=== PATIENT | male | born 1960 | race Caucasian/White ===

== ENCOUNTER 2017-02-17 22:30 | Inpatient (IN) | payer SELFPAY ==
[~2017-02-17 22:30] MED LIST: EPINEPHrine 1 MG/10 ML Abboject SYRINGE ONE; ISOVUE-370 76%-LOCM 1 ML ONE
[2017-02-17 22:56] LABS: PTT 27.1 SEC (22.9-36.1); Prothrombin Time 14.3 SEC (12.0-14.7)
--- NOTE | 2017-02-17 22:56 | CT ---
EXAM: NONCONTRAST HEAD CT 02/17/17 HISTORY: Left facial droop. Slurred speech. Unable to move the left side. COMPARISON: None. TECHNIQUE: Noncontrast head CT is performed from the skull base to skull vertex. FINDINGS: No parenchymal hemorrhage. No extra-axial hematoma. No midline shift. Basilar cisterns are patent. B rain volume, age appropriate. Cortical mares-white matter differentiation is preserved. Ventricles and sulci are patent and symmetric. The calvarium is intact. Adequate aeration of the sinuses and mastoid air cells. Atherosclerosis of the carotid arteries is noted. IMPRESSION: No acute intracranial process. Results of the study discussed with Dr. Porter, 02/17/17 at 10:38 p.m. Code CR POS: MICHELL
[2017-02-17 23:00] LABS: Hematocrit 43.9 % (42.0-52.0); Mean Platelet Volume 8.5 fL (7.4-10.4); Red Blood Cell (RBC) Count 4.52 mill/uL (4.70-6.10); White Blood Cell (WBC) Count 31.7 thou/uL (4.8-10.8)
[2017-02-17 23:03] LABS: ALT (SGPT) 22 U/L (8-55); AST (SGOT) 16 U/L (5-34); Alkaline Phosphatase 50 U/L (40-150); Anion Gap 21 mmol/L (10-20); BUN (Urea Nitrogen) 27 mg/dL (8.4-25.7); Bilirubin, Total 1.6 mg/dL (0.2-1.2); Calc. Creatinine Clearance 0 mL/min (70-130); Calcium 8.7 mg/dL (7.8-10.44); Carbon Dioxide 18 mmol/L (22-29); Chloride 98 mmol/L (98-107); Estimated GFR-MDRD 21; Globulin 5.7 g/dL (2.4-3.5); Protein, Total 9.1 g/dL (6.0-8.3)
[2017-02-17 23:07] LABS: Troponin I 0.021 ng/mL (< 0.028)
[2017-02-17 23:19] LABS: Band 16 % (5-11); Neutrophil 69 % (42-75)
--- NOTE | 2017-02-17 23:34 | CT ---
EXAM: CT ANGIOGRAM OF THE HEAD CT ANGIOGRAM OF THE NECK CT PERFUSION 02/17/17 HISTORY: Left sided weakness, inability to move. Slurred speech. Facial droop. COMPARISON: None. TECHNIQUE: CT angiogram of the head and neck were performed in the axial plane. Three dimensional reformatted i mages are submitted for interpretation. CT perfusion imaging is performed. FINDINGS: There is loss of mares-white matter differentiation of the right temporal lobe compatible with an MCA distribution infarction. Bilateral ocular lenses are appropriately located. Both globes are intact. The aerodigestive tract is patent. No mucosal abnormality. No obvious masses in the oral cavity. Sym metric attenuation of the parotid and submandibular glands. Symmetric attenuation of the sternocleid omastoid muscles. Thyroid gland is unremarkable. No evidence of lymphadenopathy by size criteria. Ce rvical spine vertebral body height is maintained. There is no fracture. No malalignment. There are v arying degrees of central canal stenosis and foraminal narrowing on the basis of degenerative change . Upper mediastinum is unremarkable. There is fluid in the upper thoracic esophagus. There is also opa cification of the right upper lobe which may be due to pneumonia or aspiration. CT ANGIOGRAM: Limited evaluation of the arterial structures due to suboptimal timing of contrast bolus. The visual ized aortic arch is unremarkable. RIGHT CAROTID: The right carotid artery origin appears to be unremarkable. The right common carotid artery, carotid bifurcation, and internal carotid artery do not demonstrate any significant narrowing by NASCET cri teria. There is mild short segment stenosis involving the mid right internal carotid artery. LEFT CAROTID: The origin of the left carotid artery has appropriate enhancement and luminal diameter. There is sloan cified plaque in the left carotid bifurcation and proximal internal carotid artery. There is short s egment moderate stenosis involving the proximal left internal carotid artery, based upon NASCET crit eria. Limited evaluation of the origin of both vertebral arteries. Limited evaluation of the cervical vert ebral arteries due to timing of contrast bolus. CT ANGIOGRAM OF THE HEAD: There is significantly decreased enhancement involving the right cavernous segment of the internal c arotid artery. There is atherosclerosis of both cavernous segments. ANTERIOR CIRCULATION: There is symmetric enhancement of the A1 segment. The left M1 segment has appropriate enhancement. T he right M1 segment has abrupt termination due to thrombus. The overall distribution of the right MC A is less than the contralateral side. Limited evaluation of both PICA artery origins. Basilar artery appears to be patent. The left and ri ght P1 segments are unremarkable. CT PERFUSION: Images could not be generalized due to patient motion. IMPRESSION: 1. Right MCA distribution infarct. There is abrupt termination of contrast opacifying the right M1 segment. 2. Moderate stenosis based upon NASCET criteria involving the proximal left internal carotid ar tisha. Evaluation limited by technique. 3. Short segment mild stenosis involving the mid right internal carotid artery, also limited by timing of bolus. 4. Opacification of right upper lobe, possibly due to aspiration. 5. Fluid attenuation of the thoracic esophagus. 6. Perfusion imaging was not able to be generated due to patient motion. Results of the study discussed with Dr. Porter, 02/17/17 at 1:42 p.m. Code CR POS: DONNIE
[2017-02-17] MEDS ORDERED: Lorazepam 2 MG/ML VIAL ONE (23:56)
[2017-02-18 00:25] LABS: Amphetamine Not Detected (NotDetected); Methadone Not Detected (NotDetected); Methamphetamine Not Detected (NotDetected)
[2017-02-18 01:05] LABS: Bilirubin Negative (Negative); Blood, Urine Small (Negative); Glucose, Urine (Dipstick) Negative (Negative); Ketone, Urine Negative (Negative); Nitrite Negative (Negative); Protein, Urine (Dipstick) 100 mg/dL (Neg-Trace); Urobilinogen 0.2 mg/dL (0.2-1.0)
[2017-02-18 01:08] LABS: Bacteria/HPF 1+ HPF (None Seen); RBC/HPF 0-3 HPF (0-3); Squamous Epithelial 0-3 HPF (0-3); WBC/HPF 21-50 HPF (0-3)
[2017-02-18 01:09] LABS: Oxyhemoglobin 92.5 % (94.0-97.0); Sodium 140 mmol/L (135-148)
[2017-02-18 01:15] LABS: Hyaline Casts/LPF NONE SEEN LPF (0-3 Hyaline)
[2017-02-18 01:22] LABS: Lactic Acid - Sepsis 6.4 mmol/L (0.5-2.2)
[2017-02-18] MEDS ORDERED: Ondansetron ODT 4 MG TAB PO PRN (01:34)
[2017-02-18] MEDS ORDERED: Ondansetron HCl/PF 4 MG/2 ML Vial IVP PRN (01:34)
[2017-02-18] MEDS ORDERED: CCU Electrolyte Replacement 1 EACH FS SCH (01:37)
[2017-02-18] MEDS ORDERED: Ventilator Sedation Protocol 1 EACH FS SCH (01:37)
[2017-02-18] MEDS ORDERED: DISCONTINUE PREVIOUS NARCOTIC PAIN MEDICATIONS AND BENZODIAZEPINES FS SCH (01:45)
[2017-02-18] MEDS ORDERED: Lorazepam 2 MG/ML VIAL SLOW IVP PRN (01:45)
[2017-02-18] MEDS ORDERED: Fentanyl 20 MCG/ML 250 ML IVPB SCH (01:45)
[2017-02-18] MEDS ORDERED: Propofol 1,000 MG/100 ML VIAL IV PRN (01:45)
[2017-02-18] MEDS ORDERED: Potassium Chloride 40 MEQ in Premix Bag 1 BAG IVPB PRN (01:56)
[2017-02-18] MEDS ORDERED: CCU ELECTROLYTE REPLACEMENT PROTOCOL FS PRN (01:56)
[2017-02-18] MEDS ORDERED: Magnesium Oxide 400 MG TAB PO PRN (01:56)
[2017-02-18] MEDS ORDERED: Potassium Phosphate 9 MMOL in Sodium Chloride 0.9% 100 ML IVPB PRN (01:56)
[2017-02-18] MEDS ORDERED: Potassium Phosphate 12 MMOL in Sodium Chloride 0.9% 250 ML 250 ML IV PRN (01:56)
[2017-02-18] MEDS ORDERED: Potassium Chloride 20 MEQ TAB PO PRN (01:56)
[2017-02-18] MEDS ORDERED: Potassium Phosphate 15 MMOL in Sodium Chloride 0.9% 250 ML 250 ML IV PRN (01:56)
[2017-02-18] MEDS ORDERED: ZOSYN IVPB PRN (02:08)
[2017-02-18] MEDS ORDERED: VANCOMYCIN IVPB PRN (02:08)
[2017-02-18] MEDS: Piperacillin/Tazobactam 4.5 GM in Sodium Chloride 0.9% 100 ML IVPB SCH ×2 (02:41→21:24)
[2017-02-18] MEDS: Sodium Chloride 0.9% 1,000 ML IV SCH ×3 (02:41→18:30)
[2017-02-18 02:43] LABS: Mechanical Tidal Volume 500 ml; Modified Allen's Test POSITIVE; Pressure Support 10 cmH2O; Vent YES
[2017-02-18 02:44] LABS: Mode SIMV
[2017-02-18 03:24] LABS: Lactic Acid - Sepsis 6.8 mmol/L (0.5-2.2)
[2017-02-18 03:25] LABS: Prothrombin Time 29.1 SEC (12.0-14.7)
[2017-02-18 03:26] LABS: PTT 52.4 SEC (22.9-36.1)
[2017-02-18] MEDS ORDERED: Vancomycin HCl 1 GM in Premix Bag 1 BAG IVPB SCH ×2 (03:30→04:00)
[2017-02-18 03:38] LABS: ALT (SGPT) 20 U/L (8-55); AST (SGOT) 21 U/L (5-34); Alkaline Phosphatase 51 U/L (40-150); Anion Gap 20 mmol/L (10-20); BUN (Urea Nitrogen) 29 mg/dL (8.4-25.7); Bilirubin, Total 0.9 mg/dL (0.2-1.2); Calc. Creatinine Clearance 46 mL/min (70-130); Calcium 7.3 mg/dL (7.8-10.44); Carbon Dioxide 13 mmol/L (22-29); Chloride 106 mmol/L (98-107); Estimated GFR-MDRD 29; Globulin 5.2 g/dL (2.4-3.5); Protein, Total 8.1 g/dL (6.0-8.3)
[2017-02-18 03:47] LABS: Troponin I 0.385 ng/mL (< 0.028)
[2017-02-18 04:09] LABS: Hematocrit 57.2 % (42.0-52.0); Mean Platelet Volume 8.4 fL (7.4-10.4); Red Blood Cell (RBC) Count 5.82 mill/uL (4.70-6.10)
[2017-02-18 04:19] LABS: Bilirubin Negative (Negative); Blood, Urine Moderate (Negative); Glucose, Urine (Dipstick) Negative (Negative); Ketone, Urine Negative (Negative); Nitrite Negative (Negative); Protein, Urine (Dipstick) 100 mg/dL (Neg-Trace)
[2017-02-18 04:23] LABS: Bacteria/HPF None Seen HPF (None Seen); Hyaline Casts/LPF 0-3 HYALINE CAST LPF (0-3 Hyaline); Squamous Epithelial 0-3 HPF (0-3)
[2017-02-18 04:31] LABS: Band 24 % (5-11); Neutrophil 66 % (42-75)
[2017-02-18] MEDS: Vancomycin HCl 1.25 GM in Sodium Chloride 0.9% 250 ML 250 ML IVPB SCH (04:40)
[2017-02-18] MEDS ORDERED: Norepinephrine 8 MG/250 ML BAG IVPB PRN (05:54)
--- NOTE | 2017-02-18 07:14 | CT ---
NONCONTRAST HEAD CT: COMPARISON: 02/17/17 at 10:35 p.m., 02/17/17 at 10:42 p.m. HISTORY: Stroke. Left-sided weakness. Right MCA distribution infarction. Status post agitation and altered mentation after giving TPA. TECHNIQUE: Noncontrast head CT is performed from the skull base to the skull vertex. FINDINGS: There is residual contrast noted in the intracranial arterial system. There is loss of mares-white m atter differentiation with minimal sulcal effacement involving the right temporal lobe, compatible w ith patient's known right MCA distribution infarction. When compared to the recent noncontrast imag es, there is some progression of loss of mares-white matter differentiation in the right subinsular c ortex. There is no significant midline shift. Basilar cisterns are patent. There is no evidence o f acute parenchymal hemorrhage. IMPRESSION: 1. Slight progression of ischemic change/infarction involving the right cerebrum. There is loss of cortical mares-white matter differentiation of the right subinsular cortex as well as the right temp oral lobe. 2. No acute hemorrhage. 3. Results of the study discussed with Dr. Porter 02/18/17 at 12:11 a.m. CODE CR POS: DONNIE
[2017-02-18] MEDS ORDERED: Sodium Chloride 0.9% 1,000 ML IV SCH (07:30)
--- NOTE | 2017-02-18 08:13 | CT ---
PRELIMINARY REPORT/[facility]/EMERGENCY AFTER HOURS PROCEDURE: EXAM: CT Abdomen and Pelvis Without Intravenous Contrast CLINICAL HISTORY: 56 years old, male; Signs and symptoms; Bloating; Patient HX: R/O internal bleeding TECHNIQUE: Axial computed tomography images of the abdomen and pelvis without intravenous contrast. Coronal reformatted images were created and reviewed. COMPARISON: No relevant prior studies available. FINDINGS: Artifacts: Evaluation of the abdomen is limited due to streak artifacts. Lower thorax: Mild atelectasis is seen in both lung bases. Coronary artery calcifications are noted. A small hiatal hernia is seen. ABDOMEN: Liver: Unremarkable. Gallbladder and bile ducts: Moderate wall thickening involving the fundus of the gallbladder likely represents adenomyomatosis. No calcified stones. No ductal dilation. Pancreas: Unremarkable. No ductal dilation. Spleen: Unremarkable. No splenomegaly. Adrenals: Unremarkable. No mass. Kidneys and ureters: Mild wedge-shaped hypodensities in both kidneys likely represent infection. No obstructing stones. No hydronephrosis. Stomach and bowel: Mild diverticulosis affects the sigmoid and descending colon. Mild wall thickenin g surrounding the junction of the sigmoid and descending colon, descending colon and cecum likely re presents mild colitis. No evidence of perforation or abscess. No obstruction. Appendix: No findings to suggest acute appendicitis. PELVIS: Bladder: Unremarkable. No stones. Reproductive: Unremarkable as visualized. ABDOMEN and PELVIS: Intraperitoneal space: No evidence of free air in the abdomen. No significant fluid collection. Bones/joints: Moderate degenerative changes affect the spine. Old left-sided rib fractures are seen. No dislocation. Soft tissues: Bilateral small fat containing inguinal hernias are seen. Vasculature: Mild atherosclerotic calcifications affect the aorta and its branches. Several phleboli ths are noted in the pelvis. No abdominal aortic aneurysm. Lymph nodes: Unremarkable. No enlarged lymph nodes. IMPRESSION: 1. Mild wedge-shaped hypodensities in both kidneys likely represent infection. Differential diagnosi s includes infarction, lymphoma. Urine analysis can be obtained for further evaluation. 2. Mild diverticulosis affects the sigmoid and descending colon. Mild wall thickening surrounding th e junction of the sigmoid and descending colon, descending colon and cecum likely represents mild co litis. No evidence of perforation or abscess. 2. Moderate wall thickening involving the fundus of the gallbladder likely represents adenomyomatosi s. An MRI can be obtained for confirmation. Thank you for allowing us to participate in the care of your patient. Dictated and Authenticated by: More, Katherine, MD 02/18/2017 12:57 AM Central Time ([place] \T\ [place]) FINAL REPORT ABDOMEN AND PELVIC CT SCAN WITH IV CONTRAST: EMERGENT AFTER HOURS EXAMINATION TIME: 12:11 a.m. DATE: 02/18/17. Severe motion artifact lowers the sensitivity of this study. Scattered hypodensities in both kidney s most likely representing pyelonephritis. Sigmoid colon diverticulosis without evidence for acute diverticulitis. Wall thickening of the fundus of the gallbladder most likely represents adenomyomat osis. Other findings as above. POS: DONNIE
[2017-02-18] MEDS ORDERED: Vancomycin HCl 1 GM in Sodium Chloride 0.9% 250 ML 250 ML IVPB SCH (09:00)
[2017-02-18] MEDS: Enoxaparin Sodium 30 MG/0.3 ML SYRINGE SC SCH (09:00)
[2017-02-18 09:17] LABS: Hemoglobin A1c 5.2 % (4.0-6.0)
--- NOTE | 2017-02-18 09:39 | RAD ---
SEMIUPRIGHT PORTABLE CHEST 1 VIEW: HISTORY: A 56-year-old male with right upper lobe pneumonia followup. COMPARISON: 02/18/17. FINDINGS: NG tube and endotracheal tubes in position. Monitor leads overlie the chest. Persistent overall st able abnormal alveolar opacity over the right mid lung zone. Blunting of the left costophrenic angl e. IMPRESSION: Stable right mid lung zone pneumonia. Left costophrenic angle blunting, probably small left pleural effusion. POS: [facility]
[2017-02-18 09:52] LABS: Troponin I 0.527 ng/mL (< 0.028)
[2017-02-18] MEDS ORDERED: Lorazepam 1 MG TAB PO SCH (10:00)
--- NOTE | 2017-02-18 10:22 | RAD ---
PORTABLE SUPINE CHEST 1 VIEW: HISTORY: A 56-year-old male with slurred speech. Patient on blood thinners. Cough for 1 week. FINDINGS: Endotracheal tube is in satisfactory location. There is alveolar opacity in the right mid lung zone , evidence for right mid lung zone pneumonia. The left lung is clear. Heart size is within normal limits. IMPRESSION: Abnormal dense opacity in the right mid lung zone. Evidence for pneumonia. Continue short-term fol lowup for complete clearing. If this does not clear after several weeks of medial management, a fol lowup CT scan at that point should be considered. Endotracheal tube in satisfactory location. POS: [facility]
--- NOTE | 2017-02-18 10:23 | RAD ---
CHEST 1 VIEW PORTABLE: HISTORY: A 56-year-old male with cough and symptoms of stroke. COMPARISON: 07/25/13. FINDINGS: An NG tube has been placed with the tip extending into the stomach. Stable right mid lung zone opac ity. IMPRESSION: Nasogastric tube placed with the tip extending into the stomach. POS: MICHELL
--- NOTE | 2017-02-18 10:39 | HP-2 ---
CODE STATUS: FULL. PRIMARY CARE PHYSICIAN: None. ATTENDING: Kip Landa M.D. RESIDENT: Vicki Scott M.D. HISTORIAN: Ex- and neighbor. CHIEF COMPLAINT: Left-sided weakness. HISTORY OF PRESENT ILLNESS: This is a 56-year-old male with past medical history of hypertension, diverticulitis and a past history of substance abuse who presented to the ED because around 8 p.m. his ex- started noticing changes in him. He was sweating a lot and then started getting to where he can move his left arm, left leg and had facial droop. He also started having slurred speech. The patient was able to move his left arm and leg more by the time we were evaluating him in the ED after receiving tPA. In the ER, he was given tPA 4 liters normal saline, rocuronium 100 mg, ketamine 100 mg, epinephrine 1 mg, and Ativan 1 mg. PAST MEDICAL HISTORY: Diverticulitis and hypertension. PAST SURGICAL HISTORY: Tonsillectomy. ALLERGIES: No known drug allergies. MEDICATIONS: 1. Lisinopril 20 mg. 2. Symbicort p.r.n. 3. Ibuprofen 800 mg t.i.d. 4. Cyclobenzaprine 10 mg at bedtime. FAMILY HISTORY: Unable to obtain due to the patient's altered mentation. SOCIAL HISTORY: Per the ER report, smokes 1 pack a day for 30 years and drinks alcohol socially and has a past history of cocaine abuse. REVIEW OF SYSTEMS: Unable to obtain due to the patient's altered mentation. PHYSICAL EXAMINATION: GENERAL: The patient was in acute distress. He was alert, but not appropriately interactive, not oriented. His eye has had pinpoint pupils. Extraocular muscles were non-intact with inability to move. His gaze to the left. Conjunctivae within normal limits. ENT: Nasal mucosa and oropharynx within normal limits. NECK: Supple, no lymphadenopathy. CARDIOVASCULAR: Tachycardic. No murmur, no gallops. Radial pulses 1+. No pedal pulses. RESPIRATORY: Normal effort, no retractions, clear to auscultation bilaterally. SKIN: Mottled skin, lipoma on the back. ABDOMEN: Distended. Positive for guarding and rebound. Tender to palpation. Normoactive bowel sounds. EXTREMITIES: Mottled skin, cyanosis in the feet. No edema. MUSCULOSKELETAL: Structure and tone within normal limits. A 4/5 muscle strength on the left, 5/5 on the right. NEUROLOGIC: Focal deficits with decreased motor strength. Sensation was within normal limits. Deep tendon reflexes 2/4. Cranial nerve and VII on the left were not intact. LABORATORY DATA: WBC 31.7, hemoglobin 14.9, hematocrit 43.9, platelets 259, and bands 16%. Sodium 134, potassium 3.3, chloride 98, CO2 18, BUN 27, creatinine 3.05, GFR 21, glucose 193, calcium 8.7, total bilirubin 1.6, AST 16, ALT 22, alkaline phosphatase 50. PT 14.3, INR 1.1, PTT 27.1. Ammonia 13. Lactate 6.4, troponin 0.021, CK-MB 1.4. UDS positive for opiates and tricyclics. IMAGING: Brain CT showed no acute intracranial process. CTA head and neck showed right MCA infarct. ASSESSMENT AND PLAN: This is a 56-year-old male who presents with: 1. Acute right middle cerebral artery cerebrovascular accident. The patient received tPA in the ED and then became hypotensive, requiring 4 liters normal saline. There was concern for bleeds. CT abdomen, pelvis and head were done which showed no acute bleed. We will consult neuro in the morning. Once patient is extubated, we will consult speech, PT, OT and Stroke Team. I will get an echo, fasting lipid panel, MRI. We will start on aspirin and statin prior to discharge. 2. Severe sepsis. The patient was hypotensive, requiring 4 liter boluses, was responsive to fluids. White count of 31.7 and lactate of 6.4. Chest x-ray showed right upper lobe infiltrate, suspected aspiration pneumonia. Patient was altered and unable to protect his airway, requiring intubation. We will admit to ICU. Blood cultures x2, urine culture NS at 200, vancomycin, Zosyn, repeat lactate. Consult Pulmonology. Keep patient on ventilator overnight. 3. Right upper lobe pneumonia, suspect aspiration, vancomycin, Zosyn, and blood cultures. 4. Hyponatremia. NS at 200 mL per hour. We will monitor. 5. Hypokalemia. Potassium is 3.3. We will replete with CCU or electrolyte replacement protocol. 6. Acute kidney injury likely secondary to severe sepsis status post 4 liter boluses and we will give NS at 200 mL per hour and we will monitor. 7. Elevated total bilirubin could be secondary to sepsis. We will check a direct bilirubin. 8. History of substance abuse. The patient is sedated on ventilator. We will monitor. 9. Hypertension, not currently requiring meds as patient has been hypotensive. We will resume home medications once patient is no longer hypotensive. 10. VTE prophylaxis status post tPA. DISPOSITION: Admit to ICU. Symptomatic medications will be provided. History and physical exam as well as management discussed with Dr. Landa. Patient was seen by me along with Dr. Scott. I agree with sidhu portions of note above. Patient was intubated and sedated at the time of the examination. A handwritten addendum is in his chart. INDU
--- NOTE | 2017-02-18 11:14 | CON ---
DATE OF SERVICE: 02/18/2017 SERVICE: Pulmonary Medicine. HISTORY OF PRESENT ILLNESS: The patient is a 56-year-old white male with past medical history significant for alcohol abuse. He presented to the hospital with what was suspected to be altered mentation secondary to a stroke. CT of the head was performed demonstrating no blood. He was subsequently given tPA. In the observation period, he became hypotensive. Sepsis workup was undertaken and right mid lung zone pneumonia was identified. He was subsequently intubated and sedated after 3 liters of fluid. Ultimately, he required 4 liters of fluid to maintain blood pressures. He was transiently started on Levophed peripherally, but after discontinuing the propofol the next morning, his blood pressures were quite nice. He had no overnight events. Otherwise, he cannot provide any additional elements of the history because he is currently sedated and intubated. PAST MEDICAL HISTORY: 1. Alcohol abuse. 2. Nicotine dependence. 3. Osteoarthritis. 4. Hypertension. 5. Abdominal hernia. PAST SURGICAL HISTORY: Tonsillectomy. ALLERGIES: No known drug allergies. MEDICATIONS: List of inpatient medications was reviewed. Multiple updates were made. FAMILY HISTORY: Noncontributory. SOCIAL HISTORY: He has a [id number] history of smoking and continues to smoke roughly 1 pack per day. He is an everyday drinker and uses about a fifth of alcohol on a daily basis based on what I was told. He has cocaine abuse, but quit 2 or 3 years ago. 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 He has a girlfriend with 6 children from a previous marriage. He denies any exposure to chemicals, dust asbestos or tuberculosis outside of his welding career. REVIEW OF SYSTEMS: General, head, ears, eyes, nose, throat, cardiovascular, respiratory, GI, , musculoskeletal, neurologic and skin is negative except as mentioned in the HPI. PHYSICAL EXAMINATION: VITAL SIGNS: Afebrile, pulse 93, blood pressure 92/45, respirations 25, saturation 99% on 21% FiO2 and PEEP of 5. GENERAL APPEARANCE: The patient is intubated and sedated. He does wake up and answer some simple questions. He drips back to sleep within 10 seconds without stimulation. HEENT: Normocephalic, atraumatic. Sclerae are white, conjunctivae pink. Oral and nasal mucosa is moist without lesions. Pupils are equal, round, and reactive to light. LUNGS: Excellent air entry. There is no prolonged expiratory phase, wheezing, rhonchi or crackles. HEART: Normal rate and regular. ABDOMEN: Soft, nontender, nondistended. Bowel sounds are positive. MUSCULOSKELETAL: No cyanosis or clubbing. No pitting in the bilateral lower extremities. NEUROLOGIC: Grossly nonfocal. Specifically, he moves all 4 extremities and demonstrates fairly symmetric strength throughout. LABORATORY DATA: WBC 44.0, hemoglobin 18.9, platelets 335,000. INR 2.6, pH 7.13 , pCO2 47, and pO2 95. Sodium 134. Creatinine 2.31, which is well above his baseline, but down trending. Liver function studies are unremarkable. Cardiac enzymes 0.385. This is trending upward. Lactate 5.4, but decreasing. Urine drug screen is positive for opiates and tricyclic antidepressants. IMAGIN. Chest x-ray demonstrates right mid lung zone infiltrate. Possible small left pleural effusion. 2. CT of the abdomen and pelvis demonstrates multiple wedge shaped lesions of the bilateral kidneys. 3. CT of the brain demonstrates ischemic change/infarction involving the right cerebrum. Loss of cortical mares and white matter differentiation in the right subinsular cortex as well as the right temporal lobe. No acute hemorrhage. 4. CTA of the [place] without contrast demonstrates MCA distribution infarction overlying the M1 segment. There is moderate stenosis based on criteria of the proximal left internal carotid artery. Short segment of mild stenosis involving the mid right internal carotid artery. Opacification of the right upper lobe due to aspiration. Fluid attenuation of the esophagus. Perfusion imaging was not generated. ASSESSMENT: 1. Acute hypoxic respiratory failure, improving. 2. Community-acquired pneumonia. 3. Septic shock, resolving. 4. Possible renal infarctions. 5. Cerebrovascular, multifocal. 6. Endocarditis, possible. 7. Acute kidney injury, resolving. 8. Non-ST elevation myocardial infarction. PLAN: We will proceed with transthoracic echocardiogram. If this is unremarkable, a transesophageal echo will be obtained once the patient is stable. Spontaneous breathing trial will be performed and if he meets criteria , extubation will be considered. Continue supportive care and empiric antibiotics. Repeat lactate in the morning. Critical Care will continue to follow while the patient remains inhouse. He will certainly need to remain here because he got tPA. Critical care time: 30 minutes. MTDD
[2017-02-18] MEDS ORDERED: Piperacillin/Tazobactam 4.5 GM in Sodium Chloride 0.9% 100 ML IVPB SCH (15:00)
[2017-02-18 15:29] LABS: Troponin I 0.458 ng/mL (< 0.028)
[2017-02-18] MEDS: Lorazepam 2 MG/ML VIAL SLOW IVP SCH ×2 (17:37→23:37)
[2017-02-18] MEDS: Piperacillin/Tazobactam 3.375 GM, Admixture Fee 1 EACH in Sodium Chloride 0.9% 100 ML IVPB SCH ×2 (17:40→23:37)
--- NOTE | 2017-02-18 18:48 | CON ---
DATE OF CONSULTATION: 02/18/2017 CONSULTING PHYSICIAN: Hospitalist Service. IMPRESSION: 1. Right middle cerebral artery thrombosis with improving left-sided weakness. There is prodromal infectious process, raising the concern for subacute bacterial endocarditis. Patient is status post tPA. 2. Tobacco use. 3. Alcohol use. PLAN: 1. Start antiplatelet therapy tomorrow. 2. Transesophageal echo. 3. Review blood cultures. Mr. Vences is a 56-year-old man who came in with acute onset of left-sided weakness. He had had a pro dromal fever and it is in a way thought to be a viral illness. He has a markedly elevated white cou nt on admission. He was given tPA after CTA revealed evidence of M1 segment occlusion. There is so me partial occlusion of the left ICA as well. His symptoms have improved. He was initially intubat ed, but now has been extubated. He has been started on Ativan for fear of withdrawal from alcohol. He admits to drinking around a fifth of liquor a day episodically. He denies any past history of D Ts. He had an echocardiogram done which was reviewed by Dr. Reardon, there are no evidence of vegetati ons on the valves reported. His creatinine was noted to be elevated at 2.5 suggesting evidence of a n acute renal injury as well. He is reporting some degree of headache, but no nausea or vomiting. He denies any past history of stroke like symptoms. PAST MEDICAL HISTORY: Otherwise as per chart. SOCIAL HISTORY: Positive for some history of cocaine use. FAMILY HISTORY: Noncontributory. MEDICATIONS: List was reviewed. REVIEW OF SYSTEMS: Otherwise, negative for any abdominal pain, shortness of breath and pain in the extremities. He did have some chest pain and some transient bump in his troponins. PHYSICAL EXAMINATION: VITAL SIGNS: Pulse 106, blood pressure 115/78, saturation 100%. Respiratory rate 25. HEENT: Pupils equal and reactive. Conjunctivae clear. Oropharynx clear. EXTREMITIES: No cyanosis or edema noted. NEUROLOGIC: He is alert and cooperative. His speech was moderately dysarthric. Cranial nerve exam shows flattening of the left nasal labial fold. Motor exam showed antigravity strength on the left side, though there is some mild weakness present, especially in the hand. Sensation was subjective ly equal. Gait was not testable. No abnormal movements were seen. LABORATORY STUDIES: EKG shows normal sinus rhythm. Echocardiogram shows an ejection fraction around 60%. White blood cell count was 44,000, hemoglobin 18.9, platelet count 339. INR 2.6, BUN 29, creatinine 2.3, glucose 192. Drug screen is positive for opiates and tricyclics. SUMMARY: Middle-aged man who presented with acute stroke symptoms in the face of an elevated white count and suggestive evidence of sepsis raising concern of subacute bacterial endocarditis. I can a gree with your plan of care. I will follow in his care.
--- NOTE | 2017-02-18 20:13 | CON ---
CARDIOLOGY CONSULTATION NOTE DATE OF CONSULTATION: 02/18/2017 The patient is being seen in the Intensive Care Unit. INDICATION FOR CONSULTATION: A 56-year-old patient who suffered a right middle cerebral artery and CVA was given TPA. He also was noted to have some possible right upper lobe pneumonia with acute re nal insufficiency. There was a question of whether or not the patient may also have sepsis and endo carditis. We were asked to see him regarding possible endocarditis. This time, the patient is at [place] awake at times. He seems to be somewhat sedated, but may be still somewhat confused, but will arouse and will answers some questions, but difficult to obtain all the H\T\P from the patient. At this time, he is comfortable and appears to be stable. Blood pressure is 147/74 and heart rate is 1 06 and shows a sinus tachycardia. PAST MEDICAL HISTORY: Significant for diverticulitis, hypertension and substance abuse. He has had history of cocaine abuse in the past. He has had tonsillectomy. SOCIAL HISTORY: He smoked in the past and continues to smoke a pack a day for 30 years. According to some history from the staff, he drinks up to a fifth of whiskey a day. FAMILY HISTORY: Noncontributory. MEDICATIONS: Included lisinopril, Symbicort, ibuprofen and cyclobenzaprine. ALLERGIES: None. REVIEW OF SYSTEMS: Please refer to the notes already dictated. PHYSICAL EXAMINATION: GENERAL: Reveals an elderly gentleman. VITAL SIGNS: Blood pressure 90/45, heart rate is 92 and regular, O2 saturation 99% and respiratory rate is 25. HEENT: Shows the head to be normocephalic and atraumatic. Carotid pulses are present. There are n o bruits. There is no JVD. Thyroid does not appear enlarged. His chest appears to be clear except for some scattered rales. No significant abnormalities, otherwise no wheezing is noted. The patie nt appears to be breathing comfortably. CARDIOVASCULAR: Reveals a regular rate and rhythm with normal S1, S2. There were no significant mu rmurs, heaves, thrills, bruits or rubs noted. ABDOMEN: Soft and nontender. Positive bowel sounds. EXTREMITIES: Showed no clubbing or cyanosis. He does have somewhat cool extremities. Pedal pulses are present, but somewhat decreased. NEUROLOGIC: The patient appears to be somewhat lethargic, but is arousable and then to returns to [facility]. LABORATORY DATA: Certainly has significant abnormalities. The WBC is 44,000, platelet count 335,00 0, hemoglobin was 18.9 and hematocrit was 57.2. His creatinine is 2.3 with a BUN of 29, blood sugar 192, potassium 4.6 and sodium is 134. Lactic acid level is 4.9. His troponin I was slightly eleva beverly and is still indeterminate. Actually, at first visit, it was 0.38 and then increased 0.52 and h as decreased down to 0.45. LDL was 73. He said he has had no previous cardiac history. IMAGING DATA: EKG shows a normal sinus rhythm with no acute changes. His chest x-ray shows a right middle lobe pneumonia with possibly a small left pleural effusion. He did have an echocardiogram p erformed, which shows a normal ejection fraction of 60% to 65% with mild tricuspid valve regurgitati on, trace mitral valve regurgitation, probable diastolic dysfunction. I did not visualize any evide nce of endocarditis or vegetations in the valvular structures. IMPRESSION AND PLAN: 1. A 56-year-old gentleman with a status post cerebrovascular accident due to a right middle cerebr al artery occlusion for which he underwent TPA and thrombolytic therapy. He is being monitored very closely by the staff. 2. Question of sepsis with elevated white blood cell count, but no indication of endocarditis that I can determine, if this is still in question, then he will need to undergo a transesophageal echoca rdiogram, also blood cultures, I believe had been obtained. 3. Hypertension. As in the history, but at this time, the blood pressure is stable. 4. Hyponatremia and hypokalemia. Needs to be addressed also by the primary care service. 5. Acute renal insufficiency, which may be due to possible underlying sepsis either from pneumonia or other etiologies, but I did not see endocarditis. At this time, we will be more than happy to co osmel to follow the patient with you, but at this time, the cardiac status appears to be stable. 6. Abnormal cardiac enzymes, most likely this is due to the elevated white blood cell count and pos sible sepsis that the patient is suffering at this time. 7. History of tobacco abuse. Patient should be advised to stop smoking altogether. 8. History of alcohol abuse. He will need also to curtail his alcohol intake.
[2017-02-18] MEDS: Atorvastatin Calcium 40 MG TAB PO SCH (20:31)
[2017-02-18] MEDS: Acetaminophen 650 MG Suppository PR PRN (23:36)
[2017-02-19] MEDS: Vancomycin HCl 1.25 GM in Sodium Chloride 0.9% 250 ML 250 ML IVPB SCH ×2 (03:10→16:11)
[2017-02-19] MEDS: Sodium Chloride 0.9% 1,000 ML IV SCH ×3 (03:11→18:26)
[2017-02-19] MEDS: Acetaminophen 650 MG Suppository PR PRN ×2 (03:57→08:31)
[2017-02-19] MEDS ORDERED: Fentanyl 100 MCG/2 ML VIAL SLOW IVP PRN ×2 (03:58→11:30)
[2017-02-19 04:45] LABS: #Lymphocytes 1.1 thou/uL (1.20-3.40); #Monocytes 0.6 thou/uL (0.11-0.59); #Neutrophils 10.9 thou/uL (1.40-6.50); %Basophils 0.1 % (0.0-1.0); %Eosinophils 0.2 % (0.0-10.0); %Lymphocytes 8.7 % (21.0-51.0); %Monocytes 4.9 % (0.0-10.0); Hematocrit 39.3 % (42.0-52.0); Mean Platelet Volume 8.9 fL (7.4-10.4); White Blood Cell (WBC) Count 12.7 thou/uL (4.8-10.8)
[2017-02-19 04:52] LABS: ALT (SGPT) 18 U/L (8-55); AST (SGOT) 23 U/L (5-34); Alkaline Phosphatase 31 U/L (40-150); Anion Gap 13 mmol/L (10-20); BUN (Urea Nitrogen) 31 mg/dL (8.4-25.7); Bilirubin, Total 0.7 mg/dL (0.2-1.2); Calc. Creatinine Clearance 85 mL/min (70-130); Calcium 7.5 mg/dL (7.8-10.44); Carbon Dioxide 22 mmol/L (22-29); Chloride 111 mmol/L (98-107); Estimated GFR-MDRD 59; Globulin 4.4 g/dL (2.4-3.5); Protein, Total 7.3 g/dL (6.0-8.3)
[2017-02-19] MEDS: Piperacillin/Tazobactam 3.375 GM, Admixture Fee 1 EACH in Sodium Chloride 0.9% 100 ML IVPB SCH ×4 (05:48→23:29)
[2017-02-19 07:29] LABS: Phosphorus 2.4 mg/dL (2.3-4.7)
--- NOTE | 2017-02-19 07:45 | PDOC.FM ---
- Subjective Subjective: No acute events overnight, VSS w/ mild tachycardia. Seen by Neuro and cards yesterday. Afebrile. Complaining of back pain this AM, improved w/ fentanyl received overnight. Seen by speech w/o passing bedside swallow for any consistency. - Objective MAR Reviewed: Yes Vital Signs & Weight: Vital Signs (12 hours) Temp Pulse Resp Pulse Ox 02/19/17 04:00 98.7 F 02/19/17 00:00 99.0 F 02/18/17 20:00 98.1 F 112 H 25 H 99 Weight Admit Weight 91.798 kg Weight 91.798 kg Most Recent Monitor Data Heart Rate from ECG 103 NIBP 139/87 NIBP BP-Mean 97 Respiration from ECG 21 SpO2 94 I&O: 02/18/17 02/19/17 02/20/17 06:59 06:59 06:59 Intake Total 1018 1555.9 Output Total 1113 2867 Balance -95 -1311.1 Result Diagrams: 02/19/17 03:55 02/19/17 03:55 <Edenilson Butler - Last Filed: 02/19/17 07:44> - Objective Vital Signs & Weight: Vital Signs (12 hours) Temp BP 02/19/17 08:00 98.1 F 149/77 H 02/19/17 04:00 98.7 F 02/19/17 00:00 99.0 F Weight Admit Weight 202 lb 6.08 oz Weight 202 lb 6.08 oz Most Recent Monitor Data Heart Rate from ECG 113 NIBP 149/77 NIBP BP-Mean 100 Respiration from ECG 21 SpO2 95 I&O: 02/18/17 02/19/17 02/20/17 06:59 06:59 06:59 Intake Total 1018 1555.9 Output Total 1113 2867 150 Balance -95 -1311.1 -150 Result Diagrams: 02/19/17 03:55 02/19/17 03:55 <Kip Landa - Last Filed: 02/19/17 10:37> Phys Exam - Physical Examination Constitutional: NAD dysarthria rhonci R-lobe Cardiovascular: RRR Gastrointestinal: soft, non-tender Musculoskeletal: no edema Neurological: moves all 4 limbs 4/5 left upper and lower ext. Skin: cap refill <2 seconds <Edenilson Butler - Last Filed: 02/19/17 07:44> Dx/Plan (1) Septic shock Code(s): A41.9 - SEPSIS, UNSPECIFIED ORGANISM; R65.21 - SEVERE SEPSIS WITH SEPTIC SHOCK Status: Acute Plan: Stable BP overnight off pressors since yesterday AM Good UOP 1.3 mL/Kg/Hr BCx pending UCx NGTD C. diff negative Likely 2/2 aspiration PNA however concern for possible endocarditis 2/2 hx of IVDU w/ significantly elevated white count at presentation Seen by cardiology who states pt stable from a cardiac standpoint Crit care on board as well Appreciate recs Cont. w/ IV abx covering for both aspiration PNA and endocarditis (2) Aspiration pneumonia Code(s): J69.0 - PNEUMONITIS DUE TO INHALATION OF FOOD AND VOMIT Status: Acute Plan: Right middle lobe consolidation in setting if heavy EtOH use concerning for likely aspiration PNA Cont. w/ IV Abx Cx pending, no preliminary results at this time Wean O2 as tolerated (3) Endocarditis Code(s): I38 - ENDOCARDITIS, VALVE UNSPECIFIED Status: Suspected Plan: Possible endocarditis, cont. w/ IV abx Will consider JOAN for further evaluation (4) OLGA (acute kidney injury) Code(s): N17.9 - ACUTE KIDNEY FAILURE, UNSPECIFIED Status: Acute Plan: Resolving Cont. w/ IVF (5) Elevated troponin Code(s): R74.8 - ABNORMAL LEVELS OF OTHER SERUM ENZYMES Status: Acute Plan: Downtrending No EKG changes Likely 2/2 demand, will continue to monitor (6) CVA (cerebral vascular accident) Code(s): I63.9 - CEREBRAL INFARCTION, UNSPECIFIED Status: Acute Plan: R-MCA stroke s/p tPA administration Eval by neuro w/ recs to restart antiplatelet today Pt started on [place] aspirin this AM 2/2 unable to take PO w/ failed swallow study MRI w/o contrast this AM for further evaluation VSS, will consider transfer to stroke pending crit care reccomendations Repeat eval w/ speech today for PO intake Pt will likely need placement in some sort of rehab facility (SNF vs inpatient rehab). Will consult CM. Cont. w/ PT/OT/Speech (7) Back pain Code(s): M54.9 - DORSALGIA, UNSPECIFIED Status: Chronic Plan: Pt mostly complaining of back pain from a fall he has last week Will plan to get out of bed today to aid w/ discomfort Will have PRN meds available <Edenilson Butler - Last Filed: 02/19/17 07:44> Attending Addendum - Attending Addendum I personally evaluated the patient and discussed the management with Dr. Butler I agree with the History, Examination, Assessment and Plan documented above with any addition or exceptions noted below. Patient is doing much better. He is awake and alert. He is moving his LUE and LLE with good strength. His pnuemococcal antigen is positive. We are treating him for pneumonia. His WBC has dropped from 31k to 12k. Overall he is doing better. We can probably move him to the floor today. Echo pending. <Kip Landa - Last Filed: 02/19/17 10:37>
[2017-02-19] MEDS: Enoxaparin Sodium 30 MG/0.3 ML SYRINGE SC SCH (08:29)
[2017-02-19] MEDS: Magnesium 2 GM/NS 0.9% 100 ML 2 GM in Premix Bag 1 BAG IVPB PRN (08:29)
[2017-02-19] MEDS: Lorazepam 2 MG/ML VIAL SLOW IVP SCH ×4 (08:30→23:48)
[2017-02-19] MEDS: Aspirin 300 MG Suppository PR SCH (08:30)
--- NOTE | 2017-02-19 09:27 | PDOC.CTH ---
<Amalia Purvis - Last Filed: 02/19/17 09:21> Cardiology Progress Note - Subjective The pt was seen and examined. No overnight events. No cardiac complaints. He complains of pain in his right back which is chronic and from s/p fall due to CVA. Alerted and able to show where he has pain; however, very drowsy. - Objective Vital Signs Temp BP 02/19/17 08:00 98.1 F 149/77 H 02/19/17 04:00 98.7 F 02/19/17 00:00 99.0 F Admit Weight 202 lb 6.08 oz Weight 202 lb 6.08 oz 02/18/17 02/19/17 02/20/17 06:59 06:59 06:59 Intake Total 1018 1555.9 Output Total 1113 2867 150 Balance -95 -1311.1 -150 - Physical Examination General/Neuro: other: Neck: no JVD present Lungs: CTA Heart: RRR Abdomen: soft Extremities: other: (generalized edema) - Telemetry Telemetry Rhythm: SR and ST 90-100s - Labs Result Diagrams: 02/19/17 03:55 02/19/17 03:55 Troponin/CKMB CK-MB (CK-2) 1.4 ng/mL (0-6.6) 02/17/17 22:38 Troponin I 0.458 ng/mL (< 0.028) H* 02/18/17 14:48 - Assessment/Plan 1. CVA in Rt middl cerebral artery w/ S/P TPA and thrombolytic therapy - very drowsy and NPO at this time 2. Elevated WBC - Improved today; If suspect possible endocarditis, will consider JOAN for further evaluation; cont IV antibiotics 3. HTN - stable; PRN Labetolol IV was ordered 4. Acute Renal failure - 1.26 today from 2.31 yesterday; cont. monitor 5. Elevated troponin - possible demand ischemia; cont. monitor on tele 6. Smoker and ETOH abuse 7. Back pain - hx of Chronic Back pain and s/p fall due to CVA yesterday; Review of Systems - Review of Systems Constitutional: reports: see HPI EENTM: reports: see HPI Respiratory: reports: see HPI Cardiac (ROS): reports: see HPI ABD/GI: reports: see HPI : reports: see HPI Musculoskeletal: reports: see HPI <Nguyễn Reardon Howie - Last Filed: 02/19/17 16:11> Cardiology Progress Note - Objective Vital Signs Temp Pulse Resp BP Pulse Ox 02/19/17 15:06 83 02/19/17 13:10 96 02/19/17 12:00 98.8 F 02/19/17 08:00 98.1 F 100 20 149/77 H 96 Admit Weight 202 lb 6.08 oz Weight 202 lb 6.08 oz 02/18/17 02/19/17 02/20/17 06:59 06:59 06:59 Intake Total 1018 1555.9 Output Total 1113 2867 995 Balance -95 -1311.1 -995 - Labs Result Diagrams: 02/19/17 03:55 02/19/17 03:55 Troponin/CKMB CK-MB (CK-2) 1.4 ng/mL (0-6.6) 02/17/17 22:38 Troponin I 0.458 ng/mL (< 0.028) H* 02/18/17 14:48 - Assessment/Plan Pt. was seen and evaluated by me. I agree with the A/P by the [employer]. Further cardiac workup when the neurologic status is back to some baseline.He is very agitated at times.
[2017-02-19 10:25] LABS: Strp pneuU Control Background? CLEAR/WHITE (CLR/WHITE); Strp pneumo Control Bar Appear YES (CONTROL BAR)
--- NOTE | 2017-02-19 10:29 | MRI ---
MRI OF THE BRAIN WITHOUT CONTRAST: COMPARISON: CT brain 02/18/17. HISTORY: Right-sided stroke status post TPA. TECHNIQUE: Multiplanar, multisequence MR images were obtained of the brain without contrast. FINDINGS: This exam is limited secondary to motion artifact. The patient was unable to complete the examinati on. There is a large area of restricted diffusion and high FLAIR signal in the right MCA distributi on. This involves the basal ganglia, temporal lobe, frontal lobe, and parietal lobe. No significan t midline shift or downward herniation is present. No obvious susceptibility artifact is seen to sánchez ggest intracranial hemorrhage. The expected flow voids are present. The corpus callosum, pituitary, and craniocervical junction ar e unremarkable. The calvarium and overlying soft tissues are unremarkable. The visualized paranasal sinuses and mas toid air cells are well aerated. IMPRESSION: Evolving right middle cerebral artery distribution infarction. POS: [facility]
[2017-02-19] MEDS ORDERED: Magnesium 2 GM/NS 0.9% 50 ML 2 GM in Premix Bag 1 BAG IVPB SCH (12:00)
--- NOTE | 2017-02-19 12:05 | PRG ---
DATE OF SERVICE: 02/19/2017 SERVICE: PULMONARY MEDICINE. INTERVAL HISTORY: The patient is doing fine from a cardiovascular and respiratory standpoint. He c urrently denies any fevers, chills, or difficulty breathing. That being said, he continues to have onset of back discomfort. He is somnolent at best. That being said, he does appear to protect his airway. There were no significant overnight events. PHYSICAL EXAMINATION: VITAL SIGNS: Afebrile, pulse 101, blood pressure 151/71, respirations 21, saturations 99% on 2 lite rs nasal cannula. GENERAL: The patient is somnolent, but he does wake up easily and answers questions appropriately. He is in mild respiratory distress and has some discomfort of the back. HEENT: Normocephalic, atraumatic. Sclerae are white, conjunctivae pink. Oral and nasal mucosa is moist without lesions. LUNGS: Decent air entry with no prolonged expiratory phase, wheezing, rhonchi, or crackles. HEART: Normal rate, regular. ABDOMEN: Soft, nontender, nondistended. Bowel sounds are positive. MUSCULOSKELETAL: No cyanosis or clubbing. No pitting in the bilateral lower extremities. There ar e good pulses at the radial bilaterally as well as the dorsalis. GENITOURINARY: Reid catheter in place. LABORATORY DATA: WBC 12.7, hemoglobin 13.0, platelets 158,000. INR 2.6. Basic metabolic profile i s essentially unremarkable. Creatinine continues to improve to 1.26. Liver function studies are un remarkable. Troponin 0.454 and gently down trending. Lactate has cleared to 2.0. Magnesium was 1. 0 with normal phosphorus today. Urine strep pneumonia is positive. C. difficile antigen and toxin was negative. Blood cultures x2 are unremarkable. Urine culture negative to date. IMAGING: MRI of the brain demonstrates evolving right MCA distribution infarction. ASSESSMENT: 1. Acute hypoxic respiratory failure, improving. 2. Community-acquired pneumonia. 3. Septic shock, resolved. 4. Possible renal infarctions. 5. Cerebrovascular accident of the right middle cerebral artery. 6. Endocarditis, possible. 7. Acute kidney injury, resolved. 8. Non-ST elevation myocardial infarction. PLAN: Thinking about the proximate cause of the stroke and the renal lesions, we would require some thing to break off from the heart. We are waiting on the results of the blood cultures, which are c urrently unremarkable. General supportive care and antibiotics will be continued. I would like for him to remain in the ICU 1 more day and we will work on mobilizing him. Physical therapy will get involved. We will provide him with fentanyl on an as needed basis for his back discomfort. He has absolutely no ability to swallow. If he fails a swallow evaluation again, Dobbhoff tube will be ini tiated and feeds will be started. If he needs it, we can consider Precedex, particularly if he star ts to have withdrawal features. If that is the case, we will discontinue the Ativan. Magnesium has been replaced, but we will provide additional dose. Repeat laboratories will be performed tomorrow morning. He is recovering nicely from his severe infection.
[2017-02-19] MEDS ORDERED: Magnesium 2 GM/NS 0.9% 100 ML 2 GM in Premix Bag 1 BAG IVPB SCH (12:15)
[2017-02-19] MEDS: Fentanyl 100 MCG/2 ML VIAL SLOW IVP PRN ×2 (12:15→23:28)
--- NOTE | 2017-02-19 13:24 | RAD ---
SINGLE VIEW OF THE ABDOMEN: COMPARISON: None. HISTORY: Dobbhoff placement. Right-sided cerebral infarction. FINDINGS: A single view of the upper abdomen shows a Dobbhoff tube with its tip near the pylorus. There is a nonobstructive bowel gas pattern. IMPRESSION: Dobbhoff tube located in the stomach. POS: [facility]
[2017-02-19] MEDS: Ziprasidone 20 MG VIAL IM PRN (13:51)
[2017-02-19] MEDS: Sterile Water 10 ML VIAL FS PRN (13:52)
[2017-02-19] MEDS ORDERED: Folic Acid 1 MG TAB PO SCH (16:15)
[2017-02-19] MEDS ORDERED: MULTIVITAMINS IV SCH ×3 (16:30)
[2017-02-19] MEDS ORDERED: NACL IV SCH ×3 (16:30)
[2017-02-19] MEDS ORDERED: THIAMINE HCL IV SCH ×3 (16:30)
[2017-02-19] MEDS ORDERED: DEXTROSE IV SCH ×3 (16:30)
[2017-02-19] MEDS: Atorvastatin Calcium 40 MG TAB PO SCH (20:01)
[2017-02-19] MEDS: clonazePAM 1 MG TAB PO SCH (20:03)
[2017-02-20] MEDS: Vancomycin HCl 1.25 GM in Sodium Chloride 0.9% 250 ML 250 ML IVPB SCH ×2 (03:26→16:01)
[2017-02-20] MEDS: Piperacillin/Tazobactam 3.375 GM, Admixture Fee 1 EACH in Sodium Chloride 0.9% 100 ML IVPB SCH ×3 (05:02→17:27)
[2017-02-20] MEDS: Lorazepam 2 MG/ML VIAL SLOW IVP SCH ×2 (05:02→12:35)
[2017-02-20 05:03] LABS: ALT (SGPT) 15 U/L (8-55); AST (SGOT) 23 U/L (5-34); Alkaline Phosphatase 57 U/L (40-150); Anion Gap 10 mmol/L (10-20); BUN (Urea Nitrogen) 19 mg/dL (8.4-25.7); Bilirubin, Total 0.6 mg/dL (0.2-1.2); Calc. Creatinine Clearance 114 mL/min (70-130); Calcium 8.2 mg/dL (7.8-10.44); Carbon Dioxide 24 mmol/L (22-29); Chloride 111 mmol/L (98-107); Estimated GFR-MDRD 83; Globulin 4.7 g/dL (2.4-3.5); Protein, Total 7.6 g/dL (6.0-8.3)
[2017-02-20 05:18] LABS: Band 7 % (5-11); Mean Platelet Volume 9.2 fL (7.4-10.4); Neutrophil 72 % (42-75); Red Blood Cell (RBC) Count 3.49 mill/uL (4.70-6.10); White Blood Cell (WBC) Count 11.2 thou/uL (4.8-10.8)
[2017-02-20] MEDS: Sterile Water 10 ML VIAL FS PRN (06:35)
[2017-02-20] MEDS: Ziprasidone 20 MG VIAL IM PRN (06:36)
[2017-02-20] MEDS: Aspirin 300 MG Suppository PR SCH (08:34)
[2017-02-20] MEDS: Folic Acid 1 MG TAB PO SCH (08:34)
[2017-02-20] MEDS: clonazePAM 1 MG TAB PO SCH ×2 (08:35→21:07)
[2017-02-20] MEDS: Enoxaparin Sodium 30 MG/0.3 ML SYRINGE SC SCH (08:35)
--- NOTE | 2017-02-20 09:39 | PDOC.CTH ---
Cardiology Progress Note - Subjective Pt. seen and evaluated. No cardiac events over night. Significant agitation last PM that required Geodon and sedation.He is still sedated but arousable. This was likely ETOH withdrawal. He was on a BiPAP mask during the night. This has been removed and he appears stable at this time. - ROS not able to obtain ROS - Objective Vital Signs Temp Pulse Resp BP Pulse Ox 02/20/17 08:00 97.6 F 84 25 H 100 02/20/17 06:57 84 02/20/17 05:15 22 H 02/20/17 04:00 98.2 F 02/20/17 02:48 75 02/20/17 02:00 28 H 02/20/17 00:00 98.6 F 02/19/17 23:38 153/76 H Admit Weight 202 lb 6.08 oz Weight 202 lb 9.677 oz 02/19/17 02/20/17 02/21/17 06:59 06:59 06:59 Intake Total 1555.9 3994.4 30 Output Total 2867 2220 120 Balance -1311.1 1774.4 -90 - Physical Examination General/Neuro: other: (somewhat sedated. Moves all extremities when stimulated) Lungs: other: (R upper chest wheezing) Heart: RRR Abdomen: NT/ND, soft - Labs Result Diagrams: 02/20/17 03:48 02/20/17 03:48 Troponin/CKMB CK-MB (CK-2) 1.4 ng/mL (0-6.6) 02/17/17 22:38 Troponin I 0.458 ng/mL (< 0.028) H* 02/18/17 14:48 - Assessment/Plan 1. CVA in Rt middl cerebral artery w/ S/P TPA and thrombolytic therapy - Pt. is still sedated somwhat this AM. He was very agitated yesterday PM. Consider ETOH withdrawal. 2. Elevated WBC - Improved today; If suspect possible endocarditis, will consider JOAN for further evaluation; cont IV antibiotics 3. HTN - stable; PRN Labetolol IV was ordered. May need po meds when more alert. 4. Acute Renal failure - resolved 5. Elevated troponin - possible demand ischemia; cont. monitor . Suggest outpt. stress test when neurologically stable. 6. Smoker and ETOH abuse 7. Back pain - hx of Chronic Back pain and s/p fall
[2017-02-20] MEDS: Sodium Chloride 0.9% 1,000 ML IV SCH ×2 (10:30→17:27)
[2017-02-20] MEDS ORDERED: Senokot 8.6 MG TAB PO PRN (11:54)
--- NOTE | 2017-02-20 11:58 | PDOC.FM ---
- Subjective Subjective: Pt w/ increased agitation overnight requiring sedation and intermittent usage of bipap to maintain sats. Otherwise VSS, afebrile. - Objective MAR Reviewed: Yes Vital Signs & Weight: Vital Signs (12 hours) Temp Pulse Resp Pulse Ox 02/20/17 11:04 92 31 H 98 02/20/17 08:00 97.6 F 84 25 H 100 02/20/17 06:57 84 02/20/17 05:15 22 H 02/20/17 04:00 98.2 F 02/20/17 02:48 75 02/20/17 02:00 28 H 02/20/17 00:00 98.6 F Weight Admit Weight 91.798 kg Weight 91.9 kg Most Recent Monitor Data Heart Rate from ECG 84 NIBP 170/86 NIBP BP-Mean 108 Respiration from ECG 26 SpO2 95 I&O: 02/19/17 02/20/17 02/21/17 06:59 06:59 06:59 Intake Total 1555.9 3994.4 180.3 Output Total 2867 2220 290 Balance -1311.1 1774.4 -109.7 Result Diagrams: 02/20/17 03:48 02/20/17 03:48 <Edenilson Butler - Last Filed: 02/20/17 11:55> - Objective Vital Signs & Weight: Vital Signs (12 hours) Temp Pulse Resp BP Pulse Ox 02/20/17 15:00 94 185/84 H 02/20/17 14:26 92 02/20/17 12:00 98.2 F 02/20/17 11:04 92 31 H 98 02/20/17 08:00 97.6 F 84 25 H 100 02/20/17 06:57 84 02/20/17 05:15 22 H Weight Admit Weight 91.798 kg Weight 91.9 kg Most Recent Monitor Data Heart Rate from ECG 96 NIBP 185/84 NIBP BP-Mean 105 Respiration from ECG 52 SpO2 98 I&O: 02/19/17 02/20/17 02/21/17 06:59 06:59 06:59 Intake Total 1555.9 3994.4 180.3 Output Total 2867 2220 460 Balance -1311.1 1774.4 -279.7 Result Diagrams: 02/20/17 03:48 02/20/17 03:48 <Sara Kim - Last Filed: 02/20/17 16:42> Phys Exam - Physical Examination sedated HEENT: PERRLA, moist MMs Faint wheezing on BiPap Gastrointestinal: soft, positive bowel sounds distended Musculoskeletal: no edema, pulses present Neurological: moves all 4 limbs Deviation from normal: sedated Skin: cap refill <2 seconds <Edenilson Butler - Last Filed: 02/20/17 11:55> Dx/Plan (1) Alcohol withdrawal Code(s): F10.239 - ALCOHOL DEPENDENCE WITH WITHDRAWAL, UNSPECIFIED Status: Acute Plan: Pt w/ hx of drinking 1/5th a day W/ increased agitation requiring sedation Will watch through the AM If agitation worsens and need for bipap persists will consider re-intubation 2/ 2 concerns for DT's Cont. w/ ASE protocol (2) Septic shock Code(s): A41.9 - SEPSIS, UNSPECIFIED ORGANISM; R65.21 - SEVERE SEPSIS WITH SEPTIC SHOCK Status: Acute Plan: Stable BP overnight off pressors since yesterday AM Good UOP 0.97 mL/Kg/Hr BCx NGTD UCx NGTD C. diff negative Likely 2/2 strep PNA, however still have endocarditis in ddx 2/2 hx of IVDU w/ significantly elevated white count at presentation Seen by cardiology who states pt stable from a cardiac standpoint Crit care on board as well Appreciate recs Cont. w/ IV abx covering for both aspiration PNA and endocarditis (3) Aspiration pneumonia Code(s): J69.0 - PNEUMONITIS DUE TO INHALATION OF FOOD AND VOMIT Status: Acute Plan: Right middle lobe consolidation in setting if heavy EtOH use concerning for likely aspiration PNA strep pneumonia ag positive Cont. w/ IV Abx Cx pending, no preliminary results at this time Wean O2 as tolerated (4) Endocarditis Code(s): I38 - ENDOCARDITIS, VALVE UNSPECIFIED Status: Suspected Plan: Possible endocarditis, cont. w/ IV abx Will consider JOAN for further evaluation (5) OLGA (acute kidney injury) Code(s): N17.9 - ACUTE KIDNEY FAILURE, UNSPECIFIED Status: Acute Plan: Resolving Cont. w/ IVF (6) Elevated troponin Code(s): R74.8 - ABNORMAL LEVELS OF OTHER SERUM ENZYMES Status: Acute Plan: Downtrending No EKG changes Likely 2/2 demand, will continue to monitor (7) CVA (cerebral vascular accident) Code(s): I63.9 - CEREBRAL INFARCTION, UNSPECIFIED Status: Acute Plan: R-MCA stroke s/p tPA administration Eval by neuro w/ recs to restart antiplatelet today Pt started on [place] aspirin this AM 2/2 unable to take PO w/ failed swallow study MRI showing R-MCA distribution evolving infarct VSS, however now w/ withdrawal sxs and increased agitation NG tube placed w/ dobhoff for enteral feeds Will hold for now 2/2 abdominal distention Pt will likely need placement in some sort of rehab facility (SNF vs inpatient rehab). CM consulted Cont. w/ PT/OT/Speech (8) Back pain Code(s): M54.9 - DORSALGIA, UNSPECIFIED Status: Chronic Plan: Pt mostly complaining of back pain from a fall he has last week Will plan to get out of bed today to aid w/ discomfort Will have PRN meds available <Edenilson Butler - Last Filed: 02/20/17 11:55> Attending Addendum - Attending Addendum I personally evaluated the patient and discussed the management with Dr. Butler I agree with the History, Examination, Assessment and Plan documented above with any addition or exceptions noted below. 56 yo male admitted for right sided MCA CVA. Concern for septic emboli due to Strep pneumo pneumonia and renal infarcts. Currently on emperic antibx. Tolerating CPAP/BiPAP this AM. Wean per pulm ECHO and bubble study negative Agitation/Alcohol use. Improved with antipsychotics medications. CVA. Stable no improvement. Will continue feeds through Doboff at this time. Start bowel regiment Continue ICU management. FadiayMD <Sara Kim - Last Filed: 02/20/17 16:42>
[2017-02-20] MEDS: Labetalol HCl 100 MG/20 ML VIAL SLOW IVP PRN (14:26)
[2017-02-20] MEDS ORDERED: Propofol 1,000 MG/100 ML VIAL IV ONE (14:48)
[2017-02-20] MEDS ORDERED: Midazolam HCl 2 mg/2 ml Vial ONE (14:53)
[2017-02-20] MEDS ORDERED: Ventilator Sedation Protocol 1 EACH FS SCH (15:15)
[2017-02-20] MEDS ORDERED: Lorazepam 2 MG/ML VIAL SLOW IVP PRN (15:25)
[2017-02-20] MEDS ORDERED: Fentanyl 20 MCG/ML 250 ML IVPB SCH (15:25)
[2017-02-20] MEDS ORDERED: DISCONTINUE PREVIOUS NARCOTIC PAIN MEDICATIONS AND BENZODIAZEPINES FS SCH (15:25)
[2017-02-20] MEDS ORDERED: Morphine 10 MG/ML VIAL SLOW IVP PRN (15:28)
[2017-02-20] MEDS: Metoclopramide HCl 10 MG/10 ML UDCUP PO SCH ×2 (16:11→21:07)
--- NOTE | 2017-02-20 16:17 | PRG ---
DATE OF SERVICE: 02/20/2017 SERVICE: Pulmonary Medicine. INTERVAL HISTORY: The patient is doing poorly from a respiratory standpoint. His mentation has not improved very much. He has required a couple of doses of Geodon. He also required Ativan to be used on an as needed basis. Otherwise, there have been no specific overnight events. His respiratory rate continues to increase. PHYSICAL EXAMINATION: VITAL SIGNS: Afebrile, pulse 94, blood pressure 185/84, respirations 30, saturation 99% on 24% FiO2. GENERAL: The patient is somnolent. That being said, he does wake up and answer some questions appropriately. He is in moderate respiratory distress. LUNGS: Good air entry. There are rhonchi present bilaterally without prolonged expiratory phase or wheezing. HEART: Normal rate and regular. ABDOMEN: Soft, nontender, nondistended. Bowel sounds positive. MUSCULOSKELETAL: No cyanosis or clubbing. There is no pitting in the bilateral lower extremities. NEUROLOGIC: Grossly nonfocal. LABORATORY DATA: WBC is down trending to 11.2, hemoglobin 11.5 and gently downtrending, platelets 156,000. INR 2.6. Basic metabolic profile and liver function studies are essentially unremarkable. Cardiac enzymes have been downtrending previously. Magnesium is 1.8 today. Phosphorus was previously 2.4 with normal lactate. Urine culture and blood culture x2 are unremarkable. Clostridium difficile antigen and toxin are unremarkable. ASSESSMENT: 1. Acute hypoxic respiratory failure, getting worse. 2. Community-acquired pneumonia. 3. Septic shock, resolved. 4. Renal infarction, possible. 5. Cerebrovascular accident of the right middle cerebral artery. 6. Acute kidney injury, resolved. 7. Non-ST elevation myocardial infarction. 8. Endocarditis, possible. 9. Alcohol abuse. PLAN: We will continue supportive care. My suspicion is the patient is going to be re-intubated. This is likely the effect of withdrawal from alcohol and/ or his recent stroke. We will add some GI motility agents. Geodon will be discontinued. If he can tolerate BiPAP breaks by the end of the day, intubation will need to be considered. Pulmonary or Critical Care will continue to follow while the patient remains inhouse. [facility]
[2017-02-20] MEDS: Acetaminophen 650 MG Suppository PR PRN (16:28)
[2017-02-20 16:29] LABS: Oxyhemoglobin 93.4 % (94.0-97.0); Sodium 145 mmol/L (135-148)
[2017-02-20 16:30] LABS: Mechanical Tidal Volume 450 ml; Mode PSIMV; Modified Allen's Test POSITIVE; Pressure Support 10 cmH2O; Vent YES
--- NOTE | 2017-02-20 18:29 | RAD ---
PORTABLE SEMI UPRIGHT FRONTAL CHEST RADIOGRAPH: 02/20/2017 COMPARISON: 02/18/2017 HISTORY: Ventilated patient. FINDINGS: Endotracheal tube present, distal tip overlying the region of the clavicular heads. Dobbhoff feedin g tube extends into the upper abdomen, stable. Dense area of lateral right upper lobe consolidation again seen. Left lung is clear as is right violet g base. IMPRESSION: Persistent dense consolidation of right upper lobe. Follow-up to resolution advised. POS: DONNIE
[2017-02-20] MEDS: Atorvastatin Calcium 40 MG TAB PO SCH (21:07)
[2017-02-20] MEDS: Senokot S 8.6-50 MG TAB PO SCH (21:07)
[2017-02-20] MEDS: Propofol 1,000 MG/100 ML VIAL IV PRN (21:12)
--- NOTE | 2017-02-20 21:49 | PRG ---
DATE OF SERVICE: 02/20/2017 SUBJECTIVE: The patient is extremely agitated. OBJECTIVE: VITAL SIGNS: Breathing 40 times a minute, pulse 130, sats 95%. GENERAL: He is not moving his left side. He has had a CVA. CHEST: Reveals rhonchi. CARDIAC: Sinus tachycardia. ABDOMEN: Soft. NEUROLOGIC: He was encephalopathic. He was seen earlier by Dr. Castro, tried noninvasive ventilation which has failed. White count 11, 000 with 70 segs, 7 bands. It was felt that he needed to be intubated because of progressive encephalopathy and respiratory dis tress. There are no family members present at the bedside. He was told he would be intubated. A bite block was placed and a 7.5 endotracheal tube was placed o patsy the bronchoscope. He was given 50 of propofol. Initially, there was a moderate amount of mucus in the back of his throat which was suctioned and cleaned. Thereafter, the endotracheal tube was p assed through the vocal cords and placed above the earl. The bronchoscope was removed. The patie nt was bagged. Additional sedation was given 2 of Versed. Thereafter, bronchoscope was repassed ag ain and both lungs were inspected and cleaned. There was a mild amount of mucopurulent secretions t hat were suctioned and lavaged. No further endobronchial disease was seen. Patient tolerated the p rocedure well and connected to warm cycle respirator. Additionally, continue broad-spectrum antibio tics. IMPRESSION: 1. Respiratory failure and encephalopathy. 2. Cerebrovascular accident. PLAN: Continue vent support. X-ray is being ordered. This is one-half hour critical care time exclusive of the intubation.
[2017-02-21] MEDS: Piperacillin/Tazobactam 3.375 GM, Admixture Fee 1 EACH in Sodium Chloride 0.9% 100 ML IVPB SCH ×4 (00:10→18:00)
[2017-02-21 04:49] LABS: ALT (SGPT) 16 U/L (8-55); AST (SGOT) 19 U/L (5-34); Alkaline Phosphatase 75 U/L (40-150); Anion Gap 12 mmol/L (10-20); BUN (Urea Nitrogen) 13 mg/dL (8.4-25.7); Bilirubin, Total 0.7 mg/dL (0.2-1.2); Calc. Creatinine Clearance 118 mL/min (70-130); Carbon Dioxide 24 mmol/L (22-29); Chloride 111 mmol/L (98-107); Estimated GFR-MDRD 86; Globulin 4.5 g/dL (2.4-3.5); Protein, Total 7.2 g/dL (6.0-8.3)
[2017-02-21] MEDS: Vancomycin HCl 1.25 GM in Sodium Chloride 0.9% 250 ML 250 ML IVPB SCH ×2 (04:56→16:33)
[2017-02-21] MEDS: Propofol 1,000 MG/100 ML VIAL IV PRN ×3 (04:57→21:46)
[2017-02-21 05:00] LABS: Band 8 % (5-11); Hematocrit 30.4 % (42.0-52.0); Mean Platelet Volume 8.8 fL (7.4-10.4); Neutrophil 66 % (42-75); Nucleated RBC 1 % (0); Red Blood Cell (RBC) Count 3.13 mill/uL (4.70-6.10); White Blood Cell (WBC) Count 8.1 thou/uL (4.8-10.8)
[2017-02-21] MEDS: Sodium Chloride 0.9% 1,000 ML IV SCH ×2 (07:42→16:35)
[2017-02-21] MEDS: Aspirin 300 MG Suppository PR SCH (09:15)
[2017-02-21] MEDS: clonazePAM 1 MG TAB PO SCH ×2 (09:15→21:14)
[2017-02-21] MEDS: Metoclopramide HCl 10 MG/10 ML UDCUP PO SCH ×4 (09:15→21:14)
[2017-02-21] MEDS: Enoxaparin Sodium 30 MG/0.3 ML SYRINGE SC SCH (09:16)
[2017-02-21] MEDS: Polyethylene Glycol 3350 17 GM Packet PO SCH (09:17)
[2017-02-21] MEDS: Senokot S 8.6-50 MG TAB PO SCH ×2 (09:17→21:14)
[2017-02-21] MEDS: Folic Acid 1 MG TAB PO SCH (09:17)
--- NOTE | 2017-02-21 09:17 | RAD ---
CHEST 1 VIEW: Date: 02/21/17 HISTORY: Ventilated patient. COMPARISON: Chest 1 view from prior day. FINDINGS: Endotracheal tube tip in good position. A weighted feeding tube tip below the diaphragm but out of f ield of view. Right upper lobe consolidation is similar. IMPRESSION: No significant change in radiographic appearance of the chest. POS: [facility]
--- NOTE | 2017-02-21 09:47 | PDOC.FM ---
- Subjective Subjective: Pt re-intubated yesterday 2/2 worsening agitation from EtoH withdrawal requiring ativan and inability to tolerate breaks from bipap. Othewise doing well. Complaining of back pain this AM which is chronic for him. Large BM's yesterday per nursing staff. Denies any abdominal pain. - Objective MAR Reviewed: Yes Vital Signs & Weight: Vital Signs (12 hours) Temp Pulse Resp BP 02/21/17 08:00 100.1 F H 18 163/79 H 02/21/17 06:40 88 144/68 H 02/21/17 04:04 79 02/21/17 04:00 99.2 F 02/21/17 00:00 99 F 22 H 139/65 02/20/17 22:54 73 149/71 H 02/20/17 22:00 22 H Weight Admit Weight 91.798 kg Weight 92.108 kg Most Recent Monitor Data Heart Rate from ECG 75 NIBP 163/79 NIBP BP-Mean 102 Respiration from ECG 18 SpO2 100 I&O: 02/20/17 02/21/17 02/22/17 06:59 06:59 06:59 Intake Total 3994.4 3748.2 Output Total 2220 1395 175 Balance 1774.4 2353.2 -175 Result Diagrams: 02/21/17 03:40 02/21/17 03:40 <Edenilson Butler K - Last Filed: 02/21/17 09:45> - Objective Vital Signs & Weight: Vital Signs (12 hours) Temp Pulse Pulse Resp BP BP Pulse Ox 02/21/17 18:00 8 L 02/21/17 16:00 99.6 F 11 L 174/77 H 02/21/17 14:59 84 170/79 H 02/21/17 14:00 7 L 02/21/17 12:00 99.1 F 7 L 148/67 H 02/21/17 10:25 85 157/72 H 02/21/17 10:00 8 L 02/21/17 08:56 115 H 167/74 H 99 Pulse Ox 02/21/17 18:00 02/21/17 16:00 02/21/17 14:59 02/21/17 14:00 02/21/17 12:00 02/21/17 10:25 02/21/17 10:00 02/21/17 08:56 97 Weight Admit Weight 91.798 kg Weight 92 kg Most Recent Monitor Data Heart Rate from ECG 86 NIBP 179/78 NIBP BP-Mean 133 Respiration from ECG 8 SpO2 94 I&O: 02/20/17 02/21/17 02/22/17 06:59 06:59 06:59 Intake Total 3994.4 3748.2 1723 Output Total 2220 1395 1140 Balance 1774.4 2353.2 583 Result Diagrams: 02/21/17 03:40 02/21/17 03:40 <Sara Kim - Last Filed: 02/21/17 21:07> Phys Exam - Physical Examination sedated/intubated HEENT: PERRLA, moist MMs Neck: no JVD Respiratory: clear to auscultation bilateral Cardiovascular: RRR, no significant murmur Gastrointestinal: positive bowel sounds distended, non-tender Musculoskeletal: pulses present Neurological: moves all 4 limbs follows commands. weakness on left upper/lower ext. Deviation from normal: sedated/intubated Skin: cap refill <2 seconds <Edenilson Butler - Last Filed: 02/21/17 09:45> Dx/Plan (1) Alcohol withdrawal Code(s): F10.239 - ALCOHOL DEPENDENCE WITH WITHDRAWAL, UNSPECIFIED Status: Acute Plan: Pt w/ hx of drinking 1/5th a day W/ increased agitation requiring sedation and inability to tolerate breaks from bipap requiring re-intubation yesterday Will continue w/ propofol for the next few days w/ sedation breaks to determine underlying mentation Will wean off the vent when able Cont. w/ clonazepam during this time Cont. w thiamine supplementation (2) Septic shock Code(s): A41.9 - SEPSIS, UNSPECIFIED ORGANISM; R65.21 - SEVERE SEPSIS WITH SEPTIC SHOCK Status: Resolved Plan: Stable BP overnight off pressors Good UOP 0.63 mL/Kg/Hr BCx NGTD UCx NGTD C. diff negative Likely 2/2 strep PNA, cultures NGTD Will continue w/ IV abx for now 2/2 still unclear source and pt w/ improvement once weaned off vent w/ transition to PO medication (3) Aspiration pneumonia Code(s): J69.0 - PNEUMONITIS DUE TO INHALATION OF FOOD AND VOMIT Status: Acute Plan: Right middle lobe consolidation in setting if heavy EtOH use concerning for likely aspiration PNA but with strep pneumo urinary ag positive Cont. w/ IV Vanc Zosyn for now Cx NGTD repeat cultures obtained yesterday NGTD as well (4) Endocarditis Code(s): I38 - ENDOCARDITIS, VALVE UNSPECIFIED Status: Suspected Plan: Possible endocarditis, cont. w/ IV abx Will consider JOAN for further evaluation However cultures NGTD, will continue to monitor (5) OLGA (acute kidney injury) Code(s): N17.9 - ACUTE KIDNEY FAILURE, UNSPECIFIED Status: Acute Plan: Resolving Cont. w/ IVF (6) Elevated troponin Code(s): R74.8 - ABNORMAL LEVELS OF OTHER SERUM ENZYMES Status: Acute Plan: Downtrending No EKG changes Likely 2/2 demand, will continue to monitor (7) CVA (cerebral vascular accident) Code(s): I63.9 - CEREBRAL INFARCTION, UNSPECIFIED Status: Acute Plan: R-MCA stroke s/p tPA administration Antiplatelet restarted, statin started MRI showing R-MCA distribution evolving infarct VSS, however now w/ withdrawal sxs and increased agitation NG tube placed w/ dobhoff for enteral feeds Will hold tube feeds for another 24-48 hours 2/2 abdominal distention Pt will likely need placement in some sort of rehab facility (SNF vs inpatient rehab). CM consulted Cont. w/ PT/OT/Speech Prognosis discussed w/ family and possibility of trach vs comfort care if pt requires intubation again during this hospitalization Poor prognosis, but unknown extent of future deficits w/ relatively large R-MCA distribution of CVA (8) Back pain Code(s): M54.9 - DORSALGIA, UNSPECIFIED Status: Chronic Plan: Pt mostly complaining of back pain from a fall he has last week Pain meds available PRN (9) Abdominal distention Code(s): R14.0 - ABDOMINAL DISTENSION (GASEOUS) Status: Acute Plan: Pt w/ positive bowel sounds and function, but worsening distention today Will hold tube feeds for 24-48 hours and cont. w/ bowel regimen monitoring for improvement If pt's begins to become acidotic will obtain Lactate to eval for possible GI eitiology OG will be placed to monitor residuals <Edenilson Butler - Last Filed: 02/21/17 09:45> Attending Addendum - Attending Addendum I personally evaluated the patient and discussed the management with Dr. Butler I agree with the History, Examination, Assessment and Plan documented above with any addition or exceptions noted below. 56 yo male admitted for right sided MCA CVA. HD #3 R MCA CVA s/p TPA: Left sided deficits stable. Stroke team following. Will need placement. Bubble study negative. On antiplatelet, statin. Respiratory distress: Unable to protect airway. Currently on vent for support. Critical care following. Sepsis with septic shock: s/p pressors. Continue empiric antibx. Repeat culture when febrile. Trend labs. Current cultures negative. R upper/middle lobe CAP/Aspiration pneumonia: Continue empiric antibx at this time. Strep pneumo isolated -- likely only etiology Renal infarct?: Renal function stable. CT reviewed. Concern for infectious source. Will need follow up imaging to monitor progression/resolution. Will need to determine if sono vs CT. NSTEMI: Cards following. Related to demand. ECHO WNL. Stress when able. Alcohol abuse/withdrawal: Continue ASE scale, benzo, antipsychotic. Banana bag/ MVI daily. Abdominal distension: XR. NG in place. Possible rectal tube to help with decompression if not improved. Continue ICU management. Delvin <Sara Kim - Last Filed: 02/21/17 21:07>
--- NOTE | 2017-02-21 10:14 | PDOC.CTH ---
<Amalia Purvis - Last Filed: 02/21/17 10:15> Cardiology Progress Note - Subjective The pt seen and examined. The pt was intubated yesterday due to severe agitation and could not tolerate Bipap 2ndary to ETOH abuse. Under Vent sedation. Responses to pain stimulation - Objective Vital Signs Temp Pulse Resp BP 02/21/17 08:00 100.1 F H 18 163/79 H 02/21/17 06:40 88 144/68 H 02/21/17 04:04 79 02/21/17 04:00 99.2 F 02/21/17 00:00 99 F 22 H 139/65 02/20/17 22:54 73 149/71 H Admit Weight 202 lb 6.08 oz Weight 203 lb 1 oz 02/20/17 02/21/17 02/22/17 06:59 06:59 06:59 Intake Total 3994.4 3748.2 Output Total 2220 1395 320 Balance 1774.4 2353.2 -320 - Physical Examination General/Neuro: other: (sedation) Neck: no JVD present Lungs: CTA Heart: RRR (1+ pitting edema BLE) - Telemetry Telemetry Rhythm: SR 80-90s - Labs Result Diagrams: 02/21/17 03:40 02/21/17 03:40 Troponin/CKMB CK-MB (CK-2) 1.4 ng/mL (0-6.6) 02/17/17 22:38 Troponin I 0.458 ng/mL (< 0.028) H* 02/18/17 14:48 - Assessment/Plan 1. CVA in Rt middle cerebral artery w/ S/P TPA and thrombolytic therapy - The pt was intubated due to ETOH withdrawal. 2. Elevated WBC - Improved today; If suspect possible endocarditis, will consider JOAN for further evaluation; cont IV antibiotics 3. HTN - Start Lisinopril 10mg daily via NG tube; may increase to 20mg daily as his home med dose or start BBlocker; 4. Acute Renal failure - resolved 5. Elevated troponin - possible demand ischemia; cont. monitor . Suggest outpt. stress test when neurologically stable. 6. Smoker - Smoking cessation education will given when he is neurologically stable 7. Back pain - hx of Chronic Back pain and s/p fall 8. ETOH withdrawal - Hx of 5 beers/day; Intubated on 02/20/17; possible extubated tomorrow. Cont. monitor MAR reviewed Review of Systems - Review of Systems Constitutional: reports: see HPI EENTM: reports: see HPI Respiratory: reports: see HPI Cardiac (ROS): reports: see HPI ABD/GI: reports: see HPI <Nguyễn Reardonan - Last Filed: 02/21/17 22:38> Cardiology Progress Note - Objective Vital Signs Temp Pulse Resp BP 02/21/17 22:00 10 L 02/21/17 21:12 89 191/90 H 02/21/17 20:00 100.2 F H 13 177/90 H 02/21/17 18:00 8 L 02/21/17 16:00 99.6 F 11 L 174/77 H 02/21/17 14:59 84 170/79 H 02/21/17 14:00 7 L 02/21/17 12:00 99.1 F 7 L 148/67 H Admit Weight 202 lb 6.08 oz Weight 202 lb 13.204 oz 02/20/17 02/21/17 02/22/17 06:59 06:59 06:59 Intake Total 3994.4 3748.2 1823 Output Total 2220 1395 1610 Balance 1774.4 2353.2 213 - Labs Result Diagrams: 02/21/17 03:40 02/21/17 03:40 Troponin/CKMB CK-MB (CK-2) 1.4 ng/mL (0-6.6) 02/17/17 22:38 Troponin I 0.458 ng/mL (< 0.028) H* 02/18/17 14:48 - Assessment/Plan Pt. seen and eval. by me. I agree with the A/P by the LAST CHALK[facility]. he remains intubated and sedated.
--- NOTE | 2017-02-21 13:15 | RAD ---
ABDOMEN ONE VIEW: History: 56-year-old male with abdominal distention. Comparison: 02-19-17 FINDINGS: Dobbhoff tube is in place with the tip probably within the region of the duodenum. An NG tube is sli ghtly coiled within the stomach. Minimal gas and fluid in the colon. IMPRESSION: Dobbhoff tube with the tip in the region of the duodenum. NG tube coiled in the upper mid stomach. POS: MICHELL
--- NOTE | 2017-02-21 15:28 | PRG ---
DATE OF SERVICE: 02/21/2017 SERVICE: Pulmonary Medicine. INTERVAL HISTORY: The patient is doing okay from a respiratory standpoint this morning. Yesterday afternoon, he had to get reintubated because of altered mentation. He was unable to tolerate noninv asive therapy any longer. Ultimately, he was reintubated. Since then, he has been on propofol and has not been in any significant distress. There were no overnight events. PHYSICAL EXAMINATION: VITAL SIGNS: Afebrile. Currently, with a T-max of 102 last night. Pulse 85, blood pressure 150/74 , respirations 7, saturation 91% on 21% FiO2 and PEEP of 5. HEENT: Normocephalic and atraumatic. Sclerae are white. Conjunctivae pink. Oral and nasal mucosa is moist without lesions. LUNGS: Decent air entry. There is no prolonged expiratory phase, wheezing, rhonchi or crackles. HEART: Normal rate and regular. ABDOMEN: Soft, nontender and nondistended. Bowel sounds positive. MUSCULOSKELETAL: No cyanosis or clubbing. No pitting in the bilateral lower extremities. NEUROLOGIC: Grossly nonfocal. LABORATORY DATA: WBC 8.1, hemoglobin 10.4 and platelets 162,000. INR 2.6. PH 7.41, pCO2 of 36 and pO2 of 70. Basic metabolic profile is essentially unremarkable as are liver function studies. Mag nesium is 1.8 and potassium is 3.5. Her urine culture, blood cultures x2, and C. diff are all unrem arkable. IMAGING DATA: Abdominal x-ray demonstrates Dobhoff tube with the tip in the region of the duodenum. NG tube is coiled in the upper mid stomach. Minimal gas and fluid in the colon. Chest x-ray from yesterday demonstrates placement of the endotracheal tube. Right upper lobe consol idation is similar. ASSESSMENT: 1. Acute hypoxic respiratory failure, improving. 2. Community-acquired pneumonia. 3. Septic shock, resolved. 4. Renal infarction, possible. 5. Cerebrovascular accident in the right middle cerebral artery distribution. 6. Acute kidney injury, resolved. 7. Non-ST elevation myocardial infarction. PLAN: I have made multiple adjustments to the ventilator to minimize patient dyssynchrony. Potassi um and magnesium will be replaced today. The patient will remain intubated for the next 48 hours to help him get through his withdrawal from alcohol. My suspicion is he is going through delirium hank mens. Pulmonary Critical Care will continue to follow. CRITICAL CARE TIME: 30 minutes.
[2017-02-21] MEDS: Potassium Chloride 40 MEQ in Sodium Chloride 0.9% 250 ML 250 ML IVPB PRN (18:45)
[2017-02-21] MEDS: Labetalol HCl 100 MG/20 ML VIAL SLOW IVP PRN (21:12)
[2017-02-21] MEDS: Acetaminophen 325 MG TAB PO PRN (21:14)
[2017-02-21] MEDS: Atorvastatin Calcium 40 MG TAB PO SCH (21:14)
[2017-02-22] MEDS: Piperacillin/Tazobactam 3.375 GM, Admixture Fee 1 EACH in Sodium Chloride 0.9% 100 ML IVPB SCH ×4 (00:01→18:00)
[2017-02-22] MEDS: Labetalol HCl 100 MG/20 ML VIAL SLOW IVP PRN ×2 (03:08→06:50)
[2017-02-22] MEDS: Vancomycin HCl 1.25 GM in Sodium Chloride 0.9% 250 ML 250 ML IVPB SCH ×2 (04:09→16:50)
[2017-02-22 04:37] LABS: Hematocrit 32.9 % (42.0-52.0)
[2017-02-22 04:58] LABS: Anion Gap 10 mmol/L (10-20); BUN (Urea Nitrogen) 10 mg/dL (8.4-25.7); Calc. Creatinine Clearance 133 mL/min (70-130); Calcium 8.3 mg/dL (7.8-10.44); Carbon Dioxide 26 mmol/L (22-29); Chloride 108 mmol/L (98-107); Estimated GFR-MDRD Greater than 90; Iron 17 ug/dL (65-175); Magnesium 1.3 mg/dL (1.6-2.6); Phosphorus 3.4 mg/dL (2.3-4.7)
[2017-02-22] MEDS: Potassium Chloride 40 MEQ in Sodium Chloride 0.9% 250 ML 250 ML IVPB PRN (05:33)
[2017-02-22] MEDS: Propofol 1,000 MG/100 ML VIAL IV PRN ×2 (05:33→21:08)
[2017-02-22] MEDS: Sodium Chloride 0.9% 1,000 ML IV SCH ×2 (05:48→13:37)
--- NOTE | 2017-02-22 07:41 | PDOC.FM ---
- Subjective Subjective: Pt w/ continued elevated BP's overnight. Sedated/intubated this AM. Able to shake head yes and no to questions and follow commands. Denies abdominal pain. Large BM overngiht. - Objective MAR Reviewed: Yes Vital Signs & Weight: Vital Signs (12 hours) Temp Pulse Resp BP Pulse Ox 02/22/17 07:21 82 191/79 H 02/22/17 07:00 100.6 F H 02/22/17 06:50 84 187/79 H 02/22/17 06:00 11 L 02/22/17 04:00 100.0 F H 9 L 189/76 H 02/22/17 03:08 79 194/85 H 02/22/17 02:00 8 L 02/22/17 00:00 99.8 F H 10 L 168/74 H 02/21/17 22:00 10 L 02/21/17 21:12 89 191/90 H 02/21/17 20:00 100.2 F H 83 13 177/90 H 95 Weight Admit Weight 91.798 kg Weight 92 kg Most Recent Monitor Data Heart Rate from ECG 79 NIBP 156/77 NIBP BP-Mean 89 Respiration from ECG 10 SpO2 97 I&O: 02/21/17 02/22/17 02/23/17 06:59 06:59 06:59 Intake Total 3748.2 3403 Output Total 1395 3110 225 Balance 2353.2 293 -225 Result Diagrams: 02/22/17 03:35 02/22/17 03:35 <Edenilson Butler - Last Filed: 02/22/17 07:39> - Objective Vital Signs & Weight: Vital Signs (12 hours) Temp Pulse Resp BP 02/22/17 20:00 10 L 175/68 H 02/22/17 18:00 11 L 02/22/17 16:50 167/63 H 02/22/17 16:00 100.8 F H 12 167/63 H 02/22/17 14:24 77 148/60 H 02/22/17 14:00 10 L 02/22/17 12:00 101.3 F H 10 L Weight Admit Weight 91.798 kg Weight 92 kg Most Recent Monitor Data Heart Rate from ECG 75 NIBP 168/56 NIBP BP-Mean 127 Respiration from ECG 10 SpO2 98 I&O: 02/21/17 02/22/17 02/23/17 06:59 06:59 06:59 Intake Total 3748.2 3403 1914.1 Output Total 1395 3110 4639 Balance 2353.2 293 -2755.9 Result Diagrams: 02/22/17 03:35 02/22/17 03:35 <JulioSara - Last Filed: 02/22/17 23:03> Phys Exam - Physical Examination Constitutional: NAD intubated/sedated HEENT: PERRLA Respiratory: clear to auscultation bilateral Cardiovascular: RRR Gastrointestinal: positive bowel sounds slightly improved distention this AM follows commands on right Upper and lower extremity Deviation from normal: sedated <Edenilson Butler - Last Filed: 02/22/17 07:39> Dx/Plan (1) Alcohol withdrawal Code(s): F10.239 - ALCOHOL DEPENDENCE WITH WITHDRAWAL, UNSPECIFIED Status: Acute Plan: Pt w/ hx of drinking 1/5th a day Cont. w/ intubated and propofol for another 24-48 hours to aid w/ likely DT's Will re-assess agitation w/ sedation holiday per crit care Cont. w/ clonazepam during this time Cont. w thiamine supplementation (2) Septic shock Code(s): A41.9 - SEPSIS, UNSPECIFIED ORGANISM; R65.21 - SEVERE SEPSIS WITH SEPTIC SHOCK Status: Resolved Plan: Stable BP overnight off pressors Good UOP 0.63 mL/Kg/Hr BCx NGTD UCx NGTD C. diff negative Likely 2/2 CAP w/ strep PNA, cultures NGTD Will continue w/ IV abx for now 2/2 still unclear source and pt w/ improvement once weaned off vent w/ transition to PO medication (3) Aspiration pneumonia Code(s): J69.0 - PNEUMONITIS DUE TO INHALATION OF FOOD AND VOMIT Status: Acute Plan: Right middle lobe consolidation in setting if heavy EtOH use concerning for likely aspiration PNA but with strep pneumo urinary ag positive Cont. w/ IV Vanc Zosyn for now Cx NGTD repeat cultures obtained yesterday NGTD as well (4) Endocarditis Code(s): I38 - ENDOCARDITIS, VALVE UNSPECIFIED Status: Suspected Plan: Possible endocarditis, cont. w/ IV abx 2/2 continued spiking temps Will consider JOAN for further evaluation However cultures NGTD, will continue to monitor (5) OLGA (acute kidney injury) Code(s): N17.9 - ACUTE KIDNEY FAILURE, UNSPECIFIED Status: Acute Plan: Resolving Cont. w/ IVF (6) CVA (cerebral vascular accident) Code(s): I63.9 - CEREBRAL INFARCTION, UNSPECIFIED Status: Acute Plan: R-MCA stroke s/p tPA administration Antiplatelet restarted, statin started MRI showing R-MCA distribution evolving infarct VSS, however now w/ withdrawal sxs and increased agitation NG tube placed w/ dobhoff for enteral feeds Will hold tube feeds for another 24-48 hours 2/2 abdominal distention Pt will likely need placement in some sort of rehab facility (SNF vs inpatient rehab). CM consulted Cont. w/ PT/OT/Speech Prognosis discussed w/ family and possibility of trach vs comfort care if pt requires intubation again during this hospitalization Poor prognosis, but unknown extent of future deficits w/ relatively large R-MCA distribution of CVA (7) Back pain Code(s): M54.9 - DORSALGIA, UNSPECIFIED Status: Chronic Plan: Pt mostly complaining of back pain from a fall he has last week Pain meds available PRN (8) Abdominal distention Code(s): R14.0 - ABDOMINAL DISTENSION (GASEOUS) Status: Acute Plan: Pt w/ positive bowel sounds and function, Mildly improved distention today w/ BM Will add fleets enema to bowel reigmen Cont. to hold tube feeds today If pt's begins to become acidotic will obtain Lactate to eval for possible GI eitiology OG will be placed to monitor residuals (9) Renal infarct Code(s): N28.0 - ISCHEMIA AND INFARCTION OF KIDNEY Status: Acute Plan: unsure eitiology of renal infarct Endorcarditis is a possibility Pt will likely need outpatient follow-up for this As there is no specific therapy for renal atheroembolic disease we will aggressively treat for secondary prevention of cardiovascular disease w/ ASA, statin, and ARMIN-I. <Edenilson Butler - Last Filed: 02/22/17 07:39> Attending Addendum - Attending Addendum I personally evaluated the patient and discussed the management with Dr. Butler I agree with the History, Examination, Assessment and Plan documented above with any addition or exceptions noted below. 56 yo male admitted for right sided MCA CVA. HD #4 R MCA CVA s/p TPA: Left sided deficits stable. Stroke team following. Will need placement. Bubble study negative. On antiplatelet, statin. Respiratory distress: Unable to protect airway. On vent for support. Critical care following. Sepsis with septic shock: s/p pressors. Continue empiric antibx. Repeat culture when febrile. Trend labs. Current cultures negative. R upper/middle lobe CAP/Aspiration pneumonia: Continue empiric antibx at this time. Strep pneumo isolated -- likely only etiology Still having fever. Unsure if medication related, withdrawal related, or medication related. Mild grade. Monitor closely. Renal infarct?: Renal function stable. CT reviewed. Concern for infectious source. Renal function stable. NSTEMI: Cards following. Related to demand. ECHO WNL. Stress when able. Alcohol abuse/withdrawal: Continue ASE scale, benzo, antipsychotic. Banana bag/ MVI daily. Following commands today. Awaiting stability inorder to extubate. Abdominal distension: XR grossly normal. NG in place. BM but still distension this AM. Continue regiment. Continue ICU management. Delvin <Sara Kim - Last Filed: 02/22/17 23:03>
[2017-02-22] MEDS: Metoclopramide HCl 10 MG/10 ML UDCUP PO SCH ×4 (08:18→20:47)
[2017-02-22] MEDS: Aspirin 300 MG Suppository PR SCH (08:18)
[2017-02-22] MEDS: Enoxaparin Sodium 40 MG/0.4 ML SYRINGE SC SCH (08:18)
[2017-02-22] MEDS: Folic Acid 1 MG TAB PO SCH (08:18)
[2017-02-22] MEDS: clonazePAM 1 MG TAB PO SCH ×2 (08:18→20:46)
[2017-02-22] MEDS: Senokot S 8.6-50 MG TAB PO SCH ×2 (08:19→20:48)
[2017-02-22] MEDS: Pantoprazole 40 MG VIAL IVP SCH (08:19)
[2017-02-22] MEDS: Polyethylene Glycol 3350 17 GM Packet PO SCH (08:19)
[2017-02-22] MEDS ORDERED: Lisinopril 10 MG TAB PO SCH (09:00)
[2017-02-22] MEDS ORDERED: Furosemide 40 MG/4 ML VIAL ONE (10:20)
[2017-02-22] MEDS ORDERED: Furosemide 40 MG/4 ML VIAL SLOW IVP SCH (12:30)
[2017-02-22 15:39] LABS: Vancomycin, Trough 17.9 ug/mL
[2017-02-22] MEDS: Carvedilol 6.25 MG TAB PO SCH (16:50)
[2017-02-22] MEDS: Acetaminophen 325 MG TAB PO PRN (20:46)
[2017-02-22] MEDS: Atorvastatin Calcium 40 MG TAB PO SCH (20:46)
[2017-02-22] MEDS ORDERED: Carvedilol 6.25 MG TAB PO SCH (21:00)
[2017-02-23] MEDS: Piperacillin/Tazobactam 3.375 GM, Admixture Fee 1 EACH in Sodium Chloride 0.9% 100 ML IVPB SCH ×4 (00:50→18:00)
[2017-02-23] MEDS: Labetalol HCl 100 MG/20 ML VIAL SLOW IVP PRN (03:25)
[2017-02-23] MEDS: Vancomycin HCl 1.25 GM in Sodium Chloride 0.9% 250 ML 250 ML IVPB SCH ×2 (04:08→09:50)
[2017-02-23 04:53] LABS: Anion Gap 8 mmol/L (10-20); BUN (Urea Nitrogen) 12 mg/dL (8.4-25.7); Calc. Creatinine Clearance 143 mL/min (70-130); Calcium 7.4 mg/dL (7.8-10.44); Carbon Dioxide 28 mmol/L (22-29); Chloride 107 mmol/L (98-107); Estimated GFR-MDRD Greater than 90; Phosphorus 2.8 mg/dL (2.3-4.7)
[2017-02-23] MEDS: Potassium Chloride 40 MEQ in Sodium Chloride 0.9% 250 ML 250 ML IVPB PRN (05:30)
[2017-02-23] MEDS: Magnesium 2 GM/NS 0.9% 100 ML 2 GM in Premix Bag 1 BAG IVPB PRN (06:48)
--- NOTE | 2017-02-23 08:10 | PDOC.FM ---
- Subjective Subjective: Pt febrile overnight and 100.8 this AM. Minimal to no agitation on sedation breaks per nursing except for elevated Bp's. Pt shaking head yes and no to questions this AM. Endorses back pain which is chronic for him. Sitting up in neuro chair this AM. - Objective MAR Reviewed: Yes Vital Signs & Weight: Vital Signs (12 hours) Temp Pulse Resp BP 02/23/17 07:00 100.8 F H 02/23/17 06:00 16 02/23/17 04:00 100.6 F H 13 02/23/17 03:25 75 197/70 H 02/23/17 02:00 11 L 02/23/17 00:00 100.1 F H 12 02/22/17 22:00 100.5 F H 10 L Weight Admit Weight 91.798 kg Weight 87.9 kg Most Recent Monitor Data Heart Rate from ECG 82 NIBP 194/68 NIBP BP-Mean 139 Respiration from ECG 19 SpO2 97 I&O: 02/22/17 02/23/17 02/24/17 06:59 06:59 06:59 Intake Total 3403 3196.6 Output Total 3110 5950 60 Balance 293 -2753.4 -60 Result Diagrams: 02/22/17 03:35 02/23/17 04:20 Phys Exam - Physical Examination intubated/sedated HEENT: PERRLA Neck: no nodes scattered rhonci Cardiovascular: RRR Gastrointestinal: soft, positive bowel sounds Neurological: moves all 4 limbs 4/5 Left upper and lower extremity compared to right Deviation from normal: sedated Skin: cap refill <2 seconds Dx/Plan (1) Alcohol withdrawal Code(s): F10.239 - ALCOHOL DEPENDENCE WITH WITHDRAWAL, UNSPECIFIED Status: Acute Plan: Pt w/ hx of drinking 1/5th a day Cont. w/ intubated and propofol this AM with possible extubation today or tomorrow per pulm Cont. w/ clonazepam during this time Cont. w thiamine supplementation (2) Septic shock Code(s): A41.9 - SEPSIS, UNSPECIFIED ORGANISM; R65.21 - SEVERE SEPSIS WITH SEPTIC SHOCK Status: Resolved Plan: Elevated BP's overnight Good UOP 1.3 mL/Kg/Hr BCx NGTD UCx NGTD C. diff negative Continued fevers, repeat CX this AM blood and urine Likely 2/2 CAP w/ strep PNA, cultures NGTD Will continue w/ IV abx for now 2/2 still unclear source and pt w/ improvement once weaned off vent w/ transition to PO medication Will speak with crit care for possible JOAN 2/2 continued fevers (3) Aspiration pneumonia Code(s): J69.0 - PNEUMONITIS DUE TO INHALATION OF FOOD AND VOMIT Status: Acute Plan: Right middle lobe consolidation in setting if heavy EtOH use concerning for likely aspiration PNA however, strep pneumo urinary ag positive Cont. w/ IV Vanc Zosyn for now Cx NGTD repeat cultures obtained today 2/2 continued fevers (4) Endocarditis Code(s): I38 - ENDOCARDITIS, VALVE UNSPECIFIED Status: Suspected Plan: Possible endocarditis, cont. w/ IV abx 2/2 continued spiking temps Will consider JOAN for further evaluation However cultures NGTD, will continue to monitor (5) OLGA (acute kidney injury) Code(s): N17.9 - ACUTE KIDNEY FAILURE, UNSPECIFIED Status: Resolved Plan: Resolved Cont. w/ IVF (6) CVA (cerebral vascular accident) Code(s): I63.9 - CEREBRAL INFARCTION, UNSPECIFIED Status: Acute Plan: R-MCA stroke s/p tPA administration Antiplatelet restarted, statin started, armin-i started MRI showing R-MCA distribution evolving infarct VSS, however now w/ withdrawal sxs and increased agitation NG tube placed w/ dobhoff for enteral feeds 2/2 failed bedside swallow Pt will likely need placement in some sort of rehab facility (SNF vs inpatient rehab). CM consulted Cont. w/ PT/OT/Speech Prognosis discussed w/ family and possibility of trach vs comfort care if pt requires intubation again during this hospitalization Poor prognosis, but unknown extent of future deficits w/ relatively large R-MCA distribution of CVA (7) Back pain Code(s): M54.9 - DORSALGIA, UNSPECIFIED Status: Chronic Plan: Pt w/ chronic back pain Pain meds available PRN Encourage up to chair (8) Abdominal distention Code(s): R14.0 - ABDOMINAL DISTENSION (GASEOUS) Status: Acute Plan: Pt w/ positive bowel sounds and function, Continued improved distention w/ positive bowel function Cont. w/ bowel regimen and tube feeds If pt's begins to become acidotic will obtain Lactate to eval for possible GI eitiology OG will be placed to monitor residuals (9) Renal infarct Code(s): N28.0 - ISCHEMIA AND INFARCTION OF KIDNEY Status: Acute Plan: unsure eitiology of renal infarct Endorcarditis is a possibility Pt will likely need outpatient follow-up for this As there is no specific therapy for renal atheroembolic disease we will aggressively treat for secondary prevention of cardiovascular disease w/ ASA, statin, and ARMIN-I.
[2017-02-23] MEDS: Metoclopramide HCl 10 MG/10 ML UDCUP PO SCH ×3 (08:47→09:51)
[2017-02-23] MEDS: Carvedilol 6.25 MG TAB PO SCH ×2 (08:47→17:15)
[2017-02-23] MEDS: Folic Acid 1 MG TAB PO SCH (08:48)
[2017-02-23] MEDS: Aspirin 300 MG Suppository PR SCH (08:48)
[2017-02-23] MEDS: Enoxaparin Sodium 40 MG/0.4 ML SYRINGE SC SCH (08:48)
[2017-02-23] MEDS: Pantoprazole 40 MG VIAL IVP SCH (08:49)
[2017-02-23] MEDS: Polyethylene Glycol 3350 17 GM Packet PO SCH (08:49)
[2017-02-23] MEDS: Senokot S 8.6-50 MG TAB PO SCH ×2 (08:53→20:36)
[2017-02-23] MEDS: clonazePAM 1 MG TAB PO SCH ×2 (08:53→21:45)
--- NOTE | 2017-02-23 08:54 | RAD ---
FRONTAL VIEW CHEST: Date: 02/23/17 COMPARISON: 02/21/17. INDICATION: Intubated patient, follow-up. FINDINGS: Feeding tube is again seen traversing below the field of view to the left aspect of the abdomen. Ther e is an endotracheal tube with tip below the thoracic inlet. Focal consolidation of the right mid violet g zone is again seen. There is patchy right basilar opacity, new from prior exam. IMPRESSION: Multifocal opacities in the right lung which may be on the basis of atypical pneumonia versus asymmet gary edema. Recommend continued imaging follow-up. POS: DONNIE
[2017-02-23] MEDS ORDERED: Hydrochlorothiazide 25 MG TAB PO SCH (09:00)
[2017-02-23] MEDS ORDERED: Lisinopril 10 MG TAB PO SCH (09:00)
[2017-02-23] MEDS ORDERED: Lisinopril 20 MG TAB PO SCH (09:07)
[2017-02-23] MEDS ORDERED: Magnesium Sulfate 2 GM in Sodium Chloride 0.9% 100 ML IVPB SCH (09:45)
--- NOTE | 2017-02-23 10:23 | PRG ---
DATE OF SERVICE: 02/22/2017 SERVICE: Pulmonary Medicine. INTERVAL HISTORY: The patient is doing fine from a respiratory standpoint. He is much more comforta ble today. He had a bowel movement yesterday, and he seems to be tolerating tube feeds just fine. H is abdominal distention is slightly improved. He currently cannot provide any additional elements of the history. Otherwise, there have been no overnight events. PHYSICAL EXAMINATION: VITAL SIGNS: T-max 100.6, pulse 84, blood pressure 191/79, respiratory rate 10, saturation 94% on 23 % FiO2, and a PEEP of 5. HEENT: Normocephalic, atraumatic. Sclerae are white, conjunctivae pink. Oral and nasal mucosa is m oist without lesions. LUNGS: Decent air entry. There is rhonchi present, but no prolonged expiratory phase, wheezing, or crackles. HEART: Normal rate, regular. ABDOMEN: Soft. Distended. Nontender, without rebound or guarding. Bowel sounds are active. MUSCULOSKELETAL: No cyanosis or clubbing. There is 1+ pitting throughout. GENITOURINARY: Reid catheter in place. NEUROLOGIC: Left upper extremity weakness is still present. He has altered sensorium in mentation, but otherwise is nonfocal. LABORATORY DATA: Hemoglobin 11.5 and stable. Potassium 3.3. Basic metabolic profile is otherwise u nremarkable. Magnesium 1.3. Iron and TIBC are low. The ferritin is within the normal limits. ASSESSMENT: 1. Acute hypoxic respiratory failure, resolving. 2. Community-acquired pneumonia. 3. Secondary to Streptococcus. 4. Septic shock, resolved. 5. Cerebrovascular accident of the right middle cerebral artery distribution. 6. Acute kidney injury, resolved. 7. Non-ST elevation myocardial infarction. 8. Renal infarction, possible. PLAN: The patient is doing fine from a respiratory standpoint. We will continue supportive care, mo ving forward with the ventilator support. My suspicion is the patient is in delirium tremens. This may prove problematic, particularly because his gut was previously not working well. We will leave h im on mechanical ventilation until he more clearly clears his encephalopathy. Pulmonary Critical Car e will continue to follow. Critical care time: 30 minutes.
[2017-02-23] MEDS ORDERED: Magnesium 2 GM/NS 0.9% 100 ML 2 GM in Premix Bag 1 BAG IVPB SCH (10:30)
--- NOTE | 2017-02-23 10:30 | PRG ---
DATE OF SERVICE: 02/23/2017 SERVICE: Pulmonary Medicine. INTERVAL HISTORY: The patient is doing okay from a respiratory standpoint. He had fever overnight. Otherwise, there are no significant events. On a good sedation holiday today, he is moving all 4 ex tremities, but has increased weakness in the left upper extremity. Otherwise, there has been no inte rval changes in his condition. He did have 3 large bowel movements yesterday. His abdomen is much l ess distended. PHYSICAL EXAMINATION: VITAL SIGNS: T-max 100.8, pulse 81, blood pressure 148/65, respirations 19, saturation 97% on 21% Fi O2 and a PEEP of 5. HEENT: Normocephalic, atraumatic. Sclerae are white, conjunctivae pink. Oral and nasal mucosa mois t without lesions. LUNGS: Decent air entry. No crackles are present today. No prolonged expiratory phase or wheezing. HEART: Normal rate, regular. ABDOMEN: Soft. It is much less distended today. Bowel sounds are active. There is no rebound or g uarding. MUSCULOSKELETAL: No cyanosis or clubbing. There is only pitting edema limited to the left upper ext remity. GENITOURINARY: Reid catheter in place. NEUROLOGIC: He is following commands and moving all 4 extremities, spontaneously. His left upper ex tremity has increased weakness. LABORATORY DATA: Potassium 2.6. Basic metabolic profile is otherwise unremarkable. Magnesium is 1. 0 and down trending. Phosphorus falls within normal limits. Urine strep antigen is positive. C. di ff antigen and toxins unremarkable. Blood cultures x2 and urine culture are negative. ASSESSMENT: 1. Acute hypoxic respiratory failure, resolved. 2. Community-acquired pneumonia, secondary to Streptococcus. 3. Septic shock, resolved. 4. Cerebrovascular accident of the right middle cerebral artery distribution. 5. Non-ST elevation myocardial infarction. 6. Renal infarction, possible. 7. Delirium tremens. PLAN: The patient will remain in the ICU on mechanical ventilation for the time being. We only have 1 more opportunity to extubate him. If he feels at this time around, my suspicion is that will [facility] need to transition over to comfort care only, or reintubate him with PEG and tracheostomy in his f uture. Pulmonary Critical Care will continue to follow for the time being. We will continue some of his low dose of sedation and medication minimize as tolerated. We will have him working with physic al therapy, so that he does not get weaker during this period of time. CRITICAL CARE TIME: 30 minutes.
[2017-02-23] MEDS: Acetaminophen 325 MG TAB PO PRN (12:00)
[2017-02-23 13:16] LABS: Folate,Hemolysate 182.3 ng/mL (Not Estab.); Hematocrit 28.5 % (37.5-51.0); RBC Folate Test Component 640 ng/mL (>498)
[2017-02-23] MEDS: Propofol 1,000 MG/100 ML VIAL IV PRN (13:41)
--- NOTE | 2017-02-23 16:29 | PRG ---
DATE OF SERVICE: 02/23/2017 Mr. Vences is sedated on the ventilator. We are following him for acute hypoxic respiratory failure, c ommunity-acquired pneumonia, and CVA of his right middle cerebral artery. He is also having some epi sodes of delirium tremens. He is also being followed by Pulmonary Medicine from their standpoint. H e is stable from a respiratory standpoint. Pulmonary will attempt re-extubation within the next zina ral days.
[2017-02-23] MEDS: Lisinopril 20 MG TAB PO SCH (21:44)
[2017-02-23] MEDS: Atorvastatin Calcium 40 MG TAB PO SCH (21:44)
[2017-02-24] MEDS: Piperacillin/Tazobactam 3.375 GM, Admixture Fee 1 EACH in Sodium Chloride 0.9% 100 ML IVPB SCH ×2 (00:56→05:40)
[2017-02-24] MEDS: Acetaminophen 325 MG TAB PO PRN ×2 (00:56→20:40)
[2017-02-24] MEDS: Labetalol HCl 100 MG/20 ML VIAL SLOW IVP PRN ×2 (02:06→09:10)
[2017-02-24] MEDS: Propofol 1,000 MG/100 ML VIAL IV PRN ×3 (04:15→20:57)
[2017-02-24 04:54] LABS: #Eosinphils 0.3 thou/uL (0.0-0.7); #Lymphocytes 1.4 thou/uL (1.20-3.40); #Monocytes 1.3 thou/uL (0.11-0.59); #Neutrophils 7.8 thou/uL (1.40-6.50); %Basophils 0.3 % (0.0-1.0); %Eosinophils 2.9 % (0.0-10.0); %Lymphocytes 12.6 % (21.0-51.0); %Monocytes 12.1 % (0.0-10.0); Hematocrit 39.3 % (42.0-52.0); Mean Platelet Volume 7.7 fL (7.4-10.4); Red Blood Cell (RBC) Count 4.12 mill/uL (4.70-6.10); White Blood Cell (WBC) Count 10.8 thou/uL (4.8-10.8)
[2017-02-24 05:16] LABS: Anion Gap 12 mmol/L (10-20); BUN (Urea Nitrogen) 21 mg/dL (8.4-25.7); Calc. Creatinine Clearance 113 mL/min (70-130); Calcium 9.3 mg/dL (7.8-10.44); Carbon Dioxide 29 mmol/L (22-29); Chloride 99 mmol/L (98-107); Estimated GFR-MDRD 89; Magnesium 1.5 mg/dL (1.6-2.6)
[2017-02-24] MEDS ORDERED: Aspirin 325 MG TAB ONE (08:06)
--- NOTE | 2017-02-24 08:16 | PDOC.FM ---
- Subjective Subjective: Pt w/ wide range of BP's overnight, otherwise ESPERANZA and all other vital signs stable. Able to follow commands this AM and answer questions with nods. Denies abdominal pain. - Objective MAR Reviewed: Yes Vital Signs & Weight: Vital Signs (12 hours) Temp Pulse Resp BP 02/24/17 07:00 75 189/66 H 02/24/17 06:00 18 02/24/17 05:00 99.1 F 02/24/17 04:24 73 02/24/17 04:00 15 170/62 H 02/24/17 02:06 79 185/80 H 02/24/17 02:00 19 02/24/17 01:52 79 180/70 H 02/24/17 00:00 100.5 F H 20 145/62 H 02/23/17 22:45 78 02/23/17 22:00 18 02/23/17 21:44 169/70 H Weight Admit Weight 91.798 kg Weight 86 kg Most Recent Monitor Data Heart Rate from ECG 75 NIBP 189/66 NIBP BP-Mean 92 Respiration from ECG 23 SpO2 94 I&O: 02/23/17 02/24/17 02/25/17 06:59 06:59 06:59 Intake Total 3196.6 3274.7 100 Output Total 5950 3543 250 Balance -2753.4 -268.3 -150 Result Diagrams: 02/24/17 04:40 02/24/17 04:40 Phys Exam - Physical Examination intubated, HEENT: PERRLA Neck: no nodes Respiratory: no wheezing, clear to auscultation bilateral Cardiovascular: RRR, no significant murmur Gastrointestinal: soft, non-tender mild distention Musculoskeletal: no edema, pulses present Neurological: moves all 4 limbs 4/5 left upper and lower extremity Deviation from normal: sedated Skin: cap refill <2 seconds Dx/Plan (1) Alcohol withdrawal Code(s): F10.239 - ALCOHOL DEPENDENCE WITH WITHDRAWAL, UNSPECIFIED Status: Acute Plan: Pt w/ hx of drinking 1/5th a day, likely going through DT's Will plan for extubation today and weaned off propofol and move on w/ PO benzo's Pt has been receiving scheduled klonopin while sedated/intubated will continue w / scheduled benzos and have PRN's avialable for symptomatic treatment This will be weaned over the next few days as pt's status permits Discussed with family that if patient is forced to be re-intubated that he will likely need trach and peg at this time (2) Septic shock Code(s): A41.9 - SEPSIS, UNSPECIFIED ORGANISM; R65.21 - SEVERE SEPSIS WITH SEPTIC SHOCK Status: Resolved Plan: Elevated BP's overnight Good UOP 1.7 mL/Kg/Hr BCx NGTD UCx NGTD C. diff negative Continued fevers, repeat CX this AM blood and urine Likely 2/2 CAP w/ strep PNA, cultures NGTD Will continue w/ IV abx for now 2/2 still unclear source and pt w/ improvement once weaned off vent w/ transition to PO medication Cardiology on board and does not think that this is endocarditis, will re- discuss if pt continues to fever after neurogenic cause has been ruled out (3) Aspiration pneumonia Code(s): J69.0 - PNEUMONITIS DUE TO INHALATION OF FOOD AND VOMIT Status: Acute Plan: Right middle lobe consolidation in setting if heavy EtOH use concerning for likely aspiration PNA however, strep pneumo urinary ag positive Cont. w/ IV Vanc Zosyn for now Cx NGTD repeat cultures obtained today 2/2 continued fevers (4) Endocarditis Code(s): I38 - ENDOCARDITIS, VALVE UNSPECIFIED Status: Suspected Plan: Possible endocarditis, cont. w/ IV abx 2/2 continued spiking temps Cultures NGTD, will continue to monitor Fevers possibly neurogenic in origin Will rediscuss JOAN with cardiology if pt continues to fever and neurogenic cause has been excluded (5) CVA (cerebral vascular accident) Code(s): I63.9 - CEREBRAL INFARCTION, UNSPECIFIED Status: Acute Plan: R-MCA stroke s/p tPA administration Antiplatelet restarted, statin started, armin-i started MRI showing R-MCA distribution evolving infarct VSS, however now w/ withdrawal sxs and increased agitation NG tube placed w/ dobhoff for enteral feeds 2/2 failed bedside swallow Pt will likely need placement in some sort of rehab facility (SNF vs inpatient rehab). CM consulted Cont. w/ PT/OT/Speech Prognosis discussed w/ family and possibility of trach vs comfort care if pt requires intubation again during this hospitalization Poor prognosis, but unknown extent of future deficits w/ relatively large R-MCA distribution of CVA (6) Back pain Code(s): M54.9 - DORSALGIA, UNSPECIFIED Status: Chronic Plan: Pt w/ chronic back pain Pain meds available PRN Encourage up to chair (7) Abdominal distention Code(s): R14.0 - ABDOMINAL DISTENSION (GASEOUS) Status: Acute Plan: Pt w/ positive bowel sounds and function, Continued improved distention w/ positive bowel function Cont. w/ bowel regimen and tube feeds If pt's begins to become acidotic will obtain Lactate to eval for possible GI eitiology OG will be placed to monitor residuals (8) Renal infarct Code(s): N28.0 - ISCHEMIA AND INFARCTION OF KIDNEY Status: Acute Plan: unsure eitiology of renal infarct Endorcarditis is a possibility Pt will likely need outpatient follow-up for this As there is no specific therapy for renal atheroembolic disease we will aggressively treat for secondary prevention of cardiovascular disease w/ ASA, statin, and ARMIN-I.
[2017-02-24] MEDS: Folic Acid 1 MG TAB PO SCH (08:18)
[2017-02-24] MEDS: Carvedilol 6.25 MG TAB PO SCH ×2 (08:19→17:19)
[2017-02-24] MEDS: Lisinopril 20 MG TAB PO SCH ×2 (08:19→20:40)
[2017-02-24] MEDS: Senokot S 8.6-50 MG TAB PO SCH ×2 (08:20→20:40)
[2017-02-24] MEDS: Polyethylene Glycol 3350 17 GM Packet PO SCH (08:25)
[2017-02-24] MEDS: Aspirin 300 MG Suppository PR SCH (08:43)
[2017-02-24] MEDS: clonazePAM 1 MG TAB PO SCH ×2 (08:48→20:39)
[2017-02-24] MEDS: Pantoprazole 40 MG VIAL IVP SCH (08:57)
[2017-02-24] MEDS: Enoxaparin Sodium 40 MG/0.4 ML SYRINGE SC SCH (08:58)
[2017-02-24] MEDS ORDERED: Carvedilol 6.25 MG TAB PO SCH (09:45)
--- NOTE | 2017-02-24 09:50 | PRG ---
DATE OF SERVICE: 02/24/2017 SERVICE: Pulmonary Medicine. INTERVAL HISTORY: The patient is having a lot of bowel movements overnight, although his bowel motil ity agents have been held appropriately. He is having significant amounts of frothy sputum. He had a low grade fever today of 100.5. Otherwise, there were no overnight events. He is breathing comfor tably on mechanical ventilation. He has no complaints of shortness of breath or chest discomfort. Jeanette way is cool, calm, and collected and able to answer all my questions appropriately. PHYSICAL EXAMINATION: VITAL SIGNS: Afebrile other than a T-max of 100.8, pulse 73, blood pressure 189/66, respirations 19, saturation 95% on 21% FIO2 and PEEP of 5. HEENT: Normocephalic, atraumatic. Sclerae are white, conjunctivae pink. Oral and nasal mucosa is m oist without lesions. LUNGS: Decent air entry. Rhonchi are present throughout bilateral lung steve. There is no prolong ed expiratory phase or wheezing. HEART: Normal rate, regular. ABDOMEN: Soft, nontender, nondistended, bowel sounds positive. MUSCULOSKELETAL: No cyanosis or clubbing. No pitting in the bilateral lower extremities. LABORATORY DATA: WBC 10.8, hemoglobin 13.1, platelets 291,000. Basic metabolic profile is unremarka ble. Magnesium is 1.5. Potassium is 3.6. C. diff antigen and toxin is negative. Blood cultures ne gative x4. Urine cultures negative x2. ASSESSMENT: 1. Acute hypoxic respiratory failure, resolved. 2. Community-acquired pneumonia secondary to Streptococcus. 3. Septic shock, resolved. 4. Cerebrovascular in the right middle cerebral artery distribution. 5. Xun-KD-hfhicwmwy myocardial infarction. 6. Renal infarction, possible. 7. Delirium tremens, improving. PLAN: We will get sputum for analysis. I will give the patient a spontaneous breathing trial. If jeanette way tolerated this well, extubation will be considered, but I am afraid that his secretions are too muc h for him to handle at this time given his relative weakness and anemic cough. He has already failed extubation once. If he gets extubated and requires reintubation, tracheostomy will need to be consi dered. As such, I am inclined to give him a couple more days to see if we can decrease the secretion s. Magnesium and potassium will be replaced today. CRITICAL CARE TIME: 30 minutes.
--- NOTE | 2017-02-24 12:04 | ADD-PRG ---
DATE OF SERVICE: 02/24/2017 This is an addendum to the note of Dr. Jonathon Butler. Mr. Vences is still intubated. He is, however, responsive to verbal and tactile stimulation. He still has a slight left-sided hemiparesis, but is able to move his left side somewhat. We are having trouble handling his secretions, so he will remain intubated at least for the next day or two. Otherwise, he is clinically unchanged and stable.
--- NOTE | 2017-02-24 14:55 | PRG-2 ---
TRANSITION OF CARE NOTE We will outline his hospital course from date of admission 02/17/2017 through today's date, 7. The patient is a 57-year-old male with past medical history of polysubstance abuse and continued alco hol abuse, drinking approximately one fifth of hard liquor each day who presented to the ER for evalu ation of left-sided weakness which started around 8:00 p.m. earlier the night of admission. The estefania ent reportedly was sweating a lot prior to this event. The patient had a left arm, left leg and left -sided facial droop with associated slurred speech. The patient was imaged in the ER showing no acut e intracranial hemorrhage. CTA head and neck was obtained showing a right-sided MCA infarct. At thi s time, t-PA was administered in the ER. At this time, patient had become hypotensive and with initi al white blood cell counts of 31.7. The patient was intubated and placed on Levophed for pressure co ntrol after IV fluid resuscitation failed to improve pressures. The patient was admitted to the ICU for further monitoring. MRI of the brain and neurological consult was obtained confirming right-side d MCA CVA. Dr. Emerson of Neurology is on the case and antiplatelet therapy was started. Status pos t 24 hours after t-PA administration. The patient was also otherwise risk stratified and started on high intensity statin, and ARMIN inhibitor. Chest x-ray obtained showing right middle lobe infiltrate with urine strep antigen positive for presumed pneumococcal pneumonia. The patient was continued on vancomycin and Zosyn for coverage of pneumococcal pneumonia as well as the possibility of aspiration pneumonia in the setting of alcohol abuse. The patient was successfully extubated on 02/18/2017 late r on after admission; however, on 02/20/2017 the patient had to be reintubated secondary to undergoin g what was presumed to be delirium tremens. The patient requiring large amounts of benzodiazepines t o control agitation and in the setting of likely obstructive sleep apnea the patient had decreasing s aturations with sedative medications requiring BiPAP. The patient did well on BiPAP, but was unable to tolerate breaks from this, resulting in subsequent intubation for airway protection. Of note, the patient had also failed his swallowing study x2 in this interim period and was started on tube feeds which he did well with. The patient has remained intubated since this time. He has been getting se dation holidays every day and is able to answer questions with head nods and follow commands. 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 The patient doing well on minimal ventilatory support; however, s econdary to continued large amount of secretions, the decision was made to keep the patient intubated as he already had been intubated once before. It was discussed with family that if the patient fail ed extubation and had to be reintubated that discussions would be made going forward with a PASCALE and lizbeth camara for long-term palliative measures. The patient's family stated understanding of this. Patient antibiotics, vancomycin and Zosyn were discontinued on hospital day #7, 02/24/2017 and repeat urine a nd blood cultures for continued fevers were negative x3. Critical Care, Dr. Castro obtaining a bronchial gram stain and culture for possible fungal infection at this time and consideration of adding on micafungin if this grows out positive. However, the pat ient continued fevers were felt to likely be neurogenic in nature in the setting of his large right M CA stroke. Endocarditis was considered secondary to also findings of bilateral renal infarcts on the original CT scan in the setting of sepsis as well as right MCA for an approximate cause. Cardiology was consulted on admission; however, they did not feel that this was the likely cause. Echocardiogr am showing no vegetations and bubble study negative. The patient does seem to have recovered somewha t of his deficit function status post t-PA administration as he was unable to move his left side at a ll prior to administration; however, his long-term deficits still remained largely unknown. After th e patient is extubated and off sedation we will have a better idea of what his long-term prognosis wi ll be, but for now he will remain intubated secondary to airway protection in the setting of dysphagi a and large secretions.
[2017-02-24] MEDS: Atorvastatin Calcium 40 MG TAB PO SCH (20:38)
[2017-02-25 05:20] LABS: #Eosinphils 0.3 thou/uL (0.0-0.7); #Monocytes 1.7 thou/uL (0.11-0.59); #Neutrophils 11.7 thou/uL (1.40-6.50); %Basophils 0.2 % (0.0-1.0); %Lymphocytes 12.5 % (21.0-51.0); %Monocytes 10.9 % (0.0-10.0); Hematocrit 40.9 % (42.0-52.0); Mean Platelet Volume 8.5 fL (7.4-10.4); Red Blood Cell (RBC) Count 4.31 mill/uL (4.70-6.10); White Blood Cell (WBC) Count 15.7 thou/uL (4.8-10.8)
[2017-02-25 05:30] LABS: Anion Gap 15 mmol/L (10-20); BUN (Urea Nitrogen) 23 mg/dL (8.4-25.7); Calc. Creatinine Clearance 113 mL/min (70-130); Calcium 9.6 mg/dL (7.8-10.44); Carbon Dioxide 25 mmol/L (22-29); Chloride 101 mmol/L (98-107); Estimated GFR-MDRD Greater than 90; Magnesium 1.8 mg/dL (1.6-2.6)
--- NOTE | 2017-02-25 06:02 | PDOC.FM ---
- Subjective Subjective: Patient had no acute events overnight. Currently only on propofol, no fentanyl. Oral secretions improved from yesterday but had about 300cc output overnight. In addition, ET tube with about 800cc and fungal appearing. Pt with recurrent fevers with max of 101.4 overnight. Nurse reports patient with about 8 watery BM as well. - Objective MAR Reviewed: Yes Vital Signs & Weight: Vital Signs (12 hours) Temp Pulse Resp BP Pulse Ox 02/25/17 04:00 99.2 F 25 H 133/65 02/25/17 03:58 85 150/53 H 02/25/17 02:00 21 H 02/25/17 01:34 90 02/25/17 00:00 100.3 F H 27 H 124/49 L 02/24/17 22:13 88 123/47 L 02/24/17 22:00 25 H 02/24/17 21:00 100 F H 02/24/17 20:40 150/57 H 02/24/17 20:00 101.4 F H 92 24 H 160/58 H 94 L 02/24/17 19:55 22 H 02/24/17 18:53 85 100 Weight Admit Weight 91.798 kg Weight 84.6 kg Most Recent Monitor Data Heart Rate from ECG 84 NIBP 168/73 NIBP BP-Mean 120 Respiration from ECG 22 SpO2 96 I&O: 02/23/17 02/24/17 02/25/17 06:59 06:59 06:59 Intake Total 3196.6 3274.7 1084.9 Output Total 5950 3543 2905 Balance -2753.4 -268.3 -1820.1 Result Diagrams: 02/25/17 04:14 02/25/17 04:14 <Christin Escobedo - Last Filed: 02/25/17 07:40> - Objective Vital Signs & Weight: Vital Signs (12 hours) Temp Pulse Resp BP Pulse Ox 02/25/17 10:23 79 16 100 02/25/17 09:49 21 H 02/25/17 08:38 89 192/80 H 02/25/17 08:12 192/80 H 02/25/17 08:11 192/80 H 02/25/17 07:24 98.9 F 88 25 H 158/62 H 96 02/25/17 07:00 98.9 F 11/18/17 06:37 88 160/62 H 02/25/17 06:00 22 H 02/25/17 04:00 99.2 F 25 H 133/65 02/25/17 03:58 85 150/53 H 02/25/17 02:00 21 H 02/25/17 01:34 90 02/25/17 00:00 100.3 F H 27 H 124/49 L Weight Admit Weight 91.798 kg Weight 84.6 kg Most Recent Monitor Data Heart Rate from ECG 79 NIBP 136/69 NIBP BP-Mean 108 Respiration from ECG 19 SpO2 97 I&O: 02/24/17 02/25/17 02/26/17 06:59 06:59 06:59 Intake Total 3274.7 1605.9 145 Output Total 3543 3055 310 Balance -268.3 -1449.1 -165 Result Diagrams: 02/25/17 04:14 02/25/17 04:14 <Marcelo Lomeli - Last Filed: 02/25/17 11:21> Phys Exam - Physical Examination Constitutional: NAD ETT & OGT in place HEENT: PERRLA, moist MMs Respiratory: no wheezing, clear to auscultation bilateral Cardiovascular: RRR, no significant murmur Gastrointestinal: soft, non-tender mild distension, no guarding or rebound Musculoskeletal: no edema, pulses present 4/5 LUE & LLE <Christin Escobedo - Last Filed: 02/25/17 07:40> Dx/Plan (1) Delirium tremens Code(s): F10.231 - ALCOHOL DEPENDENCE WITH WITHDRAWAL DELIRIUM Status: Acute Plan: Patient with longstanding alcohol abuse and admits to drinking 1/5th a day. Patient has remained intubated 2/2 alcohol w/drawal with DTs. Expected extubation yesterday however he had too much secretions. Overnight, PO secretion improved but persistent. Dr. Castro of Pulm consulted. Appreciate recs. Cont klonopin BID and benzo prn. Likely continued intubation/sedation over the weekend until secretions decrease. Patient has already failed extubation once during hospitalization; thus, will monitor closely and if re-intubation is necessary, trach and peg will likely be required. (2) Septic shock Code(s): A41.9 - SEPSIS, UNSPECIFIED ORGANISM; R65.21 - SEVERE SEPSIS WITH SEPTIC SHOCK Status: Resolved Plan: Likely 2/2 s. pneum CAP. Patient initially on Vanc and Zosyn and completed abx course. Patient has had recurrent fevers, but likely neurogenic. Sputum cx however has been sent and fungal etiology is possible. Currently prelim cx w/ rare WBCs and no organisms. BPs stable and adequate UOP at 1.5cc/kg/hr. If sputum cx grows fungus, then tx with micafungin. (3) CVA (cerebral vascular accident) Code(s): I63.9 - CEREBRAL INFARCTION, UNSPECIFIED Status: Acute QualifierTitle: Precerebral and cerebral artery: middle cerebral artery Laterality of affected vessel: right Plan: Patient presented with LT sided weakness and found to have RT. MCA s/p tPA. NGT with dobhoff for enteral feeds 2/2 failed bedside swallow. Prognosis is poor and has been discussed with family though extent of future deficits is unknown. Cont ASA, atorvastatin and lisinopril. Will likely need placement. (4) Endocarditis Code(s): I38 - ENDOCARDITIS, VALVE UNSPECIFIED Status: Suspected Plan: Suspect possible endocarditis due to recurrent fevers. However, cx's are NGTD. Cardiology following who do not suspect endocarditis and no need for JOAN. Possible neurogenic in origin. Cont to monitor. (5) Abdominal distention Code(s): R14.0 - ABDOMINAL DISTENSION (GASEOUS) Status: Acute Plan: Patient with slight abd distension, but +BS, +BM and no guarding or rebound. Tolerate feeds with minimal residuals. Monitor. (6) Renal infarct Code(s): N28.0 - ISCHEMIA AND INFARCTION OF KIDNEY Status: Acute Plan: Unknown etiology. Thought possibly 2/2 to endocarditis with septic emboli. No specific treatment and thus will provide secondary CV prevention with ASA, statin and ARMIN-I. <Christin Escobedo - Last Filed: 02/25/17 07:40> Attending Addendum - Attending Addendum I personally evaluated the patient and discussed the management with Dr. Escobedo. I agree with the History, Examination, Assessment and Plan documented above with any addition or exceptions noted below. Patient doing somewhat better. He is currently off sedation and not severely agitated. We are waiting pulm recs regarding extubation. His BP is somewhat elevated and will work to get better control of that, though some could be due to his coming off sedation. Monitor for continuing DTs. Continue to have elevated body temp, thought to be neurogenic fevers, though cultures still pending. If temps spike >101, would repeat cultures. Will need therapy once extubated and able to participate. <Marcelo Lomeli - Last Filed: 02/25/17 11:21>
[2017-02-25] MEDS: Enoxaparin Sodium 40 MG/0.4 ML SYRINGE SC SCH (08:11)
[2017-02-25] MEDS: Aspirin 300 MG Suppository PR SCH (08:11)
[2017-02-25] MEDS: Lisinopril 20 MG TAB PO SCH ×2 (08:11→22:52)
[2017-02-25] MEDS: Folic Acid 1 MG TAB PO SCH (08:12)
[2017-02-25] MEDS: Multivits W-Minerals Liquid 15mL UDCUP PO SCH (08:12)
[2017-02-25] MEDS: Carvedilol 6.25 MG TAB PO SCH ×2 (08:12→16:18)
[2017-02-25] MEDS: Polyethylene Glycol 3350 17 GM Packet PO SCH (08:14)
[2017-02-25] MEDS: Senokot S 8.6-50 MG TAB PO SCH ×2 (08:14→19:11)
[2017-02-25] MEDS: Pantoprazole 40 MG GRANULES PACKET PO SCH (08:14)
[2017-02-25] MEDS: clonazePAM 1 MG TAB PO SCH ×2 (08:22→22:52)
[2017-02-25 08:31] LABS: Oxyhemoglobin 90.9 % (94.0-97.0); Sodium 139 mmol/L (135-148)
[2017-02-25 08:32] LABS: Mechanical Tidal Volume 483 ml; Pressure Support 7 cmH2O; Spontaneous Rate 18 min; Vent YES
[2017-02-25 08:33] LABS: Mode SIMV/PC
[2017-02-25] MEDS ORDERED: Multivits W-Minerals Liquid 5 ML UDCUP PO SCH (09:00)
[2017-02-25] MEDS ORDERED: Cefepime 1 GM in Sodium Chloride 0.9% 100 ML IVPB SCH (09:00)
[2017-02-25] MEDS ORDERED: Multivits W-Minerals Liquid 15mL UDCUP PER TUBE SCH (09:00)
[2017-02-25] MEDS: Cefepime 1 GM, Admixture Fee 1 EACH in Sterile Water 10 ML SLOW IVP SCH ×2 (09:13→22:52)
--- NOTE | 2017-02-25 10:00 | RAD ---
PORTABLE CHEST: Date: 02/25/17 HISTORY: Respiratory distress. Pneumonia. COMPARISON: 02/23/17 study. FINDINGS: Endotracheal tube is somewhat difficult to visualize due to overlying Dobbhoff and NG tubes. There is opacification of the right upper lobe. The infiltrate appears smaller than on the prior exam. IMPRESSION: Decreased size of the right upper lobe infiltrate. POS: H
--- NOTE | 2017-02-25 10:38 | PRG ---
DATE OF SERVICE: 02/25/2017 SUBJECTIVE: Awake, alert, responsive, on low dose sedation. OBJECTIVE: VITAL SIGNS: Blood pressure 192/80, pulse 87, respiratory rate 18. He is much more calm, his I's an d O's have been good, 1605 in and 3055 out, afebrile. CHEST: Reveals decreased breath sounds, no wheezing. CARDIAC: Normal S1, S2. ABDOMEN: Soft. LABORATORY DATA: White count 15,000, H&H 14 and 40, platelet count normal. Electrolytes are normal. ASSESSMENT: Status post respiratory failure, encephalopathy, retained secretions, cerebrovascular ac cident and alcohol abuse. PLAN: Hold sedation. He appears to be neurologically better, try and wean and hopefully extubate. In the meantime, continue antibiotics, nebs, supportive care. One-half hour critical care time.
[2017-02-25] MEDS ORDERED: Diphenoxylate HCl/Atropine Tablet PO SCH (13:15)
[2017-02-25] MEDS ORDERED: Acetaminophen 650 MG/20.3 ML UDCUP PER TUBE PRN (16:08)
[2017-02-25] MEDS: Atorvastatin Calcium 40 MG TAB PO SCH (22:52)
[2017-02-25] MEDS: Lorazepam 2 MG/ML VIAL SLOW IVP PRN (23:47)
[2017-02-26 05:06] LABS: Anion Gap 13 mmol/L (10-20); BUN (Urea Nitrogen) 22 mg/dL (8.4-25.7); Calc. Creatinine Clearance 122 mL/min (70-130); Calcium 9.8 mg/dL (7.8-10.44); Carbon Dioxide 23 mmol/L (22-29); Chloride 102 mmol/L (98-107); Estimated GFR-MDRD Greater than 90; Magnesium 1.7 mg/dL (1.6-2.6)
[2017-02-26 06:21] LABS: Band 7 % (5-11); Mean Platelet Volume 8.1 fL (7.4-10.4); Metamyelocyte 1 % (0-0); Neutrophil 74 % (42-75); Reactive Lymphocytes 1 % (0-10); Red Blood Cell (RBC) Count 4.61 mill/uL (4.70-6.10); Toxic Granulation SLIGHT; White Blood Cell (WBC) Count 21.7 thou/uL (4.8-10.8)
--- NOTE | 2017-02-26 06:56 | PDOC.FM ---
- Subjective Subjective: Patient extubated yesterday and doing well. Overnight, patient was restless and agitated and given a dose of ativan. Per nursing, patient with ASE of 8. Also states elev BPs, but it is always when he is moving around and restless. Pulled dobhoff tube overnight and failed bedside swallow. Otherwise, improvement in LT extremities. Remained afebrile. - Objective MAR Reviewed: Yes Vital Signs & Weight: Vital Signs (12 hours) Temp Pulse Resp BP Pulse Ox 02/26/17 04:00 163/70 H 02/26/17 00:00 172/87 H 02/25/17 22:52 172/87 H 02/25/17 20:00 152/77 H 02/25/17 19:21 98.7 F 72 20 100 02/25/17 19:00 98.7 F Weight Admit Weight 91.798 kg Weight 84.6 kg Most Recent Monitor Data Heart Rate from ECG 84 NIBP 174/82 NIBP BP-Mean 97 Respiration from ECG 20 SpO2 98 I&O: 02/24/17 02/25/17 02/26/17 06:59 06:59 06:59 Intake Total 3274.7 1605.9 1128 Output Total 3543 3055 2185 Balance -268.3 -1449.1 -1057 Result Diagrams: 02/26/17 04:00 02/26/17 04:00 <Christin Escobedo - Last Filed: 02/26/17 10:27> - Objective Vital Signs & Weight: Vital Signs (12 hours) Temp Pulse Resp BP Pulse Ox 02/26/17 09:00 156/79 H 02/26/17 07:31 98.1 F 86 22 H 143/78 H 100 02/26/17 07:00 98.1 F 02/26/17 04:00 163/70 H 02/26/17 00:00 172/87 H 02/25/17 22:52 172/87 H Weight Admit Weight 91.798 kg Weight 84.6 kg Most Recent Monitor Data Heart Rate from ECG 82 NIBP 137/69 NIBP BP-Mean 89 Respiration from ECG 15 SpO2 100 I&O: 02/25/17 02/26/17 02/27/17 06:59 06:59 06:59 Intake Total 1605.9 1128 40 Output Total 3055 2185 265 Balance -1449.1 -1057 -225 Result Diagrams: 02/26/17 04:00 02/26/17 04:00 <Marcelo Lomeli - Last Filed: 02/26/17 10:38> Phys Exam - Physical Examination Constitutional: NAD Respiratory: no wheezing, clear to auscultation bilateral (anteriorly) Cardiovascular: RRR, no significant murmur Gastrointestinal: soft, positive bowel sounds mild distension LT sided facial droop, 4/5 LUE & LLE Psychiatric: normal affect, A&O x 3 <Christin Escobedo - Last Filed: 02/26/17 10:27> Dx/Plan (1) Delirium tremens Code(s): F10.231 - ALCOHOL DEPENDENCE WITH WITHDRAWAL DELIRIUM Status: Acute Plan: Patient with longstanding alcohol abuse and admits to drinking 1/5th a day. Patient has remained intubated 2/2 alcohol w/drawal with DTs. Extubated yesterday and doing well. He was agitated overnight with ASE of 8 and given a dose of ativan, which seemed to help. During agitation, he pulled his dophoff tube. Failed his bedside swallow and not able to give any meds PO currently. Likely transfer to stroke today and cont ASE protocol. (2) Septic shock Code(s): A41.9 - SEPSIS, UNSPECIFIED ORGANISM; R65.21 - SEVERE SEPSIS WITH SEPTIC SHOCK Status: Resolved Plan: Likely 2/2 s. pneum CAP. Patient initially on Vanc and Zosyn and completed abx course. Patient has had recurrent fevers, but thought to be neurogenic. Dr. Restrepo covering for Dr. Castro over the weekend and started Cefepime (02/25). Patient without any fevers overnight, but his WBC did jump to 21.7 this AM. Prelim sputum cx only growing normal resp leonardo. Urine and Bl cx's have been negative. Repeat CXR yesterday showed RT infiltrate improvement. Obtain UA, urine and bl cx's today. Con Cefepime and consider additional abx coverage. (3) CVA (cerebral vascular accident) Code(s): I63.9 - CEREBRAL INFARCTION, UNSPECIFIED Status: Acute QualifierTitle: Precerebral and cerebral artery: middle cerebral artery Laterality of affected vessel: right Plan: Patient presented with LT sided weakness and found to have RT. MCA s/p tPA. NGT with dobhoff for enteral feeds 2/2 failed bedside swallow. However, overnight patient pulled dobhoff tube and again failed bedside swallow. Speech consulted and plan to evaluate him today. Cont ASA, atorvastatin and lisinopril. Will likely need placement. (4) Dysphagia as late effect of cerebrovascular accident (CVA) Code(s): I69.391 - DYSPHAGIA FOLLOWING CEREBRAL INFARCTION Status: Acute Plan: See above. Failed bedside swallow. Speech consulted for further evaluation. (5) Hypertension Code(s): I10 - ESSENTIAL (PRIMARY) HYPERTENSION Status: Acute QualifierTitle: Hypertension type: essential hypertension Qualified Code( s): I10 - Essential (primary) hypertension Plan: Uncontrolled. Patient on lisinopril 40mg at home. Started on coreg and increased today. However, patient failed bedside swallow and pulled dobhoff tube overnight. Speech to evaluate. PRN meds. (6) Endocarditis Code(s): I38 - ENDOCARDITIS, VALVE UNSPECIFIED Status: Suspected Plan: Suspect possible endocarditis due to recurrent fevers. However, cx's are NGTD. Cardiology following who do not suspect endocarditis and no need for JOAN. No recurrent fevers overnight with intiation of Cefepime. Cont to monitor. (7) Abdominal distention Code(s): R14.0 - ABDOMINAL DISTENSION (GASEOUS) Status: Acute Plan: Patient with slight abd distension, but +BS, +BM and no guarding or rebound. Denies abd pain. Monitor. (8) Renal infarct Code(s): N28.0 - ISCHEMIA AND INFARCTION OF KIDNEY Status: Acute Plan: Unknown etiology. Thought possibly 2/2 to endocarditis with septic emboli. No specific treatment and thus will provide secondary CV prevention with ASA, statin and ARMIN-I. <Christin Escobedo - Last Filed: 02/26/17 10:27> Attending Addendum - Attending Addendum I personally evaluated the patient and discussed the management with Dr. Escobedo. I agree with the History, Examination, Assessment and Plan documented above with any addition or exceptions noted below. Patient self extubated yesterday but has been doing well from respiratory standpoint since that time. He is still unsafe to swallow as deemed by speech therapy this morning. His blood pressure continues to be elevated and we will make medication changes to obtain better control today. Stroke team will be consulted now that patient can work with therapy s/p extubation. His WBC count has spiked, though he has been afebrile. We will obtain urine analysis and culture to search for possible infection source. Continue Cefepime per CCU recs. He is stable for transfer to stroke unit today. <Marcelo Lomeli R - Last Filed: 02/26/17 10:38>
[2017-02-26] MEDS: Carvedilol 25 MG TAB PO SCH ×2 (08:58→16:38)
[2017-02-26] MEDS: Folic Acid 1 MG TAB PO SCH (08:59)
[2017-02-26] MEDS: clonazePAM 1 MG TAB PO SCH ×2 (08:59→20:37)
[2017-02-26] MEDS: Senokot S 8.6-50 MG TAB PO SCH (09:00)
[2017-02-26] MEDS: Lisinopril 20 MG TAB PO SCH ×2 (09:00→20:37)
[2017-02-26] MEDS: Enoxaparin Sodium 40 MG/0.4 ML SYRINGE SC SCH (09:02)
[2017-02-26] MEDS: Aspirin 300 MG Suppository PR SCH ×2 (09:02→10:08)
[2017-02-26] MEDS: Pantoprazole 40 MG GRANULES PACKET PO SCH (09:04)
[2017-02-26] MEDS: Polyethylene Glycol 3350 17 GM Packet PO SCH (09:04)
[2017-02-26] MEDS: Cefepime 1 GM, Admixture Fee 1 EACH in Sterile Water 10 ML SLOW IVP SCH ×2 (09:05→20:38)
[2017-02-26] MEDS: Multivits W-Minerals Liquid 15mL UDCUP PO SCH (09:25)
[2017-02-26 11:11] LABS: Bacteria/HPF None Seen HPF (None Seen); Hyaline Casts/LPF 4-6 HYALINE CAST LPF (0-3 Hyaline); RBC/HPF GREATER THAN 50-TNTC HPF (0-3); Squamous Epithelial 0-3 HPF (0-3); WBC/HPF 0-3 HPF (0-3)
[2017-02-26 11:17] LABS: Bilirubin Small (Negative); Blood, Urine Large (Negative); Glucose, Urine (Dipstick) Negative (Negative); Ketone, Urine Negative (Negative); Nitrite Negative (Negative); Protein, Urine (Dipstick) 100 mg/dL (Neg-Trace); Urobilinogen 0.2 mg/dL (0.2-1.0)
--- NOTE | 2017-02-26 13:26 | PRG ---
DATE OF SERVICE: 02/26/2017 SUBJECTIVE: This morning, he is awake, responsive, post-extubation. OBJECTIVE: VITAL SIGNS: Blood pressure 140/78, respirations 20, O2 sat 100%. I's and O's are 1605 in and 3055 out. CHEST: Reveals bilateral rhonchi. CARDIAC: Normal S1 and S2. No gallops. ABDOMEN: Soft, no masses. LABORATORY DATA: White count 13,000, hemoglobin and hematocrit 14 and 43, and platelet count 378. E lectrolytes are normal. ASSESSMENT: Right upper lobe pneumonia, aspiration, and cerebrovascular accident. PLAN: Continue Maxipime. Continue neb treatments. PT, supportive care, and nutrition.
--- NOTE | 2017-02-26 15:00 | EKG ---
Test Reason : Blood Pressure : / mmHG Vent. Rate : 097 BPM Atrial Rate : 097 BPM P-R Int : 206 ms QRS Dur : 090 ms QT Int : 358 ms P-R-T Axes : 049 071 069 degrees QTc Int : 454 ms Normal sinus rhythm Normal ECG When compared with ECG of 22-OCT-2014 21:37, Nonspecific T wave abnormality now evident in Lateral leads Confirmed by MICHEAL OLVERA (2) on 02/26/2017 2:59:39 PM Referred By: ARCHANA Confirmed By:MICHEAL OLVERA
[2017-02-26] MEDS: Atorvastatin Calcium 40 MG TAB PO SCH (20:37)
[2017-02-27] MEDS: Lorazepam 2 MG/ML VIAL SLOW IVP PRN (01:28)
[2017-02-27 05:36] LABS: #Basophils 0.1 thou/uL (0.0-0.2); #Eosinphils 0.3 thou/uL (0.0-0.7); #Lymphocytes 2.2 thou/uL (1.20-3.40); #Monocytes 1.5 thou/uL (0.11-0.59); #Neutrophils 19.4 thou/uL (1.40-6.50); %Basophils 0.3 % (0.0-1.0); %Eosinophils 1.1 % (0.0-10.0); %Lymphocytes 9.4 % (21.0-51.0); %Monocytes 6.2 % (0.0-10.0); Hematocrit 39.5 % (42.0-52.0); Mean Platelet Volume 7.9 fL (7.4-10.4); Red Blood Cell (RBC) Count 4.18 mill/uL (4.70-6.10); White Blood Cell (WBC) Count 23.3 thou/uL (4.8-10.8)
[2017-02-27 06:06] LABS: Anion Gap 13 mmol/L (10-20); BUN (Urea Nitrogen) 39 mg/dL (8.4-25.7); Calc. Creatinine Clearance 75 mL/min (70-130); Calcium 9.6 mg/dL (7.8-10.44); Carbon Dioxide 22 mmol/L (22-29); Chloride 104 mmol/L (98-107); Estimated GFR-MDRD 62; Magnesium 1.8 mg/dL (1.6-2.6)
[2017-02-27] MEDS: clonazePAM 1 MG TAB PO SCH ×2 (08:15→20:01)
--- NOTE | 2017-02-27 08:20 | PDOC.FM ---
- Subjective Subjective: Pt seen at bedside in NAD. ESPERANZA overnight. SO in room also at bedside. Per nursing, pt slightly anxious overnight and received one dose of Ativan. Pt notes no new complaints and feels well, however, he is hungry. - Objective MAR Reviewed: Yes Vital Signs & Weight: Vital Signs (12 hours) Temp Pulse Resp BP BP Pulse Ox 02/27/17 07:40 98.9 F 82 18 134/72 92 L 02/27/17 06:31 80 16 97 02/27/17 04:19 98.5 F 80 20 138/69 94 L 02/27/17 04:00 138/69 02/27/17 00:20 94 L 02/27/17 00:10 97.2 F L 84 18 136/87 136/87 96 02/26/17 20:35 98.4 F 78 18 136/75 95 02/26/17 20:30 98.4 F 78 18 136/75 95 Weight Admit Weight 91.798 kg Weight 78.562 kg Most Recent Monitor Data Heart Rate from ECG 77 NIBP 131/60 NIBP BP-Mean 83 Respiration from ECG 26 SpO2 100 I&O: 02/26/17 02/27/17 02/28/17 06:59 06:59 06:59 Intake Total 1128 268 Output Total 2185 430 Balance -1057 162 Result Diagrams: 02/27/17 05:25 02/27/17 05:25 <Ari Khanna - Last Filed: 02/27/17 09:22> - Objective Vital Signs & Weight: Vital Signs (12 hours) Temp Pulse Resp BP BP Pulse Ox 02/27/17 11:20 138/69 02/27/17 08:00 98.9 F 82 18 02/27/17 07:40 98.9 F 82 18 134/72 92 L 02/27/17 06:31 80 16 97 02/27/17 04:19 98.5 F 80 20 138/69 94 L 02/27/17 04:00 138/69 02/27/17 00:20 94 L 02/27/17 00:10 97.2 F L 84 18 136/87 136/87 96 Weight Admit Weight 91.798 kg Weight 78.562 kg Most Recent Monitor Data Heart Rate from ECG 77 NIBP 131/60 NIBP BP-Mean 83 Respiration from ECG 26 SpO2 100 I&O: 02/26/17 02/27/17 02/28/17 06:59 06:59 06:59 Intake Total 1128 268 Output Total 2185 430 Balance -1057 -162 Result Diagrams: 02/27/17 05:25 02/27/17 05:25 <Leanna Webb - Last Filed: 02/27/17 11:32> Phys Exam - Physical Examination Constitutional: NAD Respiratory: no wheezing, clear to auscultation bilateral Cardiovascular: RRR, no significant murmur Gastrointestinal: soft, non-tender, positive bowel sounds Musculoskeletal: pulses present Neurological: moves all 4 limbs left sided facial dorop, 4/5 LUE and LLE Psychiatric: normal affect, A&O x 3 <Ari Khanna - Last Filed: 02/27/17 09:22> Dx/Plan (1) CVA (cerebral vascular accident) Code(s): I63.9 - CEREBRAL INFARCTION, UNSPECIFIED Status: Acute QualifierTitle: Precerebral and cerebral artery: middle cerebral artery Laterality of affected vessel: right Plan: -pt presented with left sided weakness and found to have right MCA infarct s/p tPA on 02/18 -pt has improved well regarding strength and neuro function -pt has failed swallow study but cleared for meds with sips, will follow speech recs, greatly appreciated -neurology on board, recs greatly appreciated -pt transferred to stroke floor on 02/26 -continue therapy per stroke team and continue to monitor -BP much better controlled 130s/70s last 24 hrs (2) Delirium tremens Code(s): F10.231 - ALCOHOL DEPENDENCE WITH WITHDRAWAL DELIRIUM Status: Acute Plan: -pt with longstanding alcohol abuse and was initially intubated 2/2 alcohol withdrawal and DTs -pt was extubated on 02/25 and has been doing well -slightly anxious overnight, however, highest ASE score of 6 -continue ASE protocol and continue to monitor (3) Pneumonia due to Streptococcus pneumoniae Code(s): J13 - PNEUMONIA DUE TO STREPTOCOCCUS PNEUMONIAE Status: Acute QualifierTitle: Laterality: right Lung location: upper lobe of lung Qualified Code(s): J13 - Pneumonia due to Streptococcus pneumoniae Plan: -pt initially in septic shock 2/2 S pneumo CAP, initially started on Vanc and Zosyn, however, completed abx course -pt had recurrent fevers after abx course which were thought to be neurogenic -pulm on board, recs greatly appreciated, started Cefepime 02/25 -pt has had worsening leukocytosis over last 2 days -repeat blood and urine cultures on 02/26 show no growth to date -sputum culture shows no growth -pt has been afebrile but with worsening WBC, will repeat 2 view CXR this AM to further evaluate -continue Cefepime per pulm (4) Dysphagia as late effect of cerebrovascular accident (CVA) Code(s): I69.391 - DYSPHAGIA FOLLOWING CEREBRAL INFARCTION Status: Acute Plan: -pt to be reevaluated by speech therapy, cont to monitor (5) Hypertension Code(s): I10 - ESSENTIAL (PRIMARY) HYPERTENSION Status: Acute QualifierTitle: Hypertension type: essential hypertension Qualified Code( s): I10 - Essential (primary) hypertension Plan: -initially uncontrolled, however with increased coreg, better controlled -130/70s last 24 hrs on lisinopril and coreg -continue to monitor - Plan Plan: dispo: Pt stable and doing well since being extubated. Specialist recs greatly appreciated. With worsening leukocytosis, repeat CXR this AM. Repeat cultures yesterday have shown no growth. Speech to reevaluate swallow study, assistance and recs appreciated. Pt to continue therapy per stroke team. Continue to monitor closely. <Ari Khanna - Last Filed: 02/27/17 09:22> Attending Addendum - Attending Addendum I personally evaluated the patient and discussed the management with Dr. Khanna I agree with the History, Examination, Assessment and Plan documented above with any addition or exceptions noted below- 1) R MCA CVA- Passed swallow study today; diet started; continue PT/OT/ST, 2) Leukocytosis- uncertain etiology, possibly infectious- will add vancomycin given 1/2 positive blood cultures today with gram (+) cocci in clusters, 3) HTN- continue lisinopril and coreg. 4 ) D/c planning- case management involved. <Leanna Webb - Last Filed: 02/27/17 11:32>
--- NOTE | 2017-02-27 11:08 | RAD ---
PORTABLE AP CHEST: Date: 02/27/17 HISTORY: Elevated white blood cell count. COMPARISON: 02/25/17. FINDINGS: The endotracheal tube and Dobbhoff feeding tube, as well as nasogastric tubes have been removed. Ther e is a focal area of consolidation seen within the right upper lung zone, probably within the right u pper lobe, also present on the prior exam, although more peripherally there may be mild improvement i n aeration. The left lung remains clear. Cardiac silhouette and pulmonary vasculature are within norm al limits. IMPRESSION: Suggestion of minimal improvement in right upper lobe pneumonia. Continued follow-up to complete reso lution is recommended. POS: DONNIE
[2017-02-27] MEDS: Folic Acid 1 MG TAB PO SCH (11:19)
[2017-02-27] MEDS: Carvedilol 25 MG TAB PO SCH ×2 (11:20→18:17)
[2017-02-27] MEDS: Lisinopril 20 MG TAB PO SCH ×2 (11:20→20:01)
[2017-02-27] MEDS: Aspirin 300 MG Suppository PR SCH (11:20)
[2017-02-27] MEDS: Pantoprazole 40 MG GRANULES PACKET PO SCH (11:22)
[2017-02-27] MEDS: Vancomycin HCl 1.25 GM in Sodium Chloride 0.9% 250 ML 250 ML IVPB SCH ×2 (11:22→21:46)
[2017-02-27] MEDS: Cefepime 1 GM, Admixture Fee 1 EACH in Sterile Water 10 ML SLOW IVP SCH ×2 (11:24→20:02)
[2017-02-27] MEDS: Multivits W-Minerals Liquid 15mL UDCUP PO SCH (11:24)
[2017-02-27] MEDS: Enoxaparin Sodium 40 MG/0.4 ML SYRINGE SC SCH (12:37)
--- NOTE | 2017-02-27 14:23 | PRG ---
DATE OF SERVICE:: 02/27/2017 SERVICE: Pulmonary Medicine. INTERVAL HISTORY: The patient is doing great from a respiratory standpoint. He has no specific comp laints of fevers, chills, nausea, vomiting or chest discomfort. Otherwise, he is doing quite well fr om a mentation standpoint. He is able to participate with both physical therapy and occupational the rapy. PHYSICAL EXAMINATION: VITAL SIGNS: Afebrile, pulse 83, blood pressure 116/72, respirations 18, saturation 93% on room air. GENERAL: The patient is awake, alert, in no apparent distress. LUNGS: Decreased air entry. Rhonchi are present but he has a good cough now. He is able to clear h is secretions. HEART: Normal rate, regular. ABDOMEN: Soft, nontender, nondistended, bowel sounds positive. MUSCULOSKELETAL: No cyanosis or clubbing. No pitting in the bilateral lower extremities. LABORATORY DATA: WBC 23.3, hemoglobin 13.1, platelets 390,000. Neutrophil count has increased to 83 %. Basic metabolic profile was essentially unremarkable at this time. Magnesium is normal at 1.8. Creatinine has increased to 1.20. IMAGING: Chest x-ray demonstrates minimal improvement in the right upper lobe pneumonia. No evidenc e of obvious effusion is present. ASSESSMENT: 1. Acute hypoxic respiratory failure, resolved. 2. Community-acquired pneumonia secondary to Streptococcus, presumed. 3. Septic shock, resolved. 4. Cerebrovascular accident of the right middle cerebral artery. 5. Non-ST elevation myocardial infarction. 6. Renal infarction. 7. Acute kidney injury. 8. Delirium tremens, resolved. PLAN: The patient has completed a course of antibiotics for his community-acquired pneumonia. He galan s a recrudescence in sepsis profile. He is under investigation by the primary service. At this poin t, his presumed pneumonia is thought to be treated. Repeat chest x-ray will need to be performed in 6 weeks. He remains at extraordinarily high risk for recurrent aspiration related to diseases moving forward. He will need to work hard with physical therapy, occupational therapy, and speech patholog y to regain his losses. He has no requirements for inpatient Pulmonary or Critical Care opinion. As such, I will sign off. Please call with additional questions or concerns moving forward.
[2017-02-27] MEDS: Acetaminophen 650 MG/20.3 ML UDCUP PO PRN (17:22)
[2017-02-27] MEDS: Nicotine 14 MG PATCH TD SCH (18:37)
[2017-02-27] MEDS: Atorvastatin Calcium 40 MG TAB PO SCH (20:01)
[2017-02-27] MEDS: Hydrocortisone 1% Cream 1.5 GM Packet TOP SCH (20:03)
[2017-02-28 05:22] LABS: #Basophils 0.1 thou/uL (0.0-0.2); #Eosinphils 0.3 thou/uL (0.0-0.7); #Lymphocytes 1.7 thou/uL (1.20-3.40); #Monocytes 1.1 thou/uL (0.11-0.59); #Neutrophils 12.5 thou/uL (1.40-6.50); %Basophils 0.5 % (0.0-1.0); %Eosinophils 1.8 % (0.0-10.0); %Lymphocytes 10.7 % (21.0-51.0); Hematocrit 36.6 % (42.0-52.0); Red Blood Cell (RBC) Count 3.85 mill/uL (4.70-6.10); White Blood Cell (WBC) Count 15.6 thou/uL (4.8-10.8)
[2017-02-28 05:33] LABS: Anion Gap 15 mmol/L (10-20); BUN (Urea Nitrogen) 62 mg/dL (8.4-25.7); Calc. Creatinine Clearance 44 mL/min (70-130); Calcium 9.3 mg/dL (7.8-10.44); Carbon Dioxide 20 mmol/L (22-29); Chloride 105 mmol/L (98-107); Estimated GFR-MDRD 33
[2017-02-28] MEDS ORDERED: Sodium Chloride 0.9% 1,000 ML IV SCH ×2 (07:45→10:45)
[2017-02-28] MEDS: Enoxaparin Sodium 40 MG/0.4 ML SYRINGE SC SCH (08:19)
[2017-02-28] MEDS: Aspirin 325 MG TAB PO SCH (08:20)
[2017-02-28] MEDS: Pantoprazole 40 MG GRANULES PACKET PO SCH (08:20)
[2017-02-28] MEDS: Multivitamin W/ Minerals 1 TAB PO SCH (08:20)
[2017-02-28] MEDS: clonazePAM 1 MG TAB PO SCH ×2 (08:20→20:14)
[2017-02-28] MEDS: Lisinopril 20 MG TAB PO SCH (08:20)
[2017-02-28] MEDS: Hydrocortisone 1% Cream 1.5 GM Packet TOP SCH ×2 (08:21→20:15)
[2017-02-28] MEDS: Folic Acid 1 MG TAB PO SCH (08:21)
[2017-02-28] MEDS: Carvedilol 25 MG TAB PO SCH ×2 (08:21→17:08)
--- NOTE | 2017-02-28 08:50 | PDOC.FM ---
- Subjective Subjective: Pt seen at bedside in NAD. Significant other also in room. ESPERANZA overnight. Pt tolerated PO well yesterday, however, notes limited liquid intake. Pt has no complaints but notes he would like to go home. - Objective MAR Reviewed: Yes Vital Signs & Weight: Vital Signs (12 hours) Temp Pulse Resp BP BP Pulse Ox 02/28/17 08:20 127/68 02/28/17 07:35 98.7 F 71 16 127/68 93 L 02/28/17 07:08 69 14 95 02/28/17 03:53 104/61 02/28/17 03:48 62 104/61 02/28/17 03:15 97.2 F L 68 16 97/69 97 02/28/17 00:48 74 16 95 02/28/17 00:10 112/58 L 02/27/17 23:26 97.8 F 66 20 112/58 L 96 Weight Admit Weight 91.798 kg Weight 78.471 kg Most Recent Monitor Data Heart Rate from ECG 77 NIBP 131/60 NIBP BP-Mean 83 Respiration from ECG 26 SpO2 100 I&O: 02/27/17 02/28/17 03/01/17 06:59 06:59 06:59 Intake Total 268 1185 Output Total 430 Balance -162 1185 Result Diagrams: 02/28/17 04:49 02/28/17 04:49 <Ari Khanna - Last Filed: 02/28/17 08:48> - Objective Vital Signs & Weight: Vital Signs (12 hours) Temp Pulse Resp BP BP Pulse Ox 02/28/17 08:20 127/68 02/28/17 07:35 98.7 F 71 16 127/68 93 L 02/28/17 07:08 69 14 95 02/28/17 03:53 104/61 02/28/17 03:48 62 104/61 02/28/17 03:15 97.2 F L 68 16 97/69 97 02/28/17 00:48 74 16 95 02/28/17 00:10 112/58 L 02/27/17 23:26 97.8 F 66 20 112/58 L 96 Weight Admit Weight 91.798 kg Weight 78.471 kg Most Recent Monitor Data Heart Rate from ECG 77 NIBP 131/60 NIBP BP-Mean 83 Respiration from ECG 26 SpO2 100 I&O: 02/27/17 02/28/17 03/01/17 06:59 06:59 06:59 Intake Total 268 1185 Output Total 430 Balance -162 1185 Result Diagrams: 02/28/17 04:49 02/28/17 04:49 <Leanna Webb - Last Filed: 02/28/17 11:11> Phys Exam - Physical Examination Constitutional: NAD HEENT: PERRLA Respiratory: no wheezing, clear to auscultation bilateral Cardiovascular: RRR, no significant murmur Gastrointestinal: non-tender, positive bowel sounds Musculoskeletal: pulses present Neurological: moves all 4 limbs mild left sided facial droop. 4/5 LUE & LLE Psychiatric: normal affect, A&O x 3 <Ari Khanna - Last Filed: 02/28/17 08:48> Dx/Plan (1) CVA (cerebral vascular accident) Code(s): I63.9 - CEREBRAL INFARCTION, UNSPECIFIED Status: Acute QualifierTitle: Precerebral and cerebral artery: middle cerebral artery Laterality of affected vessel: right Plan: -pt presented with left sided weakness and found to have right MCA infarct s/p tPA on 02/18 -pt has improved well regarding strength and neuro function -pt has failed swallow study but cleared for meds with sips, will follow speech recs, greatly appreciated -neurology on board, recs greatly appreciated -pt transferred to stroke floor on 02/26 -continue therapy per stroke team and continue to monitor -BP much better controlled 130s/70s last 24 hrs (2) OLGA (acute kidney injury) Code(s): N17.9 - ACUTE KIDNEY FAILURE, UNSPECIFIED Status: Acute Plan: -acute change in kidney function likely 2/2 to transition to PO diet and poor liquid intake -Cr up to 2 from 1.20 -bolus IVF and recheck BMP this afternoon to ensure trending downward (3) Delirium tremens Code(s): F10.231 - ALCOHOL DEPENDENCE WITH WITHDRAWAL DELIRIUM Status: Acute Plan: -pt with longstanding alcohol abuse and was initially intubated 2/2 alcohol withdrawal and DTs -pt was extubated on 02/25 and has been doing well -slightly anxious overnight, however, highest ASE score of 6 -continue ASE protocol and continue to monitor (4) Pneumonia due to Streptococcus pneumoniae Code(s): J13 - PNEUMONIA DUE TO STREPTOCOCCUS PNEUMONIAE Status: Acute QualifierTitle: Laterality: right Lung location: upper lobe of lung Qualified Code(s): J13 - Pneumonia due to Streptococcus pneumoniae Plan: -pt initially in septic shock 2/2 S pneumo CAP, initially started on Vanc and Zosyn, however, completed abx course -pt had recurrent fevers after abx course which were thought to be neurogenic -pulm on board, recs greatly appreciated, started Cefepime 02/25 -pt has had worsening leukocytosis over last 2 days -repeat blood cultures showed 1/2 positive for G+ cocci, likely contaminant -vanc was restarted due to leukocytosis but pt developed OLGA, will d/c -sputum culture shows no growth -repeat CXR showed slightly improved RUL infiltrate -continue Cefepime per pulm (5) Leukocytosis Code(s): D72.829 - ELEVATED WHITE BLOOD CELL COUNT, UNSPECIFIED Status: Acute QualifierTitle: Leukocytosis type: unspecified Qualified Code(s): D72.829 - Elevated white blood cell count, unspecified Plan: -acute worsening of leukocytosis on 02/27, unclear etiology -vancomycin was restarted due to acute change and 1/2 blood cx showing G+ cocci -urine cx negative -vanc d/c 2/2 OLGA -improving WBC with downward trend, continue to monitor (6) Dysphagia as late effect of cerebrovascular accident (CVA) Code(s): I69.391 - DYSPHAGIA FOLLOWING CEREBRAL INFARCTION Status: Acute Plan: -pt reevaluated by speech and passed swallow study -pt has tolerated PO well, continue to monitor (7) Hypertension Code(s): I10 - ESSENTIAL (PRIMARY) HYPERTENSION Status: Acute QualifierTitle: Hypertension type: essential hypertension Qualified Code( s): I10 - Essential (primary) hypertension Plan: -initially uncontrolled, however with increased coreg, better controlled -130/70s last 24 hrs on lisinopril and coreg -continue to monitor - Plan Plan: dispo: Pt continues to improve from CVA standpoint, continue with therapy per stroke team. Leukocytosis has improved, however, will d/c Vanc due to OLGA and monitor with IVF resuscitation. Specialist recommendations also appreciated. Case management also consulted to aid with discharge planning. Will consult OT to further provide information on pt's functional status. Continue to monitor closely with possibility of discharge to SNF/rehab/home soon. <Ari Khanna - Last Filed: 02/28/17 08:48> Attending Addendum - Attending Addendum I personally evaluated the patient and discussed the management with Dr. Khanna I agree with the History, Examination, Assessment and Plan documented above with any addition or exceptions noted below- Patient sleeping after therapy. Afebrile VSS. A/P: 1) s/p R MCA CVA- continue PT/ST/OT; 2) CAP- resolved 3) OLGA - fluid bolus given today; hold ACEI; recheck labs later today, 4) Leukocytosis- resolved. <Leanna Webb - Last Filed: 02/28/17 11:11>
[2017-02-28] MEDS: Cefepime 1 GM, Admixture Fee 1 EACH in Sterile Water 10 ML SLOW IVP SCH ×2 (09:50→22:18)
[2017-02-28] MEDS: Sodium Chloride 0.9% 1,000 ML IV SCH ×3 (09:50→22:23)
[2017-02-28] MEDS: Nicotine 14 MG PATCH TD SCH (17:10)
[2017-02-28] MEDS: Atorvastatin Calcium 40 MG TAB PO SCH (20:14)
[2017-02-28] MEDS: Acetaminophen 650 MG/20.3 ML UDCUP PO PRN (20:29)
[2017-02-28 21:24] LABS: Vancomycin, Trough 27.9 ug/mL
[2017-03-01 05:14] LABS: #Basophils 0.1 thou/uL (0.0-0.2); #Eosinphils 0.2 thou/uL (0.0-0.7); #Lymphocytes 1.9 thou/uL (1.20-3.40); #Monocytes 1.1 thou/uL (0.11-0.59); #Neutrophils 9.5 thou/uL (1.40-6.50); %Basophils 0.4 % (0.0-1.0); %Eosinophils 1.7 % (0.0-10.0); %Lymphocytes 15.2 % (21.0-51.0); %Monocytes 8.4 % (0.0-10.0); Hematocrit 38.4 % (42.0-52.0); Mean Platelet Volume 8.6 fL (7.4-10.4); Red Blood Cell (RBC) Count 3.98 mill/uL (4.70-6.10); White Blood Cell (WBC) Count 12.8 thou/uL (4.8-10.8)
[2017-03-01 05:33] LABS: Anion Gap 12 mmol/L (10-20); BUN (Urea Nitrogen) 40 mg/dL (8.4-25.7); Calc. Creatinine Clearance 78 mL/min (70-130); Carbon Dioxide 17 mmol/L (22-29); Chloride 111 mmol/L (98-107)
[2017-03-01 05:34] LABS: Calcium 9.2 mg/dL (7.8-10.44); Estimated GFR-MDRD 65
[2017-03-01] MEDS: Sodium Chloride 0.9% 1,000 ML IV SCH (06:46)
--- NOTE | 2017-03-01 08:44 | PDOC.FM ---
- Subjective Subjective: Pt seen at bedside in NAD. ESPERANZA overnight. Pt tolerating PO and has no complaints. Pt denies PEREZ, CP, SOB, abd pain, NVD. - Objective MAR Reviewed: Yes Vital Signs & Weight: Vital Signs (12 hours) Temp Pulse Resp BP Pulse Ox 03/01/17 07:34 98.6 F 67 20 158/79 H 92 L 03/01/17 06:38 78 16 98 03/01/17 04:24 98.5 F 72 16 136/63 97 03/01/17 01:02 71 14 96 03/01/17 00:41 98.7 F 70 18 152/79 H 95 02/28/17 21:12 98.6 F 63 18 117/55 L 95 Weight Admit Weight 91.798 kg Weight 78.335 kg Most Recent Monitor Data Heart Rate from ECG 77 NIBP 131/60 NIBP BP-Mean 83 Respiration from ECG 26 SpO2 100 I&O: 02/28/17 03/01/17 03/02/17 06:59 06:59 06:59 Intake Total 1186 4051 Balance 1185 4171 Result Diagrams: 03/01/17 04:09 03/01/17 04:09 <Ari Khanna - Last Filed: 03/01/17 08:42> - Objective Vital Signs & Weight: Vital Signs (12 hours) Temp Pulse Resp BP Pulse Ox 03/01/17 11:23 79 18 97 03/01/17 11:19 98.4 F 70 14 107/52 L 98 03/01/17 07:34 98.6 F 67 20 158/79 H 92 L 03/01/17 06:38 78 16 98 03/01/17 04:24 98.5 F 72 16 136/63 97 03/01/17 01:02 71 14 96 03/01/17 00:41 98.7 F 70 18 152/79 H 95 Weight Admit Weight 91.798 kg Weight 78.335 kg Most Recent Monitor Data Heart Rate from ECG 77 NIBP 131/60 NIBP BP-Mean 83 Respiration from ECG 26 SpO2 100 I&O: 02/28/17 03/01/17 03/02/17 06:59 06:59 06:59 Intake Total 1181 4171 Balance 1185 4171 Result Diagrams: 03/01/17 04:09 03/01/17 04:09 <Leanna Webb - Last Filed: 03/01/17 11:38> Phys Exam - Physical Examination Constitutional: NAD HEENT: PERRLA Respiratory: no wheezing, clear to auscultation bilateral Cardiovascular: RRR, no significant murmur Gastrointestinal: non-tender, positive bowel sounds Musculoskeletal: pulses present Neurological: moves all 4 limbs mild left face droop. 4/5 LUE & LLE Psychiatric: normal affect, A&O x 3 <Ari Khanna - Last Filed: 03/01/17 08:42> Dx/Plan (1) CVA (cerebral vascular accident) Code(s): I63.9 - CEREBRAL INFARCTION, UNSPECIFIED Status: Acute QualifierTitle: Precerebral and cerebral artery: middle cerebral artery Laterality of affected vessel: right Plan: -pt presented with left sided weakness and found to have right MCA infarct s/p tPA on 02/18 -pt has improved well regarding strength and neuro function -pt has failed swallow study but cleared for meds with sips, will follow speech recs, greatly appreciated -neurology on board, recs greatly appreciated -pt transferred to stroke floor on 02/26 -continue therapy per stroke team and continue to monitor -BP much better controlled 130s/70s last 24 hrs (2) OLGA (acute kidney injury) Code(s): N17.9 - ACUTE KIDNEY FAILURE, UNSPECIFIED Status: Acute Plan: -acute change in kidney function likely 2/2 to transition to PO diet and poor liquid intake -Cr up to 2 but has resolved to normal range with IVF (3) Delirium tremens Code(s): F10.231 - ALCOHOL DEPENDENCE WITH WITHDRAWAL DELIRIUM Status: Acute Plan: -pt with longstanding alcohol abuse and was initially intubated 2/2 alcohol withdrawal and DTs -pt was extubated on 02/25 and has been doing well -slightly anxious overnight, however, highest ASE score of 6 -continue ASE protocol and continue to monitor (4) Pneumonia due to Streptococcus pneumoniae Code(s): J13 - PNEUMONIA DUE TO STREPTOCOCCUS PNEUMONIAE Status: Acute QualifierTitle: Laterality: right Lung location: upper lobe of lung Qualified Code(s): J13 - Pneumonia due to Streptococcus pneumoniae Plan: -pt initially in septic shock 2/2 S pneumo CAP, initially started on Vanc and Zosyn, however, completed abx course -pt had recurrent fevers after abx course which were thought to be neurogenic -pulm on board, recs greatly appreciated, started Cefepime 02/25 -pt has had worsening leukocytosis over last 2 days -repeat blood cultures showed 1/2 positive for G+ cocci, likely contaminant -vanc was restarted due to leukocytosis but pt developed OLGA, will d/c -sputum culture shows no growth -repeat CXR showed slightly improved RUL infiltrate -continue Cefepime per pulm (5) Leukocytosis Code(s): D72.829 - ELEVATED WHITE BLOOD CELL COUNT, UNSPECIFIED Status: Acute QualifierTitle: Leukocytosis type: unspecified Qualified Code(s): D72.829 - Elevated white blood cell count, unspecified Plan: -acute worsening of leukocytosis on 02/27, unclear etiology -vancomycin was restarted due to acute change and 1/2 blood cx showing G+ cocci -urine cx negative -vanc d/c 2/2 OLGA -improving WBC with downward trend, continue to monitor (6) Dysphagia as late effect of cerebrovascular accident (CVA) Code(s): I69.391 - DYSPHAGIA FOLLOWING CEREBRAL INFARCTION Status: Acute Plan: -pt reevaluated by speech and passed swallow study -pt has tolerated PO well, continue to monitor (7) Hypertension Code(s): I10 - ESSENTIAL (PRIMARY) HYPERTENSION Status: Acute QualifierTitle: Hypertension type: essential hypertension Qualified Code( s): I10 - Essential (primary) hypertension Plan: -initially uncontrolled, however with increased coreg, better controlled -130/70s last 24 hrs on lisinopril and coreg -continue to monitor - Plan Plan: dispo: Pt stable and continues to improve with therapy. OLGA has resolved with IVF. Case management assistance greatly appreciated. Awaiting possible [facility] bed as pt uninsured. Continue to monitor. Pending placement, pt likely stable for discharge to continue therapy. <Ari Khanna - Last Filed: 03/01/17 08:42> Attending Addendum - Attending Addendum I personally evaluated the patient and discussed the management with Dr. Khanna I agree with the History, Examination, Assessment and Plan documented above with any addition or exceptions noted below- Patient without complaints. Aefbrile VSS. A/P: 1) R MCA CVA- Continue PT/OT; awaiting placement pending insurance verification, 2) HTN- stable; continue current meds. <Leanna Webb - Last Filed: 03/01/17 11:38>
[2017-03-01] MEDS: Enoxaparin Sodium 40 MG/0.4 ML SYRINGE SC SCH (10:22)
[2017-03-01] MEDS: Multivitamin W/ Minerals 1 TAB PO SCH (10:23)
[2017-03-01] MEDS: Hydrocortisone 1% Cream 1.5 GM Packet TOP SCH ×2 (10:23→20:30)
[2017-03-01] MEDS: Folic Acid 1 MG TAB PO SCH (10:23)
[2017-03-01] MEDS: clonazePAM 1 MG TAB PO SCH ×2 (10:23→20:29)
[2017-03-01] MEDS: Pantoprazole 40 MG GRANULES PACKET PO SCH (10:23)
[2017-03-01] MEDS: Carvedilol 25 MG TAB PO SCH (10:23)
[2017-03-01] MEDS: Aspirin 325 MG TAB PO SCH (10:23)
[2017-03-01] MEDS: Cefepime 1 GM, Admixture Fee 1 EACH in Sterile Water 10 ML SLOW IVP SCH (10:24)
[2017-03-01] MEDS: Nicotine 14 MG PATCH TD SCH (17:10)
[2017-03-01] MEDS: Carvedilol 6.25 MG TAB PO SCH (17:10)
[2017-03-01] MEDS: Atorvastatin Calcium 40 MG TAB PO SCH (20:29)
[2017-03-02 05:29] LABS: #Basophils 0.1 thou/uL (0.0-0.2); #Eosinphils 0.2 thou/uL (0.0-0.7); #Lymphocytes 1.8 thou/uL (1.20-3.40); #Monocytes 0.9 thou/uL (0.11-0.59); #Neutrophils 6.9 thou/uL (1.40-6.50); %Basophils 0.7 % (0.0-1.0); %Eosinophils 1.8 % (0.0-10.0); %Lymphocytes 18.6 % (21.0-51.0); %Monocytes 9.2 % (0.0-10.0); Hematocrit 32.7 % (42.0-52.0); Mean Platelet Volume 8.3 fL (7.4-10.4); Red Blood Cell (RBC) Count 3.42 mill/uL (4.70-6.10); White Blood Cell (WBC) Count 9.9 thou/uL (4.8-10.8)
[2017-03-02 05:55] LABS: Anion Gap 12 mmol/L (10-20); BUN (Urea Nitrogen) 25 mg/dL (8.4-25.7); Calc. Creatinine Clearance 102 mL/min (70-130); Calcium 9.6 mg/dL (7.8-10.44); Carbon Dioxide 19 mmol/L (22-29); Chloride 107 mmol/L (98-107); Estimated GFR-MDRD 89; Magnesium 1.5 mg/dL (1.6-2.6)
--- NOTE | 2017-03-02 06:46 | PDOC.FM ---
- Subjective Subjective: Pt seen at bedside in NAD. ESPERANZA overnight. No complaints or concerns. - Objective MAR Reviewed: Yes Vital Signs & Weight: Vital Signs (12 hours) Temp Pulse Resp BP BP Pulse Ox 03/02/17 06:31 68 16 96 03/02/17 04:15 98.3 F 68 16 148/87 H 98 03/02/17 00:45 64 16 98 03/02/17 00:29 98.6 F 69 17 153/82 H 96 03/01/17 20:30 98.4 F 67 17 98 03/01/17 20:14 98.4 F 67 17 136/92 H 98 03/01/17 19:30 77 14 96 Weight Admit Weight 91.798 kg Weight 78.018 kg Most Recent Monitor Data Heart Rate from ECG 77 NIBP 131/60 NIBP BP-Mean 83 Respiration from ECG 26 SpO2 100 I&O: 02/28/17 03/01/17 03/02/17 06:59 06:59 06:59 Intake Total 1185 4171 1637 Balance 1185 4171 1637 Result Diagrams: 03/02/17 04:31 03/02/17 04:31 <Ari Khanna - Last Filed: 03/02/17 06:44> - Objective Vital Signs & Weight: Vital Signs (12 hours) Temp Pulse Resp BP BP BP Pulse Ox 03/02/17 09:26 147/82 H 03/02/17 09:25 147/82 H 03/02/17 08:00 97.9 F 64 18 147/82 H 147/82 H 96 03/02/17 06:31 68 16 96 03/02/17 04:15 98.3 F 68 16 148/87 H 98 03/02/17 00:45 64 16 98 03/02/17 00:29 98.6 F 69 17 153/82 H 96 Weight Admit Weight 91.798 kg Weight 78.018 kg Most Recent Monitor Data Heart Rate from ECG 77 NIBP 131/60 NIBP BP-Mean 83 Respiration from ECG 26 SpO2 100 I&O: 03/01/17 03/02/17 03/03/17 06:59 06:59 06:59 Intake Total 4171 1637 240 Balance 4171 1637 240 Result Diagrams: 03/02/17 04:31 03/02/17 04:31 <Pippa Ponce Last Filed: 03/02/17 11:00> Phys Exam - Physical Examination Constitutional: NAD HEENT: PERRLA Respiratory: no wheezing, clear to auscultation bilateral Cardiovascular: RRR, no significant murmur Gastrointestinal: soft, non-tender, positive bowel sounds Musculoskeletal: no edema, pulses present Neurological: moves all 4 limbs left face droop. 4/5 LUE & LLE Psychiatric: normal affect, A&O x 3 Skin: cap refill <2 seconds <Ari Khanna - Last Filed: 03/02/17 06:44> Dx/Plan (1) CVA (cerebral vascular accident) Code(s): I63.9 - CEREBRAL INFARCTION, UNSPECIFIED Status: Acute QualifierTitle: Precerebral and cerebral artery: middle cerebral artery Laterality of affected vessel: right Plan: -pt presented with left sided weakness and found to have right MCA infarct s/p tPA on 02/18 -pt has improved well regarding strength and neuro function -pt has failed swallow study but cleared for meds with sips, will follow speech recs, greatly appreciated -neurology on board, recs greatly appreciated -pt transferred to stroke floor on 02/26 -continue therapy per stroke team and continue to monitor -BP slightly elevated 2/2 holding lisinopril due to OLGA. OLGA has resolved and lisinopril restarted -continue to monitor (2) OLGA (acute kidney injury) Code(s): N17.9 - ACUTE KIDNEY FAILURE, UNSPECIFIED Status: Resolved Plan: -acute change in kidney function likely 2/2 to transition to PO diet and poor liquid intake -Cr up to 2 but has resolved to normal range with IVF (3) Delirium tremens Code(s): F10.231 - ALCOHOL DEPENDENCE WITH WITHDRAWAL DELIRIUM Status: Acute Plan: -pt with longstanding alcohol abuse and was initially intubated 2/2 alcohol withdrawal and DTs -pt was extubated on 02/25 and has been doing well -highest ASE score of 6 since extubation -continue ASE protocol and continue to monitor (4) Pneumonia due to Streptococcus pneumoniae Code(s): J13 - PNEUMONIA DUE TO STREPTOCOCCUS PNEUMONIAE Status: Acute QualifierTitle: Laterality: right Lung location: upper lobe of lung Qualified Code(s): J13 - Pneumonia due to Streptococcus pneumoniae Plan: -pt initially in septic shock 2/2 S pneumo CAP, initially started on Vanc and Zosyn, however, completed abx course -pt had recurrent fevers after abx course which were thought to be neurogenic -pulm on board, recs greatly appreciated, started Cefepime 02/25 -pt has had worsening leukocytosis over last 2 days -repeat blood cultures showed 1/2 positive for G+ cocci, likely contaminant -vanc was restarted due to leukocytosis but pt developed OLGA, will d/c -sputum culture shows no growth -repeat CXR showed slightly improved RUL infiltrate -abx discontinued as pt has completed course, initially with Vanc and Zosyn and Cefepime (5) Leukocytosis Code(s): D72.829 - ELEVATED WHITE BLOOD CELL COUNT, UNSPECIFIED Status: Acute QualifierTitle: Leukocytosis type: unspecified Qualified Code(s): D72.829 - Elevated white blood cell count, unspecified Plan: -acute worsening of leukocytosis on 02/27, unclear etiology -vancomycin was restarted due to acute change and 1/2 blood cx showing G+ cocci , likely contaminant -urine cx negative -vanc d/c 2/2 OLGA -improving WBC with downward trend, continue to monitor (6) Dysphagia as late effect of cerebrovascular accident (CVA) Code(s): I69.391 - DYSPHAGIA FOLLOWING CEREBRAL INFARCTION Status: Acute Plan: -pt reevaluated by speech and passed swallow study -pt has tolerated PO well, continue to monitor (7) Hypertension Code(s): I10 - ESSENTIAL (PRIMARY) HYPERTENSION Status: Acute QualifierTitle: Hypertension type: essential hypertension Qualified Code( s): I10 - Essential (primary) hypertension Plan: -initially uncontrolled, however with increased coreg, better controlled -slightly elevated last 24 hrs due to temporary hold of lisinopril. has been restarted. -continue to monitor - Plan Plan: dispo: Pt stable and continues to do well with therapy. OLGA resolved. Abx discontinued. Pt awaiting possible placement with [facility]. Continue to monitor and anticipate discharge upon approval. <Ari Khanna - Last Filed: 03/02/17 06:44> Attending Addendum - Attending Addendum I personally evaluated the patient and discussed the management with Dr. Khanna. I agree with the History, Examination, Assessment and Plan documented above with any addition or exceptions noted below. The patient is stable. He is continuing therapy. WAiting to see if patient will get a jun bed at rehab. <Pippa Ponce - Last Filed: 03/02/17 11:00>
[2017-03-02] MEDS: Folic Acid 1 MG TAB PO SCH (09:25)
[2017-03-02] MEDS: Aspirin 325 MG TAB PO SCH (09:25)
[2017-03-02] MEDS: Carvedilol 6.25 MG TAB PO SCH ×2 (09:25→17:28)
[2017-03-02] MEDS: Lisinopril 20 MG TAB PO SCH ×2 (09:26→20:10)
[2017-03-02] MEDS: Pantoprazole 40 MG GRANULES PACKET PO SCH (09:26)
[2017-03-02] MEDS: Enoxaparin Sodium 40 MG/0.4 ML SYRINGE SC SCH (09:26)
[2017-03-02] MEDS: clonazePAM 1 MG TAB PO SCH ×2 (09:27→20:12)
[2017-03-02] MEDS: Multivitamin W/ Minerals 1 TAB PO SCH (09:27)
[2017-03-02] MEDS: Hydrocortisone 1% Cream 1.5 GM Packet TOP SCH ×2 (09:28→20:10)
[2017-03-02] MEDS: Nicotine 14 MG PATCH TD SCH (17:28)
[2017-03-02] MEDS: Magnesium Oxide 400 MG TAB PO PRN (20:10)
[2017-03-02] MEDS: Atorvastatin Calcium 40 MG TAB PO SCH (20:12)
--- NOTE | 2017-03-03 06:49 | PDOC.FM ---
- Subjective Subjective: Pt seen at bedside in NAD. ESPERANZA overnight. No complaints or concerns at this time. - Objective MAR Reviewed: Yes Vital Signs & Weight: Vital Signs (12 hours) Temp Pulse Resp BP BP Pulse Ox 03/03/17 00:29 99 F 71 20 122/74 95 03/03/17 00:04 63 18 93 L 03/02/17 20:45 99.3 F 63 18 95 03/02/17 20:25 97.8 F 70 16 137/78 95 03/02/17 20:10 131/68 03/02/17 18:57 73 16 94 L Weight Admit Weight 91.798 kg Weight 78.018 kg Most Recent Monitor Data Heart Rate from ECG 77 NIBP 131/60 NIBP BP-Mean 83 Respiration from ECG 26 SpO2 100 I&O: 03/01/17 03/02/17 03/03/17 06:59 06:59 06:59 Intake Total 4171 1637 1390 Output Total 75 Balance 4171 1631 1315 Result Diagrams: 03/02/17 04:31 03/02/17 04:31 <Ari Khanna - Last Filed: 03/03/17 06:47> - Objective Vital Signs & Weight: Vital Signs (12 hours) Temp Pulse Pulse Pulse Resp BP BP 03/03/17 15:35 97.9 F 66 16 03/03/17 11:57 61 16 03/03/17 11:43 97.6 F 67 16 03/03/17 08:45 72 74 110/72 03/03/17 08:35 141/76 H 03/03/17 08:33 141/76 H 03/03/17 07:40 98.4 F 68 16 03/03/17 07:24 70 16 BP BP Pulse Ox 03/03/17 15:35 116/60 96 03/03/17 11:57 03/03/17 11:43 115/76 100 03/03/17 08:45 106/69 03/03/17 08:35 03/03/17 08:33 03/03/17 07:40 141/76 H 100 03/03/17 07:24 96 Weight Admit Weight 91.798 kg Weight 78.018 kg Most Recent Monitor Data Heart Rate from ECG 77 NIBP 131/60 NIBP BP-Mean 83 Respiration from ECG 26 SpO2 100 I&O: 03/02/17 03/03/17 03/04/17 06:59 06:59 06:59 Intake Total 1637 1390 600 Output Total 75 50 Balance 1637 1315 550 Result Diagrams: 03/02/17 04:31 03/02/17 04:31 <Pippa Ponce - Last Filed: 03/03/17 16:18> Phys Exam - Physical Examination Constitutional: NAD HEENT: PERRLA Respiratory: no wheezing, clear to auscultation bilateral Cardiovascular: RRR, no significant murmur Gastrointestinal: soft, non-tender, positive bowel sounds Musculoskeletal: no edema, pulses present Neurological: moves all 4 limbs left face droop. 4/5 LUE & LLE Psychiatric: normal affect, A&O x 3 Skin: cap refill <2 seconds <Ari Khanna - Last Filed: 03/03/17 06:47> Dx/Plan (1) CVA (cerebral vascular accident) Code(s): I63.9 - CEREBRAL INFARCTION, UNSPECIFIED Status: Acute QualifierTitle: Precerebral and cerebral artery: middle cerebral artery Laterality of affected vessel: right Plan: -pt presented with left sided weakness and found to have right MCA infarct s/p tPA on 02/18 -pt has improved well regarding strength and neuro function -pt has failed swallow study but cleared for meds with sips, will follow speech recs, greatly appreciated -neurology on board, recs greatly appreciated -pt transferred to stroke floor on 02/26 -continue therapy per stroke team and continue to monitor -BP slightly elevated 2/2 holding lisinopril due to OLGA. OLGA has resolved and lisinopril restarted -continue to monitor (2) OLGA (acute kidney injury) Code(s): N17.9 - ACUTE KIDNEY FAILURE, UNSPECIFIED Status: Resolved Plan: -acute change in kidney function likely 2/2 to transition to PO diet and poor liquid intake -Cr up to 2 but has resolved to normal range with IVF (3) Delirium tremens Code(s): F10.231 - ALCOHOL DEPENDENCE WITH WITHDRAWAL DELIRIUM Status: Acute Plan: -pt with longstanding alcohol abuse and was initially intubated 2/2 alcohol withdrawal and DTs -pt was extubated on 02/25 and has been doing well -highest ASE score of 6 since extubation -continue ASE protocol and continue to monitor (4) Pneumonia due to Streptococcus pneumoniae Code(s): J13 - PNEUMONIA DUE TO STREPTOCOCCUS PNEUMONIAE Status: Acute QualifierTitle: Laterality: right Lung location: upper lobe of lung Qualified Code(s): J13 - Pneumonia due to Streptococcus pneumoniae Plan: -pt initially in septic shock 2/2 S pneumo CAP, initially started on Vanc and Zosyn, however, completed abx course -pt had recurrent fevers after abx course which were thought to be neurogenic -pulm on board, recs greatly appreciated, started Cefepime 02/25 -pt has had worsening leukocytosis over last 2 days -repeat blood cultures showed 1/2 positive for G+ cocci, likely contaminant -vanc was restarted due to leukocytosis but pt developed OLGA, will d/c -sputum culture shows no growth -repeat CXR showed slightly improved RUL infiltrate -abx discontinued as pt has completed course, initially with Vanc and Zosyn and Cefepime (5) Leukocytosis Code(s): D72.829 - ELEVATED WHITE BLOOD CELL COUNT, UNSPECIFIED Status: Acute QualifierTitle: Leukocytosis type: unspecified Qualified Code(s): D72.829 - Elevated white blood cell count, unspecified Plan: -acute worsening of leukocytosis on 02/27, unclear etiology -vancomycin was restarted due to acute change and 1/2 blood cx showing G+ cocci , likely contaminant -urine cx negative -vanc d/c 2/2 OLGA -improving WBC with downward trend, continue to monitor (6) Dysphagia as late effect of cerebrovascular accident (CVA) Code(s): I69.391 - DYSPHAGIA FOLLOWING CEREBRAL INFARCTION Status: Acute Plan: -pt reevaluated by speech and passed swallow study -pt has tolerated PO well, continue to monitor (7) Hypertension Code(s): I10 - ESSENTIAL (PRIMARY) HYPERTENSION Status: Acute QualifierTitle: Hypertension type: essential hypertension Qualified Code( s): I10 - Essential (primary) hypertension Plan: -initially uncontrolled, however with increased coreg, better controlled -slightly elevated last 24 hrs due to temporary hold of lisinopril. has been restarted. -continue to monitor - Plan Plan: dispo: Pt stable and continues to do well with therapy. Pt awaiting possible placement with jun bed at [facility]. Continue to monitor and anticipate discharge upon approval. <Ari Khanna - Last Filed: 03/03/17 06:47> Attending Addendum - Attending Addendum I personally evaluated the patient and discussed the management with Dr. Khanna. I agree with the History, Examination, Assessment and Plan documented above with any addition or exceptions noted below. The patient still needs assistance with ambulation. He drifts towards the left which is his affected side. [facility] <Pippa Ponce - Last Filed: 03/03/17 16:18>
[2017-03-03] MEDS: Carvedilol 6.25 MG TAB PO SCH ×2 (08:33→17:55)
[2017-03-03] MEDS: clonazePAM 1 MG TAB PO SCH ×2 (08:34→20:39)
[2017-03-03] MEDS: Folic Acid 1 MG TAB PO SCH (08:34)
[2017-03-03] MEDS: Enoxaparin Sodium 40 MG/0.4 ML SYRINGE SC SCH (08:34)
[2017-03-03] MEDS: Aspirin 325 MG TAB PO SCH (08:34)
[2017-03-03] MEDS: Hydrocortisone 1% Cream 1.5 GM Packet TOP SCH ×2 (08:35→20:41)
[2017-03-03] MEDS: Pantoprazole 40 MG GRANULES PACKET PO SCH (08:35)
[2017-03-03] MEDS: Lisinopril 20 MG TAB PO SCH ×2 (08:35→20:38)
[2017-03-03] MEDS: Multivitamin W/ Minerals 1 TAB PO SCH (08:35)
[2017-03-03] MEDS: Nicotine 14 MG PATCH TD SCH (17:56)
[2017-03-03] MEDS: Tamsulosin HCl 0.4 MG CAP PO SCH (20:39)
[2017-03-03] MEDS: Atorvastatin Calcium 40 MG TAB PO SCH (20:40)
[2017-03-04] MEDS: Acetaminophen 650 MG/20.3 ML UDCUP PO PRN ×3 (00:44→21:51)
[2017-03-04] MEDS: Carvedilol 6.25 MG TAB PO SCH ×2 (08:52→16:44)
[2017-03-04] MEDS: Aspirin 325 MG TAB PO SCH (08:55)
[2017-03-04] MEDS: clonazePAM 1 MG TAB PO SCH ×2 (08:56→21:07)
[2017-03-04] MEDS: Folic Acid 1 MG TAB PO SCH (08:57)
[2017-03-04] MEDS: Enoxaparin Sodium 40 MG/0.4 ML SYRINGE SC SCH (08:57)
[2017-03-04] MEDS: Lisinopril 20 MG TAB PO SCH ×2 (08:58→21:07)
[2017-03-04] MEDS: Hydrocortisone 1% Cream 1.5 GM Packet TOP SCH ×2 (08:58→21:08)
[2017-03-04] MEDS: Multivitamin W/ Minerals 1 TAB PO SCH (08:59)
[2017-03-04] MEDS: Pantoprazole 40 MG GRANULES PACKET PO SCH (09:01)
[2017-03-04] MEDS: Magnesium Oxide 400 MG TAB PO PRN (09:16)
--- NOTE | 2017-03-04 12:41 | PDOC.FM ---
- Subjective Subjective: Patient did well overnight, improving with left sided strength every day. Able to walk with walker, though has deviation to left and requires assistance. Denies CP, SOB, N/V, new weakness. - Objective MAR Reviewed: Yes Vital Signs & Weight: Vital Signs (12 hours) Temp Pulse Resp BP BP BP Pulse Ox 03/04/17 11:40 98.4 F 65 16 109/59 L 98 03/04/17 08:58 114/61 03/04/17 08:52 114/61 03/04/17 08:50 97.9 F 66 16 03/04/17 07:50 97.9 F 66 16 114/61 94 L 03/04/17 07:15 63 18 97 03/04/17 06:02 121/64 03/04/17 03:54 97.9 F 65 16 89/53 L 94 L 03/04/17 02:11 74 20 95 Weight Admit Weight 91.798 kg Weight 78.018 kg Most Recent Monitor Data Heart Rate from ECG 77 NIBP 131/60 NIBP BP-Mean 83 Respiration from ECG 26 SpO2 100 I&O: 03/03/17 03/04/17 03/05/17 06:59 06:59 06:59 Intake Total 1390 1400 Output Total 75 200 Balance 1315 1200 Result Diagrams: 03/02/17 04:31 03/02/17 04:31 <Naldo Yates - Last Filed: 03/04/17 12:39> - Objective Vital Signs & Weight: Vital Signs (12 hours) Temp Pulse Pulse Pulse Resp BP BP 03/04/17 16:44 133/75 03/04/17 15:38 98.5 F 68 16 03/04/17 13:09 76 16 03/04/17 11:40 98.4 F 65 16 03/04/17 09:55 76 70 142/81 H 03/04/17 08:58 114/61 03/04/17 08:52 114/61 03/04/17 08:50 97.9 F 66 16 03/04/17 07:50 97.9 F 66 16 03/04/17 07:15 63 18 03/04/17 06:02 BP BP BP Pulse Ox 03/04/17 16:44 03/04/17 15:38 133/75 95 03/04/17 13:09 96 03/04/17 11:40 109/59 L 98 03/04/17 09:55 119/54 L 03/04/17 08:58 03/04/17 08:52 03/04/17 08:50 03/04/17 07:50 114/61 94 L 03/04/17 07:15 97 03/04/17 06:02 121/64 Weight Admit Weight 91.798 kg Weight 78.018 kg Most Recent Monitor Data Heart Rate from ECG 77 NIBP 131/60 NIBP BP-Mean 83 Respiration from ECG 26 SpO2 100 I&O: 03/03/17 03/04/17 03/05/17 06:59 06:59 06:59 Intake Total 1390 1400 Output Total 75 200 275 Balance 1315 1200 -275 Result Diagrams: 03/02/17 04:31 03/02/17 04:31 <Pippa Ponce - Last Filed: 03/04/17 17:47> Phys Exam - Physical Examination Constitutional: NAD HEENT: moist MMs, oral pharynx no lesions Neck: no JVD, full ROM Respiratory: no wheezing, clear to auscultation bilateral Cardiovascular: RRR, no significant murmur Gastrointestinal: soft, positive bowel sounds Musculoskeletal: no edema, pulses present Neurological: moves all 4 limbs mild left face droop, left extremities 4/5 Psychiatric: normal affect, A&O x 3 Skin: no rash, normal turgor <Naldo Yates - Last Filed: 03/04/17 12:39> Dx/Plan (1) CVA (cerebral vascular accident) Code(s): I63.9 - CEREBRAL INFARCTION, UNSPECIFIED Status: Acute QualifierTitle: Precerebral and cerebral artery: middle cerebral artery Laterality of affected vessel: right Plan: Continue current management including PT/OT Patient uninsured, CM working to obtain jun bed, but paperwork will not be reviewed until 03/06 due to holiday weekend. Will also consider outpatient PT if patient continues to improve. (2) Delirium tremens Code(s): F10.231 - ALCOHOL DEPENDENCE WITH WITHDRAWAL DELIRIUM Status: Resolved Plan: ASE protocol initiated on admission due to history of alcohol abuse, patient shows no symptoms at this time (3) Dysphagia as late effect of cerebrovascular accident (CVA) Code(s): I69.391 - DYSPHAGIA FOLLOWING CEREBRAL INFARCTION Status: Acute Plan: continue with current diet of thick liquids and evaluate as symptoms improve (4) Hypertension Code(s): I10 - ESSENTIAL (PRIMARY) HYPERTENSION Status: Acute QualifierTitle: Hypertension type: essential hypertension Qualified Code( s): I10 - Essential (primary) hypertension (5) Leukocytosis Code(s): D72.829 - ELEVATED WHITE BLOOD CELL COUNT, UNSPECIFIED Status: Resolved QualifierTitle: Leukocytosis type: unspecified Qualified Code(s): D72.829 - Elevated white blood cell count, unspecified (6) Pneumonia due to Streptococcus pneumoniae Code(s): J13 - PNEUMONIA DUE TO STREPTOCOCCUS PNEUMONIAE Status: Resolved QualifierTitle: Laterality: right Lung location: upper lobe of lung Qualified Code(s): J13 - Pneumonia due to Streptococcus pneumoniae (7) OLGA (acute kidney injury) Code(s): N17.9 - ACUTE KIDNEY FAILURE, UNSPECIFIED Status: Resolved - Plan Plan: Dispo: patient is improving greatly per initial admission. Will continue with management and PT/OT. Coordinate with CM for placement. <Naldo Yates - Last Filed: 03/04/17 12:39> Attending Addendum - Attending Addendum I personally evaluated the patient and discussed the management with Dr. Yates. I agree with the History, Examination, Assessment and Plan documented above with any addition or exceptions noted below. Patient hypotensive overnight requiring IV fluid bolus. He is feeling better tomorrow. He will remain on telemetry. [facility] <Pippa Ponce - Last Filed: 03/04/17 17:47>
[2017-03-04] MEDS: Nicotine 14 MG PATCH TD SCH (16:45)
[2017-03-04] MEDS: Atorvastatin Calcium 40 MG TAB PO SCH (21:05)
[2017-03-04] MEDS: Tamsulosin HCl 0.4 MG CAP PO SCH (21:06)
[2017-03-05] MEDS: Acetaminophen 650 MG/20.3 ML UDCUP PO PRN ×3 (05:56→21:54)
[2017-03-05] MEDS: Enoxaparin Sodium 40 MG/0.4 ML SYRINGE SC SCH (08:35)
[2017-03-05] MEDS: Folic Acid 1 MG TAB PO SCH (08:36)
[2017-03-05] MEDS: Multivitamin W/ Minerals 1 TAB PO SCH (08:36)
[2017-03-05] MEDS: Aspirin 325 MG TAB PO SCH (08:36)
[2017-03-05] MEDS: clonazePAM 1 MG TAB PO SCH (08:37)
[2017-03-05] MEDS: Pantoprazole 40 MG GRANULES PACKET PO SCH (08:37)
[2017-03-05] MEDS: Hydrocortisone 1% Cream 1.5 GM Packet TOP SCH ×2 (08:39→20:51)
[2017-03-05] MEDS ORDERED: Lisinopril 10 MG TAB PO SCH (09:10)
[2017-03-05] MEDS: Lisinopril 20 MG TAB PO SCH (09:15)
--- NOTE | 2017-03-05 09:33 | PDOC.FM ---
- Subjective Subjective: Patient sitting bedside chair this morning. Reports doing well overnight, denies CP, SOB, N/V, PEREZ, dizziness. Continues to work with PT/OT/Speech and showing improvement. Walking with walker and assistance to bathroom. - Objective MAR Reviewed: Yes Vital Signs & Weight: Vital Signs (12 hours) Temp Pulse Resp BP BP BP Pulse Ox 03/05/17 09:15 133/75 03/05/17 07:35 98.3 F 70 16 113/74 94 L 03/05/17 07:11 65 16 97 03/05/17 03:59 113/64 03/05/17 03:39 98.5 F 68 20 84/52 L 99 03/04/17 23:48 95 03/04/17 23:32 98.3 F 68 20 95/58 L 99 Weight Admit Weight 91.798 kg Weight 78.018 kg Most Recent Monitor Data Heart Rate from ECG 77 NIBP 131/60 NIBP BP-Mean 83 Respiration from ECG 26 SpO2 100 I&O: 03/04/17 03/05/17 03/06/17 06:59 06:59 06:59 Intake Total 1400 460 Output Total 200 275 Balance 1200 185 Result Diagrams: 03/02/17 04:31 03/02/17 04:31 <Naldo Yaets - Last Filed: 03/05/17 09:32> - Objective Vital Signs & Weight: Vital Signs (12 hours) Temp Pulse Resp BP BP BP Pulse Ox 03/05/17 15:22 98.6 F 63 16 117/69 98 03/05/17 11:40 98.5 F 65 16 111/59 L 96 03/05/17 10:54 108/68 03/05/17 10:36 108/68 03/05/17 09:15 133/75 03/05/17 08:00 98.3 F 70 16 03/05/17 07:35 98.3 F 70 16 113/74 94 L 03/05/17 07:11 65 16 97 03/05/17 03:59 113/64 03/05/17 03:39 98.5 F 68 20 84/52 L 99 Weight Admit Weight 91.798 kg Weight 78.018 kg Most Recent Monitor Data Heart Rate from ECG 77 NIBP 131/60 NIBP BP-Mean 83 Respiration from ECG 26 SpO2 100 I&O: 03/04/17 03/05/17 03/06/17 06:59 06:59 06:59 Intake Total 1400 460 240 Output Total 200 275 Balance 1200 185 240 Result Diagrams: 03/02/17 04:31 03/02/17 04:31 <KrisPippa - Last Filed: 03/05/17 15:23> Phys Exam - Physical Examination Constitutional: NAD HEENT: moist MMs, oral pharynx no lesions Neck: no JVD, full ROM Respiratory: no wheezing, clear to auscultation bilateral Cardiovascular: RRR, no significant murmur Gastrointestinal: soft, non-tender, positive bowel sounds Musculoskeletal: no edema, pulses present stable; 4/5 strength on left UE and LE Psychiatric: normal affect, A&O x 3 Skin: no rash <Naldo Yates - Last Filed: 03/05/17 09:32> Dx/Plan (1) CVA (cerebral vascular accident) Code(s): I63.9 - CEREBRAL INFARCTION, UNSPECIFIED Status: Acute QualifierTitle: Precerebral and cerebral artery: middle cerebral artery Laterality of affected vessel: right Plan: Continue current management including PT/OT Patient uninsured, CM working to obtain jun bed, but paperwork will not be reviewed until 03/06 due to holiday weekend. Will also consider outpatient PT if patient continues to improve. (2) Delirium tremens Code(s): F10.231 - ALCOHOL DEPENDENCE WITH WITHDRAWAL DELIRIUM Status: Resolved Plan: ASE protocol initiated on admission due to history of alcohol abuse, patient shows no symptoms at this time (3) Dysphagia as late effect of cerebrovascular accident (CVA) Code(s): I69.391 - DYSPHAGIA FOLLOWING CEREBRAL INFARCTION Status: Acute Plan: continue with current diet of thick liquids and evaluate as symptoms improve (4) Hypertension Code(s): I10 - ESSENTIAL (PRIMARY) HYPERTENSION Status: Acute QualifierTitle: Hypertension type: essential hypertension Qualified Code( s): I10 - Essential (primary) hypertension (5) Leukocytosis Code(s): D72.829 - ELEVATED WHITE BLOOD CELL COUNT, UNSPECIFIED Status: Resolved QualifierTitle: Leukocytosis type: unspecified Qualified Code(s): D72.829 - Elevated white blood cell count, unspecified (6) Pneumonia due to Streptococcus pneumoniae Code(s): J13 - PNEUMONIA DUE TO STREPTOCOCCUS PNEUMONIAE Status: Resolved QualifierTitle: Laterality: right Lung location: upper lobe of lung Qualified Code(s): J13 - Pneumonia due to Streptococcus pneumoniae (7) OLGA (acute kidney injury) Code(s): N17.9 - ACUTE KIDNEY FAILURE, UNSPECIFIED Status: Resolved (8) Hypotension Status: Acute Plan: patient has been having hypotension at night while asleep which has resolved with fluid bolus; last night no fluid bolus was used with BP improving to 113/ 64 in morning. Patient has not had HTN the past couple days so we will decrease lisinopril and watch BP overnight. <Naldo Yates - Last Filed: 03/05/17 09:32> Attending Addendum - Attending Addendum I personally evaluated the patient and discussed the management with Dr. Yates. I agree with the History, Examination, Assessment and Plan documented above with any addition or exceptions noted below. Patient's lisinopril will be decreased due to hypotension. Pt continuing to work with PT. [facility] <Pippa Ponce - Last Filed: 03/05/17 15:23>
[2017-03-05] MEDS: Carvedilol 6.25 MG TAB PO SCH ×2 (10:36→16:57)
[2017-03-05] MEDS: Lisinopril 10 MG TAB PO SCH ×2 (10:54→20:48)
[2017-03-05] MEDS: Nicotine 14 MG PATCH TD SCH (17:01)
[2017-03-05] MEDS ORDERED: Benzonatate 100 MG CAP PO PRN (19:03)
[2017-03-05] MEDS ORDERED: Melatonin 3 MG TAB PO PRN (19:03)
[2017-03-05] MEDS: Atorvastatin Calcium 40 MG TAB PO SCH (20:50)
[2017-03-05] MEDS: Tamsulosin HCl 0.4 MG CAP PO SCH (20:51)
--- NOTE | 2017-03-06 06:07 | PDOC.FM ---
- Subjective Subjective: Patient up eating breakfast this morning. Complains of red colored urine, no dysuria. ESPERANZA overnight. Patients family has still not filled out paperwork for possible placement at [facility]. - Objective MAR Reviewed: Yes Vital Signs & Weight: Vital Signs (12 hours) Temp Pulse Resp BP BP Pulse Ox 03/06/17 04:24 98.3 F 67 20 116/67 97 03/06/17 01:02 103/52 L 03/06/17 00:37 96 03/06/17 00:10 98.3 F 67 20 95/49 L 96 03/05/17 20:50 98.5 F 97 18 97 03/05/17 20:48 133/67 03/05/17 19:38 98.5 F 97 18 136/74 97 03/05/17 18:22 97 Weight Admit Weight 91.798 kg Weight 76.249 kg Most Recent Monitor Data Heart Rate from ECG 77 NIBP 131/60 NIBP BP-Mean 83 Respiration from ECG 26 SpO2 100 I&O: 03/04/17 03/05/17 03/06/17 06:59 06:59 06:59 Intake Total 1400 460 610 Output Total 200 275 Balance 1200 185 610 Result Diagrams: 03/02/17 04:31 03/02/17 04:31 <Leanna Winter - Last Filed: 03/06/17 13:48> - Objective Vital Signs & Weight: Vital Signs (12 hours) Temp Pulse Pulse Pulse Resp BP BP 03/06/17 19:58 78 16 03/06/17 15:40 98.5 F 66 16 03/06/17 12:38 80 16 03/06/17 11:35 98.3 F 70 16 03/06/17 09:30 75 72 110/72 116/79 BP Pulse Ox 03/06/17 19:58 03/06/17 15:40 130/65 97 03/06/17 12:38 03/06/17 11:35 109/66 94 L 03/06/17 09:30 Weight Admit Weight 91.798 kg Weight 76.249 kg Most Recent Monitor Data Heart Rate from ECG 77 NIBP 131/60 NIBP BP-Mean 83 Respiration from ECG 26 SpO2 100 I&O: 03/05/17 03/06/17 03/07/17 06:59 06:59 06:59 Intake Total 460 1090 500 Output Total 275 Balance 185 1090 500 Result Diagrams: 03/02/17 04:31 03/02/17 04:31 <Marcelino Fitzgerald - Last Filed: 03/06/17 21:29> Phys Exam - Physical Examination Constitutional: NAD HEENT: moist MMs Respiratory: no wheezing, no rales, clear to auscultation bilateral Cardiovascular: RRR, no significant murmur Gastrointestinal: soft, non-tender L sided weakness Psychiatric: normal affect, A&O x 3 <Leanna Winter - Last Filed: 03/06/17 13:48> Dx/Plan - Plan Plan: (1) CVA (cerebral vascular accident) Code(s): I63.9 - CEREBRAL INFARCTION, UNSPECIFIED Status: Acute QualifierTitle: Precerebral and cerebral artery: middle cerebral artery Laterality of affected vessel: right Plan: Continue current management including PT/OT Patient uninsured, CM working to obtain jun bed. Awaiting family to fill out paperwork. If paperwork not filled out by tomorrow, will d/c home with . (2) Delirium tremens Code(s): F10.231 - ALCOHOL DEPENDENCE WITH WITHDRAWAL DELIRIUM Status: Resolved Plan: Resolved, ASE protocol initiated on admission due to history of alcohol abuse, patient shows no symptoms at this time (3) Dysphagia as late effect of cerebrovascular accident (CVA) Code(s): I69.391 - DYSPHAGIA FOLLOWING CEREBRAL INFARCTION Status: Acute Plan: continue with current diet of ground food and evaluate as symptoms improve (4) Hypertension Code(s): I10 - ESSENTIAL (PRIMARY) HYPERTENSION Status: Acute QualifierTitle: Hypertension type: essential hypertension Qualified Code( s): I10 - Essential (primary) hypertension Continue current dose of Lisinopril (5) Leukocytosis Code(s): D72.829 - ELEVATED WHITE BLOOD CELL COUNT, UNSPECIFIED Status: Resolved QualifierTitle: Leukocytosis type: unspecified Qualified Code(s): D72.829 - Elevated white blood cell count, unspecified Resolved, due to PNA. (6) Pneumonia due to Streptococcus pneumoniae Code(s): J13 - PNEUMONIA DUE TO STREPTOCOCCUS PNEUMONIAE Status: Resolved QualifierTitle: Laterality: right Lung location: upper lobe of lung Qualified Code(s): J13 - Pneumonia due to Streptococcus pneumoniae Completed course of Abx, no longer symptomatic (7) OLGA (acute kidney injury) Code(s): N17.9 - ACUTE KIDNEY FAILURE, UNSPECIFIED Status: Resolved Resolved. (8) Hypotension Status: Acute Plan: Improved with Lisinopril dose change. Continue current dose. <Leanna Winter - Last Filed: 03/06/17 13:48> Attending Addendum - Attending Addendum I personally evaluated the patient and discussed the management with Dr. Winter. I agree with the History, Examination, Assessment and Plan documented above with any addition or exceptions noted below. He feels ok. Awaiting placement for rehab if/when arrangements can be made. Otherwise backup plan is home with Home Health PT. <Marcelino Fitzgerald - Last Filed: 03/06/17 21:29>
[2017-03-06] MEDS: Aspirin 325 MG TAB PO SCH (09:22)
[2017-03-06] MEDS: Folic Acid 1 MG TAB PO SCH (09:23)
[2017-03-06] MEDS: Carvedilol 6.25 MG TAB PO SCH ×2 (09:23→16:59)
[2017-03-06] MEDS: Multivitamin W/ Minerals 1 TAB PO SCH (09:23)
[2017-03-06] MEDS: Pantoprazole 40 MG GRANULES PACKET PO SCH (09:24)
[2017-03-06] MEDS: Enoxaparin Sodium 40 MG/0.4 ML SYRINGE SC SCH (09:24)
[2017-03-06] MEDS: Hydrocortisone 1% Cream 1.5 GM Packet TOP SCH ×2 (12:23→20:49)
[2017-03-06] MEDS: Lisinopril 10 MG TAB PO SCH ×2 (12:23→20:49)
[2017-03-06] MEDS ORDERED: Ibuprofen 600 MG TAB PO PRN (13:16)
[2017-03-06 13:39] VITALS: BMI 24.0
[2017-03-06 14:33] LABS: Bilirubin Negative (Negative); Blood, Urine Large (Negative); Glucose, Urine (Dipstick) Negative (Negative); Ketone, Urine Negative (Negative); Nitrite Negative (Negative); Protein, Urine (Dipstick) 100 mg/dL (Neg-Trace); Urobilinogen 0.2 mg/dL (0.2-1.0)
[2017-03-06 14:34] LABS: Bacteria/HPF None Seen HPF (None Seen); Hyaline Casts/LPF 4-6 HYALINE CAST LPF (0-3 Hyaline); Squamous Epithelial 0-3 HPF (0-3)
[2017-03-06 14:40] LABS: RBC/HPF 21-50 HPF (0-3); Renal Epithelial None Seen HPF (0-3); Transitional Epithelial NONE SEEN HPF (0-3); Yeast-All Forms None Seen HPF (None Seen)
[2017-03-06] MEDS ORDERED: cefTRIAXone\\ROCEPHIN 1 GM in Sodium Chloride 0.9% 100 ML IVPB SCH (17:00)
[2017-03-06] MEDS: Nicotine 14 MG PATCH TD SCH (17:00)
[2017-03-06] MEDS: cefTRIAXone\\ROCEPHIN 1 GM, Syringe 0.4 ML in Sterile Water 9.6 ML SLOW IVP SCH (18:30)
[2017-03-06] MEDS: Atorvastatin Calcium 40 MG TAB PO SCH (20:49)
[2017-03-06] MEDS: Tamsulosin HCl 0.4 MG CAP PO SCH (20:50)
--- NOTE | 2017-03-07 06:44 | PDOC.FM ---
- Subjective Subjective: Patient doing well this morning. Reports he did not sleep well overnight, but no real reason why. Reports urine is no longer red today and denies dysuria. Patients mother is to be bringing paperwork today for [facility] rehab placement. - Objective MAR Reviewed: Yes Vital Signs & Weight: Vital Signs (12 hours) Temp Pulse Resp BP Pulse Ox 03/07/17 04:00 98.6 F 70 16 111/66 97 03/07/17 00:51 98.8 F 65 16 120/65 98 03/07/17 00:23 68 12 96 03/06/17 20:35 97.4 F L 78 16 98 03/06/17 19:58 78 16 03/06/17 19:45 97.4 F L 67 16 124/73 98 Weight Admit Weight 91.798 kg Weight 76.884 kg Most Recent Monitor Data Heart Rate from ECG 77 NIBP 131/60 NIBP BP-Mean 83 Respiration from ECG 26 SpO2 100 I&O: 03/05/17 03/06/17 03/07/17 06:59 06:59 06:59 Intake Total 460 1090 1220 Output Total 275 Balance 185 1090 1220 Result Diagrams: 03/02/17 04:31 03/02/17 04:31 <Leanna Winter - Last Filed: 03/07/17 09:44> - Objective Vital Signs & Weight: Vital Signs (12 hours) Temp Pulse Pulse Pulse Resp BP BP 03/07/17 17:25 100/75 03/07/17 15:46 98.3 F 71 18 03/07/17 11:43 97.4 F L 68 16 03/07/17 10:36 72 69 105/62 BP BP Pulse Ox 03/07/17 17:25 03/07/17 15:46 108/62 98 03/07/17 11:43 96/51 L 95 03/07/17 10:36 100/75 Weight Admit Weight 91.798 kg Weight 76.884 kg Most Recent Monitor Data Heart Rate from ECG 77 NIBP 131/60 NIBP BP-Mean 83 Respiration from ECG 26 SpO2 100 I&O: 03/06/17 03/07/17 03/08/17 06:59 06:59 06:59 Intake Total 1090 1220 Balance 1090 1220 Result Diagrams: 03/02/17 04:31 03/02/17 04:31 <Marcelino Fitzgerald - Last Filed: 03/07/17 22:01> Phys Exam - Physical Examination Constitutional: NAD HEENT: moist MMs Respiratory: no wheezing, no rales, clear to auscultation bilateral Cardiovascular: RRR, no significant murmur Gastrointestinal: soft, non-tender, no distention No CVA tenderness L sided weakness and partial hemineglect Psychiatric: normal affect Skin: no rash <Leanna Winter - Last Filed: 03/07/17 09:44> Dx/Plan (1) UTI (urinary tract infection) Status: Acute - Plan Plan: CVA (cerebral vascular accident) Code(s): I63.9 - CEREBRAL INFARCTION, UNSPECIFIED Status: Acute QualifierTitle: Precerebral and cerebral artery: middle cerebral artery Laterality of affected vessel: right Plan: Continue current management including PT/OT ASA Patient uninsured, CM working to obtain jun bed. Awaiting family to fill out paperwork. If paperwork not filled out by tomorrow, will d/c home with HH. Delirium tremens Code(s): F10.231 - ALCOHOL DEPENDENCE WITH WITHDRAWAL DELIRIUM Status: Resolved Plan: Resolved, ASE protocol initiated on admission due to history of alcohol abuse, patient shows no symptoms at this time Dysphagia as late effect of cerebrovascular accident (CVA) Code(s): I69.391 - DYSPHAGIA FOLLOWING CEREBRAL INFARCTION Status: Acute Plan: continue with current diet of ground food and evaluate as symptoms improve PT and speech therapy Hypertension Code(s): I10 - ESSENTIAL (PRIMARY) HYPERTENSION Status: Acute QualifierTitle: Hypertension type: essential hypertension Qualified Code( s): I10 - Essential (primary) hypertension Continue current dose of Lisinopril Hypotension Status: Acute Plan: Improved with Lisinopril dose change. Continue current dose. UTI Rocephin IV Urine cx pending Will transition to PO Abx at discharge <Leanna Winter - Last Filed: 03/07/17 09:44> Attending Addendum - Attending Addendum I personally evaluated the patient and discussed the management with Dr. Winter. I agree with the History, Examination, Assessment and Plan documented above with any addition or exceptions noted below. Patient seen and evaluated while walking with PT in [place]. Single assist with belt, then with walker, and with no assist but standby. Marked improvement, but a little impulsive. Stable for discharge to rehab if accepted, if not, then home with home health PT. [facility] with [facility] <Marcelino Fitzgerald - Last Filed: 03/07/17 22:01>
[2017-03-07] MEDS: Carvedilol 6.25 MG TAB PO SCH ×2 (08:47→17:25)
[2017-03-07] MEDS: Multivitamin W/ Minerals 1 TAB PO SCH (08:48)
[2017-03-07] MEDS: Lisinopril 10 MG TAB PO SCH (08:48)
[2017-03-07] MEDS: Aspirin 325 MG TAB PO SCH (08:48)
[2017-03-07] MEDS: Folic Acid 1 MG TAB PO SCH (08:48)
[2017-03-07] MEDS: Hydrocortisone 1% Cream 1.5 GM Packet TOP SCH (08:51)
[2017-03-07 15:46] VITALS: TEMP 98.3
[2017-03-07] MEDS: cefTRIAXone\\ROCEPHIN 1 GM, Syringe 0.4 ML in Sterile Water 9.6 ML SLOW IVP SCH (17:25)
[2017-03-07 17:26] VITALS: BP 100/75
[2017-03-07] MEDS: Nicotine 14 MG PATCH TD SCH (17:29)
--- NOTE | 2017-03-08 14:47 | PRG-2 ---
TRANSITION OF CARE DATES OF CARE: 02/27/2017 through 03/03/2017. RESIDENT: Dr. Ari Khanna. ATTENDING PHYSICIAN: Dr. Pippa Ponce. HOSPITAL COURSE: The patient is a 57-year-old male who was hospitalized due to left-sided weakness and found to have a right-sided MCA ischemic CVA. The patient was in the critical care unit for an extended period of time, please see previous transition of care note for further details. Th e patient was extubated on 02/25 and subsequently transitioned out of the unit onto the stroke medica l floor. The patient tolerated extubation extremely well and slowly reintroduced to a diet with the aid of Speech Therapy. The patient continued physical and occupational therapy throughout his hospit al stay with markedly improved motor function of his left side. The patient was also subsequently be ing treated for hypertension, psoriasis, and likely community-acquired pneumonia. At that time, care assumed was still on cefepime per Pulmonology. This was continued for an additional 2 days and vanc omycin was also reintroduced for 1 day secondary to an acute leukocytosis, which quickly resolved. A fter 2 days of therapy, vancomycin and cefepime were discontinued. The cefepime due to him completin g his antibiotic course and the vancomycin was discontinued due to an acute kidney injury, which late r resolved with intravenous fluid resuscitation. The rest of the patient's medical conditions were c onsidered stable through these few days of his hospital stay including his hypertension, which was co ntrolled on lisinopril and Coreg. The patient proved to be a difficult social case due to the fact t hat he is uninsured and required continued physical therapy. Although, the patient did not make sign ificant strides of improvement during his hospital stay, it was thought that he would benefit from co ntinued therapy. Therefore, an attempt at a jun bed at inpatient rehabilitation was sought after . The patient's hospital course was otherwise uncomplicated. Please see his discharge summary for l ist of diagnosis and medications and summary of his last 4 days of admission.
--- NOTE | 2017-03-09 07:49 | DIS-2 ---
DATE OF ADMISSION: 02/17/2017 DATE OF DISCHARGE: 03/07/2017 RESIDENT: Leanna Winter DO ADMITTING ATTENDING: Dr. Kip Landa. DISCHARGE ATTENDING: Dr. Marcelino Fitzgerald. CONSULTATIONS: 1. Pulmonary, Dr. Duc Castro. 2. Cardiology, Dr. Reardon. 3. Neurology, Dr. Clif Emerson. PROCEDURES AND IMAGIN. CT angiography of the head and neck, which revealed loss of the mares-white matter differentiation of the right temporal lobe compatible with MCA distribution infarct and varying degrees of central canal stenosis and foraminal narrowing on the basis of degenerative change. 2. CT [place], which confirmed right MCA distribution infarct with abrupt termination of contrast opacifying the right M1 segment along with moderate stenosis involving the proximal left internal carotid artery, short segment mild stenosis involving the mid right internal carotid artery. 3. Brain CT revealed no acute intracranial process. 4. Brain CT on 02/17/2017, which showed slight progression of the ischemic change/infarction involving the right cerebrum, loss of cortical mares-white matter differentiation of the right subinsular cortex as well as right temporal lobe. No acute hemorrhage. 5. Abdomen and pelvis CT on 02/18/2017, which shows mild wedge-shaped hypodensities in both kidneys likely represent infection or infarction, mild diverticulosis of the sigmoid and descending colon, and moderate wall thickening involving the fundus of the gallbladder likely representing adenomyomatosis. 6. Chest x-ray was performed on 02/18/2017, three different times on this date. The first one showing abnormal dense opacity in the right midlung zone evidence for pneumonia and an endotracheal tube in place. 7. X-ray shows nasogastric tube placed with the tip extending into the stomach. A chest x-ray on 02/18/2017 showed stable right mid lung zone pneumonia, left costophrenic angle blunting, and probable small left pleural effusion. 8. An EKG showed normal sinus rhythm and nonspecific T-wave abnormality in lateral leads. 9. Brain MRI, which shows evolving right middle cerebral artery distribution infarct. 10. Abdominal x-ray on 02/19/2017, showed Dobbhoff tube located in the stomach. 11. Chest x-ray performed on 02/20/2017, shows persistent dense consolidation of right upper lobe. 12. Chest x-ray on 02/21/2017, showed no significant change in radiographic appearance of the chest. 13. Abdominal x-ray on 02/21/2017, showed Dobbhoff tube with tip in the region of the duodenum and NG tube coiled in the upper mid stomach. 14. Chest x-ray performed on 02/23/2017, showed multifocal opacities in the right lung, which may be on the basis of atypical pneumonia versus asymmetric edema. 15. Chest x-ray performed on 02/25/2017, reveals endotracheal tube somewhat difficult to visualize due to overlying Dobbhoff and NG tubes opacification in the right upper lobe infiltrate appearing smaller than on prior exam. 16. Chest x-ray on 02/27/2017, showed minimal improvement in the right upper lobe pneumonia. PRIMARY DIAGNOSES: 1. Middle cerebral artery cerebrovascular accident. 2. Delirium tremens. SECONDARY DIAGNOSES: 1. Dysphagia as the effect of cerebrovascular accident. 2. Hypertension. 3. Community-acquired pneumonia. 4. Hypotension. DISCHARGE MEDICATIONS: 1. Thiamine 100 mg p.o. daily. 2. Flomax 0.4 mg p.o. daily. 3. Seroquel 25 mg p.o. at bedtime. 4. Macrobid 100 mg p.o. b.i.d. x7 days. 5. Daily multivitamin. 6. Lisinopril 10 mg p.o. daily. 7. Coreg 12.5 mg p.o. b.i.d. 8. Lipitor 80 mg p.o. at bedtime. 9. Aspirin 325 mg p.o. daily. DISCONTINUED MEDICATIONS: Lisinopril 20 mg b.i.d. due to hypotension. Patient was well controlled on lisinopril 10 mg p.o. daily. HISTORY OF PRESENT ILLNESS AND HOSPITAL COURSE: Patient is a 57-year-old male who was hospitalized due to left-sided weakness and found to have right-sided MCA ischemic CVA. Patient was in the critical care unit for extended period of time. Please see previous transition of care note for further details. Patient was transitioned to stroke medical floor. Throughout his stay, was treated for hypertension, psoriasis and likely community-acquired pneumonia treated with cefepime and vancomycin. At the time of my interview with this patient, patient had adequately been medically managed for CVA with great progress and speech therapy, physical therapy, and occupational therapy. Also had been adequately treated for delirium tremens with intubation and extubation and no additional meds per [facility] protocol. Patient proved to be difficult social case for discharge due to the fact that he is uninsured and required continued physical therapy despite his great strides of improvement during the hospital stay. The only issue other than placement during my time treating him was hypotension. The patient came to the hospital on lisinopril 20 mg b.i.d., this was dropped down to lisinopril 10 mg once daily and hypotension resolved and pressures were stable. There was an attempt to find a jun bed at the inpatient rehab but unfortunately, due to other factors was not available. The patient was discharged home with potential jun home health that the dependency case manager, Ms. Denton was continuing to work on. For further details of his complete hospital stay, please see the 2 prior transition of care notes. DISPOSITION: Stable. DISCHARGE INSTRUCTIONS: 1. Location: Home. 2. Diet: Heart healthy, low-sodium diet. 3. Activity as tolerated. Recommended exercises given to the patient by PT and OT. 4. Follow up with PCP and [facility] in 1 week. IN[facility]
--- NOTE | 2017-03-18 16:17 | EKG ---
Test Reason : Blood Pressure : / mmHG Vent. Rate : 088 BPM Atrial Rate : 088 BPM P-R Int : 194 ms QRS Dur : 104 ms QT Int : 378 ms P-R-T Axes : 070 089 081 degrees QTc Int : 457 ms Normal sinus rhythm Normal ECG Confirmed by YUE CARD, CHUCK Cespedes ([id number]), photographic editor PEPPER HARRIS ([id number]) on 03/18/2017 4:17:50 PM Referred By: Confirmed By:CHUCK TURNER MD
== END 2017-03-07 18:24 | disposition home or self-care (01) | DRG 61 ==
LOC: ERS 22:30 → CCU 23:17 → 2SE 02-26 14:18
PROVIDERS: ADMIT Internal Medicine; ATTEND Internal Medicine
PROC: 3E03317 Introduction of Other Thrombolytic into Peripheral Vein, Percutaneous Approach (ICD-10-PCS; principal; 2017-02-17)
PROC: 0BH17EZ Insertion of Endotracheal Airway into Trachea, Via Natural or Artificial Opening (ICD-10-PCS; 2017-02-17)
PROC: 5A1955Z Respiratory Ventilation, Greater than 96 Consecutive Hours (ICD-10-PCS; 2017-02-17)
PROC: B030ZZZ Magnetic Resonance Imaging (MRI) of Brain (ICD-10-PCS; 2017-02-19)
PROC: 0BP1XDZ Removal of Intraluminal Device from Trachea, External Approach (ICD-10-PCS; 2017-02-25)
DX: I63.9 Cerebral infarction, unspecified (principal); I21.4 Non-ST elevation (NSTEMI) myocardial infarction; J96.01 Acute respiratory failure with hypoxia; R65.21 Severe sepsis with septic shock; J13 Pneumonia due to Streptococcus pneumoniae; G93.40 Encephalopathy, unspecified; N17.9 Acute kidney failure, unspecified; F10.231 Alcohol dependence with withdrawal delirium; A40.3 Sepsis due to Streptococcus pneumoniae; E87.1 Hypo-osmolality and hyponatremia; G81.94 Hemiplegia, unspecified affecting left nondominant side; N28.0 Ischemia and infarction of kidney; I38 Endocarditis, valve unspecified; N39.0 Urinary tract infection, site not specified; R13.10 Dysphagia, unspecified; I10 Essential (primary) hypertension; E87.6 Hypokalemia; G47.33 Obstructive sleep apnea (adult) (pediatric); E66.9 Obesity, unspecified; E80.6 Other disorders of bilirubin metabolism; M54.9 Dorsalgia, unspecified; F17.210 Nicotine dependence, cigarettes, uncomplicated; R14.0 Abdominal distension (gaseous); R74.8 Abnormal levels of other serum enzymes; R41.0 Disorientation, unspecified; Z68.24 Body mass index [BMI] 24.0-24.9, adult; Z87.19 Personal history of other diseases of the digestive system
CPT/HCPCS: 36415; 36416; 37195; 51702; 70450; 70496; 70498; 70551; 71010; 74000; 74176; 80048; 80053; 80061; 80202; 80306; 81001; 81003; 81015; 82140; 82248; 82553; 82607; 82728; 82747; 82805; 83036; 83540; 83550; 83605; 83735; 84100; 84484; 85018; 85025; 85610; 85730; 86850; 86900; 86901; 87040; 87070; 87086; 87149; 87205; 87324; 87449; 87899; 88112; 93005; 93010; 93306; 94002; 94003; 94640; 94660; 94760; 96361; 96374; 96375; 99292; A4216; C9113; G8978-GP-CL; G8978-GP-CM; G8979-GP-CJ; G8979-GP-CK; G8987-GO-CK; G8987-GO-CN; G8988-GO-CI; G8988-GO-CN; G8989-GO-CN; G8996-GN-CJ; G8996-GN-CM; G8997-GN-CI; G8997-GN-CJ; G8997-GN-CK; J0171; J0692; J0696; J1650; J1940; J2060; J2250; J2405; J2543; J2704; J2997; J3010; J3370; J3411; J3475; J3480; J3486; J7042; J7050; J7620

== ENCOUNTER 2017-05-15 15:03 | Observation (INO) | payer SELFPAY ==
[2017-05-15 16:54] LABS: #Eosinphils 0.1 thou/uL (0.0-0.7); #Neutrophils 11.9 thou/uL (1.40-6.50); %Basophils 0.2 % (0.0-1.0); %Eosinophils 0.6 % (0.0-10.0); %Lymphocytes 7.2 % (21.0-51.0); %Monocytes 6.8 % (0.0-10.0); %Neutrophils 85.2 % (42.0-75.0); Hemoglobin 12.9 g/dL (14.0-18.0); Mean Corpuscular HGB CONC 36.5 g/dL (32.0-36.0); Mean Corpuscular Hemoglobin 33.8 pg (27.0-31.0); Mean Corpuscular Volume 92.8 fl (80.0-94.0); Mean Platelet Volume 8.9 fL (7.4-10.4); Platelet Count 308 thou/uL (130-400); RBC Distribution Width 12.4 % (11.5-14.5); Red Blood Cell (RBC) Count 3.82 mill/uL (4.70-6.10)
[2017-05-15 17:01] LABS: ALT (SGPT) 14 U/L (8-55); AST (SGOT) 20 U/L (5-34); Albumin 3.8 g/dL (3.5-5.0); Alkaline Phosphatase 87 U/L (40-150); Anion Gap 17 mmol/L (10-20); BUN (Urea Nitrogen) 11 mg/dL (8.4-25.7); Bilirubin, Total 0.4 mg/dL (0.2-1.2); Calc. Creatinine Clearance 0 mL/min (70-130); Calcium 9.4 mg/dL (7.8-10.44); Carbon Dioxide 18 mmol/L (22-29); Chloride 105 mmol/L (98-107); Estimated GFR-MDRD 68; Globulin 6.2 g/dL (2.4-3.5); Glucose 130 mg/dL (70-105); Potassium 4.1 mmol/L (3.5-5.1); Sodium 136 mmol/L (136-145)
[2017-05-15 17:09] LABS: Bilirubin Negative (Negative); Blood, Urine Trace (Negative); Clarity CLEAR (Clear); Glucose, Urine (Dipstick) Negative (Negative); Leukocyte Negative (Negative); Nitrite Negative (Negative); Protein, Urine (Dipstick) 100 mg/dL (Neg-Trace); Specific Gravity, Urine 1.015 (1.002-1.036); Urobilinogen 0.2 mg/dL (0.2-1.0)
[2017-05-15 17:11] LABS: Bacteria/HPF None Seen HPF (None Seen); Hyaline Casts/LPF 0-3 HYALINE CAST LPF (0-3 Hyaline); RBC/HPF 0-3 HPF (0-3); Squamous Epithelial None Seen HPF (0-3); WBC/HPF 0-3 HPF (0-3)
[2017-05-15 17:14] LABS: Sperm-AUWi Flag 39.1 (0-9.9)
[2017-05-15 17:22] LABS: Sperm/HPF Rare HPF (None Seen)
--- NOTE | 2017-05-15 18:11 | CT ---
CT HEAD: Technique: Multiple axial tomograms obtained through the head without contrast. History: Numbness, seizure. Comparison: MRI 02-19-17,CT 02-18-17. The CT revealed an large right MCA infarct. FINDINGS: On today's exam there is now encephalomalacia seen in the right cerebral hemisphere which would be co nsistent with continued evolution and volume loss at the site of the previously noted large right MCA infarct. There is a deep infarct in the region of the head of the caudate which also appears remote. There is no hemorrhage. There is no mass effect. No evidence of acute infarct seen. IMPRESSION: Large area of encephalomalacia at the site of the previously noted right MCA infarct. No acute proces s seen at this time. POS: [facility]
--- NOTE | 2017-05-15 18:17 | RAD ---
LEFT SHOULDER THREE VIEWS: History: Left shoulder pain. FINDINGS: There are degenerative changes at the shoulder. Hypertrophic spurring is seen from the humeral head a nd there is joint narrowing. Mild degenerative changes at the AC joint. No fracture or dislocation. IMPRESSION: Moderate degenerative changes at the left shoulder. POS: [facility]
[2017-05-15 18:23] LABS: PTT 23.1 SEC (22.9-36.1); Prothrombin Time 13.7 SEC (12.0-14.7)
[2017-05-15 18:45] LABS: CKMB 1.3 ng/mL (0-6.6); Troponin I 0.015 ng/mL (< 0.028)
[2017-05-15] MEDS ORDERED: HYDROcodone/Acetaminophen 5/325 mg Tablet ONE (20:07)
[2017-05-15] MEDS ORDERED: Sodium Chloride 0.9% 1,000 ML IV SCH (22:43)
[2017-05-15 22:59] VITALS: BMI 28.5
[2017-05-16] MEDS ORDERED: Eucerin (Mineral Oil/Petrolatum,White) 30 gm Jar TOP PRN (07:42)
[2017-05-16] MEDS ORDERED: Ondansetron HCl/PF 4 MG/2 ML Vial IVP PRN (07:42)
[2017-05-16] MEDS ORDERED: Loperamide HCl 2 MG CAP PO PRN (07:42)
[2017-05-16] MEDS ORDERED: Senokot 8.6 MG TAB PO PRN (07:42)
[2017-05-16] MEDS ORDERED: Lorazepam 2 MG/ML VIAL SLOW IVP PRN (07:42)
[2017-05-16] MEDS ORDERED: Acetaminophen 325 MG TAB PO PRN (07:42)
[2017-05-16] MEDS ORDERED: Diabetic Tussin 200 MG/10 ML UDCUP PO PRN (07:42)
[2017-05-16] MEDS ORDERED: Sodium Chloride 0.65% Nasal 44 ML BOT EA NARE PRN (07:42)
[2017-05-16] MEDS ORDERED: Loratadine 10 MG TAB PO PRN (07:42)
[2017-05-16] MEDS ORDERED: Milk Of Magnesia 30 ML UDCUP PO PRN (07:42)
[2017-05-16] MEDS ORDERED: Mag-Al 1200 mg/1200 mg/30 ML UDCUP PO PRN (07:42)
[2017-05-16] MEDS ORDERED: Artificial Tears 18 DROP/0.9 ML EA EYE PRN (07:42)
[2017-05-16] MEDS ORDERED: Ondansetron ODT 4 MG TAB PO PRN (07:42)
[2017-05-16] MEDS ORDERED: Chloraseptic Spray 180 ml Bottle PO PRN (07:42)
[2017-05-16] MEDS ORDERED: Zolpidem Tartrate 5 MG TAB PO PRN (07:42)
[2017-05-16] MEDS ORDERED: hydrALAZINE 20 MG/ML VIAL SLOW IVP PRN (07:42)
[2017-05-16 08:14] LABS: #Eosinphils 0.1 thou/uL (0.0-0.7); #Lymphocytes 1.7 thou/uL (1.20-3.40); #Monocytes 0.8 thou/uL (0.11-0.59); %Basophils 0.3 % (0.0-1.0); %Eosinophils 0.7 % (0.0-10.0); %Lymphocytes 16.2 % (21.0-51.0); %Monocytes 7.6 % (0.0-10.0); %Neutrophils 75.3 % (42.0-75.0); Hemoglobin 12.8 g/dL (14.0-18.0); Mean Corpuscular HGB CONC 34.7 g/dL (32.0-36.0); Mean Corpuscular Hemoglobin 32.3 pg (27.0-31.0); Mean Corpuscular Volume 92.9 fl (80.0-94.0); Mean Platelet Volume 8.1 fL (7.4-10.4); Platelet Count 277 thou/uL (130-400); RBC Distribution Width 12.5 % (11.5-14.5); Red Blood Cell (RBC) Count 3.97 mill/uL (4.70-6.10); White Blood Cell (WBC) Count 10.6 thou/uL (4.8-10.8)
[2017-05-16 08:38] LABS: Amphetamine Not Detected (NotDetected); Barbiturates Screen Not Detected (NotDetected); Benzodiazepine Screen Detected (NotDetected); Cocaine Metabolite Screen Not Detected (NotDetected); Medtox Control Line Valid? VALID (VALID); Medtox Reader # READER 1; Methadone Not Detected (NotDetected); Methamphetamine Not Detected (NotDetected); Opiate Screen Not Detected (NotDetected); Oxycodone Screen Not Detected (NotDetected); Phencyclidine (PCP) Not Detected (NotDetected); THC/Cannabinoid Screen Not Detected (NotDetected); Tricyclic Screen Not Detected (NotDetected)
[2017-05-16 08:41] LABS: ALT (SGPT) 14 U/L (8-55); AST (SGOT) 18 U/L (5-34); Albumin 3.6 g/dL (3.5-5.0); Alkaline Phosphatase 90 U/L (40-150); Anion Gap 12 mmol/L (10-20); BUN (Urea Nitrogen) 9 mg/dL (8.4-25.7); Bilirubin, Total 0.8 mg/dL (0.2-1.2); CK (CPK) 444 U/L (30-200); Calc. Creatinine Clearance 96 mL/min (70-130); Calcium 9.3 mg/dL (7.8-10.44); Carbon Dioxide 24 mmol/L (22-29); Chloride 106 mmol/L (98-107); Estimated GFR-MDRD 78; Globulin 5.9 g/dL (2.4-3.5); Glucose 110 mg/dL (70-105); Magnesium 1.5 mg/dL (1.6-2.6); Potassium 3.6 mmol/L (3.5-5.1); Protein, Total 9.5 g/dL (6.0-8.3); Sodium 138 mmol/L (136-145)
[2017-05-16] MEDS ORDERED: FLU VACC QS2017-18 36 mo. & older 0.5 ML SYRINGE IM ONE (09:00)
[2017-05-16] MEDS ORDERED: THIAMINE HCL 250 MG PO SCH (09:00)
[2017-05-16] MEDS: Lisinopril 10 MG TAB PO SCH (09:35)
[2017-05-16] MEDS: Famotidine 20 MG TAB PO SCH ×2 (09:35→21:00)
[2017-05-16] MEDS: Aspirin 325 MG TAB PO SCH (09:35)
[2017-05-16] MEDS: Amitriptyline HCl 10 MG TAB PO SCH (09:36)
[2017-05-16] MEDS: Enoxaparin Sodium 40 MG/0.4 ML SYRINGE SC SCH (09:36)
[2017-05-16] MEDS: Carvedilol 6.25 MG TAB PO SCH ×2 (09:36→17:21)
--- NOTE | 2017-05-16 14:11 | HP ---
PRIMARY CARE PHYSICIAN: [facility] call admission. REASON FOR ADMISSION: New onset seizure. HISTORY OF PRESENT ILLNESS: A 57-year-old male, who was recently admitted in our hospital in 02/2017 . At that time, patient was diagnosed with right middle cerebral artery distribution infarction. Af ter discharge, up until now, patient has most of the recovery except a little bit of weakness in left upper extremity. Patient is able to function normally. Patient continued to smoke even after stroke and patient was taking all his previous medications. At this time, the patient was brought to the ER because of new onset seizure. This patient reports flakita t yesterday he was at [facility] and after that he went to [facility]. At that time, patient was feeling so me involuntary movement in his left upper extremity, but after that, he went to home and he was havin g focal partial motor activity, which was involuntary on his left upper extremity and he was also hav ing shoulder pain. At home, he was having generalized tonic-clonic seizures with up rolling of eyeba ll and subsequently he became rapidly postictal. Patient's called paramedics, when patient was having witnessed seizure. When he was in the ambulance, he had another seizure. He was given Ativan 1 mg for agitation. After he regained consciousness, he was little bit in postictal phase, but he w as having more weakness on the left upper and lower extremity. He did not have any trauma. He did n ot have any previous seizure, he did not have any chest pain, palpitation, or shortness of breath. Overnight, patient was observed on the stroke floor and this morning when I saw, at that time, patien t was completely normal. His was present at bedside, who provided most of the history. Current ly, patient is feeling up to his baseline. He does have left upper and lower extremity weakness. He did not have any further seizures since then. CT brain was done in the emergency room, which showed encephalomalacia in the right MCA territory without any acute process. Shoulder x-ray showed osteoa rthritis. The patient was observed on the stroke floor. ALLERGIES: No known drug allergies. CURRENT HOME MEDICATIONS: Amitriptyline 10 mg p.o. daily, aspirin 325 mg p.o. daily, Lipitor 80 mg p .o. at bedtime, Coreg 12.5 mg p.o. b.i.d., lisinopril 10 mg p.o. daily, Flomax 0.4 mg p.o. at bedtime , and thiamine 250 mg p.o. daily. REVIEW OF SYSTEMS: The following complete review of systems was negative, unless otherwise mentioned in the HPI or below: Constitutional: Weight loss or gain, ability to conduct usual activities. Skin: Rash, itching. Eyes: Double vision, pain. ENT/Mouth: Nose bleeding, neck stiffness, pain, tenderness. Cardiovascular: Palpitations, dyspnea on exertion, orthopnea. Respiratory: Shortness of breath, whee zing, cough, hemoptysis, fever or night sweats. Gastrointestinal: Poor appetite, abdominal pain, hea rtburn, nausea, vomiting, constipation, or diarrhea. Genitourinary: Urgency, frequency, dysuria, nocturia. Musculoskeletal: Pain, swelling. Neurologic/Psychiatric: Anxiety, depression. Allergy/Immunologic: Skin rash, bleeding tendency. Please see my HPI for pertinent positives and negatives. All other review of systems reviewed and ne gative except as mentioned in the HPI. PAST MEDICAL HISTORY: Recent right MCA territory stroke with residual right upper extremity weakness , hypertension, dyslipidemia, ongoing tobacco abuse disorder, benign enlargement of prostate, and his tory of diverticulitis. PAST SURGICAL HISTORY: Tonsillectomy. PAST PSYCHIATRIC HISTORY: Anxiety and depression. SOCIAL HISTORY: Patient is smoking about 1 pack per day. He is smoking. He drinks alcohol socially and over the weekend. He denies any other illicit drug abuse. FAMILY HISTORY: No strong family history of premature coronary artery disease, stroke, or cancer. EMERGENCY ROOM COURSE: Patient is given [place] 5 one tablet in the emergency room. PHYSICAL EXAMINATION: VITAL SIGNS: On arrival, blood pressure 116/89, pulse 106, respiratory rate 19, temperature 97.5, sa turation 94% on room air, weight 83.9 kilograms. GENERAL: Currently, the patient is currently alert, oriented x3, in no acute distress. HEAD: Normocephalic, atraumatic. EYES: Pupils round, reactive to light. Extraocular muscles intact. ENT: Oropharynx within normal limits. Moist mucous membranes. No oral lesions. No pharyngeal eryt ngoc, no exudates. NECK: Supple, no JVD, no thyromegaly, no carotid bruit, no jugular venous distention. LUNGS: Clear to auscultation without any rhonchi or rales. CARDIAC: S1 and S2, regular without any murmur. ABDOMEN: Soft, benign. Bowel sounds present. Nontender, nondistended. No organomegaly, no mass, n o suprapubic tenderness. BACK: Unremarkable, no CVA tenderness. EXTREMITIES: Upper extremity passive movement of all joints are normal. Lower extremity passive mov ement of all joints are normal. No edema, good peripheral pulsation. No calf tenderness. SKIN: No skin rash, no cellulitis. PSYCHIATRIC: Normal affect. HEMATOLOGICAL: No lymphadenopathy. NEUROLOGIC: The patient is currently alert, oriented x3. Cranial nerves no III through XII intact. Speech normal. The patient does have left upper and lower extremity weakness about 4/5 and right lo wer extremity within normal limits. Patient does not have any focal sensory deficit. Reflexes bilat erally symmetrical. No cerebellar sign. Plantar bilateral flexor. SIGNIFICANT LABORATORY DATA: EKG showing sinus tachycardia. CT brain showing a large area of enceph alomalacia at the previous site of right MCA infarct, no acute process. X-ray shoulder showing degen erative changes in left shoulder. CBC: WBC initially 14.0, hemoglobin 12.9, platelets 308. Current ly, WBC 10.6, hemoglobin 12.8, platelet 277. INR 1.0. BMP: Sodium 138, potassium 3.6, chloride 106 , carbon dioxide 24, BUN 9, creatinine 0.99, glucose 110, calcium 9.3, magnesium 1.5. LFT: AST 18, ALT 14, alkaline phosphatase 90, total CK 444, albumin 3.6, total protein 9.5. TSH 2.16, prolactin 4 7.69. Urinalysis blood trace. Urine drug screen positive for benzos. ASSESSMENT AND PLAN: 1. New onset seizure and followed by postictal phase. This patient has a recent history of right ce rebral artery infarct and now he has encephalomalacia. I am pretty much sure that this patient devel oped post-cerebrovascular accident seizure. At this point, we will consult Neurology. We will obtai n EEG and we will start Keppra 500 mg IV b.i.d. Seizure precaution, neuro check every 4 hourly, we w ill watch next 24 hours in hospital. If the patient does not have any further seizure, then we will consider discharging him home tomorrow morning. 2. Left upper and lower extremity weakness. This patient has previous right middle cerebrovascular accident with residual weakness and after seizure, he has little bit pronounced weakness due to ische wil penumbra effect. This is not a new stroke. Patient will need PT, OT evaluation while in [facility]. Neurology will be consulted and will defer further investigation to them, but as this patient had most of investigation in 02/2017 including brain MRI, Echocardiography, head and neck CT angiography with brain perfusion study, CT [place], angiography with contrast as well as lipid profile testing, no need of repeating all of this investigation at this time. 3. Leukocytosis, likely due to stress response from seizure and now resolved. 4. Rhabdomyolysis, likely due to seizure activity, underlying statin-induced rhabdomyolysis cannot b e entirely excluded, but less likely. Mild metabolic acidosis, resolved likely due to seizure. Hypo magnesemia, we will replace magnesium sulfate 2 grams IV 1 time dose. 5. Elevated prolactin likely due to seizure. 6. Dyslipidemia. The patient had lipid profile testing done in 02/2017. No need of repeating lipid profile testing this admission. We will continue Lipitor 80 mg p.o. at bedtime and his lipid profil e at that time in February was completely within acceptable range. 7. Hypertension. We will continue Coreg 12.5 mg p.o. b.i.d., lisinopril 10 mg p.o. daily. 8. Benign enlargement of prostate. We will continue Flomax 0.4 mg p.o. at bedtime. 9. Anxiety and depression. We will continue Elavil 10 mg p.o. daily. 10. History of recent cerebrovascular accident, we will continue aspirin along with statin therapy a nd antihypertensive medication. 11. Deep vein thrombosis prophylaxis. Lovenox 40 mg subcu daily. 12. Gastrointestinal prophylaxis, Pepcid 20 mg p.o. b.i.d. 13. CODE STATUS: Patient is FULL CODE. The patient's is surrogate decision maker. Disposition plan based on clinical course, likely within 24 hours. Plan of care discussed with the p atient and his at bedside.
[2017-05-16] MEDS ORDERED: Magnesium Sulfate 3 GM in Sodium Chloride 0.9% 100 ML IVPB SCH (14:15)
[2017-05-16] MEDS: HYDROcodone/Acetaminophen 5/325 mg Tablet PO PRN ×2 (15:20→19:10)
--- NOTE | 2017-05-16 18:08 | CON ---
DATE OF CONSULTATION: 05/16/2017 CONSULTING PHYSICIAN: Hospitalist Service. IMPRESSION: 1. Post-stroke seizures. 2. Previous right middle cerebral artery stroke with residual left hemiparesis. PLAN: 1. Keppra 500 mg twice a day. 2. Continue prior stroke treatment plan. Mr. Vences is a 57-year-old man who suffered a stroke 3 months ago. He was in a store when he started to feel some tingling in the left arm, he lost consciousness and apparently had a seizure. He awoke feeling quite poorly. He described it is if he had had a hangover. He has been started on Keppra si nce admission. His CT of the brain showed encephalomalacia in the right middle cerebral artery violeta tory. His EEG showed some right temporal slowing. His lab work was otherwise unremarkable other flakita n elevated prolactin level. PAST MEDICAL HISTORY: As noted. ALLERGIES: None. SOCIAL HISTORY: No illicit drug use. FAMILY HISTORY: Noncontributory. REVIEW OF SYSTEMS: Left shoulder pain. PHYSICAL EXAMINATION: GENERAL: A well-nourished middle age man sitting up in bed in no distress. VITAL SIGNS: Stable. He is afebrile. HEENT: Pupils equal and reactive. Conjunctivae clear. NECK: No lymphadenopathy. EXTREMITIES: No cyanosis. NEUROLOGIC: Alert and cooperative. Speech is fluent and clear. Cranial nerves were intact. Motor exam showed a 3/5 level of weakness in the left upper extremity. Sensory testing showed some diminis hed sensation in the left arm compared to the right. No abnormal movements were seen. Gait was not tested. SUMMARY: Middle aged man with prior stroke, who suffered a seizure. I agree with current treatment plan.
[2017-05-16] MEDS ORDERED: Tamsulosin HCl 0.4 MG CAP PO SCH (21:00)
[2017-05-16] MEDS ORDERED: Atorvastatin Calcium 40 MG TAB PO SCH (21:00)
[2017-05-16] MEDS ORDERED: Non-Formulary Item 1 EACH (Atorvastatin Calcium [Lipitor] 80 MG) PO SCH (21:00)
[2017-05-17 07:28] VITALS: BP 150/66; TEMP 97.6
[2017-05-17] MEDS: Carvedilol 6.25 MG TAB PO SCH (08:33)
[2017-05-17] MEDS: Amitriptyline HCl 10 MG TAB PO SCH (08:33)
[2017-05-17] MEDS: Famotidine 20 MG TAB PO SCH (08:33)
[2017-05-17] MEDS: Aspirin 325 MG TAB PO SCH (08:34)
[2017-05-17] MEDS: Lisinopril 10 MG TAB PO SCH (08:34)
[2017-05-17] MEDS: Enoxaparin Sodium 40 MG/0.4 ML SYRINGE SC SCH (08:36)
[2017-05-17] MEDS ORDERED: levETIRAcetam 500 MG TAB PO SCH (09:00)
--- NOTE | 2017-05-17 09:59 | DIS ---
PRIMARY CARE PHYSICIAN: [facility] call admission. DATE OF ADMISSION: 05/15/2017 DATE OF DISCHARGE: 05/17/2017 DISCHARGE DISPOSITION: Home. PRIMARY DISCHARGE DIAGNOSES: Seizure as a late effect of cerebrovascular accident. SECONDARY DISCHARGE DIAGNOSES: Tobacco abuse disorder, hypertension, history of right MCA CVA, dysli pidemia, benign enlargement of prostate. PRIMARY PROCEDURE/OPERATION: None. RADIOLOGICAL INVESTIGATION: Shoulder x-ray showed osteoarthritis. CT brain showed encephalomalacia in the right MCA territory. SIGNIFICANT LABS: WBC 10.6, hemoglobin 12.8, platelet 277. INR 1.0. Sodium 138, potassium 3.6. BU N 9, creatinine 0.99, calcium 9.3. LFT normal. CK 444, magnesium 1.5, albumin 3.6. Prolactin 47.6, TSH 2.16. Urinalysis unremarkable. Urine drug screen negative. DISCHARGE MEDICATIONS: Amitriptyline 10 mg p.o. daily, aspirin 325 mg p.o. daily, Lipitor 80 mg p.o. at bedtime, Coreg 12.5 mg p.o. b.i.d., Keppra 500 mg p.o. b.i.d., lisinopril 10 mg p.o. daily, Floma x 0.4 mg p.o. at bedtime, thiamine 250 mg p.o. daily. CONTRAINDICATIONS: None. CODE STATUS: FULL CODE. INPATIENT CONSULTANTS: Neurology, Dr. Clif Emerson was consulted while in hospital. TEST RESULTS PENDING ON DISCHARGE: None. ALLERGIES: No known drug allergy. DISCHARGE PLAN: Post hospital, the patient is advised to follow up with Dr. Clif Emerson in 1-2 week s. The patient is also advised not to drive until cleared by Neurology for safety. HOSPITAL COURSE: A 57-year-old male with the above-mentioned medical problem who had an episode of s eizure at home and subsequently in ambulance, it was witnessed seizure. This patient has previous hi story of CVA which was in 02/2017. At that time, the patient had full workup done. This time, the p flor was brought to ER with postictal phase, but that was cleared after observation. He did not galan ve any further seizure. We treated him with Keppra during this admission, Neurology was also agreed with post-CVA seizure diagnosis. We continued all his previous medications. We provided counseling to avoid smoking. This patient had a secondary evidence of seizure including leukocytosis, rhabdomyolysis, mild metabol ic acidosis and elevated prolactin that was improved. All new medication prescriptions sent to his pharmacy. PHYSICAL EXAMINATION: Patient is seen and examined at bedside today. VITAL SIGNS: Currently, temperature 97.6, pulse 67, respiratory rate 16, blood pressure 150/66, weig ht was 88 pounds. GENERAL: The patient is currently alert, oriented, no acute distress. HEAD: Normocephalic, atraumatic. EYES: Pupils round, reactive to light. Extraocular muscles intact. ENT: Oropharynx within normal limits. Moist mucous membranes. NECK: Supple, no JVD, no thyromegaly, no carotid bruit. No jugular venous distention. LUNGS: Clear to auscultation without any rhonchi or rales. CARDIAC: S1, S2 regular without any murmur. ABDOMEN: Soft and benign. EXTREMITIES: No edema. NEUROLOGIC: Mild residual weakness on the left side. This patient had a little bit increased weakness on the left side after seizure that was related with ischemic penumbra effect, but by the time of discharge he was back to his baseline. The patient is medically stable for discharge today.
--- NOTE | 2017-05-18 08:56 | EEG ---
Referring Physician: Dick DUNN EEG # [id number] TEST TYPE: ROUTINE PORTABLE INPATIENT REPORT: AN EEG USING THE INTERNATIONAL TEN-TWENTY SYSTEM OF ELECTRODE PLACEMENT WAS PERFORMED. The waking background is a low amplitude 9-10 hertz alpha frequency. There is some intermittent low amplitude slowing seen over the right temporal chain. Photic stimulation was unremarkable. No epileptiform features were seen. IMPRESSION: THERE IS SOME MILD SLOWING OVER THE RIGHT TEMPORAL LOBE SUGGESTING A STRUCTURAL LESION. NO EPILEPTIFORM FEATURES ARE PRESENT. Channel Marketing Specialist: SHARATH Chartered Wealth Manager: EEG.SOFIE GRIGGS
== END 2017-05-17 10:31 | disposition home or self-care (01) ==
LOC: ERS 15:03 → 2SE 19:06
PROVIDERS: ADMIT Family Medicine; ATTEND Family Medicine
DX: I69.398 Other sequelae of cerebral infarction (principal); R56.9 Unspecified convulsions; F17.210 Nicotine dependence, cigarettes, uncomplicated; I10 Essential (primary) hypertension; E78.5 Hyperlipidemia, unspecified; N40.0 Benign prostatic hyperplasia without lower urinary tract symptoms; F41.9 Anxiety disorder, unspecified; F32.9 Major depressive disorder, single episode, unspecified; D72.829 Elevated white blood cell count, unspecified; M62.82 Rhabdomyolysis; R79.89 Other specified abnormal findings of blood chemistry; Z79.82 Long term (current) use of aspirin; Z79.899 Other long term (current) drug therapy
CPT/HCPCS: 36415; 70450; 80053; 80306; 81003; 81015; 82550; 82553; 83735; 84146; 84443; 84484; 85025; 85610; 85730; 93005; 95816; 95819; 96361; 96365; 96366; 96367; 96372; A4216; G0378; G8978-GP-CJ; G8979-GP-CJ; G8980-GP-CJ; G8987-GO-CK; G8988-GO-CI; J1650; J1953; J3475; J7050

== ENCOUNTER 2017-07-05 14:23 | Inpatient (IN) | payer SELFPAY ==
[2017-07-05] MEDS ORDERED: Sodium Bicarb 50 MEQ/50 ML Abboject 8.4% SYRINGE ONE (15:20)
[2017-07-05] MEDS ORDERED: Sodium Chloride 0.9% 1,000 ML IV SCH (15:30)
[2017-07-05 15:33] LABS: Actual Bicarbonate (HCO3a) 13.3 mEq/L (22-26); Base Excess (BEa) -14.6 mEq/L (0 (+/-) 2.5); CO2 Tension 38.6 mmHg (35.0-45.0); Hematocrit-ABG 32.4 % (42.0-52.0); Hemoglobin (Hb) 10.1 g/dL (14.0-18.0); O2 Tension (PaO2) 77.2 mmHg (80.0-100.0); pH, Arterial 7.15 (7.35-7.45)
[2017-07-05 15:34] LABS: Analyzer IN Cardio ER; Calcium, Ionized 1.1 mmol/L (1.12-1.30); Puncture Site RRA
[2017-07-05] MEDS ORDERED: DOPamine 400 MG/D5W 250 ML 250 ML ONE (15:45)
[2017-07-05 15:48] LABS: Hemoglobin 11.6 g/dL (14.0-18.0); Mean Corpuscular HGB CONC 32.9 g/dL (32.0-36.0); Mean Corpuscular Hemoglobin 31.4 pg (27.0-31.0); Mean Corpuscular Volume 95.3 fl (80.0-94.0); RBC Distribution Width 13.6 % (11.5-14.5); Red Blood Cell (RBC) Count 3.68 mill/uL (4.70-6.10); White Blood Cell (WBC) Count 1.4 thou/uL (4.8-10.8)
[2017-07-05 15:53] LABS: Troponin I 0.049 ng/mL (< 0.028)
[2017-07-05 15:55] LABS: ALT (SGPT) 22 U/L (8-55); AST (SGOT) 26 U/L (5-34); Albumin 2.9 g/dL (3.5-5.0); Alkaline Phosphatase 47 U/L (40-150); Anion Gap 20 mmol/L (10-20); BUN (Urea Nitrogen) 54 mg/dL (8.4-25.7); Bilirubin, Total 0.3 mg/dL (0.2-1.2); Calc. Creatinine Clearance 0 mL/min (70-130); Calcium 7.3 mg/dL (7.8-10.44); Carbon Dioxide 8 mmol/L (22-29); Chloride 109 mmol/L (98-107); Estimated GFR-MDRD 18; Globulin 5.5 g/dL (2.4-3.5); Glucose 94 mg/dL (70-105); Potassium 5.7 mmol/L (3.5-5.1); Protein, Total 8.4 g/dL (6.0-8.3); Sodium 131 mmol/L (136-145)
[2017-07-05] MEDS ORDERED: Azithromycin 500 MG in Sodium Chloride 0.9% 250 ML 250 ML IVPB SCH (16:00)
[2017-07-05] MEDS ORDERED: cefTRIAXone\\ROCEPHIN 2 GM in Sodium Chloride 0.9% 100 ML IVPB SCH (16:00)
[2017-07-05 16:09] LABS: #Lymphocytes 0.3 thou/uL (1.20-3.40); #Monocytes 0.1 thou/uL (0.11-0.59); #Neutrophils 0.9 thou/uL (1.40-6.50); %Lymphocytes 24.1 % (21.0-51.0); %Monocytes 5.8 % (0.0-10.0); %Neutrophils 70.2 % (42.0-75.0); PLT Morphology Comment Appears Decreased; Platelet Count 114 thou/uL (130-400)
[2017-07-05] MEDS ORDERED: Norepinephrine 8 MG/250 ML BAG IVPB PRN (16:31)
[2017-07-05 16:35] LABS: INR-International Normal Ratio 1.4; Prothrombin Time 17.8 SEC (12.0-14.7)
[2017-07-05 16:49] LABS: Bilirubin Negative (Negative); Blood, Urine Negative (Negative); Clarity CLOUDY (Clear); Glucose, Urine (Dipstick) Negative (Negative); Leukocyte Negative (Negative); Nitrite Negative (Negative); Protein, Urine (Dipstick) 100 mg/dL (Neg-Trace); Specific Gravity, Urine 1.027 (1.002-1.036); Urobilinogen 0.2 mg/dL (0.2-1.0)
[2017-07-05 17:04] LABS: Bacteria/HPF 1+ HPF (None Seen); Hyaline Casts/LPF 0-3 HYALINE CAST LPF (0-3 Hyaline); Manual Microscopic Reviewed? No Path Casts Seen; Renal Epithelial None Seen HPF (0-3); Transitional Epithelial NONE SEEN HPF (0-3)
[2017-07-05] MEDS ORDERED: Midazolam HCl 2 mg/2 ml Vial ONE ×2 (17:05→17:10)
[2017-07-05] MEDS ORDERED: Sedation Protocol FS ONE (18:15)
[2017-07-05] MEDS ORDERED: Propofol 1,000 MG/100 ML VIAL IV ONE (18:16)
[2017-07-05 18:17] LABS: Actual Bicarbonate (HCO3a) 12.4 mEq/L (22-26); Base Excess (BEa) -14.2 mEq/L (0 (+/-) 2.5); CO2 Tension 31.5 mmHg (35.0-45.0); Hematocrit-ABG 27.7 % (42.0-52.0); O2 Tension (PaO2) 95.9 mmHg (80.0-100.0); pH, Arterial 7.21 (7.35-7.45)
[2017-07-05 18:18] LABS: ALV-art Gradient 218.725 (0-20); Hemoglobin (Hb) 8.7 g/dL (14.0-18.0); Puncture Site LINE
[2017-07-05] MEDS ORDERED: fentaNYL Citrate/PF 2,000 MCG in Sodium Chloride 0.9% 60 ML IV SCH (18:20)
[2017-07-05] MEDS ORDERED: DISCONTINUE PREVIOUS NARCOTIC PAIN MEDICATIONS AND BENZODIAZEPINES FS SCH (18:20)
[2017-07-05] MEDS ORDERED: Fentanyl BOLUS 250 ML IVPB PRN (18:20)
[2017-07-05] MEDS ORDERED: Morphine 2 MG/ML SYRINGE SLOW IVP PRN (18:20)
[2017-07-05] MEDS ORDERED: Norepinephrine 8 MG/0.9% NS 250 ML IVPB SCH (18:30)
[2017-07-05] MEDS ORDERED: Morphine 4 MG/ML VIAL SLOW IVP PRN (18:30)
[2017-07-05] MEDS: Carvedilol 25 MG TAB PO SCH (18:59)
[2017-07-05 19:29] LABS: Lactic Acid 1.1 mmol/L (0.5-2.2)
[2017-07-05] MEDS: Sodium Bicarbonate 150 MEQ in Dextrose 5% in Water 1,000 ML IV SCH ×2 (20:08)
[2017-07-05] MEDS: levETIRAcetam 500 MG TAB PO SCH (20:29)
[2017-07-05] MEDS: Heparin 5,000 UNITS/ML VIAL SC SCH (20:29)
[2017-07-05] MEDS ORDERED: Famotidine 40 MG/4 ML VIAL SLOW IVP SCH (21:00)
[2017-07-05] MEDS: Lorazepam 2 MG/ML VIAL SLOW IVP PRN (22:25)
[2017-07-06 00:07] LABS: Troponin I 0.084 ng/mL (< 0.028)
[2017-07-06] MEDS: Propofol 1,000 MG/100 ML VIAL IV PRN ×4 (01:18→20:37)
[2017-07-06] MEDS: Sodium Bicarbonate 150 MEQ in Dextrose 5% in Water 1,000 ML IV SCH ×6 (02:57→19:47)
--- NOTE | 2017-07-06 03:04 | OP ---
07/05/2017 PROCEDURE: Fiberoptic bronchoscopy with intubation. PROCEDURE IN DETAIL: The patient was in the sitting position. Bite block was placed in his mouth. Bronchoscope was lubricated and inserted into an endotracheal tube 7.5. Scope was passed into his posterior pharyngeal space, vocal cords were quickly visualized and he was quickly intubated in the sitting position without difficulty. The tube was secured above the main earl. The scope was withdrawn. He was Ambu bagged and sedated with Versed. He is chemically paralyzed at the same time once he was sedated. Bronchoscope was then once he was sedated and paralyzed reintroduced. Because of his smoking history, his entire tracheobronchial tree was inspected. Right lower lobe, right upper lobe, right middle lobe, left lower lobe and left upper lobe were inspected. No endobronchial lesions were seen. He tolerated the procedure well. Fluids were opened up and pressures were increased prior to intubation, so he had no significant hypotension with sedation. PROCEDURE: Femoral vein line placement. PROCEDURE IN DETAIL: His right groin was shaved and prepped with chlorhexidine and Betadine. Once this area was sterile, sterile drape was applied in a sterile fashion. His femoral vein was cannulated. J-wire was passed and left in place, the needle was withdrawn. A 5 [place]ic femoral arterial kit was brought to the bedside and this in a sterile fashion was used to insert a femoral artery introducer needle. A wire was easily passed and the needle was removed. The femoral vein was then dilated with small incision with a #11 blade dilator and a triple lumen catheter was inserted sewn in place x2. The femoral artery catheter was then inserted over the wire. Both wires were removed and discarded. The femoral vein line was sewn in place x2. Femoral arterial line was sewn in place x2. Arterial line waveform was excellent when connected to the monitor. A sterile dressing was applied. The triple lumen catheter was flushed. Good blood return was obtained from all 3 ports. He tolerated the procedures well. IN[facility]
[2017-07-06 06:22] LABS: ALT (SGPT) 17 U/L (8-55); AST (SGOT) 14 U/L (5-34); Albumin 2.5 g/dL (3.5-5.0); Alkaline Phosphatase 34 U/L (40-150); Anion Gap 14 mmol/L (10-20); BUN (Urea Nitrogen) 55 mg/dL (8.4-25.7); Bilirubin, Total 0.3 mg/dL (0.2-1.2); Calc. Creatinine Clearance 41 mL/min (70-130); Calcium 7.3 mg/dL (7.8-10.44); Carbon Dioxide 17 mmol/L (22-29); Chloride 107 mmol/L (98-107); Estimated GFR-MDRD 32; Globulin 4.6 g/dL (2.4-3.5); Glucose 159 mg/dL (70-105); Potassium 3.1 mmol/L (3.5-5.1); Protein, Total 7.1 g/dL (6.0-8.3); Sodium 135 mmol/L (136-145)
[2017-07-06 06:46] LABS: Band 30 % (5-11); Lymphocytes 17 % (21-51); MDiff Complete? YES; Mean Corpuscular HGB CONC 33.8 g/dL (32.0-36.0); Mean Corpuscular Hemoglobin 31.7 pg (27.0-31.0); Mean Corpuscular Volume 93.9 fl (80.0-94.0); Mean Platelet Volume 9.2 fL (7.4-10.4); Monocytes 5 % (0-10); Neutrophil 48 % (42-75); Platelet Count 124 thou/uL (130-400); RBC Distribution Width 13.7 % (11.5-14.5); Red Blood Cell (RBC) Count 2.83 mill/uL (4.70-6.10); Vacuoles SLIGHT; White Blood Cell (WBC) Count 2.4 thou/uL (4.8-10.8)
[2017-07-06 07:35] LABS: CO2 Tension 31.3 mmHg (35.0-45.0); O2 Tension (PaO2) 121.8 mmHg (80.0-100.0); pH, Arterial 7.37 (7.35-7.45)
[2017-07-06 07:36] LABS: Actual Bicarbonate (HCO3a) 17.8 mEq/L (22-26); Base Excess (BEa) -6.6 mEq/L (0 (+/-) 2.5); Hematocrit-ABG 27.5 % (42.0-52.0); Hemoglobin (Hb) 8.8 g/dL (14.0-18.0); Puncture Site RBRACH
[2017-07-06 07:37] LABS: ALV-art Gradient 195.575 (0-20)
[2017-07-06] MEDS ORDERED: Ibuprofen 100 MG/5 ML UDCUP PO PRN (07:56)
[2017-07-06] MEDS: Potassium Chloride 40 MEQ in Premix Bag 1 BAG IVPB SCH ×3 (09:00→17:50)
[2017-07-06] MEDS: Aspirin 325 MG TAB PO SCH (09:24)
[2017-07-06] MEDS: levETIRAcetam 500 MG TAB PO SCH ×2 (09:25→19:49)
[2017-07-06] MEDS: Heparin 5,000 UNITS/ML VIAL SC SCH ×3 (09:25→19:49)
[2017-07-06] MEDS: Carvedilol 25 MG TAB PO SCH ×2 (09:31→17:49)
[2017-07-06] MEDS: Acetaminophen 325 MG/10.15 ML UDCUP PO PRN (09:46)
--- NOTE | 2017-07-06 09:48 | CON ---
DATE OF CONSULTATION: 07/05/2017 HISTORY: The patient is a 79-year-old male who presented this afternoon with complaints of shortness of breath. He is noninvasively ventilated in the ER after being transferred here from [facility] for pneumonia. He has severe metabolic acidosis in the emergency department. He is also hypotensive and volume resuscitated. He had cough leading up to admission, he was marginally responsive and unable to give history, but would wake up and answer questions directly. He just had significant signs of muscle fatigue so I did not spend a great deal of time doing a long drawn out history of present illness. Apparently told someone in the emergency room, he did not want to be intubated, but when I inquired about short term intubation to get him through a critical illness, he informed me that he is willing to do that. PAST MEDICAL HISTORY: 1. Remarkable for history of cerebrovascular accident. 2. History of hospitalization in May of this year for seizure after cerebrovascular accident. 3. History of tobacco use. 4. History of hypertension. 5. History of lipid disorder. 6. History of benign prostatic hypertrophy. 7. History of degenerative arthritis. 8. History of recent CT scan showing encephalomalacia in his right middle cerebral artery distribution. 9. History of hospitalization in 02/2017 with his left-sided weakness is presenting manifestation of his cerebrovascular accident. 10. History of an admission in 2012 for diverticulitis. 11. History of tonsillectomy. FAMILY HISTORY: Positive for hypertension. SOCIAL HISTORY: He is a pack a day smoker, drinks occasionally. 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 It is unclear to me whether or not he is still working. All of his old records and dictation were reviewed prior to this dictation. He has no history of drug use. REVIEW OF SYSTEMS: Cannot accurately be obtained from him in this admission because of his respiratory distress. PHYSICAL EXAMINATION: VITAL SIGNS: Blood pressure on pressors through an IV in his hand and was in the high 70s, when he arrived and came up into the 90s. HEENT: His pupils were equal. Sclerae was anicteric. His extraocular movements appeared full. He had full face mask BiPAP on. NECK: Supple. LUNGS: Remarkable for rhonchus breath sounds bilaterally. He had very small tidal volumes. His exam findings suggestive of diaphragm fatigue and respiratory muscle fatigue. HEART: Regular rhythm, no S3. ABDOMEN: Soft and nontender, no guarding, no masses, no organomegaly. EXTREMITIES: Without clubbing, cyanosis, or edema. NEUROLOGIC: Cannot be accurately performed because of his respiratory distress. IMAGING STUDIES: Chest radiograph showed infrahilar infiltrate on the right. He actually had an infiltrate in his right upper lobe in the fall of 2016. I have reviewed his radiographs. LABORATORY DATA: White count 1.4, hemoglobin 11.6, platelets 114,000. No manual differential was done for some reason. Sodium 131, potassium 5.7, chloride 109, bicarbonate 8, BUN 59, creatinine 3.49. His creatinine was 0.99 in May. IMPRESSION: 1. Neutropenia is likely a result of his pneumonia. I suspect with a manual differential, he would have a significant left shift and I suspect his white count will be improved tomorrow. His MCV is only slightly elevated at 95, I doubt he has acute leukemia, but this needs to be kept in mind. It must be noted that his white count 2 months ago, it was 10.6. 2. Pneumonia with clinical sepsis. 3. Severe metabolic acidosis. 4. Impending respiratory failure. His pH was 7.15, pCO2 is 38, pO2 of 77 at 1452 today. 5. History of cerebrovascular accident. 6. History of seizure disorder. PLAN: Intubation arterial line, central line placement. There is no family at the bedside. I did draw cortisol level, it is 37. He will be treated with steroids for his pneumonia. In addition, broad antimicrobial therapy. Critical care time was 50 minutes independent of the procedures. Procedures will be dictated separately. [facility]
--- NOTE | 2017-07-06 11:32 | RAD ---
CHEST ONE VIEW: History: Pneumonia. Comparison: Prior day. FINDINGS: Interval worsening of right upper and lower lobe opacities. Patient is intubated. Endotracheal tube t ip above the earl approximately 2.5 cm. Enteric tube is in place with the tip below the diaphragm a nd out of the field of view. Likely a small right layering pleural effusion. IMPRESSION: 1. Worsening right hemithorax airspace opacity concerning for progressive pneumonia. 2. Endotracheal tube tip craniad to the earl, 2.3 cm. 3. Enteric tube below the diaphragm, out of the field of view. POS: [facility]
[2017-07-06] MEDS: Azithromycin 500 MG in Sodium Chloride 0.9% 250 ML 250 ML IVPB SCH (12:05)
--- NOTE | 2017-07-06 14:48 | CON ---
DATE OF CONSULTATION: 07/06/2017 REQUESTING PHYSICIAN: Ella Perez M.D. REASON FOR CONSULTATION: Acute kidney injury and acid base disorder. IMPRESSION: 1. Acute kidney injury. This is likely hemodynamically and cytokine-mediated injury in the context of sepsis. 2. Metabolic acidosis in the context of sepsis. 3. Hypokalemia, which is due to cellular shift of potassium with correction in the metabolic acidosi s with bicarbonate supplementation. PLAN: 1. Potassium supplementation up to the tune of 120 mEq with the plan to repeat the chemistry later t ban. 2. Continue with renal supportive measures. 3. Hemodynamic support to improve renal perfusion. 4. Renally dose all medications and avoid potentially nephrotoxic agents. 5. Further management to be dependent on the clinical course. HISTORY OF PRESENT ILLNESS: History is that of a 57-year-old male patient who presented with shortne ss of breath and got intubated. I could not get much of any history from this patient who is on life support at this point; however, on presentation, patient was noted to be very acidotic metabolically with pH of 7.15 and bicarbonate of 8. The patient was started on bicarbonate drip intubated and on presentation was hyperkalemic with potassium of 5.7, however, over the course of correcting the metab olic acidosis, potassium level has dropped down to 3. As a result of these findings including the re nal failure, the decision has been taken to involve Renal in the management of this case. PAST MEDICAL HISTORY: Significant for CVA, tobacco use, hypertension, dyslipidemia, and arthritis. MEDICATIONS: Reviewed and as documented on Xencor, but this would suggest discontinuation of nonst eroidal anti-inflammatory drugs, Motrin. FAMILY HISTORY: Could not get any family history of kidney disease. SOCIAL HISTORY: Could not be obtained. From the record, the patient seems to be a tobacco user. REVIEW OF SYSTEMS: Could not be obtained given the patient that is sedated and intubated. PHYSICAL EXAMINATION: GENERAL: Patient is noted to be on life support noted with the following. VITAL SIGNS: Blood pressure 80/52 to 113/78, pulse of 85, O2 sat of 89% to 100%. HEENT: Remarkable for endotracheal tube in place. CARDIOVASCULAR SYSTEM: First and second heart sounds were heard. RESPIRATORY SYSTEM: Reveals vented sounds. DIGESTIVE SYSTEM: Revealed a benign abdomen. EXTREMITIES: No peripheral edema. SKIN: No new gross rash. SUMMARY: A 79-year-old male patient who presented here with shortness of breath, got intubated, note d to have features of sepsis in the context of possible pulmonary pathology. Thank you for this consultation. We will follow with you.
[2017-07-06 16:06] LABS: Anion Gap 16 mmol/L (10-20); BUN (Urea Nitrogen) 50 mg/dL (8.4-25.7); Calc. Creatinine Clearance 51 mL/min (70-130); Calcium 7.3 mg/dL (7.8-10.44); Carbon Dioxide 20 mmol/L (22-29); Chloride 106 mmol/L (98-107); Estimated GFR-MDRD 41; Glucose 161 mg/dL (70-105); Potassium 3.4 mmol/L (3.5-5.1); Sodium 139 mmol/L (136-145)
--- NOTE | 2017-07-06 16:40 | PDOC.PN ---
- Subjective Encounter Start Date: 07/06/17 Encounter Start Time: 12:00 -: non-verbal Subjective: nsg notes rev, jennifer ovn, pt is intubated and sedated d/w bedside nsg - Objective Resuscitation Status: Resuscitation Status FULL:Full Resuscitation Vital Signs & Weight: Vital Signs (12 hours) Temp Pulse Resp BP Pulse Ox 07/06/17 15:04 81 85/53 L 07/06/17 14:00 34 H 07/06/17 12:00 99.1 F 36 H 07/06/17 11:29 90 111/51 L 07/06/17 10:00 101.1 F H 34 H 07/06/17 08:00 102.4 F H 88 35 H 100 07/06/17 07:22 87 110/64 07/06/17 06:00 32 H Weight Admit Weight 164 lb 0.383 oz Weight 167 lb 5.294 oz Most Recent Monitor Data Heart Rate from ECG 83 NIBP 98/59 NIBP BP-Mean 69 Respiration from ECG 30 SpO2 98 I&O: 07/05/17 07/06/17 07/07/17 06:59 06:59 06:59 Intake Total 2023 Output Total 2079 1190 Balance -56 -1164 Result Diagrams: 07/06/17 05:46 07/06/17 15:17 Phys Exam - Physical Examination Constitutional: NAD intubated, sedated, 2 point UE restraints, Reid draining urine HEENT: sclera anicteric Respiratory: no wheezing, no rales, no rhonchi coarse ventilator sounds throughout Cardiovascular: RRR, no significant murmur, no rub Gastrointestinal: soft, no distention, positive bowel sounds Musculoskeletal: no edema, pulses present Dx/Plan - Plan * 57M p/w difficulty breathing and "feeling poorly" * * septic shock with PNA * IVF bolus * lactic acid has cleared * empiric ceftriaxone and azithromycin for CAP PNA * apprec pulm crit care c/s * pressor support levophed prn * pending resp cx, blood cx leukopenia 2/2 above * continue to monitor acute hypoxic respiratory failure 2/2 CAP PNA * likely 2/2 PNA as above * ventilator support * apprec pulm c/s OLGA w/o hx of CKD * IVF, monitor K * apprec nephrology c/s * monitor I/O * serial BMP hypokalemia * multifactorial * continue to monitor, incl telemetry known hx of tobacco use * stress dose steroids in setting of both septic shock and also for any potential underdiagnosed COPD type disease process from chronic tobacco use known hx of ETOH abuse * sedated diet npo activity bedrest dvt ppx Review of Systems - Medications/Allergies Allergies/Adverse Reactions: Allergies Allergy/AdvReac Type Severity Reaction Status Date / Time No Known Drug Allergies Allergy Verified 05/15/17 22:44 Medications: Current Medications Acetaminophen (Tylenol Elixir) 325 mg PO Q6H PRN PRN Reason: Fever > 101 Last Admin: 07/06/17 09:46 Dose: 325 mg Aspirin (Aspirin) 325 mg PO DAILY [facility] Last Admin: 07/06/17 09:24 Dose: 325 mg Carvedilol (Coreg) 12.5 mg PO BID-[facility] Last Admin: 07/06/17 09:31 Dose: Not Given Famotidine (Pepcid) 20 mg PO 2100 [facility] Heparin Sodium (Porcine) (Heparin) 5,000 units SC TID [facility] Last Admin: 07/06/17 14:36 Dose: 5,000 units Norepinephrine Bitartrate (Levophed) 250 mls @ 0 mls/hr IVPB INF [facility] DAV[facility]; Titrate PRN Reason: Protocol Last Admin: 07/05/17 20:24 Dose: 250 mls Fentanyl Citrate 2,000 mcg/ (Sodium Chloride) 100 mls @ 0 mls/hr IV INF JUAN DAVID; Per Protocol PRN Reason: Protocol Stop: 08/04/17 18:20 Fentanyl Citrate (Fentanyl Bolus) 250 mls @ 0 mls/hr IVPB PRN PRN; As Directed PRN Reason: Breakthrough pain Stop: 08/04/17 18:20 Azithromycin 500 mg/ Sodium (Chloride) 250 mls @ 250 mls/hr IVPB Q24HR [facility] Stop: 07/10/17 14:00 Last Admin: 07/06/17 12:05 Dose: 250 mls Ceftriaxone Sodium 2 gm/ (Sodium Chloride) 100 mls @ 200 mls/hr IVPB Q24HR@ 1800 JU[facility] DAVID Sodium Bicarbonate 150 meq/ (Dextrose/Water) 1,150 mls @ 150 mls/hr IV .[id number] [facility] Last Admin: 07/06/17 11:56 Dose: 1,150 mls Potassium Chloride 40 meq/ (Device) 100 mls @ 25 mls/hr IVPB [id number],1300,1700 [facility] Stop: 07/06/17 21:00 Last Admin: 07/06/17 14:30 Dose: Not Given Levetiracetam (Keppra) 500 mg PO BID [facility] Last Admin: 07/06/17 09:25 Dose: 500 mg Lorazepam (Ativan) 2 mg SLOW IVP Q2H PRN PRN Reason: Anxiety to achieve [place]ount 2-3 Stop: 08/04/17 18:20 Last Admin: 07/05/17 22:25 Dose: 2 mg Methylprednisolone Sodium Succinate (Solu-Medrol) 40 mg IVP Q6HR [facility] Last Admin: 07/06/17 11:55 Dose: 40 mg Morphine Sulfate (Morphine) 2 mg SLOW IVP Q2H PRN PRN Reason: Breakthrough pain Stop: 08/04/17 18:20 Discontinue Previous Narcotic Pain Medications And Benzodiazepines 1 each FS .ONE [facility] Stop: 08/04/17 18:20 Propofol (Diprivan) 1,000 mg IV INF PRN; Protocol PRN Reason: TO ACHIEVE BLOUNT SCORE 2-3 Stop: 08/04/17 18:20 Last Admin: 07/06/17 14:30 Dose: 1,000 mg
[2017-07-06] MEDS: cefTRIAXone\\ROCEPHIN 2 GM in Sodium Chloride 0.9% 100 ML IVPB SCH (17:53)
--- NOTE | 2017-07-06 18:37 | PRG ---
DATE OF SERVICE: 07/06/2017 SUBJECTIVE: Dante is stabilizing from a hemodynamic standpoint. He is sedated for ventilation. OBJECTIVE: VITAL SIGNS: His blood pressure this afternoon is 115/56, heart rate is in the 80s, respiratory rate is 30, and oximetry is 99%. LUNGS: Remarkable for coarse rhonchi on the right. HEART: Regular rhythm, no S3. ABDOMEN: Soft and nontender. LABORATORY DATA: White count up to 2.4, but he has 30% bands today. Hemoglobin is 9 grams and plate lets 124. Sodium 139, potassium 3.4, chloride 106, bicarbonate 20, BUN 50, creatinine 1.73. Creatin ine earlier today was 2.15. Chest radiograph as expected shows increasing alveolar infiltrate in his right base. IMPRESSION: Pneumonia with clinical sepsis. Cortisol level was 37 yesterday. PLAN: We will continue his steroids, antibiotics, nebulizer treatments and mechanical ventilation. His metabolic acidosis is improved. His pH today is 7.37, CO2 of 31, pO2 of 98. He is on a bicarbonate drip. This can probably be discontinued in the morning. Critical care time was 30 minutes.
[2017-07-06] MEDS ORDERED: Famotidine 20 MG TAB PO SCH (21:00)
[2017-07-06] MEDS: Lorazepam 2 MG/ML VIAL SLOW IVP PRN ×2 (21:23→23:42)
[2017-07-07] MEDS: Propofol 1,000 MG/100 ML VIAL IV PRN ×6 (00:56→20:13)
[2017-07-07] MEDS: hydrALAZINE 20 MG/ML VIAL SLOW IVP PRN (02:55)
[2017-07-07 06:20] LABS: ALT (SGPT) 14 U/L (8-55); AST (SGOT) 12 U/L (5-34); Albumin 2.4 g/dL (3.5-5.0); Alkaline Phosphatase 41 U/L (40-150); Anion Gap 15 mmol/L (10-20); BUN (Urea Nitrogen) 39 mg/dL (8.4-25.7); Bilirubin, Total 0.3 mg/dL (0.2-1.2); Calc. Creatinine Clearance 80 mL/min (70-130); Calcium 7.7 mg/dL (7.8-10.44); Carbon Dioxide 27 mmol/L (22-29); Chloride 102 mmol/L (98-107); Estimated GFR-MDRD 69; Globulin 4.6 g/dL (2.4-3.5); Glucose 180 mg/dL (70-105); Sodium 141 mmol/L (136-145)
[2017-07-07 06:21] LABS: Potassium 2.6 mmol/L (3.5-5.1)
[2017-07-07] MEDS: Sodium Bicarbonate 150 MEQ in Dextrose 5% in Water 1,000 ML IV SCH ×2 (06:27)
[2017-07-07] MEDS ORDERED: Potassium Chloride 40 MEQ in Premix Bag 1 BAG IVPB SCH (06:45)
[2017-07-07 07:51] LABS: Actual Bicarbonate (HCO3a) 27.6 mEq/L (22-26); Base Excess (BEa) 5.5 mEq/L (0 (+/-) 2.5); Hematocrit-ABG 23.5 % (42.0-52.0); Hemoglobin (Hb) 7.8 g/dL (14.0-18.0); O2 Tension (PaO2) 108.8 mmHg (80.0-100.0); pH, Arterial 7.58 (7.35-7.45)
[2017-07-07 07:52] LABS: Puncture Site ALINE
[2017-07-07 08:05] LABS: Band 26 % (5-11); Hemoglobin 7.9 g/dL (14.0-18.0); Lymphocytes 15 % (21-51); MDiff Complete? YES; Mean Corpuscular HGB CONC 35.6 g/dL (32.0-36.0); Mean Corpuscular Hemoglobin 31.9 pg (27.0-31.0); Mean Corpuscular Volume 89.8 fl (80.0-94.0); Mean Platelet Volume 8.9 fL (7.4-10.4); Metamyelocyte 2 % (0-0); Monocytes 5 % (0-10); Neutrophil 52 % (42-75); PLT Morphology Comment Appears Decreased; Platelet Count 108 thou/uL (130-400); RBC Distribution Width 13.9 % (11.5-14.5); Red Blood Cell (RBC) Count 2.47 mill/uL (4.70-6.10); White Blood Cell (WBC) Count 4.2 thou/uL (4.8-10.8)
[2017-07-07] MEDS: Aspirin 325 MG TAB PO SCH (08:39)
[2017-07-07] MEDS: levETIRAcetam 500 MG TAB PO SCH ×2 (08:39→19:59)
[2017-07-07] MEDS: Heparin 5,000 UNITS/ML VIAL SC SCH ×3 (08:39→19:59)
--- NOTE | 2017-07-07 09:28 | RAD ---
PORTABLE CHEST 1 VIEW: Date: 07/07/17 Time: 0516 hours HISTORY: Respiratory failure. FINDINGS/IMPRESSION: There is mild improvement in the aeration of the lung steve. Remainder of exam is otherwise stable s tommy the previous day's study. POS: [facility]
[2017-07-07] MEDS ORDERED: Sodium Chloride 0.9% 1,000 ML IV SCH (09:30)
--- NOTE | 2017-07-07 09:59 | PRG ---
DATE OF SERVICE: 07/07/2017 The patient seen and examined, still intubated. PHYSICAL EXAMINATION: VITAL SIGNS: Blood pressure 137/61, pulse 63, respiratory rate of 20, O2 sat 100% on ventilator. HEENT: Remarkable for endotracheal tube in place. CARDIOVASCULAR: First and second heart sounds were heard. RESPIRATORY: Reveals vented sounds. DIGESTIVE: Revealed a benign abdomen. EXTREMITIES: No peripheral edema. SKIN: No new gross rash. LYMPHATICS: No peripheral lymphadenopathy. LABORATORY INVESTIGATIONS: Showed a hemoglobin of 7.9. Chemistry showed a potassium of 2.6, creatin ine 1.10, albumin 2.4. IMPRESSION: 1. Severe hypokalemia in the context of metabolic acidosis due to cellular shift of potassium. 2. Acute kidney injury, much improved. 3. Metabolic acidosis, resolved. PLAN: 1. Discontinue bicarbonate drip. 2. Potassium supplementation. 3. Continue renal supportive measures. 4. Further management to be dependent on the clinical course.
[2017-07-07] MEDS: Famotidine 20 MG TAB PO SCH ×2 (10:16→19:59)
--- NOTE | 2017-07-07 11:19 | PRG ---
DATE OF SERVICE: 07/07/2017 SERVICE: Pulmonary Medicine. INTERVAL HISTORY: The patient is doing fairly well from a respiratory standpoint. His respiratory e ffort has improved quite a bit. He cannot provide any additional elements of the history. He was li ttle agitated and requires a pretty good dose of propofol in order to stay comfortable on the ventila tor. OBJECTIVE: VITAL SIGNS: Afebrile currently with a T-max of 102, pulse 62, blood pressure 130/54, respirations 2 9, saturation 100% on 40% FiO2 and a PEEP of 5. GENERAL: The patient is intubated and sedated. HEENT: Normocephalic, atraumatic. Sclerae are white, conjunctivae pink. Oral mucosa is moist witho ut lesions. LUNGS: Decent air entry. There is a prolonged expiratory phase with wheezing. No crackles or rhonc hi are appreciated. HEART: Normal rate, regular. ABDOMEN: Soft, nontender, nondistended. Bowel sounds are positive. MUSCULOSKELETAL: No cyanosis or clubbing. There is no pitting in the bilateral lower extremities. NEUROLOGIC: Grossly nonfocal. LABORATORY DATA: WBC 4.2, hemoglobin 7.9, platelets 108,000. Band count has improved to 26% and whi te blood cell count is nicely responding. INR 1.4. A pH 7.58, pCO2 30, pO2 of 108 on 40% FiO2 and a PEEP of 5 at that time. Potassium 2.6. Basic metabolic profile is otherwise unremarkable. Creatin ine is down trending to 1.1. Liver function studies are essentially unremarkable. Cortisol was prev iously good. Lactate 1.1. Plasma alcohol below 10. Blood cultures x2 and urine culture negative. IMAGING: Chest x-ray demonstrates multifocal infiltrates, worse on the right compared to the left. There is also some degree of likely a calcified mediastinal lymphadenopathy present. ASSESSMENT: 1. Acute hypoxic respiratory failure. 2. Community-acquired pneumonia. 3. Severe sepsis. 4. History of right MCA stroke. PLAN: I have made fairly large adjustment to the ventilator to turn more work of breathing over to t he patient. Hopefully, this will improve on his dyssynchrony and comfort and allow us to minimize se dation. A femoral line and arterial line will be removed if we can establish peripheral access. We will continue other supportive care including antibiotics, nebulized medications and steroids. The s teroids will be deescalated to p.o. prednisone. He appears to be tolerating tube feeds for the time being. IV fluids will be interrupted. Pulmonary Critical Care will continue to follow. CRITICAL CARE TIME: 30 minutes.
[2017-07-07] MEDS: Azithromycin 500 MG in Sodium Chloride 0.9% 250 ML 250 ML IVPB SCH (11:50)
[2017-07-07] MEDS: 1/2 NS w/KCL 20 mEq 1,000 ML IV SCH (12:43)
[2017-07-07] MEDS ORDERED: Diazepam 5 MG TAB PO PRN (15:18)
[2017-07-07] MEDS ORDERED: Diazepam 5 MG TAB PO SCH (15:30)
[2017-07-07] MEDS ORDERED: Thiamine HCl 200 MG/2 ML VIAL IM SCH (15:30)
[2017-07-07] MEDS: Acetaminophen 325 MG/10.15 ML UDCUP PO PRN ×2 (16:40→22:46)
[2017-07-07] MEDS: cefTRIAXone\\ROCEPHIN 2 GM in Sodium Chloride 0.9% 100 ML IVPB SCH (17:11)
--- NOTE | 2017-07-07 23:29 | PDOC.PN ---
- Subjective Encounter Start Date: 07/07/17 Encounter Start Time: 15:00 Subjective: nsg notes rev, jennifer ovn, no new changes still intub, sedated -: per nsg appears earlier during sedation holiday had a tender abd and is -: currently awaiting CT abd - Objective Resuscitation Status: Resuscitation Status FULL:Full Resuscitation Vital Signs & Weight: Vital Signs (12 hours) Temp Pulse Resp BP Pulse Ox 07/07/17 22:15 85 07/07/17 22:00 36 H 07/07/17 20:00 101.3 F H 101 H 35 H 92 L 07/07/17 18:30 87 07/07/17 18:00 100.7 F H 34 H 07/07/17 17:00 100.4 F H 07/07/17 16:00 101.3 F H 39 H 07/07/17 15:28 93 130/62 07/07/17 14:00 33 H 07/07/17 12:00 34 H 07/07/17 11:37 71 132/69 Weight Admit Weight 164 lb 0.383 oz Weight 167 lb 5.294 oz Most Recent Monitor Data Heart Rate from ECG 83 NIBP 133/68 NIBP BP-Mean 96 Respiration from ECG 30 SpO2 95 I&O: 07/06/17 07/07/17 07/08/17 06:59 06:59 06:59 Intake Total 20235 1750 Output Total 2079 3480 1065 Balance -56 835 685 Result Diagrams: 07/09/17 04:00 07/09/17 04:00 Phys Exam - Physical Examination Constitutional: NAD intubated, sedated, ETT in place HEENT: moist MMs Respiratory: no wheezing, no rales, no rhonchi, clear to auscultation bilateral coarse ventilator sounds throughout, limited anterior examination Cardiovascular: RRR, no significant murmur, no rub Gastrointestinal: soft, positive bowel sounds unable to assess tenderness as pt is curr on sedation 1+ b/l LE edema Dx/Plan - Plan * 57M p/w difficulty breathing and "feeling poorly" * * septic shock with PNA * IVF bolus * lactic acid has cleared * empiric ceftriaxone and azithromycin for CAP PNA * repeat bCx today 2/2 febrile episodes x2 * apprec pulm crit care c/s * pressor support levophed has been titrated off * pending resp cx, blood cx - both NGTD from adm, repeat as above leukopenia 2/2 above * continue to monitor acute hypoxic respiratory failure 2/2 CAP PNA * likely 2/2 PNA as above * ventilator support * apprec pulm c/s OLGA w/o hx of CKD, improving * IVF, monitor K * apprec nephrology c/s * monitor I/O * serial BMP hypokalemia * multifactorial * continue to monitor, incl telemetry known hx of tobacco use * stress dose steroids in setting of both septic shock and also for any potential underdiagnosed COPD type disease process from chronic tobacco use known hx of ETOH abuse * sedated * ASE protocol diet npo activity bedrest dvt ppx Review of Systems - Medications/Allergies Allergies/Adverse Reactions: Allergies Allergy/AdvReac Type Severity Reaction Status Date / Time No Known Drug Allergies Allergy Verified 05/15/17 22:44 Medications: Current Medications Acetaminophen (Tylenol Elixir) 325 mg PO Q6H PRN PRN Reason: Fever > 101 Last Admin: 07/07/17 22:46 Dose: 325 mg Aspirin (Aspirin) [address] [facility] Last Admin: 07/07/17 08:39 Dose: 325 mg Diazepam (Valium) 10 mg PO Q4H PRN PRN Reason: FOR ASE 10 OR GREATER Stop: 07/08/17 04:00 Last Admin: 07/07/17 22:46 Dose: 10 mg Diazepam (Valium) 5 mg PO Q4H PRN PRN Reason: FOR ASE 10 OR GREATER Famotidine (Pepcid) [address] [facility] Last Admin: 07/07/17 19:59 Dose: 20 mg Folic Acid (Folvite) [address] [facility] Heparin Sodium (Porcine) (Heparin) 5,[address] [facility] Last Admin: 07/07/17 19:59 Dose: 5,000 units Hydralazine HCl (Apresoline) 10 mg SLOW IVP Q4H PRN PRN Reason: SBP >= 180 Last Admin: 07/07/17 02:55 Dose: 10 mg Fentanyl Citrate 2,000 mcg/ (Sodium Chloride) 100 mls @ 0 mls/hr IV INF [facility]; Per Protocol PRN Reason: Protocol Stop: 08/04/17 18:20 Fentanyl Citrate (Fentanyl Bolus) 250 mls @ 0 mls/hr IVPB PRN PRN; As Directed PRN Reason: Breakthrough pain Stop: 08/04/17 18:20 Azithromycin 500 mg/ Sodium (Chloride) 250 mls @ 250 mls/hr IVPB Q24HR [facility] Stop: 07/10/17 14:00 Last Admin: 07/07/17 11:50 Dose: 250 mls Ceftriaxone Sodium 2 gm/ (Sodium Chloride) 100 mls @ 200 mls/hr IVPB Q24HR@ 1800 [facility] DAVID Last Admin: 07/07/17 17:11 Dose: 100 mls Potassium Chloride/Sodium Chloride (1/2 Ns W/Kcl 20 Meq) 1,000 mls @ 75 mls/hr IV .[id number] [facility] Last Admin: 07/07/17 12:43 Dose: 1,000 mls Iron/Minerals/Multivitamins (Theragran M) [address] [facility] Levetiracetam (Keppra) [address] [facility] Last Admin: 07/07/17 19:59 Dose: 500 mg Magnesium Oxide (Magnesium Oxide) [address] [facility] Methylprednisolone Sodium Succinate (Solu-Medrol) [address] [facility] Discontinue Previous Narcotic Pain Medications And Benzodiazepines [address] [facility] Stop: 08/04/17 18:20 Propofol (Diprivan) 1,000 mg IV INF PRN; Protocol PRN Reason: TO ACHIEVE [place] SCORE 2-3 Stop: 08/04/17 18:20 Last Admin: 07/07/17 20:13 Dose: 1,000 mg Thiamine HCl (Thiamine) [address] [facility]
[2017-07-08] MEDS: Propofol 1,000 MG/100 ML VIAL IV PRN ×4 (00:49→20:59)
[2017-07-08] MEDS: 1/2 NS w/KCL 20 mEq 1,000 ML IV SCH ×3 (01:45→17:52)
[2017-07-08] MEDS ORDERED: Diazepam 5 MG TAB PO PRN (04:00)
[2017-07-08 05:44] LABS: Anion Gap 11 mmol/L (10-20); BUN (Urea Nitrogen) 40 mg/dL (8.4-25.7); Calc. Creatinine Clearance 87 mL/min (70-130); Calcium 7.9 mg/dL (7.8-10.44); Carbon Dioxide 28 mmol/L (22-29); Chloride 105 mmol/L (98-107); Estimated GFR-MDRD 76; Glucose 215 mg/dL (70-105); Magnesium 1.5 mg/dL (1.6-2.6); Potassium 3.3 mmol/L (3.5-5.1); Sodium 141 mmol/L (136-145)
[2017-07-08 05:50] LABS: Phosphorus 1.4 mg/dL (2.3-4.7)
[2017-07-08] MEDS ORDERED: ISOVUE-370 76%-LOCM 1 ML ONE (07:50)
[2017-07-08] MEDS: Aspirin 325 MG TAB PO SCH (08:18)
[2017-07-08] MEDS: Famotidine 20 MG TAB PO SCH (08:19)
[2017-07-08] MEDS: levETIRAcetam 500 MG TAB PO SCH (08:19)
[2017-07-08] MEDS: Heparin 5,000 UNITS/ML VIAL SC SCH (08:19)
[2017-07-08] MEDS: Magnesium Oxide 400 MG TAB PO SCH (08:19)
[2017-07-08] MEDS: Multivitamin W/ Minerals 1 TAB PO SCH (08:20)
[2017-07-08] MEDS ORDERED: Folic Acid 1 MG TAB PO SCH (09:00)
[2017-07-08] MEDS: Azithromycin 500 MG in Sodium Chloride 0.9% 250 ML 250 ML IVPB SCH (11:29)
[2017-07-08] MEDS ORDERED: Magnesium Sulfate 4 GM in Sodium Chloride 0.9% 250 ML 250 ML IVPB SCH (11:30)
[2017-07-08] MEDS ORDERED: Potassium Phosphate 30 MMOL in Sodium Chloride 0.9% 500 ML IVPB SCH (11:30)
--- NOTE | 2017-07-08 11:40 | PRG ---
DATE OF SERVICE: 07/08/2017 SERVICE: Pulmonary Medicine INTERVAL HISTORY: The patient is doing okay from a respiratory standpoint. He has no complaints. A nytime sedation is weaned, he becomes a little diaphoretic, tachycardic, tachypneic. He does not hav e any specific complaints right now. He cannot provide any additional elements of the history becaus e of sedation. PHYSICAL EXAMINATION: VITAL SIGNS: Afebrile currently with a T-max overnight of 101.3, pulse 93, blood pressure 123/53, re spirations 20, saturation 95% on 27% FiO2 and a PEEP of 5. GENERAL: The patient is intubated and sedated. HEENT: Normocephalic, atraumatic. Sclerae are white, conjunctivae pink. Oral mucosa is moist witho ut lesions. LUNGS: Decent air entry. Rhonchi are present. No prolonged expiratory phase are appreciated. HEART: Normal rate, regular. ABDOMEN: Soft, nontender, nondistended. Bowel sounds are positive. MUSCULOSKELETAL: No cyanosis or clubbing. There is 1+ pitting in the bilateral lower extremities. NEUROLOGIC: Nonfocal. PERTINENT LABORATORY AND X-RAYS: WBC 4.2, hemoglobin 7.9 and abruptly down trending. Platelets 108, 000 and also trending downward. Band count is 26% and improving. INR 1.4. Potassium 3.3, phosphoru s 1.4. Magnesium 1.5. Basic metabolic profile is otherwise unremarkable. Blood cultures x4, and ur ine culture are negative. ASSESSMENT: 1. Acute hypoxic respiratory failure. 2. Community-acquired pneumonia. 3. Severe sepsis. 4. History of right middle cerebral artery. 5. Acute blood loss anemia. DISCUSSION AND PLAN: We do not have a place where the blood is coming from. I will type and screen him. I am going to repeat a hemoglobin. Potassium, phosphorus and magnesium will all be replaced. We are going to do a stat CT of the belly as he is having increasing distention and pain with palpati on there. Critical care time: 30 minutes.
[2017-07-08 12:23] LABS: Hemoglobin 8.6 g/dL (14.0-18.0)
[2017-07-08 12:41] LABS: Lactic Acid 2.4 mmol/L (0.5-2.2)
[2017-07-08] MEDS ORDERED: Pantoprazole 40 MG VIAL IVP SCH (14:00)
--- NOTE | 2017-07-08 14:26 | CON ---
DATE OF CONSULTATION: 07/08/2017 CHIEF COMPLAINT: Free air. HISTORY OF PRESENT ILLNESS: This is a 57-year-old male with a history of a previous CVA, who present s with a history of sepsis, admitted through the emergency room. He is on Levophed. Dr. Castro has seen him as well as Dr. Babcock. He had been ventilated. He has been on the ventilator since admissi on, off Levophed now. However, Dr. Castro on rounds noticed more abdominal distention and pain with peritoneal signs. Ordered a CAT scan, which revealed some free air. Most of the history is obtaine d from the chart. The patient is not able to communicate. PAST MEDICAL HISTORY: Includes CVA, BPH, hypertension and lipid disorder. PAST SURGICAL HISTORY: Tonsillectomy. MEDICINES: See list. ALLERGIES: No known drug allergies. SOCIAL HISTORY: Smokes and drinks occasionally. 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 REVIEW OF SYSTEMS: Otherwise, negative unless described above. PHYSICAL EXAMINATION: VITAL SIGNS: Blood pressure is 149/69, pulse 87, respirations are vent. He is afebrile. HEENT: Sclerae are anicteric. Oropharynx clear. NECK: No lymphadenopathy. CHEST: Clear. HEART: Regular rate and rhythm. ABDOMEN: Distended with diffuse peritoneal signs and he has a small reducible umbilical hernia. LABORATORY DATA: White blood cell count is 4 with 26 bands, hemoglobin 7.9 and platelet count is 108 . Repeat hemoglobin at noon was 8.6. Sodium 141, potassium 3.3, creatinine 1.01 and glucose 215. IMAGING DATA: CT scan shows free air in the abdomen. There is diverticulosis, maybe some thickening of the gastric outlet. ASSESSMENT: Free air with peritonitis in the setting of sepsis. PLAN: Exploratory laparotomy. Risks, benefits and alternatives discussed with his fiancee, who give s consent since he cannot give it himself. We will do this urgently today.
[2017-07-08] MEDS: Piperacillin/Tazobactam 3.375 GM in Sodium Chloride 0.9% 100 ML IVPB SCH ×2 (14:34→20:59)
[2017-07-08] MEDS ORDERED: Norepinephrine 8 MG/0.9% NS 250 ML ONE (14:42)
[2017-07-08] MEDS ORDERED: Fentanyl 250 MCG/5 ML VIAL ONE (14:52)
[2017-07-08] MEDS ORDERED: PROPOFOL 200 MG/20 ML VIAL ONE (15:07)
--- NOTE | 2017-07-08 18:31 | CT ---
CT ABDOMEN AND PELVIS WITH CONTRAST: HISTORY: Belly pain. Drop in hematocrit. Pneumonia. Sepsis. COMPARISON: CT abdomen and pelvis 2017. FINDINGS: There are extensive alveolar opacities in both lower lobes indicative of pneumonia. No significant p ericardial effusion. There is small volume perihepatic free intraperitoneal air. Moderate diverticular disease signal col on. There is a pocket of free air anterior to the left paracolic gutter. The majority of the areas are seen within the omentum. No significant retroperitoneal gas is appreciated. There are numerous abnormal thickened fair of il eum and jejunum, predominantly jejunum. Gallbladder is contracted with wall thickening of the fundus , although the body of the gallbladder appears normal. This may represent irregular intraluminal cho lelithiasis. No hydronephrosis. There are calcified granulomas in the spleen. Moderate atherosclerotic plaque of the aortoiliac system. The adrenal glands are unremarkable. Moderate volume of free intraperitoneal gas. There is a focal area of gas and fluid in the left para colic gutter with extensively abnormally thickened loops of jejunum which may be the source of the fr ee intraperitoneal air indicative of a perforated hollow viscus. Abnormal appearance of the gallbladder with either intraluminal gallstones of the fundus or severe mu cosal edema only of the gastric fundus, but not the gastric body. Malignant process is also a concer n. Surgical consultation is advised. The patient may benefit from ultrasound. IMPRESSION: 1. Free intraperitoneal gas adjacent to a markedly abnormally thickened loop of jejunum with adjacen t air fluid level may be a source of perforated hollow viscus. 2. Abnormal appearance of the gallbladder. The patient may benefit from ultrasound. Anastasia, the nurse, was notified of the findings via telephone at 1:35 p.m., 07/08/17. 3. Pneumonia lower lobes, worse in the right lower lobe. CODE CR POS: [facility]
--- NOTE | 2017-07-08 19:15 | OP ---
DATE OF SURGERY: 07/08/2017 PREOPERATIVE DIAGNOSES: Pneumoperitoneum, peritonitis. POSTOPERATIVE DIAGNOSIS: Perforated sigmoid diverticulitis. PROCEDURES PERFORMED: Exploratory laparotomy with sigmoid colectomy and proximal colostomy (distal e nd left stapled off and Mick's procedure). Central line placement. SURGEON: Shaggy Perry M.D. ANESTHESIA: General. ESTIMATED BLOOD LOSS: 50 mL COMPLICATIONS: None. FINDINGS: Perforation of the sigmoid colon, significant abdominal contamination. TECHNIQUE: The patient was taken to the operating room and placed supine on the table. After genera l anesthetic was obtained, the right neck and chest were shaved, prepped and draped in a sterile [facility]. Local anesthetic infiltrated over the right internal jugular vein. Internal jugular vein was c annulated using a 22-gauge finder needle followed by a Seldinger needle. Wire was passed into the sánchez perior vena cava. Small sharan was made worse entrance site. The wire was used to guide to dilate the internal jugular vein. Triple lumen catheter was threaded to 16 cm, sewn to the neck using closed s ilk and connector. All ports flushed and draw blood without difficulties, flushed with a saline solu tion. Sterile dressing was placed. The abdomen was shaved, and draped in a sterile fashion. Midline incision was made from above the um bilicus down towards the pubic bone. Cautery dissected down into the abdominal cavity. The abdomina l cavity was entered. Bookwalter retractor was placed. There was stool in the abdomen. This was tr aced down to the sigmoid colon where there was an obvious perforation. The peritoneum was taken down on the medial and lateral aspects of the colon. The left ureter was found and excluded from the dis section. Contour stapler was fired across the lower specimen sigmoid colon. The mesentery was taken using the impact LigaSure. Ellipse of skin taken out in the left upper quadr ant and a cruciate incision was made in the fascia. The proximal colon was mobilized along the white line of Toldt up towards the splenic flexure allowing for mobilization up through the wound. The pr oximal segment of colon was brought up through this. This will be the location of the end colostomy. The abdomen was irrigated using copious liters of warm sterile solution until returns were clear. There was a small tear on the serosal surface of the spleen that was controlled using Bradley antiblee ding starch. All instrument counts, needle counts, lap counts were correct. PDS used to close the f ascia from the top and the bottom and tied in the middle. Subcutaneous tissues are irrigated. The c olostomy was matured in the typical fashion by transecting the colon at the level of the skin. The c olon specimen with a perforation sent to path for final diagnosis and ostomy was matured and ostomy d evices placed a wound VAC was placed. The patient was en route to recovery in stable in critical, bu t stable condition. All instrument counts, needle counts, lap counts were correct.
--- NOTE | 2017-07-08 20:05 | RAD ---
AP VIEW OF THE CHEST 07/08/17 INDICATION: Line placement. IMPRESSION: Since the comparison examination, there has been interval placement of a right IJ central venous cath eter projecting over the region of the cavoatrial junction. Gastric catheter and ET tube tip are unch anged. Pulmonary vascular congestion persists. Right perihilar air space opacity is similar. No pneum othorax is evident. IMPRESSION: 1. New right IJ central venous catheter. 2. Persistent right perihilar opacity. POS: [facility]
[2017-07-08] MEDS: Pantoprazole 40 MG VIAL IVP SCH (21:00)
--- NOTE | 2017-07-08 22:16 | PDOC.PN ---
- Subjective Encounter Start Date: 07/08/17 Encounter Start Time: 10:00 -: non-verbal Subjective: intubated sedated s/p colostomy - Objective Resuscitation Status: Resuscitation Status FULL:Full Resuscitation Vital Signs & Weight: Vital Signs (12 hours) Temp Pulse Resp BP 07/08/17 20:00 98.8 F 23 H 07/08/17 18:25 85 07/08/17 18:00 23 H 07/08/17 17:27 92 145/69 H 07/08/17 17:15 98.8 F 07/08/17 15:02 88 145/69 H 07/08/17 14:00 99.9 F H 40 H 07/08/17 12:00 35 H 07/08/17 11:23 92 151/74 H 07/08/17 11:00 99.9 F H Weight Admit Weight 164 lb 0.383 oz Weight 167 lb 5.294 oz Most Recent Monitor Data Heart Rate from ECG 86 NIBP 107/51 NIBP BP-Mean 71 Respiration from ECG 23 SpO2 97 I&O: 07/07/17 07/08/17 07/09/17 06:59 06:59 06:59 Intake Total 4315 3529 2321 Output Total 3480 1765 1750 Balance 835 1764 571 Result Diagrams: 07/10/17 05:02 07/10/17 05:02 Phys Exam - Physical Examination Constitutional: NAD ETT in place slightly dry mm Respiratory: no wheezing, no rales, no rhonchi coarse ventilator sounds, limited anterior exam Cardiovascular: RRR, no rub Gastrointestinal: positive bowel sounds scant stool in ostomy bag Musculoskeletal: pulses present Dx/Plan - Plan * 57M p/w difficulty breathing and "feeling poorly" * * septic shock with PNA * IVF bolus * lactic acid has cleared * empiric ceftriaxone and azithromycin for CAP PNA * repeat bCx today 2/2 febrile episodes x2 * apprec pulm crit care c/s * pressor support levophed has been titrated off * pending resp cx, blood cx - repeat blood cx + for gram neg rods, on empiric pip deja leukopenia 2/2 above * continue to monitor acute hypoxic respiratory failure 2/2 CAP PNA * likely 2/2 PNA as above * ventilator support * apprec pulm c/s OLGA w/o hx of CKD, improving * IVF, monitor K * apprec nephrology c/s * monitor I/O * serial BMP hypokalemia * multifactorial * continue to monitor, incl telemetry known hx of tobacco use * stress dose steroids in setting of both septic shock and also for any potential underdiagnosed COPD type disease process from chronic tobacco use known hx of ETOH abuse * sedated * ASE protocol colonic perforation s/p ostomy * apprec surgical c/s diet npo activity bedrest dvt ppx Review of Systems - Medications/Allergies Allergies/Adverse Reactions: Allergies Allergy/AdvReac Type Severity Reaction Status Date / Time No Known Drug Allergies Allergy Verified 05/15/17 22:44 Medications: Current Medications Fluconazole (Diflucan) 100 mg PO DAILY JUAN DAVID Hydralazine HCl (Apresoline) 10 mg SLOW IVP Q4H PRN PRN Reason: SBP >= 180 Last Admin: 07/07/17 02:55 Dose: 10 mg Fentanyl Citrate 2,000 mcg/ (Sodium Chloride) 100 mls @ 0 mls/hr IV INF JUAN DAVID; Per Protocol PRN Reason: Protocol Stop: 08/04/17 18:20 Last Admin: 07/08/17 18:56 Dose: 100 mls Fentanyl Citrate (Fentanyl Bolus) 250 mls @ 0 mls/hr IVPB PRN PRN; As Directed PRN Reason: Breakthrough pain Stop: 08/04/17 18:20 Potassium Chloride/Sodium Chloride (1/2 Ns W/Kcl 20 Meq) 1,000 mls @ 75 mls/hr IV .[id number] JUAN DAVID Last Admin: 07/08/17 17:52 Dose: 1,000 mls Dexmedetomidine HCl 200 mcg/ (Sodium Chloride) 50 mls @ 0 mls/hr IVPB INF JUAN DAVID; Per Protocol PRN Reason: Protocol Levetiracetam 500 mg/ Device 100 mls @ 200 mls/hr IVPB BID JUAN DAVID Last Admin: 07/08/17 20:59 Dose: 100 mls Piperacillin Sod/Tazobactam (Sod 3.375 gm/ Sodium Chloride) 100 mls @ 200 mls/ hr IVPB 0200,0800,1400,2000 [facility] Last Admin: 07/08/17 20:59 Dose: 100 mls Iron/Minerals/Multivitamins (Theragran M) 1 tab PO DAILY JUAN DAVID Last Admin: 07/08/17 08:20 Dose: 1 tab Magnesium Oxide (Magnesium Oxide) 400 mg PO DAILY [facility] Last Admin: 07/08/17 08:19 Dose: 400 mg Methylprednisolone Sodium Succinate (Solu-Medrol) 40 mg IVP DAILY [facility] Last Admin: 07/08/17 08:19 Dose: 40 mg Discontinue Previous Narcotic Pain Medications And Benzodiazepines 1 each FS .ONE [facility] Stop: 08/04/17 18:20 Pantoprazole Sodium (Protonix) 40 mg IVP Q12HR [facility] Last Admin: 07/08/17 21:00 Dose: 40 mg Propofol (Diprivan) 1,000 mg IV INF PRN; Protocol PRN Reason: TO ACHIEVE BLOUNT SCORE 2-3 Stop: 08/04/17 18:20 Last Admin: 07/08/17 20:59 Dose: 1,000 mg
--- NOTE | 2017-07-09 01:14 | PRG ---
DATE OF SERVICE: 07/08/2017 SUBJECTIVE: Patient was seen and examined, still on life support, otherwise hemodynamically stable. OBJECTIVE: HEENT: Showed endotracheal tube in place. CARDIOVASCULAR SYSTEM: First and second heart sounds were heard. RESPIRATORY SYSTEM: Reveals vented sounds. DIGESTIVE SYSTEM: Revealed evidence of recent laparotomy. EXTREMITIES: Showed minimal peripheral edema. IMPRESSION: 1. Acute kidney injury, which has since responded to conservative measures. 2. Perforated viscus, status post colectomy with dilation colostomy. 3. Sepsis. 4. Respiratory failure. PLAN: We will continue current measures and monitor the patient closely.
[2017-07-09] MEDS: Piperacillin/Tazobactam 3.375 GM in Sodium Chloride 0.9% 100 ML IVPB SCH ×4 (01:36→20:34)
[2017-07-09] MEDS: 1/2 NS w/KCL 20 mEq 1,000 ML IV SCH (03:00)
[2017-07-09] MEDS: Propofol 1,000 MG/100 ML VIAL IV PRN (03:00)
[2017-07-09] MEDS ORDERED: Acetaminophen 650 MG in Premix Bag 1 BAG IVPB PRN (04:02)
[2017-07-09 04:53] LABS: Anion Gap 11 mmol/L (10-20); BUN (Urea Nitrogen) 31 mg/dL (8.4-25.7); Band 14 % (5-11); Calc. Creatinine Clearance 114 mL/min (70-130); Calcium 7.4 mg/dL (7.8-10.44); Carbon Dioxide 28 mmol/L (22-29); Chloride 109 mmol/L (98-107); Estimated GFR-MDRD Greater than 90; Glucose 135 mg/dL (70-105); Hemoglobin 7.3 g/dL (14.0-18.0); Lymphocytes 8 % (21-51); MDiff Complete? YES; Magnesium 1.9 mg/dL (1.6-2.6); Mean Corpuscular HGB CONC 34.2 g/dL (32.0-36.0); Mean Corpuscular Hemoglobin 31.4 pg (27.0-31.0); Mean Corpuscular Volume 91.7 fl (80.0-94.0); Mean Platelet Volume 9.7 fL (7.4-10.4); Monocytes 4 % (0-10); Myelocyte 1 % (0-0); Neutrophil 73 % (42-75); PLT Morphology Comment Appears Decreased; Phosphorus 3.7 mg/dL (2.3-4.7); Platelet Count 119 thou/uL (130-400); Potassium 3.9 mmol/L (3.5-5.1); RBC Distribution Width 13.7 % (11.5-14.5); Red Blood Cell (RBC) Count 2.31 mill/uL (4.70-6.10); Sodium 144 mmol/L (136-145); White Blood Cell (WBC) Count 8.4 thou/uL (4.8-10.8)
[2017-07-09] MEDS: Pantoprazole 40 MG VIAL IVP SCH ×2 (08:41→20:36)
[2017-07-09] MEDS: Magnesium Oxide 400 MG TAB PO SCH (08:48)
[2017-07-09] MEDS: Multivitamin W/ Minerals 1 TAB PO SCH (08:49)
[2017-07-09] MEDS ORDERED: Fluconazole 100 MG TAB PO SCH (09:00)
--- NOTE | 2017-07-09 09:31 | PRG ---
DATE OF SERVICE: 07/09/2017 Postop day #1, Mick's procedure. SUBJECTIVE: Mr. Vences is waking up appropriately at times. He is on minimal sedation, hemodynamicall y stable overnight. PHYSICAL EXAMINATION: VITAL SIGNS: His blood pressure 116/58, his pulse is 82. He is afebrile. Temperature was up to 101 last night. Gastric drainage minimal. Overnight urine output 300 so far today. ABDOMEN: Soft, diffusely distended and tender as appropriately. Midline wound VAC. LABORATORY DATA: White cell count 8, hemoglobin 7.3, platelet count is 119. He has 14 bands. Sodiu m 144, creatinine 0.85. ASSESSMENT: 1. Postop day #1 Mick's procedure. 2. Anemia. This is chronic and likely dilutional. PLAN: We will recheck hemoglobin and hematocrit later on today. Hold Lovenox for 1 more day. PLAN: Extubate per Dr. Castro. He is going to be n.p.o. for the next day or two. Continue NG tube until extubated.
[2017-07-09] MEDS ORDERED: Fluconazole In NaCl,Iso-Osm 200 MG in Premix Bag 1 BAG IVPB SCH ×2 (09:45)
--- NOTE | 2017-07-09 11:29 | PRG ---
DATE OF SERVICE: 07/09/2017 SERVICE: Pulmonary Medicine. INTERVAL HISTORY: The patient is doing outstanding today. Yesterday, he was discovered to have perf orated colon. He was taken down. He had belly full of stool. This was evacuated. Overnight, he galan s less abdominal discomfort. He is on a sedation holiday and breathing very comfortably. He indicat es his abdominal discomfort has drastically improved. PHYSICAL EXAMINATION: VITAL SIGNS: Afebrile, with T-max overnight of 101.7. Pulse 92, blood pressure 138/58, respirations 15, saturation 100% on 27% FiO2 and a PEEP of 5. GENERAL: The patient is intubated. He is under the influence of a little bit of sedation. HEART: Normal rate and regular. ABDOMEN: Soft, nontender, and nondistended. Bowel sounds are hypoactive. MUSCULOSKELETAL: No cyanosis or clubbing. There is no pitting in the bilateral lower extremities. NEUROLOGIC: Grossly nonfocal. LABORATORY DATA: WBC 8.4, hemoglobin 7.3, platelets 119,000. INR 1.4. Basic metabolic profile is e ssentially unremarkable. Magnesium and phosphorus fall within normal limits. Plasma alcohol was les s than 8. Blood cultures x2 are growing gram negative monae. Original blood cultures were unremarkabl e. Urine cultures negative to date. ASSESSMENT: 1. Acute hypoxic respiratory failure. 2. Severe sepsis secondary to peritonitis. 3. Colonic perforation, status post laparotomy and diverting colostomy. 4. History of right MCA stroke. 5. Acute blood loss anemia. DISCUSSION AND PLAN: We will put the patient on spontaneous breathing trial. If he meets criteria, extubation will be considered. Pulmonary or Critical Care will continue to follow. Empiric antibiot ics including gram negative, anaerobic, antifungal coverage will be continued. CRITICAL CARE TIME: 30 minutes.
[2017-07-09 14:58] LABS: Hemoglobin 7.4 g/dL (14.0-18.0)
[2017-07-09] MEDS: Fentanyl 100 MCG/2 ML VIAL SLOW IVP PRN (21:39)
--- NOTE | 2017-07-09 23:46 | PRG ---
DATE OF SERVICE: 07/09/2017 SUBJECTIVE: The patient was seen and examined. He is still on life support, but doing better. Hemo dynamically stable. OBJECTIVE: VITAL SIGNS: Pulse 92, blood pressure 130/58, T-max 101.7. HEENT: Unremarkable except the endotracheal tube. CARDIOVASCULAR SYSTEM: First and second heart sounds were heard. RESPIRATORY SYSTEM: Reveals vented sounds. DIGESTIVE SYSTEM: Revealed evidence of recent laparotomy. EXTREMITIES: No peripheral edema. SKIN: No new gross rash. LYMPHATICS: No peripheral lymphadenopathy. IMPRESSION: 1. Acute kidney injury, which has since responded to IV fluid resuscitation. 2. Perforated bowel, status post resection with diversion colostomy. PLAN: 1. We will continue renal supportive measures. 2. Further management to be dependent on the clinical course.
--- NOTE | 2017-07-09 23:58 | PDOC.PN ---
- Subjective Encounter Start Date: 07/09/17 Encounter Start Time: 14:00 Subjective: nsg notes rev, jennifer ovn, pt was just extubated, using yankaur - Objective Resuscitation Status: Resuscitation Status FULL:Full Resuscitation Vital Signs & Weight: Vital Signs (12 hours) Temp Pulse Resp Pulse Ox 07/09/17 22:55 96 07/09/17 20:00 98.5 F 100 33 H 94 L 07/09/17 15:00 98.3 F 07/09/17 12:34 89 31 H 98 07/09/17 12:00 99.2 F 38 H Weight Admit Weight 164 lb 0.383 oz Weight 185 lb 6.54 oz Most Recent Monitor Data Heart Rate from ECG 95 NIBP 155/88 NIBP BP-Mean 111 Respiration from ECG 26 SpO2 100 I&O: 07/08/17 07/09/17 07/10/17 06:59 06:59 06:59 Intake Total 3529 3939 1176 Output Total 1765 2715 1910 Balance 1764 1224 -734 Result Diagrams: 07/10/17 05:02 07/10/17 05:02 Additional Labs: Accuchecks 07/08/17 07/08/17 16:36 15:27 POC Glucose 181 H 179 H Phys Exam - Physical Examination Constitutional: NAD lying in hospital bed HEENT: PERRLA, moist MMs, sclera anicteric Respiratory: no wheezing, no rales, no rhonchi, clear to auscultation bilateral coarse throughout Cardiovascular: RRR, no rub Gastrointestinal: soft, positive bowel sounds ostomy bag + output Musculoskeletal: no edema, pulses present Neurological: moves all 4 limbs Dx/Plan - Plan * * 57M p/w difficulty breathing and "feeling poorly" * * septic shock with PNA * initial empiric ceftriaxone & azithromycin with improvement in serological parameters; however, after 48 hrs pt with increased febrile episodes ad was found to have an acute abdomen * apprec pulm crit care c/s * pressor support levophed has been titrated off * pending resp cx, blood cx - repeat blood cx + for gram neg rods, on empiric pip deja leukopenia 2/2 above * continue to monitor acute hypoxic respiratory failure 2/2 CAP PNA * extubated earlier today * apprec pulm c/s OLGA w/o hx of CKD, improving * IVF, monitor K * apprec nephrology c/s * monitor I/O * serial BMP hypokalemia * multifactorial * continue to monitor, incl telemetry known hx of tobacco use * stress dose steroids in setting of both septic shock and also for any potential underdiagnosed COPD type disease process from chronic tobacco use known hx of ETOH abuse * sedated * ASE protocol colonic perforation s/p ostomy * apprec surgical c/s diet as per speech activity PT dvt ppx Review of Systems - Medications/Allergies Allergies/Adverse Reactions: Allergies Allergy/AdvReac Type Severity Reaction Status Date / Time No Known Drug Allergies Allergy Verified 05/15/17 22:44 Medications: Current Medications Albuterol/Ipratropium (Duoneb) 3 ml [id number] JUAN DAVDI Last Admin: 07/11/17 02:21 Dose: 3 ml Fentanyl (Sublimaze) 50 mcg SLOW IVP Q2H PRN PRN Reason: Pain Last Admin: 07/11/17 03:49 Dose: 50 mcg Guaifenesin (Mucinex) 600 mg PO Q12HR JUAN DAVID Last Admin: 07/10/17 20:48 Dose: 600 mg Hydralazine HCl (Apresoline) 10 mg SLOW IVP Q4H PRN PRN Reason: SBP >= 180 Last Admin: 07/10/17 02:12 Dose: 10 mg Fentanyl Citrate 2,000 mcg/ (Sodium Chloride) 100 mls @ 0 mls/hr IV INF JUAN DAVID; Per Protocol PRN Reason: Protocol Stop: 08/04/17 18:20 Last Admin: 07/08/17 18:56 Dose: 100 mls Fentanyl Citrate (Fentanyl Bolus) 250 mls @ 0 mls/hr IVPB PRN PRN; As Directed PRN Reason: Breakthrough pain Stop: 08/04/17 18:20 Potassium Chloride/Sodium Chloride (1/2 Ns W/Kcl 20 Meq) 1,000 mls @ 75 mls/hr IV .[id number] JUAN DAVID Last Admin: 07/10/17 19:57 Dose: 1,000 mls Levetiracetam 500 mg/ Device 100 mls @ 200 mls/hr IVPB BID JUAN DAVID Last Admin: 07/10/17 20:48 Dose: 100 mls Piperacillin Sod/Tazobactam (Sod 3.375 gm/ Sodium Chloride) 100 mls @ 200 mls/ hr IVPB 0200,0800,1400,2000 [facility] Last Admin: 07/11/17 02:28 Dose: 100 mls Fluconazole/Sodium Chloride (400 mg/ Device) 200 mls @ 200 mls/hr IVPB DAILY [facility] Iron/Minerals/Multivitamins (Theragran M) 1 tab PO DAILY [facility] Last Admin: 07/10/17 09:14 Dose: Not Given Magnesium Oxide (Magnesium Oxide) 400 mg PO DAILY [facility] Last Admin: 07/10/17 09:14 Dose: Not Given Methylprednisolone Sodium Succinate (Solu-Medrol) 40 mg IVP DAILY [facility] Last Admin: 07/10/17 09:17 Dose: 40 mg Discontinue Previous Narcotic Pain Medications And Benzodiazepines 1 each FS .ONE [facility] Stop: 08/04/17 18:20 Pantoprazole Sodium (Protonix) 40 mg IVP Q12HR [facility] Last Admin: 07/10/17 20:49 Dose: 40 mg Propofol (Diprivan) 1,000 mg IV INF PRN; Protocol PRN Reason: TO ACHIEVE BLOUNT SCORE 2-3 Stop: 08/04/17 18:20 Last Admin: 07/09/17 03:00 Dose: 1,000 mg Sodium Chloride (Flush - Normal Saline) 10 ml IVF Q12HR [facility] Last Admin: 07/10/17 20:49 Dose: 10 ml Sodium Chloride (Flush - Normal Saline) 10 ml IVF PRN PRN PRN Reason: Saline Flush
[2017-07-10] MEDS: hydrALAZINE 20 MG/ML VIAL SLOW IVP PRN (02:12)
[2017-07-10 02:49] LABS: Actual Bicarbonate (HCO3a) 22.5 mEq/L (22-26); Base Excess (BEa) -2.6 mEq/L (0 (+/-) 2.5); CO2 Tension 40.2 mmHg (35.0-45.0); Hematocrit-ABG 24.7 % (42.0-52.0); Hemoglobin (Hb) 7.9 g/dL (14.0-18.0); O2 Tension (PaO2) 91.6 mmHg (80.0-100.0); pH, Arterial 7.36 (7.35-7.45)
[2017-07-10 02:50] LABS: Calcium, Ionized 1.1 mmol/L (1.12-1.30); Puncture Site RRAD
[2017-07-10] MEDS: Fentanyl 100 MCG/2 ML VIAL SLOW IVP PRN ×7 (03:00→23:07)
[2017-07-10] MEDS: 1/2 NS w/KCL 20 mEq 1,000 ML IV SCH ×3 (03:04→19:57)
[2017-07-10] MEDS: Piperacillin/Tazobactam 3.375 GM in Sodium Chloride 0.9% 100 ML IVPB SCH ×4 (03:19→20:48)
[2017-07-10 05:43] LABS: Anion Gap 10 mmol/L (10-20); Calc. Creatinine Clearance 126 mL/min (70-130); Carbon Dioxide 29 mmol/L (22-29); Chloride 110 mmol/L (98-107); Estimated GFR-MDRD Greater than 90; Glucose 145 mg/dL (70-105); Magnesium 1.6 mg/dL (1.6-2.6); Phosphorus 3.9 mg/dL (2.3-4.7); Potassium 4.3 mmol/L (3.5-5.1); Sodium 145 mmol/L (136-145)
[2017-07-10 05:51] LABS: BUN (Urea Nitrogen) 33 mg/dL (8.4-25.7)
[2017-07-10 06:02] LABS: Band 4 % (5-11); Hemoglobin 6.8 g/dL (14.0-18.0); Lymphocytes 2 % (21-51); MDiff Complete? YES; Mean Corpuscular HGB CONC 33.3 g/dL (32.0-36.0); Mean Corpuscular Hemoglobin 30.6 pg (27.0-31.0); Mean Corpuscular Volume 91.9 fl (80.0-94.0); Mean Platelet Volume 9.5 fL (7.4-10.4); Monocytes 1 % (0-10); Neutrophil 93 % (42-75); Platelet Count 165 thou/uL (130-400); RBC Distribution Width 13.5 % (11.5-14.5); Red Blood Cell (RBC) Count 2.23 mill/uL (4.70-6.10); Toxic Granulation SLIGHT; White Blood Cell (WBC) Count 19.6 thou/uL (4.8-10.8)
[2017-07-10] MEDS: Pantoprazole 40 MG VIAL IVP SCH ×2 (08:26→20:49)
[2017-07-10] MEDS ORDERED: Fluconazole In NaCl,Iso-Osm 200 MG in Premix Bag 1 BAG IVPB SCH ×2 (09:00)
[2017-07-10] MEDS: Magnesium Oxide 400 MG TAB PO SCH (09:14)
[2017-07-10] MEDS: Multivitamin W/ Minerals 1 TAB PO SCH (09:14)
--- NOTE | 2017-07-10 11:57 | PRG ---
DATE OF SERVICE: 07/10/2017 The patient is doing well overnight. He is extubated. He is asking for clear liquids. He is thirst y. PHYSICAL EXAMINATION: VITAL SIGNS: Vital signs are stable. Blood pressure 166/71, pulse 103, respirations are 18, O2 sat is 100%. He is having adequate urine output, already having stool in his colostomy bag. ABDOMEN: Soft, minimally distended. Wound VAC. LABORATORY: White cell count is up to 19 today, hemoglobin is 6.8. Sodium 145, potassium 4.3, creat inine 0.77. ASSESSMENT: 1. Postop day #2, left colectomy, colostomy, wound left open. 2. History of respiratory insufficiency and failure, now extubated. PLAN: Allow clear liquids. Continue Zosyn.
--- NOTE | 2017-07-10 16:56 | PRG ---
DATE OF SERVICE: 07/10/2017 SUBJECTIVE: Mr. Vences had complicated weekend. Afternoon of , he was found to have perforated si gmoid colon. He is extubated now and tells me that he had waxing and waning abdominal discomfort for several weeks prior to admission. He is currently in no distress. He slept with BiPAP last night, but hated it. We will try a lower p ressure if he needs it tonight. PHYSICAL EXAMINATION: VITAL SIGNS: Currently, he is afebrile, heart rate is 109, blood pressure is stable at 150/85, respi ratory rates in the 20s. LUNGS: Remarkable for rhonchi on the right. HEART: Regular rhythm. ABDOMEN: Soft. LABORATORY DATA: White count 19.6, hemoglobin 6.8, platelets 165,000. Sodium 145, potassium 4.3, ch loride 110, bicarbonate 29, BUN 33, creatinine 0.7. It appears likely he will need transfusion here in the next couple of days. His renal function is ba ck to normal with creatinine 0.77. His chest radiographs have been reviewed. I see no new alveolar infiltrates over the weekend. The b iggest issue is secretions and hopefully we can get secretions under control. He will continue to im prove. He has marginal cough, but at this point in time, it is effective. EzPAP nebulizer treatment s may help him a little bit. Critical care time was 30 minutes.
--- NOTE | 2017-07-10 20:25 | PRG ---
DATE OF SERVICE: 07/10/2017 SUBJECTIVE: Seen and examined, hemodynamically stable. PHYSICAL EXAMINATION: VITAL SIGNS: Blood pressure 153/83, pulse 103, respiratory rate of 20s, sat 97%. HEENT: Unremarkable. CARDIOVASCULAR: First and second heart sounds were heard. RESPIRATORY SYSTEM: Clear to auscultation. ABDOMEN: Digestive system revealed evidence of laparotomy with diversion colostomy. EXTREMITIES: No peripheral edema. LABORATORY: Showed hemoglobin of 6.8, white count 19,600. Chemistry showed a creatinine of 0.77. IMPRESSION: 1. Acute kidney injury which has resolved. 2. Anemia, likely in the context of blood loss anemia during surgery. PLAN: 1. Continue renal supportive measures. 2. Blood transfusions decision will be deferred to the primary team and Critical Care team. 3. Further managements will dependent on the clinical course.
[2017-07-10] MEDS: guaiFENesin ER 600 MG TAB PO SCH (20:48)
--- NOTE | 2017-07-10 23:32 | PDOC.PN ---
- Subjective Encounter Start Date: 07/10/17 Encounter Start Time: 12:00 Subjective: nsg notes rev, jennifer ovn, pt no new c/o but wants to know if he can have some -: kind of sleep aid - Objective Resuscitation Status: Resuscitation Status FULL:Full Resuscitation Vital Signs & Weight: Vital Signs (12 hours) Temp Pulse Resp Pulse Ox 07/10/17 22:05 92 22 H 100 07/10/17 20:00 98.9 F 95 21 H 98 07/10/17 18:30 105 H 27 H 94 L 07/10/17 15:00 99.0 F 07/10/17 14:10 109 H 26 H 98 07/10/17 12:56 98.3 F Weight Admit Weight 164 lb 0.383 oz Weight 181 lb 14.102 oz Most Recent Monitor Data Heart Rate from ECG 91 NIBP 146/75 NIBP BP-Mean 101 Respiration from ECG 17 SpO2 98 I&O: 07/09/17 07/10/17 07/11/17 06:59 06:59 06:59 Intake Total 3932 8420 1993 Output Total 2105 3190 2155 Balance 1224 -576 -161 Result Diagrams: 07/10/17 05:02 07/10/17 05:02 Phys Exam - Physical Examination Constitutional: NAD HEENT: PERRLA, moist MMs, sclera anicteric Respiratory: no wheezing, no rales, no rhonchi still coarse throughout Cardiovascular: RRR, no significant murmur, no rub Gastrointestinal: soft, non-tender, no distention, positive bowel sounds Musculoskeletal: pulses present Neurological: moves all 4 limbs Dx/Plan - Plan * 57M p/w difficulty breathing and "feeling poorly" * * septic shock with PNA * initial empiric ceftriaxone & azithromycin with improvement in serological parameters; however, after 48 hrs pt with increased febrile episodes ad was found to have an acute abdomen * apprec pulm crit care c/s * pressor support levophed has been titrated off * pending resp cx, blood cx - repeat blood cx + for gram neg rods, on empiric pip deja, pending speciation & sensitivities leukopenia 2/2 above * continue to monitor acute hypoxic respiratory failure 2/2 CAP PNA * extubated earlier today * apprec pulm c/s OLGA w/o hx of CKD, improving * IVF, monitor K * apprec nephrology c/s * monitor I/O * serial BMP hypokalemia * multifactorial * continue to monitor, incl telemetry known hx of tobacco use * stress dose steroids in setting of both septic shock and also for any potential underdiagnosed COPD type disease process from chronic tobacco use known hx of ETOH abuse * ASE protocol colonic perforation s/p ostomy * apprec surgical c/s diet as per speech activity PT dvt ppx Review of Systems - Medications/Allergies Allergies/Adverse Reactions: Allergies Allergy/AdvReac Type Severity Reaction Status Date / Time No Known Drug Allergies Allergy Verified 05/15/17 22:44 Medications: Current Medications Albuterol/Ipratropium (Duoneb) 3 ml EZPAP [id number] JUAN DAVID Last Admin: 07/11/17 02:21 Dose: 3 ml Fentanyl (Sublimaze) 50 mcg SLOW IVP Q2H PRN PRN Reason: Pain Last Admin: 07/11/17 03:49 Dose: 50 mcg Guaifenesin (Mucinex) 600 mg PO Q12HR JUAN DAVID Last Admin: 07/10/17 20:48 Dose: 600 mg Hydralazine HCl (Apresoline) 10 mg SLOW IVP Q4H PRN PRN Reason: SBP >= 180 Last Admin: 07/10/17 02:12 Dose: 10 mg Fentanyl Citrate 2,000 mcg/ (Sodium Chloride) 100 mls @ 0 mls/hr IV INF JUAN DAVID; Per Protocol PRN Reason: Protocol Stop: 08/04/17 18:20 Last Admin: 07/08/17 18:56 Dose: 100 mls Fentanyl Citrate (Fentanyl Bolus) 250 mls @ 0 mls/hr IVPB PRN PRN; As Directed PRN Reason: Breakthrough pain Stop: 08/04/17 18:20 Potassium Chloride/Sodium Chloride (1/2 Ns W/Kcl 20 Meq) 1,000 mls @ 75 mls/hr IV .[id number] JUAN DAVID Last Admin: 07/10/17 19:57 Dose: 1,000 mls Levetiracetam 500 mg/ Device 100 mls @ 200 mls/hr IVPB BID JUAN DAVID Last Admin: 07/10/17 20:48 Dose: 100 mls Piperacillin Sod/Tazobactam (Sod 3.375 gm/ Sodium Chloride) 100 mls @ 200 mls/ hr IVPB 0200,0800,1400,2000 [facility] Last Admin: 07/11/17 02:28 Dose: 100 mls Fluconazole/Sodium Chloride (400 mg/ Device) 200 mls @ 200 mls/hr IVPB DAILY [facility] Iron/Minerals/Multivitamins (Theragran M) 1 tab PO DAILY [facility] Last Admin: 07/10/17 09:14 Dose: Not Given Magnesium Oxide (Magnesium Oxide) 400 mg PO DAILY [facility] Last Admin: 07/10/17 09:14 Dose: Not Given Methylprednisolone Sodium Succinate (Solu-Medrol) 40 mg IVP DAILY [facility] Last Admin: 07/10/17 09:17 Dose: 40 mg Discontinue Previous Narcotic Pain Medications And Benzodiazepines 1 each FS .ONE [facility] Stop: 08/04/17 18:20 Pantoprazole Sodium (Protonix) 40 mg IVP Q12HR [facility] Last Admin: 07/10/17 20:49 Dose: 40 mg Propofol (Diprivan) 1,000 mg IV INF PRN; Protocol PRN Reason: TO ACHIEVE [place] SCORE 2-3 Stop: 08/04/17 18:20 Last Admin: 07/09/17 03:00 Dose: 1,000 mg Sodium Chloride (Flush - Normal Saline) 10 ml IVF Q12HR [facility] Last Admin: 07/10/17 20:49 Dose: 10 ml Sodium Chloride (Flush - Normal Saline) 10 ml IVF PRN PRN PRN Reason: Saline Flush
[2017-07-11] MEDS: Piperacillin/Tazobactam 3.375 GM in Sodium Chloride 0.9% 100 ML IVPB SCH ×4 (02:28→20:04)
[2017-07-11] MEDS: Fentanyl 100 MCG/2 ML VIAL SLOW IVP PRN ×3 (03:49→10:46)
[2017-07-11 05:47] LABS: Anion Gap 11 mmol/L (10-20); BUN (Urea Nitrogen) 24 mg/dL (8.4-25.7); Calc. Creatinine Clearance 124 mL/min (70-130); Calcium 7.9 mg/dL (7.8-10.44); Carbon Dioxide 27 mmol/L (22-29); Chloride 104 mmol/L (98-107); Estimated GFR-MDRD Greater than 90; Glucose 164 mg/dL (70-105); Magnesium 1.2 mg/dL (1.6-2.6); Phosphorus 3.6 mg/dL (2.3-4.7); Potassium 4.2 mmol/L (3.5-5.1); Sodium 138 mmol/L (136-145)
[2017-07-11] MEDS: Multivitamin W/ Minerals 1 TAB PO SCH (07:57)
[2017-07-11] MEDS: Pantoprazole 40 MG VIAL IVP SCH (07:57)
[2017-07-11] MEDS: Magnesium Oxide 400 MG TAB PO SCH (07:57)
[2017-07-11] MEDS: guaiFENesin ER 600 MG TAB PO SCH ×2 (07:57→20:04)
[2017-07-11] MEDS: Fluconazole In NaCl,Iso-Osm 400 MG in Premix Bag 1 BAG IVPB SCH ×2 (07:58)
[2017-07-11] MEDS: 1/2 NS w/KCL 20 mEq 1,000 ML IV SCH ×2 (08:07→20:06)
[2017-07-11 09:30] LABS: Hemoglobin 7.3 g/dL (14.0-18.0); Mean Corpuscular HGB CONC 34.2 g/dL (32.0-36.0); Mean Corpuscular Hemoglobin 30.9 pg (27.0-31.0); Mean Corpuscular Volume 90.4 fl (80.0-94.0); Mean Platelet Volume 9.1 fL (7.4-10.4); Platelet Count 195 thou/uL (130-400); RBC Distribution Width 13.5 % (11.5-14.5); Red Blood Cell (RBC) Count 2.37 mill/uL (4.70-6.10); White Blood Cell (WBC) Count 15.9 thou/uL (4.8-10.8)
[2017-07-11 09:31] LABS: Band 4 % (5-11); Lymphocytes 7 % (21-51); MDiff Complete? YES; Monocytes 4 % (0-10); Neutrophil 85 % (42-75)
--- NOTE | 2017-07-11 11:07 | PRG ---
DATE OF SERVICE: 07/11/2017 Mr. Vences is doing well. He is extubated, tolerated the clear liquid diet. He has not been out of be d yet. Pain is controlled, although he is getting fentanyl every 2 hours. PHYSICAL EXAMINATION: VITAL SIGNS: He is afebrile. Vital signs are stable. ABDOMEN: Soft, appropriately tender, midline wound VAC. Colostomy has air and stool. LABORATORY DATA: White blood cell count is down to 15, hemoglobin 7.3. Sodium 138, potassium 4.2, c reatinine 0.77. ASSESSMENT: Postop day #2, Mick's procedure for ruptured sigmoid diverticulitis and resolving se psis. PLAN: Transfer to surgical floor, be more proactive on PT and getting out of bed. Allow full liquid s. Added [place] for pain.
[2017-07-11] MEDS ORDERED: Magnesium 2 GM/NS 0.9% 100 ML 2 GM in Premix Bag 1 BAG IVPB SCH (11:15)
[2017-07-11] MEDS: HYDROcodone/Acetaminophen 10/325 mg Tablet PO PRN ×3 (13:20→23:55)
--- NOTE | 2017-07-11 17:53 | PRG ---
DATE OF SERVICE: 07/11/2017 SUBJECTIVE: The patient was seen and examined, much improved. No more on life support. Sitting barbara n on a chair, feeling good, noted with the following vital signs. OBJECTIVE: VITAL SIGNS: Blood pressure 143/81, respiratory rate of 16, O2 sat of 98%. HEENT: Unremarkable. CARDIOVASCULAR: First and second heart sounds were heard. ABDOMEN: Digestive system revealed recent diversion colostomy. Positive bowel sounds. EXTREMITIES: No peripheral edema. SKIN: No new gross rash. LYMPHATICS: No peripheral lymphadenopathy. IMPRESSION: 1. Acute kidney injury, which has resolved. 2. Perforated viscus, status post bowel resection with diversion colostomy. PLAN: 1. Continue renal supportive measures. 2. Further management to be dependent on the clinical course.
--- NOTE | 2017-07-11 20:23 | PRG ---
DATE OF SERVICE: 07/11/2017 SUBJECTIVE: Mr. Vences is doing well. He says he feels better than yesterday. OBJECTIVE: VITAL SIGNS: His heart rate 80, respiratory rate is 20, oximetry is 98 on room air. His rhonchi are dramatically improved on chest exam. HEART: Regular rhythm. ABDOMEN: Soft and nontender. He has a wound VAC in the midline and ostomy with viable with a pink c olor. LABORATORY DATA: White count 15.9, hemoglobin 7.3, platelets 195. Sodium 130, potassium 4.2, chloride 104, bicarbonate 27, BUN 24, creatinine 0.77. Intake and outputs negative 31 mL. IMPRESSION: 1. Pneumonia with respiratory failure requiring emergent intubation. 2. Perforated sigmoid colon with peritonitis. 3. Acute kidney disease, clinically improved. 4. Status post Mick's pouch for ruptured sigmoid diverticulitis. 5. Clinical sepsis, resolving, secondary to pneumonia, it is difficult to know when he perforated ex tremity and presented perforated had altered mental status with his sepsis reliable. Abdominal exam was not obtainable nor suggestive, intubation of acute abdomen. His acid base status gradually improved. Clinically, stable at this time.
[2017-07-12] MEDS: Piperacillin/Tazobactam 3.375 GM in Sodium Chloride 0.9% 100 ML IVPB SCH ×4 (02:49→20:02)
[2017-07-12 04:05] LABS: Anion Gap 9 mmol/L (10-20); BUN (Urea Nitrogen) 21 mg/dL (8.4-25.7); Calc. Creatinine Clearance 125 mL/min (70-130); Calcium 8.4 mg/dL (7.8-10.44); Carbon Dioxide 31 mmol/L (22-29); Chloride 102 mmol/L (98-107); Estimated GFR-MDRD Greater than 90; Glucose 130 mg/dL (70-105); Magnesium 1.4 mg/dL (1.6-2.6); Potassium 4.5 mmol/L (3.5-5.1); Sodium 137 mmol/L (136-145)
[2017-07-12 04:10] LABS: Band 1 % (5-11); Hemoglobin 7.9 g/dL (14.0-18.0); Lymphocytes 8 % (21-51); MDiff Complete? YES; Mean Corpuscular HGB CONC 35.1 g/dL (32.0-36.0); Mean Corpuscular Hemoglobin 31.6 pg (27.0-31.0); Mean Corpuscular Volume 90.1 fl (80.0-94.0); Mean Platelet Volume 8.2 fL (7.4-10.4); Monocytes 4 % (0-10); Neutrophil 87 % (42-75); Platelet Count 305 thou/uL (130-400); RBC Distribution Width 13.2 % (11.5-14.5); Red Blood Cell (RBC) Count 2.51 mill/uL (4.70-6.10); Toxic Granulation SLIGHT; White Blood Cell (WBC) Count 18.9 thou/uL (4.8-10.8)
[2017-07-12] MEDS: HYDROcodone/Acetaminophen 10/325 mg Tablet PO PRN ×3 (07:06→18:45)
[2017-07-12] MEDS: guaiFENesin ER 600 MG TAB PO SCH ×2 (09:08→20:03)
[2017-07-12] MEDS: Fluconazole In NaCl,Iso-Osm 400 MG in Premix Bag 1 BAG IVPB SCH ×2 (09:08)
[2017-07-12] MEDS: Multivitamin W/ Minerals 1 TAB PO SCH (09:09)
[2017-07-12] MEDS: Fentanyl 100 MCG/2 ML VIAL SLOW IVP PRN (10:19)
[2017-07-12] MEDS ORDERED: Magnesium 2 GM/NS 0.9% 50 ML 2 GM in Premix Bag 1 BAG IVPB SCH (10:30)
--- NOTE | 2017-07-12 10:33 | PDOC.GSPN ---
Surgery Progress Note: Subj - Subjective Patient reports: no new complaints, tolerating liquids well Surgery Progress Note: Obj - Vital signs Vital signs: Vital Signs - Most Recent Temp Pulse Resp BP Pulse Ox 97.4 F L 89 16 116/70 95 07/12/17 08:00 07/12/17 10:16 07/12/17 10:16 07/12/17 07:30 07/12/17 08:00 Surgery Progress Note: Results - Labs Result Diagrams: 07/12/17 03:40 07/12/17 03:40 Lab results: Laboratory Results - last 24 hr 07/12/17 07/12/17 03:40 03:40 WBC 18.9 H RBC 2.51 L Hgb 7.9 L Hct 22.6 L MCV 90.1 MCH 31.6 H MCHC 35.1 RDW 13.2 Plt Count 305 MPV 8.2 Neutrophils % (Manual) 87 H Band Neuts % (Manual) 1 L Lymphocytes % (Manual) 8 L Monocytes % (Manual) 4 Toxic Granulation SLIGHT Sodium 137 Potassium 4.5 Chloride 102 Carbon Dioxide 31 H Anion Gap 9 L BUN 21 Creatinine 0.76 Estimated GFR (MDRD) Greater than 90 Glucose 130 H Calcium 8.4 Phosphorus 4.0 Magnesium 1.4 L Surgery Progress Note: A/P - Problem (1) Perforated sigmoid colon Current Visit: Yes Code(s): K63.1 - PERFORATION OF INTESTINE (NONTRAUMATIC) Status: Acute - Plan Plan: Slow improvement. He is likely to need rehab or long term. Advanced to full liquids. Begin to mobilize. WBC persistently high. Question relation to IV steroids
[2017-07-12] MEDS: 1/2 NS w/KCL 20 mEq 1,000 ML IV SCH (11:25)
--- NOTE | 2017-07-12 14:19 | PDOC.PN ---
- Subjective Encounter Start Date: 07/12/17 Encounter Start Time: 14:17 Subjective: feels a little better.still with significant AP at incision site - Objective Resuscitation Status: Resuscitation Status FULL:Full Resuscitation MAR Reviewed: Yes Vital Signs & Weight: Vital Signs (12 hours) Temp Pulse Resp BP Pulse Ox 07/12/17 11:33 98.2 F 77 18 146/81 H 93 L 07/12/17 10:16 89 16 07/12/17 08:00 97.4 F L 84 16 95 07/12/17 07:30 97.4 F L 84 16 116/70 95 07/12/17 06:35 85 18 91 L 07/12/17 04:00 98.2 F 78 14 129/79 90 L 07/12/17 03:01 81 16 91 L Weight Admit Weight 164 lb 0.383 oz Weight 182 lb Most Recent Monitor Data Heart Rate from ECG 78 NIBP 141/66 NIBP BP-Mean 119 Respiration from ECG 22 SpO2 98 I&O: 07/11/17 07/12/17 07/13/17 06:59 06:59 06:59 Intake Total 3229 2286 1160 Output Total 3260 7550 2450 Balance -96 -261 -9600 Result Diagrams: 07/12/17 03:40 07/12/17 03:40 Additional Labs: Microbiology 07/07/17 17:06 Venous blood - Left Arm Blood Culture - Final Bacteroides thetaiotaomicron 07/07/17 17:05 Venous blood - Right Arm Blood Culture - Final Bacteroides thetaiotaomicron 07/05/17 17:53 Central Line - Right Common Femoral Vein Blood Culture - Final NO GROWTH IN 5 DAYS 07/05/17 17:53 Central Line - Left Common Femoral vein Blood Culture - Final NO GROWTH IN 5 DAYS 07/05/17 16:00 Urine calloway catheter Urine Culture - Final NO GROWTH AT 36 HOURS Laboratory Tests 07/05/17 07/06/17 07/06/17 15:03 05:46 15:17 Creatinine 3.49 H 2.15 H 1.73 H 07/07/17 07/08/17 07/10/17 05:48 04:58 05:02 Creatinine 1.10 1.01 0.77 07/11/17 07/12/17 05:11 03:40 Creatinine 0.77 0.76 Phys Exam - Physical Examination Constitutional: NAD pale HEENT: PERRLA, moist MMs, sclera anicteric, oral pharynx no lesions Neck: no nodes, no JVD, supple, full ROM Respiratory: no wheezing, no rales, no rhonchi, clear to auscultation bilateral Cardiovascular: RRR, no significant murmur Surigical incison packed,ostomy looks healthy Musculoskeletal: no edema, pulses present Neurological: moves all 4 limbs Psychiatric: normal affect, A&O x 3 Skin: no rash Dx/Plan (1) Bacteremia Code(s): R78.81 - BACTEREMIA Status: Acute (2) Sepsis Code(s): A41.9 - SEPSIS, UNSPECIFIED ORGANISM Status: Acute (3) PNA (pneumonia) Code(s): J18.9 - PNEUMONIA, UNSPECIFIED ORGANISM Status: Acute (4) OLGA (acute kidney injury) Code(s): N17.9 - ACUTE KIDNEY FAILURE, UNSPECIFIED Status: Acute (5) Perforated sigmoid colon Code(s): K63.1 - PERFORATION OF INTESTINE (NONTRAUMATIC) Status: Acute Comment: WITH PERITONITIS (6) Hypomagnesemia Code(s): E83.42 - HYPOMAGNESEMIA Status: Acute (7) Seizure as late effect of cerebrovascular accident (CVA) Code(s): I69.398 - OTHER SEQUELAE OF CEREBRAL INFARCTION; R56.9 - UNSPECIFIED CONVULSIONS Status: Acute Comment: On Keppra BID (8) BPH (benign prostatic hyperplasia) Code(s): N40.0 - BENIGN PROSTATIC HYPERPLASIA WITHOUT LOWER URINRY TRACT SYMP Status: Chronic (9) Dyslipidemia Code(s): E78.5 - HYPERLIPIDEMIA, UNSPECIFIED Status: Chronic (10) H/O: CVA (cerebrovascular accident) Code(s): Z86.73 - PRSNL HX OF TIA (TIA), AND CEREB INFRC W/O RESID DEFICITS Status: Chronic (11) Hypertension Code(s): I10 - ESSENTIAL (PRIMARY) HYPERTENSION Status: Chronic Qualifiers: Hypertension type: essential hypertension Qualified Code(s): I10 - Essential (primary) hypertension (12) Tobacco abuse Code(s): Z72.0 - TOBACCO USE Status: Chronic (13) Alcohol dependence Code(s): F10.20 - ALCOHOL DEPENDENCE, UNCOMPLICATED Status: Acute - Plan continue antibiotics, PT/OT, respiratory therapy, incentive spirometry, out of bed/ambulate, DVT proph w/SCDs Extubated yesterday.doing well on nasal canula.cont supportive care -: Blood Cx 2/2 with peg talbot GI source -: ? may need termite helper IV ABx.poor candidate for PICC.will consult ID -: DC IVF.encourage PO intake,ambulation,PT.Pt declining rehab/SNU placement -: wound care,GS following post ostomy .cont ABX. * .replace and recheck Mag. * renal Fx normalized. Nephrology following * Will need extensive rehab . * daily labs. Review of Systems - Review of Systems Constitutional: weakness, malaise Respiratory: SOB with Excertion. negative: Cough, Dry, Shortness of Breath, Hemoptysis, Pleuritic Pain, Sputum, Wheezing Cardiovascular: negative: chest pain, palpitations, orthopnea, paroxysmal nocturnal dyspnea, edema, light headedness, other Gastrointestinal: Nausea, Abdominal Pain Genitourinary: negative: Dysuria, Frequency, Incontinence, Hematuria, Retention , Other Musculoskeletal: negative: Neck Pain, Shoulder Pain, Arm Pain, Back Pain, Hand Pain, Leg Pain, Foot Pain, Other Skin: negative: Rash, Lesions, Mikel, Bruising, Other Neurological: negative: Weakness, Numbness, Incoordination, Change in Speech, Confusion, Seizures, Other - Medications/Allergies Allergies/Adverse Reactions: Allergies Allergy/AdvReac Type Severity Reaction Status Date / Time No Known Drug Allergies Allergy Verified 05/15/17 22:44 Medications: Current Medications Hydrocodone Bitart/Acetaminophen ([place] 10/325) 1 tab PO Q4H PRN PRN Reason: Pain 1ST LINE Hydrocodone Bitart/Acetaminophen ([place] 10/325) 2 tab PO Q4H PRN PRN Reason: Pain 2ND LINE Last Admin: 07/12/17 11:35 Dose: 2 tab Albuterol/Ipratropium (Duoneb) 3 ml EZPAP [id number] JUAN DAVID Last Admin: 07/12/17 10:16 Dose: 3 ml Fentanyl (Sublimaze) 50 mcg SLOW IVP Q2H PRN PRN Reason: Pain Last Admin: 07/12/17 10:19 Dose: 50 mcg Guaifenesin (Mucinex) 600 mg PO Q12HR JUAN DAVID Last Admin: 07/12/17 09:08 Dose: 600 mg Hydralazine HCl (Apresoline) 10 mg SLOW IVP Q4H PRN PRN Reason: SBP >= 180 Last Admin: 07/10/17 02:12 Dose: 10 mg Levetiracetam 500 mg/ Device 100 mls @ 200 mls/hr IVPB BID [facility] Last Admin: 07/12/17 09:09 Dose: 100 mls Piperacillin Sod/Tazobactam (Sod 3.375 gm/ Sodium Chloride) 100 mls @ 200 mls/ hr IVPB 0200,0800,1400,2000 [facility] Last Admin: 07/12/17 09:06 Dose: 100 mls Fluconazole/Sodium Chloride (400 mg/ Device) 200 mls @ 200 mls/hr IVPB DAILY [facility] Last Admin: 07/12/17 09:08 Dose: 200 mls Magnesium Sulfate 2 gm/ Device 50 mls @ 100 mls/hr IVPB NOW [facility] Stop: 07/12/17 16:00 Last Admin: 07/12/17 11:37 Dose: 50 mls Iron/Minerals/Multivitamins (Theragran M) 1 tab PO DAILY [facility] Last Admin: 07/12/17 09:09 Dose: 1 tab Methylprednisolone Sodium Succinate (Solu-Medrol) 40 mg IVP DAILY [facility] Last Admin: 07/12/17 09:09 Dose: 40 mg Discontinue Previous Narcotic Pain Medications And Benzodiazepines 1 each FS .ONE [facility] Stop: 08/04/17 18:20 Pantoprazole Sodium (Protonix) 40 mg PO Q12HR [facility] Last Admin: 07/12/17 09:09 Dose: Not Given Sodium Chloride (Flush - Normal Saline) 10 ml IVF Q12HR [facility] Last Admin: 07/12/17 09:09 Dose: 10 ml Sodium Chloride (Flush - Normal Saline) 10 ml IVF PRN PRN PRN Reason: Saline Flush
--- NOTE | 2017-07-12 15:14 | PRG ---
DATE OF SERVICE: 07/12/2017 SUBJECTIVE: The patient is doing much better and noted with the following vital signs. PHYSICAL EXAMINATION: VITAL SIGNS: Afebrile, temperature 98.2, pulse 77, respiratory rate 18, O2 sat 98%, blood pressure 1 46/81. HEENT: Examination unremarkable. Moist oral mucosa. NECK: Supple, no conjunctival injection or icterus. CARDIOVASCULAR SYSTEM: First and second heart sounds were heard. RESPIRATORY SYSTEM: Clear to auscultation. DIGESTIVE SYSTEM: Revealed evidence of recent surgery with positive bowel sounds. EXTREMITIES: No peripheral edema. SKIN: No new gross rash. LABORATORY DATA: , magnesium 1.4. IMPRESSION: 1. Acute kidney injury which has resolved. 2. Bowel perforation, status post colectomy with diversion colostomy. 3. Anemia. PLAN: 1. Renal supportive measures. 2. P.r.n. transfusion. 3. Further management to be dependent on the clinical course.
--- NOTE | 2017-07-12 23:32 | CON ---
DATE OF CONSULTATION: 07/12/2017 REASON FOR CONSULTATION: Bacteremia, intra-abdominal inflammatory process. HISTORY OF PRESENT ILLNESS: A 57-year-old patient who was admitted on 2017 with a history of prior MCA, cerebrovascular accident with residual right upper extremity weakness, hypertension, and chronic smoking and a prior episode of diverticulitis, admitted with new-onset seizure activity on In 05/16. The patient was discharged on next day on amitriptyline, aspirin, Lipitor, Coreg, Keppra, lisinopril, Flomax, thiamine. The patient was readmitted on 07/06 with cough and dyspnea. After initial evaluation, diagnosis of sepsis was made. The patient had required intubation and was placed on Levophed and he had then noticeable abdominal distention with guarding. A CT scan showed free air and therefore, he underwent surgical intervention which identified fecal peritonitis with perforated diverticulitis. Patient had a colostomy placement and segmental resection of the involved area. The pathology demonstrated acute and chronic diverticulitis with pericolonic inflammation. Interestingly, patient denied abdominal pain on arrival to the emergency room according to the documentation in the ER visit. The abdomen is described as nontender as well and not distended. His initial white cell count is at 1.4 with 70% neutrophils and platelets of 114 and creatinine was 3.49, sodium 131, carbon dioxide 8. Patient was given broad-spectrum antimicrobial coverage and after the procedure , he improved distantly and now we have positive blood cultures 2 sets for a bacteroides species. The patient is awake, oriented. Denies headaches, visual symptoms, sore throat, odynophagia, dysphagia, no cough or dyspnea, no chest pain. The abdomen is flat, soft, not tender. The patient has midline negative pressure dressing and the colostomy to the left of the midline. The colostomy has recently been empty at twice. Patient has started to be fed orally. He denies any vomiting. He is able to move all extremities. PAST MEDICAL HISTORY: Chronic smoking as well as prior MCA distribution cerebrovascular accident on the right side with residual right upper extremity weakness, hypertension, dyslipidemia, BPH, prior episode of diverticulitis. PAST SURGICAL HISTORY: Tonsillectomy and above. SOCIAL HISTORY: Current smoker. FAMILY HISTORY: Noncontributory. MEDICATIONS: At this time, [place], DuoNeb, Lovenox, fluconazole, Keppra, Zosyn. PHYSICAL EXAMINATION: VITAL SIGNS: T-max 98.2, blood pressure 140/80, pulse 65, respirations 18, O2 sat 92-95. He is on room air O2. SKIN: Shows the last wound photo note with a fresh surgical wound with healthy fat. No areas of necrosis, no erythema surrounding the incision in the colostomy. The patient has a Reid catheter in place and is still. HEENT: Ocular movements conjugate. Oral cavity with no abnormalities. NECK: Supple. LUNGS: With symmetric clear breath sounds. HEART: S1, S2, regular rate. ABDOMEN: Flat, soft, nontender. No bladder distention. EXTREMITIES: No joint inflammatory activity. Moves all extremities weakly and I did not identify any evidence of weakness at this time. NEUROLOGIC: Cognitive function appears to be intact. LABORATORY DATA: The white cell count is at 18.9 and hemoglobin is a little bit up to 7.9, MCV 90, platelets 305. Bands have decreased from 30 down to 1 and neutrophil percentage is 87%. The creatinine is down to normal now 0.76, glucose 181. Lactic acid 2.4. Transaminases normal. CK 444. BNP 1133, albumin 2.4, that is from a few days ago. Microbiology as noted above with bacteroides. IMAGING STUDIES: The last abdomen and pelvis CT was from 07/08/2017 which showed free intraperitoneal gas adjacent to the thickened loop of jejunum and fluid level. Last chest x-ray from a few days ago with IJ central venous catheter, right perihilar opacity. ASSESSMENT: Prior cerebrovascular accident, chronic smoking, history of diverticulitis, perforated diverticulitis with fecal peritonitis, sepsis, status post segmental resection and colostomy placement with marked improvement and hemodynamic features as well as inflammatory process. The increase in neutrophil count is related to the decrease in bands and more mature profile of the peripheral WBC. DISCUSSION: The patient has the usual anaerobe associated with this kind of process, must have gram negative rods and Streptococci in the mix as well and Zosyn should be adequate for management. Probably does not need the fluconazole that can be discontinued. Eventually could potentially transition to oral Flagyl plus ciprofloxacin for discharge planning whenever he becomes eligible for such. The patient is at risk for development of intra-abdominal abscess loculations with recrudescence of inflammatory process going forward. Evidently, we will need repeat imaging study if there is evidence of recrudescence of the inflammatory process. MTDD
[2017-07-13] MEDS: Piperacillin/Tazobactam 3.375 GM in Sodium Chloride 0.9% 100 ML IVPB SCH ×4 (02:46→20:08)
[2017-07-13 06:35] LABS: Anion Gap 8 mmol/L (10-20); BUN (Urea Nitrogen) 20 mg/dL (8.4-25.7); Calc. Creatinine Clearance 122 mL/min (70-130); Calcium 8.4 mg/dL (7.8-10.44); Carbon Dioxide 32 mmol/L (22-29); Chloride 99 mmol/L (98-107); Estimated GFR-MDRD Greater than 90; Glucose 144 mg/dL (70-105); Magnesium 1.3 mg/dL (1.6-2.6); Phosphorus 3.4 mg/dL (2.3-4.7); Potassium 3.9 mmol/L (3.5-5.1); Sodium 135 mmol/L (136-145)
[2017-07-13] MEDS: HYDROcodone/Acetaminophen 10/325 mg Tablet PO PRN ×3 (06:51→19:22)
--- NOTE | 2017-07-13 08:24 | PRG ---
DATE OF SERVICE: 07/12/2017 SUBJECTIVE: Mr. Vences is verbose and is doing well. He is walking in the [place] with physical therapy. There is no complaints. He says he is feeling better each day. He denies shortness of breath. OBJECTIVE: VITAL SIGNS: He is afebrile, heart rate is 77, respiratory rate 18, oximetry is 93 on room air, bloo d pressure 146/81. LUNGS: Clear. HEART: Regular rhythm. His medications have been reviewed. LABORATORY DATA: His anemia is stable with hemoglobin 7.9. IMPRESSION: Even though he is increasing his activity level, I feel he should be on Lovenox as DVT p rophylaxis until he is back to normal. This will be ordered. We will continue to follow with the ot her physicians caring for him. We will stop his IV steroids. There was no evidence of relative adren al insufficiency. This will hopefully help facilitate wound healing. Duration of IV antimicrobial therapy will be determined by Surgery.
[2017-07-13] MEDS: Multivitamin W/ Minerals 1 TAB PO SCH (08:31)
[2017-07-13] MEDS: guaiFENesin ER 600 MG TAB PO SCH ×2 (08:31→20:07)
[2017-07-13] MEDS: Enoxaparin Sodium 40 MG/0.4 ML SYRINGE SC SCH (08:31)
[2017-07-13] MEDS ORDERED: Magnesium 2 GM/NS 0.9% 50 ML 2 GM in Premix Bag 1 BAG IVPB SCH (09:30)
--- NOTE | 2017-07-13 09:49 | PDOC.GSPN ---
Surgery Progress Note: Subj - Subjective Patient reports: no new complaints, tolerating liquids well (walked in [place]) Surgery Progress Note: Obj - Vital signs Vital signs: Vital Signs - Most Recent Temp Pulse Resp BP Pulse Ox 97.3 F L 94 20 125/81 93 L 07/13/17 08:28 07/13/17 08:28 07/13/17 08:28 07/13/17 08:28 07/13/17 08:28 - Physical Exam General: no distress Cardiovascular: regular rate and rhythm Respiratory: clear to auscultation Abdomen: soft, non tender, nondistended Wound: wound vac Surgery Progress Note: Results - Labs Result Diagrams: 07/12/17 03:40 07/13/17 05:36 Lab results: Laboratory Results - last 24 hr 07/13/17 05:36 Sodium 135 L Potassium 3.9 Chloride 99 Carbon Dioxide 32 H Anion Gap 8 L BUN 20 Creatinine 0.78 Estimated GFR (MDRD) Greater than 90 Glucose 144 H Calcium 8.4 Phosphorus 3.4 Magnesium 1.3 L Surgery Progress Note: A/P - Problem (1) Perforated sigmoid colon Current Visit: Yes Code(s): K63.1 - PERFORATION OF INTESTINE (NONTRAUMATIC) Status: Acute Assessment and Plan: Doing quite well. Continue to mobilize. Advance diet. Continue zosyn
[2017-07-13] MEDS: Fluconazole In NaCl,Iso-Osm 400 MG in Premix Bag 1 BAG IVPB SCH ×2 (09:55)
--- NOTE | 2017-07-13 15:02 | PDOC.PN ---
- Subjective Encounter Start Date: 07/13/17 Encounter Start Time: 15:00 Subjective: feels better .able to walk in hallways w PT - Objective Resuscitation Status: Resuscitation Status FULL:Full Resuscitation MAR Reviewed: Yes Vital Signs & Weight: Vital Signs (12 hours) Temp Pulse Resp BP Pulse Ox 07/13/17 14:38 99.0 F 18 94 L 07/13/17 14:22 98.4 F 18 94 L 07/13/17 14:21 75 20 95 07/13/17 12:30 98.2 F 79 16 149/79 H 94 L 07/13/17 08:28 97.3 F L 94 20 125/81 93 L 07/13/17 08:00 97.3 F L 94 20 07/13/17 04:17 98.2 F 74 16 143/77 H 98 07/13/17 03:12 74 16 Weight Admit Weight 164 lb 0.383 oz Weight 182 lb Most Recent Monitor Data Heart Rate from ECG 85 NIBP 127/67 NIBP BP-Mean 119 Respiration from ECG 22 SpO2 98 I&O: 07/12/17 07/13/17 07/14/17 06:59 06:59 06:59 Intake Total 2286 2009 Output Total 1430 6860 300 Balance -451 -9566 -300 Result Diagrams: 07/12/17 03:40 07/13/17 05:36 Additional Labs: Microbiology 07/07/17 17:06 Venous blood - Left Arm Blood Culture - Final Bacteroides thetaiotaomicron 07/07/17 17:05 Venous blood - Right Arm Blood Culture - Final Bacteroides thetaiotaomicron 07/05/17 17:53 Central Line - Right Common Femoral Vein Blood Culture - Final NO GROWTH IN 5 DAYS 07/05/17 17:53 Central Line - Left Common Femoral vein Blood Culture - Final NO GROWTH IN 5 DAYS 07/05/17 16:00 Urine calloway catheter Urine Culture - Final NO GROWTH AT 36 HOURS Phys Exam - Physical Examination Constitutional: NAD HEENT: PERRLA, moist MMs, sclera anicteric, TM's clear, oral pharynx no lesions , 2+ tonsils Neck: no nodes, no JVD, supple, full ROM Respiratory: no wheezing, no rales, no rhonchi, clear to auscultation bilateral Cardiovascular: RRR, no significant murmur Gastrointestinal: soft, no distention, positive bowel sounds Midline wound vac.ostomy in place Musculoskeletal: no edema, pulses present Neurological: non-focal, normal sensation, moves all 4 limbs Psychiatric: normal affect, A&O x 3 Dx/Plan (1) Bacteremia Code(s): R78.81 - BACTEREMIA Status: Acute (2) Sepsis Code(s): A41.9 - SEPSIS, UNSPECIFIED ORGANISM Status: Acute (3) PNA (pneumonia) Code(s): J18.9 - PNEUMONIA, UNSPECIFIED ORGANISM Status: Acute (4) OLGA (acute kidney injury) Code(s): N17.9 - ACUTE KIDNEY FAILURE, UNSPECIFIED Status: Acute (5) Perforated sigmoid colon Code(s): K63.1 - PERFORATION OF INTESTINE (NONTRAUMATIC) Status: Acute Comment: WITH PERITONITIS (6) Hypomagnesemia Code(s): E83.42 - HYPOMAGNESEMIA Status: Acute (7) Seizure as late effect of cerebrovascular accident (CVA) Code(s): I69.398 - OTHER SEQUELAE OF CEREBRAL INFARCTION; R56.9 - UNSPECIFIED CONVULSIONS Status: Acute Comment: On Keppra BID (8) BPH (benign prostatic hyperplasia) Code(s): N40.0 - BENIGN PROSTATIC HYPERPLASIA WITHOUT LOWER URINRY TRACT SYMP Status: Chronic (9) Dyslipidemia Code(s): E78.5 - HYPERLIPIDEMIA, UNSPECIFIED Status: Chronic (10) H/O: CVA (cerebrovascular accident) Code(s): Z86.73 - PRSNL HX OF TIA (TIA), AND CEREB INFRC W/O RESID DEFICITS Status: Chronic (11) Hypertension Code(s): I10 - ESSENTIAL (PRIMARY) HYPERTENSION Status: Chronic Qualifiers: Hypertension type: essential hypertension Qualified Code(s): I10 - Essential (primary) hypertension (12) Tobacco abuse Code(s): Z72.0 - TOBACCO USE Status: Chronic (13) Alcohol dependence Code(s): F10.20 - ALCOHOL DEPENDENCE, UNCOMPLICATED Status: Acute - Plan continue antibiotics (appreciate ), PT/OT, DVT proph w/SCDs appreciate ID Input.Cont Zosyn.Cont wound care/vac -: CM working 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 -: Cont PT/OT.pt wants to go home & not rehab.also uninsured -: cont supportive care.AM labs -: DC when Wound care/vac arranged & cleared by GS * . Review of Systems - Review of Systems Constitutional: weakness, malaise. negative: fever, chills, sweats, other Eyes: negative: Pain, Vision Change, Conjunctivae Inflammation, Eyelid Inflammation, Redness, Other ENT: negative: Ear Pain, Ear Discharge, Nose Pain, Nose Discharge, Nose Congestion, Mouth Pain, Mouth Swelling, Throat Pain, Throat Swelling, Other Respiratory: negative: Cough, Dry, Shortness of Breath, Hemoptysis, SOB with Excertion, Pleuritic Pain, Sputum, Wheezing Cardiovascular: negative: chest pain, palpitations, orthopnea, paroxysmal nocturnal dyspnea, edema, light headedness, other Gastrointestinal: Abdominal Pain. negative: Nausea, Vomiting, Diarrhea, Constipation, Melena, Hematochezia, Other Genitourinary: negative: Dysuria, Frequency, Incontinence, Hematuria, Retention , Other Musculoskeletal: negative: Neck Pain, Shoulder Pain, Arm Pain, Back Pain, Hand Pain, Leg Pain, Foot Pain, Other Skin: negative: Rash, Lesions, Mikel, Bruising, Other Neurological: negative: Weakness, Numbness, Incoordination, Change in Speech, Confusion, Seizures, Other - Medications/Allergies Allergies/Adverse Reactions: Allergies Allergy/AdvReac Type Severity Reaction Status Date / Time No Known Drug Allergies Allergy Verified 05/15/17 22:44 Medications: Current Medications Hydrocodone Bitart/Acetaminophen ([place] 10/325) 1 tab PO Q4H PRN PRN Reason: Pain 1ST LINE Hydrocodone Bitart/Acetaminophen ([place] 10/325) 2 tab PO Q4H PRN PRN Reason: Pain 2ND LINE Last Admin: 07/13/17 14:55 Dose: 2 tab Albuterol/Ipratropium (Duoneb) 3 ml EZPAP [id number] [facility] Last Admin: 07/13/17 14:21 Dose: 3 ml Enoxaparin Sodium (Lovenox) 40 mg SC 0900 [facility] Last Admin: 07/13/17 08:31 Dose: 40 mg Fentanyl (Sublimaze) 50 mcg SLOW IVP Q2H PRN PRN Reason: Pain Last Admin: 07/12/17 10:19 Dose: 50 mcg Guaifenesin (Mucinex) 600 mg PO Q12HR [facility] Last Admin: 07/13/17 08:31 Dose: 600 mg Hydralazine HCl (Apresoline) 10 mg SLOW IVP Q4H PRN PRN Reason: SBP >= 180 Last Admin: 07/10/17 02:12 Dose: 10 mg Levetiracetam 500 mg/ Device 100 mls @ 200 mls/hr IVPB BID [facility] Last Admin: 07/13/17 09:08 Dose: 100 mls Piperacillin Sod/Tazobactam (Sod 3.375 gm/ Sodium Chloride) 100 mls @ 200 mls/ hr IVPB 0200,0800,1400,2000 [facility] Last Admin: 07/13/17 14:55 Dose: 100 mls Iron/Minerals/Multivitamins (Theragran M) 1 tab PO DAILY [facility] Last Admin: 07/13/17 08:31 Dose: 1 tab Discontinue Previous Narcotic Pain Medications And Benzodiazepines 1 each FS .ONE [facility] Stop: 08/04/17 18:20 Pantoprazole Sodium (Protonix) 40 mg PO Q12HR [facility] Last Admin: 07/13/17 08:31 Dose: 40 mg Sodium Chloride (Flush - Normal Saline) 10 ml IVF Q12HR [facility] Last Admin: 07/13/17 08:35 Dose: 10 ml Sodium Chloride (Flush - Normal Saline) 10 ml IVF PRN PRN PRN Reason: Saline Flush
[2017-07-13] MEDS: Fentanyl 100 MCG/2 ML VIAL SLOW IVP PRN (21:52)
--- NOTE | 2017-07-13 22:25 | PRG ---
DATE OF SERVICE: 07/13/2017 SUBJECTIVE: Mr. Vencse is in no distress. OBJECTIVE: VITAL SIGNS: He is afebrile, heart rate is in the 80s, respiratory rate is 16, oximetry is 95% on 2 liters, blood pressure 113/68. LUNGS: Clear. HEART: Regular rhythm. ABDOMEN: Soft. LABORATORY DATA: Sodium 135, potassium 3.9, chloride 99, bicarbonate 32, BUN 20, creatinine 0.78. IMPRESSION AND PLAN: 1. Status post respiratory failure because of pneumonia and retained secretions, community-acquired. 2. Perforated diverticulitis with peritonitis, status post Mick's pouch and sigmoid colon resect ion, clinically stable. He is walking further each day. He is not having any problems with secretions anymore. We will cont inue with IV antimicrobial therapy per Dr. Perry.
[2017-07-14] MEDS: Piperacillin/Tazobactam 3.375 GM in Sodium Chloride 0.9% 100 ML IVPB SCH ×4 (01:07→20:51)
[2017-07-14] MEDS: HYDROcodone/Acetaminophen 10/325 mg Tablet PO PRN ×5 (01:11→20:50)
[2017-07-14 05:46] LABS: Anion Gap 14 mmol/L (10-20); BUN (Urea Nitrogen) 22 mg/dL (8.4-25.7); Calc. Creatinine Clearance 87 mL/min (70-130); Calcium 8.7 mg/dL (7.8-10.44); Carbon Dioxide 27 mmol/L (22-29); Chloride 97 mmol/L (98-107); Estimated GFR-MDRD 69; Glucose 138 mg/dL (70-105); Magnesium 1.5 mg/dL (1.6-2.6); Phosphorus 4.6 mg/dL (2.3-4.7); Potassium 4.1 mmol/L (3.5-5.1); Sodium 134 mmol/L (136-145)
[2017-07-14 05:52] LABS: Band 5 % (5-11); Dohle Bodies SLIGHT; Hemoglobin 9.8 g/dL (14.0-18.0); Lymphocytes 7 % (21-51); MDiff Complete? YES; Mean Corpuscular HGB CONC 33.6 g/dL (32.0-36.0); Mean Corpuscular Hemoglobin 30.7 pg (27.0-31.0); Mean Corpuscular Volume 91.4 fl (80.0-94.0); Mean Platelet Volume 7.8 fL (7.4-10.4); Metamyelocyte 1 % (0-0); Monocytes 7 % (0-10); Neutrophil 76 % (42-75); PLT Morphology Comment Appears Increased; Platelet Count 752 thou/uL (130-400); RBC Distribution Width 14.2 % (11.5-14.5); RBC Morphology Normal; Reactive Lymphocytes 4 % (0-10); Red Blood Cell (RBC) Count 3.19 mill/uL (4.70-6.10); White Blood Cell (WBC) Count 31.7 thou/uL (4.8-10.8)
[2017-07-14] MEDS: Enoxaparin Sodium 40 MG/0.4 ML SYRINGE SC SCH (08:13)
[2017-07-14] MEDS: guaiFENesin ER 600 MG TAB PO SCH ×2 (08:13→20:52)
[2017-07-14] MEDS: Multivitamin W/ Minerals 1 TAB PO SCH (08:13)
--- NOTE | 2017-07-14 09:13 | PRG ---
The patient is seen and examined, seems to be doing very well. OBJECTIVE: VITAL SIGNS: Afebrile, sats 94, respiratory 18, blood pressure 122/67. The system examination unremarkable. Renal function seems to have improved. Therefore, we will sign off at this point.
[2017-07-14] MEDS: Fentanyl 100 MCG/2 ML VIAL SLOW IVP PRN ×2 (09:46→14:16)
--- NOTE | 2017-07-14 10:11 | PRG ---
DATE OF SERVICE: 07/14/2017 Mr. Vences is doing well. PHYSICAL EXAMINATION: VITAL SIGNS: His temperature max is 99.2 this morning. His respiratory rate is 18, oximetry is 95 o n 2 liters, blood pressure 115/70. LUNGS: Clear. CARDIOVASCULAR: Regular rhythm. ABDOMEN: Still mildly tender, but soft. His wound VAC is due to be changed today. His ostomy is pi nk. LABORATORY: White count has bumped up to 31.7, hemoglobin is 9.8, platelets 752,000, 5% bands on his peripheral smear. Sodium 134, potassium 4.1, chloride 97, bicarbonate 27, BUN 22, creatinine 1.1. IMPRESSION: 1. Pneumonia, status post emergent intubation for metabolic acidosis and respiratory failure. 2. Perforated diverticulitis with peritonitis which was probably present on admission. His altered mental status prevented taking a good history from him and he did not have a tender abdomen when he w as initially examined by me, again likely because of his altered mental status. 3. Status post Mick's pouch and sigmoid colon resection with an abdominal washout. 4. New leukocytosis and reactive thrombocytosis, as always we are worried about a gradual developmen t of an intraabdominal abscess. We will defer to Surgery regarding this. 5. Deconditioning. His muscle strength appears to be improving every day. 6. Acute kidney injury, resolved. PLAN: Continue supportive care. Continue IV antimicrobials per General Surgery.
--- NOTE | 2017-07-14 10:45 | PDOC.GSPN ---
Surgery Progress Note: Subj - Subjective Patient reports: no new complaints, pain is less (mostly only with wound vac change), tolerating a regular diet Surgery Progress Note: Obj - Vital signs Vital signs: Vital Signs - Most Recent Temp Pulse Resp BP Pulse Ox 99.2 F 94 19 115/70 95 07/14/17 08:00 07/14/17 08:01 07/14/17 08:01 07/14/17 08:00 07/14/17 08:04 - Physical Exam General: no distress Cardiovascular: regular rate and rhythm Respiratory: clear to auscultation Abdomen: soft, non tender, nondistended, appropriately tender Wound: wound vac Surgery Progress Note: Results - Labs Result Diagrams: 07/14/17 05:21 07/14/17 05:21 Lab results: Laboratory Results - last 24 hr 07/14/17 07/14/17 05:21 05:21 WBC 31.7 H RBC 3.19 L Hgb 9.8 L Hct 29.1 L MCV 91.4 MCH 30.7 MCHC 33.6 RDW 14.2 Plt Count 752 H MPV 7.8 Neutrophils % (Manual) 76 H Band Neuts % (Manual) 5 Lymphocytes % (Manual) 7 L Reactive Lymphs % 4 Monocytes % (Manual) 7 Metamyelocytes % (Man) 1 H Dohle Bodies SLIGHT Plt Morphology Comment Appears Increased H RBC Morph Comment Normal Sodium 134 L Potassium 4.1 Chloride 97 L Carbon Dioxide 27 Anion Gap 14 BUN 22 Creatinine 1.10 Estimated GFR (MDRD) 69 Glucose 138 H Calcium 8.7 Phosphorus 4.6 Magnesium 1.5 L Surgery Progress Note: A/P - Problem (1) Perforated sigmoid colon Current Visit: Yes Code(s): K63.1 - PERFORATION OF INTESTINE (NONTRAUMATIC) Status: Acute Assessment and Plan: Doing well clinically but WBC persistently elevated now up to 31. Will order CT to rule out abscess. Certainly he is at risk given the extent of his stool contamination
[2017-07-14] MEDS ORDERED: Ondansetron ODT 4 MG TAB PO PRN (13:39)
[2017-07-14] MEDS ORDERED: Ondansetron HCl/PF 4 MG/2 ML Vial IVP PRN (13:39)
[2017-07-14 13:55] VITALS: BMI 25.4
[2017-07-14] MEDS ORDERED: Iopamidol 370 76% 50 ML VIAL FS ONE (14:26)
[2017-07-14] MEDS ORDERED: ISOVUE-370 76%-LOCM 1 ML ONE (14:26)
--- NOTE | 2017-07-14 14:32 | PDOC.PN ---
- Subjective Encounter Start Date: 07/14/17 Encounter Start Time: 14:30 Subjective: feels Ok ,still very weak -: denies any new abd pain/nausea/vomiting - Objective Resuscitation Status: Resuscitation Status FULL:Full Resuscitation MAR Reviewed: Yes Vital Signs & Weight: Vital Signs (12 hours) Temp Pulse Resp BP Pulse Ox 07/14/17 11:27 97.4 F L 108 H 18 94/52 L 91 L 07/14/17 11:00 104 H 18 07/14/17 08:15 99.2 F 94 19 07/14/17 08:04 95 07/14/17 08:01 94 19 95 07/14/17 08:00 99.2 F 110 H 18 115/70 90 L Weight Admit Weight 164 lb 0.383 oz Weight 162 lb 7 oz Most Recent Monitor Data Heart Rate from ECG 85 NIBP 127/67 NIBP BP-Mean 119 Respiration from ECG 22 SpO2 98 I&O: 07/13/17 07/14/17 07/15/17 06:59 06:59 06:59 Intake Total 2009 999 Output Total 6860 875 Balance -4850 125 Result Diagrams: 07/14/17 05:21 07/14/17 05:21 Additional Labs: Microbiology 07/07/17 17:06 Venous blood - Left Arm Blood Culture - Final Bacteroides thetaiotaomicron 07/07/17 17:05 Venous blood - Right Arm Blood Culture - Final Bacteroides thetaiotaomicron 07/05/17 17:53 Central Line - Right Common Femoral Vein Blood Culture - Final NO GROWTH IN 5 DAYS 07/05/17 17:53 Central Line - Left Common Femoral vein Blood Culture - Final NO GROWTH IN 5 DAYS 07/05/17 16:00 Urine calloway catheter Urine Culture - Final NO GROWTH AT 36 HOURS Laboratory Tests 07/05/17 07/06/17 07/07/17 15:03 05:46 05:48 WBC 1.4 L 2.4 L 4.2 L Plt Count 124 L 07/09/17 07/10/17 07/11/17 04:00 05:02 05:11 WBC 8.4 19.6 H 15.9 H Plt Count 119 L 195 07/12/17 07/14/17 03:40 05:21 WBC 18.9 H 31.7 H Plt Count 305 752 H Phys Exam - Physical Examination Constitutional: NAD sitting up in chair.looks very weak HEENT: PERRLA, moist MMs, sclera anicteric, oral pharynx no lesions Neck: no JVD Respiratory: no wheezing, no rales, clear to auscultation bilateral Cardiovascular: RRR, no significant murmur Gastrointestinal: soft, no distention, positive bowel sounds mildly TTP.midline wound w wound vac and ostomy Musculoskeletal: no edema, pulses present Neurological: non-focal, normal sensation, moves all 4 limbs Psychiatric: normal affect, A&O x 3 Skin: no rash Dx/Plan (1) Bacteremia Code(s): R78.81 - BACTEREMIA Status: Acute (2) Sepsis Code(s): A41.9 - SEPSIS, UNSPECIFIED ORGANISM Status: Acute (3) PNA (pneumonia) Code(s): J18.9 - PNEUMONIA, UNSPECIFIED ORGANISM Status: Acute (4) Perforated sigmoid colon Code(s): K63.1 - PERFORATION OF INTESTINE (NONTRAUMATIC) Status: Acute Comment: WITH PERITONITIS (5) Hypomagnesemia Code(s): E83.42 - HYPOMAGNESEMIA Status: Acute (6) Seizure as late effect of cerebrovascular accident (CVA) Code(s): I69.398 - OTHER SEQUELAE OF CEREBRAL INFARCTION; R56.9 - UNSPECIFIED CONVULSIONS Status: Acute Comment: On Keppra BID (7) BPH (benign prostatic hyperplasia) Code(s): N40.0 - BENIGN PROSTATIC HYPERPLASIA WITHOUT LOWER URINRY TRACT SYMP Status: Chronic (8) Dyslipidemia Code(s): E78.5 - HYPERLIPIDEMIA, UNSPECIFIED Status: Chronic (9) H/O: CVA (cerebrovascular accident) Code(s): Z86.73 - PRSNL HX OF TIA (TIA), AND CEREB INFRC W/O RESID DEFICITS Status: Chronic (10) Hypertension Code(s): I10 - ESSENTIAL (PRIMARY) HYPERTENSION Status: Chronic Qualifiers: Hypertension type: essential hypertension Qualified Code(s): I10 - Essential (primary) hypertension (11) Tobacco abuse Code(s): Z72.0 - TOBACCO USE Status: Chronic (12) Alcohol dependence Code(s): F10.20 - ALCOHOL DEPENDENCE, UNCOMPLICATED Status: Acute (13) OLGA (acute kidney injury) Code(s): N17.9 - ACUTE KIDNEY FAILURE, UNSPECIFIED Status: Resolved - Plan continue antibiotics, PT/OT, out of bed/ambulate, DVT proph w/SCDs Worsening WBC? intra-abdominal abscess.repeat CT per GS today -: cont zosyn for now per ID. -: ambulate. -: renal Fx stabilized.cont to monitor. -: restart anti depressants if keeps Po status. * .rest of the home meds as below. cont to hold ACE_I * am labs Review of Systems - Review of Systems Constitutional: weakness, malaise. negative: fever, chills, sweats, other Eyes: negative: Pain, Vision Change, Conjunctivae Inflammation, Eyelid Inflammation, Redness, Other Respiratory: negative: Cough, Dry, Shortness of Breath, Hemoptysis, SOB with Excertion, Pleuritic Pain, Sputum, Wheezing Cardiovascular: negative: chest pain, palpitations, orthopnea, paroxysmal nocturnal dyspnea, edema, light headedness, other Gastrointestinal: negative: Nausea, Vomiting, Abdominal Pain, Diarrhea, Constipation, Melena, Hematochezia, Other Genitourinary: negative: Dysuria, Frequency, Incontinence, Hematuria, Retention , Other Musculoskeletal: negative: Neck Pain, Shoulder Pain, Arm Pain, Back Pain, Hand Pain, Leg Pain, Foot Pain, Other Skin: negative: Rash, Lesions, Mikel, Bruising, Other Neurological: negative: Weakness, Numbness, Incoordination, Change in Speech, Confusion, Seizures, Other - Medications/Allergies Allergies/Adverse Reactions: Allergies Allergy/AdvReac Type Severity Reaction Status Date / Time No Known Drug Allergies Allergy Verified 05/15/17 22:44 Medications: Current Medications Hydrocodone Bitart/Acetaminophen ([place] 10/325) 1 tab PO Q4H PRN PRN Reason: Pain 1ST LINE Hydrocodone Bitart/Acetaminophen ([place] 10/325) 2 tab PO Q4H PRN PRN Reason: Pain 2ND LINE Last Admin: 07/14/17 12:06 Dose: 2 tab Albuterol/Ipratropium (Duoneb) 3 ml EZPAP [id number] [facility] Last Admin: 07/14/17 11:00 Dose: 3 ml Enoxaparin Sodium (Lovenox) 40 mg SC 0900 [facility] Last Admin: 07/14/17 08:13 Dose: 40 mg Fentanyl (Sublimaze) 50 mcg SLOW IVP Q2H PRN PRN Reason: Pain Last Admin: 07/14/17 09:46 Dose: 50 mcg Guaifenesin (Mucinex) 600 mg PO Q12HR [facility] Last Admin: 07/14/17 08:13 Dose: 600 mg Hydralazine HCl (Apresoline) 10 mg SLOW IVP Q4H PRN PRN Reason: SBP >= 180 Last Admin: 07/10/17 02:12 Dose: 10 mg Levetiracetam 500 mg/ Device 100 mls @ 200 mls/hr IVPB BID [facility] Last Admin: 07/14/17 09:46 Dose: 100 mls Piperacillin Sod/Tazobactam (Sod 3.375 gm/ Sodium Chloride) 100 mls @ 200 mls/ hr IVPB 0200,0800,1400,2000 [facility] Last Admin: 07/14/17 13:34 Dose: 100 mls Iron/Minerals/Multivitamins (Theragran M) 1 tab PO DAILY [facility] Last Admin: 07/14/17 08:13 Dose: 1 tab Discontinue Previous Narcotic Pain Medications And Benzodiazepines 1 each FS .ONE [facility] Stop: 08/04/17 18:20 Ondansetron HCl (Zofran Odt) 4 mg PO Q6H PRN PRN Reason: Nausea/Vomiting Ondansetron HCl (Zofran) 4 mg IVP Q6H PRN PRN Reason: Nausea/Vomiting Pantoprazole Sodium (Protonix) 40 mg PO Q12HR [facility] Last Admin: 07/14/17 08:13 Dose: 40 mg Sodium Chloride (Flush - Normal Saline) 10 ml IVF Q12HR [facility] Last Admin: 07/14/17 08:14 Dose: 10 ml Sodium Chloride (Flush - Normal Saline) 10 ml IVF PRN PRN PRN Reason: Saline Flush
--- NOTE | 2017-07-14 16:23 | CT ---
CT ABDOMEN AND PELVIS WITH IV AND ORAL CONTRAST: 07/14/17 HISTORY: Abdominal pain and fever. recent colostomy placement for bowel perforation. COMPARISON: 07/08/16. FINDINGS: Small amount of left pleural fluid. Bibasilar lung atelectasis. Lobular lesion within the posterior d ome of the right liver lobe has the appearance of a hemangioma on the previous exams. Small amount of free fluid and intraperitoneal gas remain from prior surgery. There is heterogeneous enhancement of each kidney. Left abdominal ostomy is now apparent. An unopacified loop of proximal jejunum extends obliquely acro ss the posterior aspect of the left mid abdomen. Oral contrast is present within the distal esophagus . There is calcification in the arterial structures. Urinary bladder is unremarkable. There are degen erative changes of the lumbar spine and hips. IMPRESSION: 1. Postoperative changes of the abdomen/bowel. No evidence of abscess. 2. Small left pleural effusion. Bibasilar lung atelectasis. 3. Gastroesophageal reflux. 4. Atherosclerosis. POS: DONNIE
[2017-07-14] MEDS: Atorvastatin Calcium 40 MG TAB PO SCH (20:52)
[2017-07-15] MEDS: Piperacillin/Tazobactam 3.375 GM in Sodium Chloride 0.9% 100 ML IVPB SCH ×4 (02:11→20:29)
[2017-07-15 05:23] LABS: #Eosinphils 0.1 thou/uL (0.0-0.7); #Lymphocytes 0.8 thou/uL (1.20-3.40); #Monocytes 0.9 thou/uL (0.11-0.59); #Neutrophils 13.9 thou/uL (1.40-6.50); %Basophils 0.1 % (0.0-1.0); %Eosinophils 0.5 % (0.0-10.0); %Lymphocytes 5.2 % (21.0-51.0); %Monocytes 5.7 % (0.0-10.0); %Neutrophils 88.5 % (42.0-75.0); Hemoglobin 7.4 g/dL (14.0-18.0); Mean Corpuscular HGB CONC 33.7 g/dL (32.0-36.0); Mean Corpuscular Hemoglobin 31.1 pg (27.0-31.0); Mean Corpuscular Volume 92.2 fl (80.0-94.0); Mean Platelet Volume 7.5 fL (7.4-10.4); Platelet Count 508 thou/uL (130-400); RBC Distribution Width 13.9 % (11.5-14.5); Red Blood Cell (RBC) Count 2.37 mill/uL (4.70-6.10); White Blood Cell (WBC) Count 15.7 thou/uL (4.8-10.8)
[2017-07-15 05:34] LABS: Anion Gap 9 mmol/L (10-20); BUN (Urea Nitrogen) 29 mg/dL (8.4-25.7); Calc. Creatinine Clearance 67 mL/min (70-130); Calcium 8.5 mg/dL (7.8-10.44); Carbon Dioxide 29 mmol/L (22-29); Chloride 99 mmol/L (98-107); Estimated GFR-MDRD 58; Glucose 143 mg/dL (70-105); Magnesium 1.5 mg/dL (1.6-2.6); Phosphorus 4.7 mg/dL (2.3-4.7); Sodium 133 mmol/L (136-145)
[2017-07-15] MEDS: HYDROcodone/Acetaminophen 10/325 mg Tablet PO PRN ×3 (08:58→20:28)
[2017-07-15] MEDS: Multivitamin W/ Minerals 1 TAB PO SCH (08:58)
[2017-07-15] MEDS: guaiFENesin ER 600 MG TAB PO SCH ×2 (08:58→20:28)
[2017-07-15] MEDS: Enoxaparin Sodium 40 MG/0.4 ML SYRINGE SC SCH (08:58)
[2017-07-15] MEDS ORDERED: Magnesium 2 GM/NS 0.9% 100 ML 2 GM in Premix Bag 1 BAG IVPB SCH (09:30)
[2017-07-15] MEDS: levETIRAcetam 500 MG TAB PO SCH ×2 (09:50→20:28)
[2017-07-15 10:44] LABS: Hemoglobin 7.4 g/dL (14.0-18.0)
--- NOTE | 2017-07-15 14:27 | PDOC.PN ---
- Subjective Encounter Start Date: 07/15/17 Encounter Start Time: 14:25 Subjective: feels much better.no AP/N/V/D -: scared to eat as it might hurt him - Objective Resuscitation Status: Resuscitation Status FULL:Full Resuscitation MAR Reviewed: Yes Vital Signs & Weight: Vital Signs (12 hours) Temp Pulse Resp BP Pulse Ox 07/15/17 12:34 90 18 94 L 07/15/17 11:48 98.4 F 99 18 97/59 L 95 07/15/17 08:19 98.6 F 101 H 18 122/65 95 07/15/17 07:11 94 L 07/15/17 07:10 89 18 94 L 07/15/17 04:08 98.0 F 89 17 176/98 H 94 L 07/15/17 03:23 94 L 07/15/17 02:54 110 H 18 94 L Weight Admit Weight 164 lb 0.383 oz Weight 162 lb 7 oz Most Recent Monitor Data Heart Rate from ECG 85 NIBP 127/67 NIBP BP-Mean 119 Respiration from ECG 22 SpO2 98 I&O: 07/14/17 07/15/17 07/16/17 06:59 06:59 06:59 Intake Total 1000 2100 Output Total 875 1000 Balance 125 1100 Result Diagrams: 07/15/17 10:37 07/15/17 05:13 Additional Labs: Microbiology 07/07/17 17:06 Venous blood - Left Arm Blood Culture - Final Bacteroides thetaiotaomicron 07/07/17 17:05 Venous blood - Right Arm Blood Culture - Final Bacteroides thetaiotaomicron 07/05/17 17:53 Central Line - Right Common Femoral Vein Blood Culture - Final NO GROWTH IN 5 DAYS 07/05/17 17:53 Central Line - Left Common Femoral vein Blood Culture - Final NO GROWTH IN 5 DAYS 07/05/17 16:00 Urine calloway catheter Urine Culture - Final NO GROWTH AT 36 HOURS Phys Exam - Physical Examination Constitutional: NAD HEENT: PERRLA, moist MMs, sclera anicteric, oral pharynx no lesions Neck: no nodes, no JVD, supple, full ROM Respiratory: no wheezing, no rales, no rhonchi, clear to auscultation bilateral Cardiovascular: RRR, no significant murmur Gastrointestinal: soft, non-tender, no distention, positive bowel sounds midline wound vac,ostomy pink Musculoskeletal: no edema, pulses present Neurological: non-focal, normal sensation, moves all 4 limbs Psychiatric: normal affect, A&O x 3 Skin: no rash Dx/Plan (1) Bacteremia Code(s): R78.81 - BACTEREMIA Status: Acute (2) Sepsis Code(s): A41.9 - SEPSIS, UNSPECIFIED ORGANISM Status: Acute (3) PNA (pneumonia) Code(s): J18.9 - PNEUMONIA, UNSPECIFIED ORGANISM Status: Acute (4) Perforated sigmoid colon Code(s): K63.1 - PERFORATION OF INTESTINE (NONTRAUMATIC) Status: Acute Comment: WITH PERITONITIS (5) Hypomagnesemia Code(s): E83.42 - HYPOMAGNESEMIA Status: Acute (6) Seizure as late effect of cerebrovascular accident (CVA) Code(s): I69.398 - OTHER SEQUELAE OF CEREBRAL INFARCTION; R56.9 - UNSPECIFIED CONVULSIONS Status: Acute Comment: On Keppra BID (7) BPH (benign prostatic hyperplasia) Code(s): N40.0 - BENIGN PROSTATIC HYPERPLASIA WITHOUT LOWER URINRY TRACT SYMP Status: Chronic (8) Dyslipidemia Code(s): E78.5 - HYPERLIPIDEMIA, UNSPECIFIED Status: Chronic (9) H/O: CVA (cerebrovascular accident) Code(s): Z86.73 - PRSNL HX OF TIA (TIA), AND CEREB INFRC W/O RESID DEFICITS Status: Chronic (10) Hypertension Code(s): I10 - ESSENTIAL (PRIMARY) HYPERTENSION Status: Chronic Qualifiers: Hypertension type: essential hypertension Qualified Code(s): I10 - Essential (primary) hypertension (11) Tobacco abuse Code(s): Z72.0 - TOBACCO USE Status: Chronic (12) Alcohol dependence Code(s): F10.20 - ALCOHOL DEPENDENCE, UNCOMPLICATED Status: Acute (13) OLGA (acute kidney injury) Code(s): N17.9 - ACUTE KIDNEY FAILURE, UNSPECIFIED Status: Resolved - Plan PT/OT, public health social worker, respiratory therapy, incentive spirometry, out of bed/ ambulate, DVT proph w/SCDs cont zosyn.repeat CT w/o any abscess. cont regular diet.Ensure TID -: Home when ok w GS & wound vac/wound care arranged -: PO ABx on DC per ID. -: Hemoglobin drop by 2 points,peg d/t ac illness. -: check FOBT.follow H/H. * . Review of Systems - Review of Systems Constitutional: weakness, malaise. negative: fever, chills, sweats, other ENT: negative: Ear Pain, Ear Discharge, Nose Pain, Nose Discharge, Nose Congestion, Mouth Pain, Mouth Swelling, Throat Pain, Throat Swelling, Other Respiratory: negative: Cough, Dry, Shortness of Breath, Hemoptysis, SOB with Excertion, Pleuritic Pain, Sputum, Wheezing Cardiovascular: negative: chest pain, palpitations, orthopnea, paroxysmal nocturnal dyspnea, edema, light headedness, other Gastrointestinal: negative: Nausea, Vomiting, Abdominal Pain, Diarrhea, Constipation, Melena, Hematochezia, Other Genitourinary: negative: Dysuria, Frequency, Incontinence, Hematuria, Retention , Other Musculoskeletal: negative: Neck Pain, Shoulder Pain, Arm Pain, Back Pain, Hand Pain, Leg Pain, Foot Pain, Other Skin: negative: Rash, Lesions, Mikel, Bruising, Other Neurological: negative: Weakness, Numbness, Incoordination, Change in Speech, Confusion, Seizures, Other - Medications/Allergies Allergies/Adverse Reactions: Allergies Allergy/AdvReac Type Severity Reaction Status Date / Time No Known Drug Allergies Allergy Verified 05/15/17 22:44 Medications: Current Medications Hydrocodone Bitart/Acetaminophen ([place] 10/325) 1 tab PO Q4H PRN PRN Reason: Pain 1ST LINE Hydrocodone Bitart/Acetaminophen ([place] 10/325) 2 tab PO Q4H PRN PRN Reason: Pain 2ND LINE Last Admin: 07/15/17 08:58 Dose: 2 tab Albuterol/Ipratropium (Duoneb) 3 ml EZPAP [id number] [facility] Last Admin: 07/15/17 12:34 Dose: 3 ml Atorvastatin Calcium (Lipitor) 80 mg PO HS [facility] Last Admin: 07/14/17 20:52 Dose: 80 mg Enoxaparin Sodium (Lovenox) 40 mg SC 0900 [facility] Last Admin: 07/15/17 08:58 Dose: 40 mg Fentanyl (Sublimaze) 50 mcg SLOW IVP Q2H PRN PRN Reason: Pain Last Admin: 07/14/17 14:16 Dose: 50 mcg Guaifenesin (Mucinex) 600 mg PO Q12HR [facility] Last Admin: 07/15/17 08:58 Dose: 600 mg Hydralazine HCl (Apresoline) 10 mg SLOW IVP Q4H PRN PRN Reason: SBP >= 180 Last Admin: 07/10/17 02:12 Dose: 10 mg Piperacillin Sod/Tazobactam (Sod 3.375 gm/ Sodium Chloride) 100 mls @ 200 mls/ hr IVPB 0200,0800,1400,2000 [facility] Last Admin: 07/15/17 08:19 Dose: 100 mls Iron/Minerals/Multivitamins (Theragran M) 1 tab PO DAILY [facility] Last Admin: 07/15/17 08:58 Dose: 1 tab Levetiracetam (Keppra) 500 mg PO BID [facility] Last Admin: 07/15/17 09:50 Dose: 500 mg Discontinue Previous Narcotic Pain Medications And Benzodiazepines 1 each FS .ONE [facility] Stop: 08/04/17 18:20 Ondansetron HCl (Zofran Odt) 4 mg PO Q6H PRN PRN Reason: Nausea/Vomiting Ondansetron HCl (Zofran) 4 mg IVP Q6H PRN PRN Reason: Nausea/Vomiting Last Admin: 07/14/17 13:40 Dose: 4 mg Pantoprazole Sodium (Protonix) 40 mg PO Q12HR [facility] Last Admin: 07/15/17 08:58 Dose: 40 mg Quetiapine Fumarate (Seroquel) 25 mg PO HS [facility] Last Admin: 07/14/17 20:52 Dose: 25 mg Sertraline HCl (Zoloft) 50 mg PO DAILY [facility] Last Admin: 07/15/17 08:57 Dose: 50 mg Sodium Chloride (Flush - Normal Saline) 10 ml IVF Q12HR [facility] Last Admin: 07/15/17 08:59 Dose: 10 ml Sodium Chloride (Flush - Normal Saline) 10 ml IVF PRN PRN PRN Reason: Saline Flush
--- NOTE | 2017-07-15 14:45 | PRG ---
DATE OF SERVICE: 07/15/2017 SUBJECTIVE: This morning, he is better, less pain, less shortness of breath. CT abdomen showed no a bscess, bibasilar atelectatic changes, a very small pleural effusion on the left side. OBJECTIVE: VITAL SIGNS: Sats are 98% on 2 liters, temperature 98, pulse 101 and blood pressure 122/65. CHEST: Decreased breath sounds, minimal crackles. CARDIAC: Normal S1 and S2. No gallops. ABDOMEN: Soft. No masses. LABORATORY DATA: His white count is down to 15,000, hemoglobin and hematocrit is 7 and 21, platelet count is 508. Creatinine 1.2. IMPRESSION: Status post lap, status post diverticulitis, peritonitis, status post colostomy. PLAN: At this stage, continue aggressive PT and antibiotics. We will follow.
[2017-07-15] MEDS: Atorvastatin Calcium 40 MG TAB PO SCH (20:28)
[2017-07-16] MEDS: Piperacillin/Tazobactam 3.375 GM in Sodium Chloride 0.9% 100 ML IVPB SCH ×4 (03:22→20:26)
[2017-07-16 03:50] LABS: #Eosinphils 0.1 thou/uL (0.0-0.7); #Lymphocytes 1.2 thou/uL (1.20-3.40); #Neutrophils 12.8 thou/uL (1.40-6.50); %Basophils 0.1 % (0.0-1.0); %Eosinophils 0.5 % (0.0-10.0); %Lymphocytes 7.7 % (21.0-51.0); %Monocytes 6.9 % (0.0-10.0); %Neutrophils 84.8 % (42.0-75.0); Hemoglobin 7.7 g/dL (14.0-18.0); Mean Corpuscular HGB CONC 34.7 g/dL (32.0-36.0); Mean Corpuscular Hemoglobin 31.8 pg (27.0-31.0); Mean Corpuscular Volume 91.9 fl (80.0-94.0); Mean Platelet Volume 7.2 fL (7.4-10.4); Platelet Count 501 thou/uL (130-400); RBC Distribution Width 13.9 % (11.5-14.5); White Blood Cell (WBC) Count 15.1 thou/uL (4.8-10.8)
[2017-07-16 04:22] LABS: Anion Gap 9 mmol/L (10-20); BUN (Urea Nitrogen) 19 mg/dL (8.4-25.7); Calc. Creatinine Clearance 89 mL/min (70-130); Calcium 8.9 mg/dL (7.8-10.44); Carbon Dioxide 30 mmol/L (22-29); Chloride 100 mmol/L (98-107); Estimated GFR-MDRD 82; Glucose 122 mg/dL (70-105); Magnesium 1.5 mg/dL (1.6-2.6); Phosphorus 2.5 mg/dL (2.3-4.7); Potassium 4.2 mmol/L (3.5-5.1); Sodium 135 mmol/L (136-145)
[2017-07-16] MEDS: HYDROcodone/Acetaminophen 10/325 mg Tablet PO PRN ×3 (06:01→20:31)
[2017-07-16] MEDS ORDERED: Magnesium 2 GM/NS 0.9% 50 ML 2 GM in Premix Bag 1 BAG IVPB SCH (08:30)
[2017-07-16] MEDS: Multivitamin W/ Minerals 1 TAB PO SCH (09:03)
[2017-07-16] MEDS: levETIRAcetam 500 MG TAB PO SCH ×2 (09:03→20:34)
[2017-07-16] MEDS: Magnesium Oxide 400 MG TAB PO SCH ×2 (09:03→20:35)
[2017-07-16] MEDS: guaiFENesin ER 600 MG TAB PO SCH ×2 (09:05→20:33)
[2017-07-16] MEDS: Enoxaparin Sodium 40 MG/0.4 ML SYRINGE SC SCH (09:06)
--- NOTE | 2017-07-16 11:01 | PRG ---
DATE OF SERVICE: 07/16/2017 SUBJECTIVE: Mr. Vneces continues to tolerate the GI soft diet. He has no complaints. I work on [employer] ng him mobilized. He has walked a small distance with the physical therapist, but still fairly weak. PHYSICAL EXAMINATION: VITAL SIGNS: He is afebrile, blood pressure 124/71, pulse 103, O2 sats are in the mid 90s on 2 liter s nasal cannula. Urine output, multiple voids. Stool in his bag and air in his bag. LABORATORY DATA: White blood cell count is 15, hemoglobin 7.7, sodium 135, creatinine 0.95. ASSESSMENT: 1. Postop colectomy, colostomy for ruptured sigmoid diverticulitis. 2. Deconditioning. PLAN: He is going to need to stay here for wound care, as well as physical therapy. It is going to be hard to get him to long term or rehabilitation given his insurance status. Continue inpsychiatrice nt rehabilitation. Continue rehabilitation here. Likely, can start to transition off of IV antibiot ics and on to orals.
--- NOTE | 2017-07-16 12:14 | PDOC.PN ---
- Subjective Encounter Start Date: 07/16/17 Encounter Start Time: 12:14 Subjective: reports that he vomited once before breakfast this morning -: also c/o abdominal soreness - Objective Resuscitation Status: Resuscitation Status FULL:Full Resuscitation MAR Reviewed: Yes Vital Signs & Weight: Vital Signs (12 hours) Temp Pulse Resp BP Pulse Ox 07/16/17 11:31 99.0 F 91 14 122/72 07/16/17 10:31 94 22 H 92 L 07/16/17 07:36 92 L 07/16/17 07:32 103 H 20 92 L 07/16/17 03:18 98.6 F 103 H 16 124/71 92 L 07/16/17 01:11 75 20 Weight Admit Weight 164 lb 0.383 oz Weight 162 lb 7 oz Most Recent Monitor Data Heart Rate from ECG 85 NIBP 127/67 NIBP BP-Mean 119 Respiration from ECG 22 SpO2 98 I&O: 07/15/17 07/16/17 07/17/17 06:59 06:59 06:59 Intake Total 2100 2100 Output Total 1000 300 Balance 1100 1800 Result Diagrams: 07/16/17 03:35 07/16/17 03:35 Additional Labs: Microbiology 07/15/17 16:25 Other source- see comments Stool Occult Blood (JACEK) - Final 07/07/17 17:06 Venous blood - Left Arm Blood Culture - Final Bacteroides thetaiotaomicron 07/07/17 17:05 Venous blood - Right Arm Blood Culture - Final Bacteroides thetaiotaomicron 07/05/17 17:53 Central Line - Right Common Femoral Vein Blood Culture - Final NO GROWTH IN 5 DAYS 07/05/17 17:53 Central Line - Left Common Femoral vein Blood Culture - Final NO GROWTH IN 5 DAYS 07/05/17 16:00 Urine calloway catheter Urine Culture - Final NO GROWTH AT 36 HOURS Laboratory Tests 07/05/17 07/06/17 07/07/17 15:03 05:46 05:48 Hgb 11.6 L 9.0 L 7.9 L 07/08/17 07/09/17 07/09/17 11:57 04:00 13:49 Hgb 8.6 L 7.3 L 7.4 L 07/10/17 07/11/17 07/12/17 05:02 05:11 03:40 Hgb 6.8 L 7.3 L 7.9 L 07/14/17 07/15/17 07/15/17 05:21 05:13 10:37 Hgb 9.8 L 7.4 L 7.4 L 07/16/17 03:35 Hgb 7.7 L Phys Exam - Physical Examination Constitutional: NAD HEENT: PERRLA, moist MMs, sclera anicteric, oral pharynx no lesions pale, weak looking Neck: no nodes, no JVD, supple, full ROM Respiratory: no wheezing, no rales, no rhonchi, clear to auscultation bilateral Cardiovascular: RRR, no significant murmur, no rub, gallop Gastrointestinal: soft midline wound vac,ostomy pink w brownish stools in bag Musculoskeletal: no edema, pulses present Neurological: non-focal, normal sensation, moves all 4 limbs Psychiatric: normal affect, A&O x 3 Skin: no rash Dx/Plan (1) Bacteremia Code(s): R78.81 - BACTEREMIA Status: Acute (2) Sepsis Code(s): A41.9 - SEPSIS, UNSPECIFIED ORGANISM Status: Acute (3) PNA (pneumonia) Code(s): J18.9 - PNEUMONIA, UNSPECIFIED ORGANISM Status: Acute (4) Perforated sigmoid colon Code(s): K63.1 - PERFORATION OF INTESTINE (NONTRAUMATIC) Status: Acute Comment: WITH PERITONITIS (5) Hypomagnesemia Code(s): E83.42 - HYPOMAGNESEMIA Status: Acute Comment: Persistant.Start on PO Magnesium daily.replace IV prn (6) Seizure as late effect of cerebrovascular accident (CVA) Code(s): I69.398 - OTHER SEQUELAE OF CEREBRAL INFARCTION; R56.9 - UNSPECIFIED CONVULSIONS Status: Acute Comment: On Keppra BID (7) BPH (benign prostatic hyperplasia) Code(s): N40.0 - BENIGN PROSTATIC HYPERPLASIA WITHOUT LOWER URINRY TRACT SYMP Status: Chronic (8) Dyslipidemia Code(s): E78.5 - HYPERLIPIDEMIA, UNSPECIFIED Status: Chronic (9) H/O: CVA (cerebrovascular accident) Code(s): Z86.73 - PRSNL HX OF TIA (TIA), AND CEREB INFRC W/O RESID DEFICITS Status: Chronic (10) Hypertension Code(s): I10 - ESSENTIAL (PRIMARY) HYPERTENSION Status: Chronic Qualifiers: Hypertension type: essential hypertension Qualified Code(s): I10 - Essential (primary) hypertension (11) Tobacco abuse Code(s): Z72.0 - TOBACCO USE Status: Chronic (12) Alcohol dependence Code(s): F10.20 - ALCOHOL DEPENDENCE, UNCOMPLICATED Status: Acute (13) OLGA (acute kidney injury) Code(s): N17.9 - ACUTE KIDNEY FAILURE, UNSPECIFIED Status: Resolved - Plan continue antibiotics, PT/OT, out of bed/ambulate, DVT proph w/SCDs cont supportiv ecare,IV ABx,wound care ,wound Vac -: GS following -: Needs home wound care/vac.uninsured -: Add PO FeSO4 -: H/H stable. FOBT negative.monitor.Transfuse if <7. * . Review of Systems - Review of Systems Constitutional: negative: fever, chills, sweats, weakness, malaise, other Eyes: negative: Pain, Vision Change, Conjunctivae Inflammation, Eyelid Inflammation, Redness, Other ENT: negative: Ear Pain, Ear Discharge, Nose Pain, Nose Discharge, Nose Congestion, Mouth Pain, Mouth Swelling, Throat Pain, Throat Swelling, Other Respiratory: negative: Cough, Dry, Shortness of Breath, Hemoptysis, SOB with Excertion, Pleuritic Pain, Sputum, Wheezing Cardiovascular: negative: chest pain, palpitations, orthopnea, paroxysmal nocturnal dyspnea, edema, light headedness, other Gastrointestinal: Nausea, Vomiting, Abdominal Pain Genitourinary: negative: Dysuria, Frequency, Incontinence, Hematuria, Retention , Other Musculoskeletal: negative: Neck Pain, Shoulder Pain, Arm Pain, Back Pain, Hand Pain, Leg Pain, Foot Pain, Other Skin: negative: Rash, Lesions, Mikel, Bruising, Other Neurological: negative: Weakness, Numbness, Incoordination, Change in Speech, Confusion, Seizures, Other - Medications/Allergies Allergies/Adverse Reactions: Allergies Allergy/AdvReac Type Severity Reaction Status Date / Time No Known Drug Allergies Allergy Verified 05/15/17 22:44 Medications: Current Medications Hydrocodone Bitart/Acetaminophen ([place] 10/325) 1 tab PO Q4H PRN PRN Reason: Pain 1ST LINE Hydrocodone Bitart/Acetaminophen ([place] 10/325) 2 tab PO Q4H PRN PRN Reason: Pain 2ND LINE Last Admin: 07/16/17 06:01 Dose: 2 tab Albuterol/Ipratropium (Duoneb) 3 ml EZPAP [id number] [facility] Last Admin: 07/16/17 10:31 Dose: 3 ml Atorvastatin Calcium (Lipitor) 80 mg PO HS [facility] Last Admin: 07/15/17 20:28 Dose: 80 mg Enoxaparin Sodium (Lovenox) 40 mg SC 0900 [facility] Last Admin: 07/16/17 09:06 Dose: 40 mg Fentanyl (Sublimaze) 50 mcg SLOW IVP Q2H PRN PRN Reason: Pain Last Admin: 07/14/17 14:16 Dose: 50 mcg Guaifenesin (Mucinex) 600 mg PO Q12HR [facility] Last Admin: 07/16/17 09:05 Dose: 600 mg Hydralazine HCl (Apresoline) 10 mg SLOW IVP Q4H PRN PRN Reason: SBP >= 180 Last Admin: 07/10/17 02:12 Dose: 10 mg Piperacillin Sod/Tazobactam (Sod 3.375 gm/ Sodium Chloride) 100 mls @ 200 mls/ hr IVPB 0200,0800,1400,2000 [facility] Last Admin: 07/16/17 09:10 Dose: 100 mls Iron/Minerals/Multivitamins (Theragran M) 1 tab PO DAILY [facility] Last Admin: 07/16/17 09:03 Dose: 1 tab Levetiracetam (Keppra) 500 mg PO BID [facility] Last Admin: 07/16/17 09:03 Dose: 500 mg Magnesium Oxide (Magnesium Oxide) 400 mg PO BID [facility] Last Admin: 07/16/17 09:03 Dose: 400 mg Discontinue Previous Narcotic Pain Medications And Benzodiazepines 1 each FS .ONE [facility] Stop: 08/04/17 18:20 Ondansetron HCl (Zofran Odt) 4 mg PO Q6H PRN PRN Reason: Nausea/Vomiting Ondansetron HCl (Zofran) 4 mg IVP Q6H PRN PRN Reason: Nausea/Vomiting Last Admin: 07/14/17 13:40 Dose: 4 mg Pantoprazole Sodium (Protonix) 40 mg PO Q12HR [facility] Last Admin: 07/16/17 09:05 Dose: 40 mg Quetiapine Fumarate (Seroquel) 25 mg PO HS [facility] Last Admin: 07/15/17 20:28 Dose: 25 mg Sertraline HCl (Zoloft) 50 mg PO DAILY [facility] Last Admin: 07/16/17 09:04 Dose: 50 mg Sodium Chloride (Flush - Normal Saline) 10 ml IVF Q12HR [facility] Last Admin: 07/16/17 09:16 Dose: Not Given Sodium Chloride (Flush - Normal Saline) 10 ml IVF PRN PRN PRN Reason: Saline Flush
--- NOTE | 2017-07-16 16:01 | PRG ---
DATE OF SERVICE: 07/16/2017 SUBJECTIVE: This morning, less abdominal pain and less shortness of breath. OBJECTIVE: VITAL SIGNS: His sats are at 98% on room air, respiration 22, pulse 103, blood pressure 124/78. CHEST: Reveals decreased breath sounds without any wheezing. CARDIAC: Normal S1, S2, no gallops. ABDOMEN: Soft. LABORATORY DATA: White count 15,000, hemoglobin and hematocrit is 7 and 22, platelet count is 501. Electrolytes are normal. Cultures negative. IMPRESSION: 1. Status post perforated sigmoid diverticulitis with associated Mick procedure. 2. Bilateral pulmonary atelectasis. PLAN: Continue antibiotics, Zosyn, supportive care, PT, nutrition. We will follow.
[2017-07-16] MEDS: Atorvastatin Calcium 40 MG TAB PO SCH (20:32)
[2017-07-17] MEDS: Piperacillin/Tazobactam 3.375 GM in Sodium Chloride 0.9% 100 ML IVPB SCH ×2 (01:31→07:40)
[2017-07-17 04:12] LABS: Anion Gap 12 mmol/L (10-20); BUN (Urea Nitrogen) 14 mg/dL (8.4-25.7); Calc. Creatinine Clearance 88 mL/min (70-130); Calcium 8.9 mg/dL (7.8-10.44); Carbon Dioxide 27 mmol/L (22-29); Chloride 102 mmol/L (98-107); Estimated GFR-MDRD 80; Glucose 123 mg/dL (70-105); Magnesium 1.4 mg/dL (1.6-2.6); Potassium 3.8 mmol/L (3.5-5.1); Sodium 137 mmol/L (136-145)
[2017-07-17] MEDS: HYDROcodone/Acetaminophen 10/325 mg Tablet PO PRN ×5 (04:28→22:21)
[2017-07-17] MEDS: Enoxaparin Sodium 40 MG/0.4 ML SYRINGE SC SCH (07:41)
[2017-07-17] MEDS: Magnesium Oxide 400 MG TAB PO SCH ×2 (07:41→21:01)
[2017-07-17] MEDS: guaiFENesin ER 600 MG TAB PO SCH ×2 (07:41→21:01)
[2017-07-17] MEDS: Multivitamin W/ Minerals 1 TAB PO SCH (07:42)
[2017-07-17] MEDS: levETIRAcetam 500 MG TAB PO SCH ×2 (07:42→21:01)
--- NOTE | 2017-07-17 09:54 | PRG ---
DATE OF SERVICE: 07/17/2017 SUBJECTIVE: Mr. Vences has no complaints. He is ambulating with physical therapy, tolerating regular diet. PHYSICAL EXAMINATION: VITAL SIGNS: He is afebrile. Vital signs are stable. ABDOMEN: Soft, nondistended. His colostomy is intact in the left abdomen with air and stool in the bag. Midline wound VAC. LABORATORY DATA: White cell count is 15, hemoglobin is 7, platelet count is 501. Sodium 137, creati nine 0.97. ASSESSMENT: Status post left colectomy, colostomy for ruptured sigmoid diverticulitis. PLAN: Continue therapy. Continue wound VAC. Placement is going to be difficult secondary to insura nce status and would like to probably just continue his rehabilitation here.
[2017-07-17] MEDS: Fentanyl 100 MCG/2 ML VIAL SLOW IVP PRN (10:12)
[2017-07-17] MEDS ORDERED: Magnesium 2 GM/NS 0.9% 100 ML 2 GM in Premix Bag 1 BAG IVPB SCH (12:15)
--- NOTE | 2017-07-17 12:15 | PDOC.PN ---
- Subjective Encounter Start Date: 07/17/17 Encounter Start Time: 12:13 CC: Abdominal pain Sub: Pt denies any complaints - Objective Resuscitation Status: Resuscitation Status FULL:Full Resuscitation Vital Signs & Weight: Vital Signs (12 hours) Temp Pulse Resp BP Pulse Ox 07/17/17 11:45 97.9 F 85 18 118/67 92 L 07/17/17 10:22 105 H 24 H 07/17/17 08:15 98 F 94 18 93 L 07/17/17 07:23 98 F 94 18 108/67 93 L 07/17/17 06:48 91 24 H 85 L Weight Admit Weight 164 lb 0.383 oz Weight 162 lb 7 oz Most Recent Monitor Data Heart Rate from ECG 85 NIBP 127/67 NIBP BP-Mean 119 Respiration from ECG 22 SpO2 98 I&O: 07/16/17 07/17/17 07/18/17 06:59 06:59 06:59 Intake Total 2100 2790 Output Total 300 1300 Balance 1800 1490 Result Diagrams: 07/16/17 03:35 07/17/17 03:30 Dx/Plan - Plan hysical Examination Constitutional: NAD, awake, alert HEENT: PERRLA, moist MMs, sclera anicteric, oral pharynx no lesions pale, weak looking Neck: no nodes, no JVD, supple, full ROM Respiratory: no wheezing, no rales, no rhonchi, clear to auscultation bilateral Cardiovascular: RRR, no significant murmur, no rub, gallop Gastrointestinal: soft midline wound vac,ostomy pink w brownish stools in bag Musculoskeletal: no edema, pulses present Neurological: non-focal, normal sensation, moves all 4 limbs Psychiatric: normal affect, A&O x 3 Skin: no rash Dx/Plan (1) Bacteremia Code(s): R78.81 - BACTEREMIA Status: Acute (2) Sepsis Code(s): A41.9 - SEPSIS, UNSPECIFIED ORGANISM Status: Acute (3) PNA (pneumonia) Code(s): J18.9 - PNEUMONIA, UNSPECIFIED ORGANISM Status: Acute (4) Perforated sigmoid colon Code(s): K63.1 - PERFORATION OF INTESTINE (NONTRAUMATIC) Status: Acute Comment: WITH PERITONITIS (5) Hypomagnesemia Code(s): E83.42 - HYPOMAGNESEMIA Status: Acute Comment: Persistant.Start on PO Magnesium daily.replace IV prn (6) Seizure as late effect of cerebrovascular accident (CVA) Code(s): I69.398 - OTHER SEQUELAE OF CEREBRAL INFARCTION; R56.9 - UNSPECIFIED CONVULSIONS Status: Acute Comment: On Keppra BID (7) BPH (benign prostatic hyperplasia) Code(s): N40.0 - BENIGN PROSTATIC HYPERPLASIA WITHOUT LOWER URINRY TRACT SYMP Status: Chronic (8) Dyslipidemia Code(s): E78.5 - HYPERLIPIDEMIA, UNSPECIFIED Status: Chronic (9) H/O: CVA (cerebrovascular accident) Code(s): Z86.73 - PRSNL HX OF TIA (TIA), AND CEREB INFRC W/O RESID DEFICITS Status: Chronic (10) Hypertension Code(s): I10 - ESSENTIAL (PRIMARY) HYPERTENSION Status: Chronic Qualifiers: Hypertension type: essential hypertension Qualified Code(s): I10 - Essential (primary) hypertension (11) Tobacco abuse Code(s): Z72.0 - TOBACCO USE Status: Chronic (12) Alcohol dependence Code(s): F10.20 - ALCOHOL DEPENDENCE, UNCOMPLICATED Status: Acute (13) OLGA (acute kidney injury) Code(s): N17.9 - ACUTE KIDNEY FAILURE, UNSPECIFIED Status: Resolved - Plan continue antibiotics, PT/OT, out of bed/ambulate, DVT proph w/SCDs cont supportiv ecare,IV ABx,wound care ,wound Vac approved -: GS following -: Add PO FeSO4 -: H/H stable. FOBT negative.monitor.Transfuse if <7. -: will give 2 gms magsulfate iv x1 D/W RN pt needs education for wound vac and colostomy care.
[2017-07-17] MEDS: Atorvastatin Calcium 40 MG TAB PO SCH (21:01)
[2017-07-18] MEDS: HYDROcodone/Acetaminophen 10/325 mg Tablet PO PRN ×5 (04:00→21:10)
[2017-07-18 04:10] LABS: Anion Gap 9 mmol/L (10-20); BUN (Urea Nitrogen) 9 mg/dL (8.4-25.7); Calc. Creatinine Clearance 109 mL/min (70-130); Calcium 8.6 mg/dL (7.8-10.44); Carbon Dioxide 30 mmol/L (22-29); Chloride 102 mmol/L (98-107); Estimated GFR-MDRD Greater than 90; Glucose 97 mg/dL (70-105); Magnesium 1.6 mg/dL (1.6-2.6); Phosphorus 3.4 mg/dL (2.3-4.7); Potassium 3.7 mmol/L (3.5-5.1); Sodium 137 mmol/L (136-145)
[2017-07-18] MEDS: Enoxaparin Sodium 40 MG/0.4 ML SYRINGE SC SCH (08:37)
[2017-07-18] MEDS: levETIRAcetam 500 MG TAB PO SCH ×2 (08:38→20:17)
[2017-07-18] MEDS: guaiFENesin ER 600 MG TAB PO SCH ×2 (08:39→20:17)
[2017-07-18] MEDS: Magnesium Oxide 400 MG TAB PO SCH ×2 (08:39→20:17)
[2017-07-18] MEDS: Multivitamin W/ Minerals 1 TAB PO SCH (08:39)
[2017-07-18] MEDS ORDERED: Ciprofloxacin 500 MG TAB PO SCH (09:30)
[2017-07-18 09:50] LABS: Bilirubin Negative (Negative); Blood, Urine Negative (Negative); Clarity CLEAR (Clear); Glucose, Urine (Dipstick) Negative (Negative); Leukocyte Negative (Negative); Nitrite Negative (Negative); Protein, Urine (Dipstick) 30 mg/dL (Neg-Trace); Specific Gravity, Urine 1.023 (1.002-1.036); pH, Urine 6.5 (5.0-9.0)
[2017-07-18 09:53] LABS: Actual Bicarbonate (HCO3a) 27.6 mEq/L (22-26); Base Excess (BEa) 2.7 mEq/L (0 (+/-) 2.5); CO2 Tension 44.5 mmHg (35.0-45.0); Hematocrit-ABG 25.5 % (42.0-52.0); O2 Tension (PaO2) 107.1 mmHg (80.0-100.0); pH, Arterial 7.41 (7.35-7.45)
[2017-07-18 09:55] LABS: Bacteria/HPF None Seen HPF (None Seen); Hyaline Casts/LPF 0-3 HYALINE CAST LPF (0-3 Hyaline); Pathc Cast-AUWi Flag 0.14 (0-2.49); Squamous Epithelial 0-3 HPF (0-3); WBC/HPF 0-3 HPF (0-3)
[2017-07-18 10:07] LABS: Analyzer IN Cardio OR; Calcium, Ionized 1.1 mmol/L (1.12-1.30); Hemoglobin (Hb) 8.7 g/dL (14.0-18.0); Puncture Site ALINE
[2017-07-18 10:08] LABS: Actual Bicarbonate (HCO3a) 25.9 mEq/L (22-26); Analyzer IN Cardio OR; Base Excess (BEa) 1.2 mEq/L (0 (+/-) 2.5); CO2 Tension 41.8 mmHg (35.0-45.0); Hemoglobin (Hb) 8.9 g/dL (14.0-18.0); O2 Tension (PaO2) 74.8 mmHg (80.0-100.0); Puncture Site ALINE; pH, Arterial 7.41 (7.35-7.45)
--- NOTE | 2017-07-18 11:56 | PRG ---
DATE OF SERVICE: 07/18/2017 SUBJECTIVE: Mr. Vences has no complaints. He is afebrile. Vital signs are stable. He is tolerating regular diet. He is ambulatory, but still very limited. Urinating on his own without difficulty. H is abdomen is soft. He has a wound VAC. I saw the wound yesterday. There is dehiscence of the lowe r part of the wound, the muscle but there is no exposed intestine or colon. ASSESSMENT: Status post left colectomy, colostomy. Wound VAC for perforated sigmoid diverticulitis. PLAN: Likely convert antibiotics to oral, home and more ambulatory.
--- NOTE | 2017-07-18 14:03 | PDOC.PN ---
- Subjective Encounter Start Date: 07/18/17 Encounter Start Time: 11:00 Subjective: pt up in bed complains of some pain to his abdomen - Objective Resuscitation Status: Resuscitation Status FULL:Full Resuscitation Vital Signs & Weight: Vital Signs (12 hours) Temp Pulse Resp BP Pulse Ox 07/18/17 13:34 83 20 90 L 07/18/17 12:04 98.5 F 87 16 112/68 93 L 07/18/17 10:40 96 24 H 91 L 07/18/17 08:20 98.1 F 86 12 90 L 07/18/17 07:30 98.1 F 86 12 112/60 90 L 07/18/17 06:45 94 20 94 L 07/18/17 04:00 98.4 F 91 18 112/72 94 L Weight Admit Weight 164 lb 0.383 oz Weight 162 lb 7 oz Most Recent Monitor Data Heart Rate from ECG 85 NIBP 127/67 NIBP BP-Mean 119 Respiration from ECG 22 SpO2 98 I&O: 07/17/17 07/18/17 07/19/17 06:59 06:59 06:59 Intake Total 2790 760 Output Total 1300 445 Balance 1490 315 Result Diagrams: 07/16/17 03:35 07/18/17 03:45 Phys Exam - Physical Examination HEENT: PERRLA Neck: no nodes Respiratory: no wheezing Cardiovascular: RRR, no significant murmur (mild distention with bsx2, wound vac in place) Musculoskeletal: no edema Neurological: non-focal, normal sensation Dx/Plan - Plan * . Bactremia sepsis perforated sigmoid colon htn electrolyte imbalance htn alcohol dependence Onel - Plan abx changed to oral cipro/flagyl will talk to ID for duration pt has a wound vac and colostomy ?rehab mild wound dehiscence Review of Systems - Review of Systems Eyes: negative: Pain, Vision Change, Conjunctivae Inflammation, Eyelid Inflammation, Redness, Other ENT: negative: Ear Pain, Ear Discharge, Nose Pain, Nose Discharge, Nose Congestion, Mouth Pain, Mouth Swelling, Throat Pain, Throat Swelling, Other Respiratory: negative: Cough, Dry, Shortness of Breath, Hemoptysis, SOB with Excertion, Pleuritic Pain, Sputum, Wheezing Gastrointestinal: Abdominal Pain Genitourinary: negative: Dysuria, Frequency, Incontinence, Hematuria, Retention , Other - Medications/Allergies Allergies/Adverse Reactions: Allergies Allergy/AdvReac Type Severity Reaction Status Date / Time No Known Drug Allergies Allergy Verified 05/15/17 22:44 Medications: Current Medications Hydrocodone Bitart/Acetaminophen ([place] 10/325) 1 tab PO Q4H PRN PRN Reason: Pain 1ST LINE Last Admin: 07/17/17 04:28 Dose: 1 tab Hydrocodone Bitart/Acetaminophen ([place] 10/325) 2 tab PO Q4H PRN PRN Reason: Pain 2ND LINE Last Admin: 07/18/17 12:53 Dose: 2 tab Albuterol/Ipratropium (Duoneb) 3 ml EZPAP [id number] [facility] Last Admin: 07/18/17 13:34 Dose: 3 ml Atorvastatin Calcium (Lipitor) 80 mg PO HS [facility] Last Admin: 07/17/17 21:01 Dose: 80 mg Ciprofloxacin (Cipro) 500 mg PO BID@0600,2000 [facility] Enoxaparin Sodium (Lovenox) 40 mg SC 0900 [facility] Last Admin: 07/18/17 08:37 Dose: 40 mg Ferrous Sulfate (Ferrous Sulfulte) 300 mg PO BID [facility] Last Admin: 07/18/17 08:50 Dose: 300 mg Guaifenesin (Mucinex) 600 mg PO Q12HR [facility] Last Admin: 07/18/17 08:39 Dose: 600 mg Hydralazine HCl (Apresoline) 10 mg SLOW IVP Q4H PRN PRN Reason: SBP >= 180 Last Admin: 07/10/17 02:12 Dose: 10 mg Iron/Minerals/Multivitamins (Theragran M) 1 tab PO DAILY [facility] Last Admin: 07/18/17 08:39 Dose: 1 tab Levetiracetam (Keppra) 500 mg PO BID [facility] Last Admin: 07/18/17 08:38 Dose: 500 mg Magnesium Oxide (Magnesium Oxide) 400 mg PO BID [facility] Last Admin: 07/18/17 08:39 Dose: 400 mg Metronidazole (Flagyl) 500 mg PO TID [facility] Discontinue Previous Narcotic Pain Medications And Benzodiazepines 1 each FS .ONE [facility] Stop: 08/04/17 18:20 Ondansetron HCl (Zofran Odt) 4 mg PO Q6H PRN PRN Reason: Nausea/Vomiting Ondansetron HCl (Zofran) 4 mg IVP Q6H PRN PRN Reason: Nausea/Vomiting Last Admin: 07/14/17 13:40 Dose: 4 mg Pantoprazole Sodium (Protonix) 40 mg PO Q12HR [facility] Last Admin: 07/18/17 08:39 Dose: 40 mg Quetiapine Fumarate (Seroquel) 25 mg PO HS [facility] Last Admin: 07/17/17 21:01 Dose: 25 mg Sertraline HCl (Zoloft) 50 mg PO DAILY [facility] Last Admin: 07/18/17 08:38 Dose: 50 mg Sodium Chloride (Flush - Normal Saline) 10 ml IVF Q12HR [facility] Last Admin: 07/18/17 08:42 Dose: 10 ml Sodium Chloride (Flush - Normal Saline) 10 ml IVF PRN PRN PRN Reason: Saline Flush
[2017-07-18] MEDS: metroNIDAZOLE 500 MG TAB PO SCH ×2 (14:20→20:17)
--- NOTE | 2017-07-18 16:02 | PRG ---
DATE OF SERVICE: 07/18/2017 SUBJECTIVE: Mr. Vences continues to improve. OBJECTIVE: VITAL SIGNS: He is afebrile, heart rates in the 80s, respiratory rate is 20, oximetry is 90 on room air. Blood pressure 112/68. LUNGS: Clear. HEART: Regular rhythm. ABDOMEN: Soft. LABORATORY DATA: Sodium 137, potassium 3.7, chloride 102, bicarbonate 30, BUN 9, creatinine 0.78. IMPRESSION: 1. Pneumonia. 2. Respiratory failure, status post emergent intubation for metabolic acidosis. 3. Perforated viscus with peritonitis. Recent CT showed no development of an abscess. 4. Wound care. Apparently, he is involved in some state issues. His mother a month ago. My opinion, he is unable to attend any hearing, so might be required until he is more ambulatory and not requiring hospitalization and wound care. Once he is off IV antimicrobial therapy, we can pull his central line. We will continue to follow with the other physicians caring for him.
[2017-07-18] MEDS: Ciprofloxacin 500 MG TAB PO SCH (20:17)
[2017-07-18] MEDS: Atorvastatin Calcium 40 MG TAB PO SCH (20:17)
[2017-07-19] MEDS: HYDROcodone/Acetaminophen 10/325 mg Tablet PO PRN ×6 (02:57→23:47)
[2017-07-19] MEDS: Ciprofloxacin 500 MG TAB PO SCH ×2 (05:24→21:29)
[2017-07-19 06:10] LABS: Anion Gap 9 mmol/L (10-20); BUN (Urea Nitrogen) 10 mg/dL (8.4-25.7); Calc. Creatinine Clearance 110 mL/min (70-130); Calcium 8.5 mg/dL (7.8-10.44); Carbon Dioxide 29 mmol/L (22-29); Chloride 102 mmol/L (98-107); Estimated GFR-MDRD Greater than 90; Glucose 142 mg/dL (70-105); Magnesium 1.4 mg/dL (1.6-2.6); Phosphorus 3.6 mg/dL (2.3-4.7); Potassium 3.5 mmol/L (3.5-5.1); Sodium 136 mmol/L (136-145)
[2017-07-19] MEDS: Enoxaparin Sodium 40 MG/0.4 ML SYRINGE SC SCH (08:32)
[2017-07-19] MEDS: guaiFENesin ER 600 MG TAB PO SCH ×2 (08:33→21:29)
[2017-07-19] MEDS: Magnesium Oxide 400 MG TAB PO SCH ×2 (08:34→21:29)
[2017-07-19] MEDS: metroNIDAZOLE 500 MG TAB PO SCH ×3 (08:34→21:29)
[2017-07-19] MEDS: Multivitamin W/ Minerals 1 TAB PO SCH (08:34)
[2017-07-19] MEDS: levETIRAcetam 500 MG TAB PO SCH ×2 (08:34→21:29)
--- NOTE | 2017-07-19 10:06 | PRG ---
DATE OF SERVICE: 07/19/2017 Mr. Vences is complaining of burning when he urinates, pain starting a stream. He is tolerating regula r diet. He is more ambulatory. He has almost made a full lap around the surgical floor. PHYSICAL EXAMINATION: VITAL SIGNS: He is afebrile and his vital signs are stable. Urine output is adequate. ABDOMEN: Soft. Wound VAC, stool and air in his colostomy bag. LABORATORY: Chemistry reveals sodium 136, potassium 3.5, creatinine 0.77. UA yesterday was clear. ASSESSMENT: 1. Overall, doing well status post left colectomy, colostomy for ruptured sigmoid diverticulitis. 2. Deconditioning, improving with physical therapy. 3. Dysuria, but urine clear. I have already converted to oral antibiotics. PLAN: I suspect he will be able to be discharged home soon. No further workup for painful urination . I suspect this to improve.
[2017-07-19] MEDS ORDERED: Magnesium 2 GM/NS 0.9% 50 ML 2 GM in Premix Bag 1 BAG IVPB SCH (10:30)
[2017-07-19 10:39] LABS: #Lymphocytes 0.9 thou/uL (1.20-3.40); #Monocytes 0.8 thou/uL (0.11-0.59); #Neutrophils 8.4 thou/uL (1.40-6.50); %Basophils 0.4 % (0.0-1.0); %Eosinophils 0.3 % (0.0-10.0); %Lymphocytes 8.6 % (21.0-51.0); %Monocytes 8.1 % (0.0-10.0); %Neutrophils 82.6 % (42.0-75.0); Hemoglobin 7.4 g/dL (14.0-18.0); Mean Corpuscular HGB CONC 33.2 g/dL (32.0-36.0); Mean Corpuscular Hemoglobin 30.9 pg (27.0-31.0); Mean Corpuscular Volume 93.2 fl (80.0-94.0); Mean Platelet Volume 7.6 fL (7.4-10.4); Platelet Count 554 thou/uL (130-400); White Blood Cell (WBC) Count 10.1 thou/uL (4.8-10.8)
[2017-07-19 10:55] LABS: Anion Gap 12 mmol/L (10-20); BUN (Urea Nitrogen) 11 mg/dL (8.4-25.7); Calc. Creatinine Clearance 106 mL/min (70-130); Calcium 8.4 mg/dL (7.8-10.44); Carbon Dioxide 26 mmol/L (22-29); Chloride 102 mmol/L (98-107); Estimated GFR-MDRD Greater than 90; Glucose 180 mg/dL (70-105); Potassium 3.7 mmol/L (3.5-5.1); Sodium 136 mmol/L (136-145)
--- NOTE | 2017-07-19 13:57 | PRG ---
DATE OF SERVICE: 07/19/2017 Mr. Vences is being ready for discharge today or tomorrow. He is having some dysuria early in the void ing episode. No respiratory symptoms. Abdominal pain has resolved. PHYSICAL EXAMINATION: VITAL SIGNS: T-max 98.5, blood pressure 102/61, pulse 90, respirations 16. GENERAL: Awake, oriented, in no distress. HEENT: Ocular movements conjugate. Oral cavity moist. NECK: Supple with a right-sided IJ triple lumen catheter. LUNGS: With symmetric air entry. CARDIOVASCULAR: S1, S2, regular rate. ABDOMEN: Soft and not distended. Midline negative pressure dressing with left-sided colostomy. : Reid catheter has been removed. EXTREMITIES: He is able to move extremities on command. NEURO: He is awake, oriented. LABORATORY: White cell count down to 10.1, hemoglobin 7.4, platelets 554, creatinine 0.8. Last urin alysis from yesterday was normal. ASSESSMENT AND DISCUSSION: History of cerebrovascular accident, chronic smoking, diverticulitis with perforation and fecal peritonitis, status post segmental resection and colostomy placement with earl ed improvement. Follow up CT scan with no evidence of abscess formation. The neutrophil count retur genevieve to normal and the patient is to be discharged on oral Flagyl plus ciprofloxacin for another 10 da ys.
[2017-07-19] MEDS: Atorvastatin Calcium 40 MG TAB PO SCH (21:29)
--- NOTE | 2017-07-19 22:05 | PDOC.PN ---
- Objective Resuscitation Status: Resuscitation Status FULL:Full Resuscitation Vital Signs & Weight: Vital Signs (12 hours) Temp Pulse Resp BP Pulse Ox 07/19/17 21:53 88 16 89 L 07/19/17 20:22 98.5 F 86 18 150/78 H 92 L 07/19/17 18:26 87 16 90 L 07/19/17 14:08 89 16 07/19/17 12:00 97.9 F 89 14 116/70 93 L 07/19/17 10:30 90 16 Weight Admit Weight 164 lb 0.383 oz Weight 162 lb 7 oz Most Recent Monitor Data Heart Rate from ECG 85 NIBP 127/67 NIBP BP-Mean 119 Respiration from ECG 22 SpO2 98 I&O: 07/18/17 07/19/17 07/20/17 06:59 06:59 06:59 Intake Total 760 600 Output Total 537 4293 575 Balance 817 -579 -093 Result Diagrams: 07/19/17 10:30 07/19/17 10:30 Dx/Plan - Plan * .
[2017-07-20] MEDS: HYDROcodone/Acetaminophen 10/325 mg Tablet PO PRN ×2 (05:27→11:41)
[2017-07-20] MEDS: Ciprofloxacin 500 MG TAB PO SCH (05:27)
[2017-07-20 07:54] LABS: Anion Gap 11 mmol/L (10-20); BUN (Urea Nitrogen) 11 mg/dL (8.4-25.7); Calc. Creatinine Clearance 113 mL/min (70-130); Calcium 8.8 mg/dL (7.8-10.44); Carbon Dioxide 27 mmol/L (22-29); Chloride 102 mmol/L (98-107); Estimated GFR-MDRD Greater than 90; Glucose 129 mg/dL (70-105); Magnesium 1.6 mg/dL (1.6-2.6); Phosphorus 3.6 mg/dL (2.3-4.7); Potassium 3.8 mmol/L (3.5-5.1); Sodium 136 mmol/L (136-145)
[2017-07-20] MEDS: levETIRAcetam 500 MG TAB PO SCH (08:18)
[2017-07-20] MEDS: metroNIDAZOLE 500 MG TAB PO SCH (08:18)
[2017-07-20] MEDS: Enoxaparin Sodium 40 MG/0.4 ML SYRINGE SC SCH (08:18)
[2017-07-20] MEDS: Magnesium Oxide 400 MG TAB PO SCH (08:19)
[2017-07-20] MEDS: Multivitamin W/ Minerals 1 TAB PO SCH (08:19)
[2017-07-20] MEDS: guaiFENesin ER 600 MG TAB PO SCH (08:19)
[2017-07-20 08:22] VITALS: TEMP 98.4
--- NOTE | 2017-07-20 10:31 | PRG ---
DATE OF SERVICE: 07/20/2017 Mr. Vences is having some pains in his right posterior lower chest. 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 This is tender. I think he has been laying on this and that is why he is tender there. He may have some pressure necrosis inside that. I doubt this is a liposarcoma. PHYSICAL EXAMINATION: LUNGS: His lungs are clear today. HEART: Regular rhythm. ABDOMEN: Abdomen is soft. VITAL SIGNS: He is afebrile, heart rate 87, respiratory rate 16, oximetry is 98 on 2 liters. He is about to have his wounds addressed. He did have blood cultures from the that grew out bacteroides which I suspect came out of his ab domen. He still has a central line in place, but he is not receiving anything intravenously. Central line n eeds to be discontinued.
--- NOTE | 2017-07-20 12:32 | PDOC.GSPN ---
Surgery Progress Note: Subj - Subjective Patient reports: no new complaints Surgery Progress Note: Obj - Vital signs Vital signs: Vital Signs - Most Recent Temp Pulse Resp BP Pulse Ox 98.4 F 110 H 16 115/70 98 07/20/17 08:20 07/20/17 10:14 07/20/17 10:14 07/20/17 07:56 07/20/17 08:20 - Physical Exam General: no distress Cardiovascular: regular rate and rhythm Respiratory: clear to auscultation Abdomen: soft, non tender Wound: wound vac Surgery Progress Note: Results - Labs Result Diagrams: 07/19/17 10:30 07/20/17 06:30 Lab results: Laboratory Results - last 24 hr 07/20/17 06:30 Sodium 136 Potassium 3.8 Chloride 102 Carbon Dioxide 27 Anion Gap 11 BUN 11 Creatinine 0.75 Estimated GFR (MDRD) Greater than 90 Glucose 129 H Calcium 8.8 Phosphorus 3.6 Magnesium 1.6 Surgery Progress Note: A/P - Problem (1) Perforated sigmoid colon Current Visit: Yes Code(s): K63.1 - PERFORATION OF INTESTINE (NONTRAUMATIC) Status: Acute Assessment and Plan: dc home today, rx's on chart
[2017-07-20 12:58] VITALS: BP 133/77
== END 2017-07-20 13:00 | disposition home or self-care (01) | DRG 853 ==
LOC: ERS 14:23 → CCU 14:45 → SURG A 07-11 21:43
PROVIDERS: ADMIT Internal Medicine; ATTEND Internal Medicine
PROC: 5A1945Z Respiratory Ventilation, 24-96 Consecutive Hours (ICD-10-PCS; principal; 2017-07-05)
PROC: 0BJ08ZZ Inspection of Tracheobronchial Tree, Via Natural or Artificial Opening Endoscopic (ICD-10-PCS; 2017-07-05)
PROC: 5A09357 Assistance with Respiratory Ventilation, Less than 24 Consecutive Hours, Continuous Positive Airway Pressure (ICD-10-PCS; 2017-07-05)
PROC: 0BH17EZ Insertion of Endotracheal Airway into Trachea, Via Natural or Artificial Opening (ICD-10-PCS; 2017-07-05)
PROC: 06HM33Z Insertion of Infusion Device into Right Femoral Vein, Percutaneous Approach (ICD-10-PCS; 2017-07-05)
PROC: 04HY32Z Insertion of Monitoring Device into Lower Artery, Percutaneous Approach (ICD-10-PCS; 2017-07-05)
PROC: 0DTN0ZZ Resection of Sigmoid Colon, Open Approach (ICD-10-PCS; 2017-07-08)
PROC: 0D1L0Z4 Bypass Transverse Colon to Cutaneous, Open Approach (ICD-10-PCS; 2017-07-08)
PROC: 02HV33Z Insertion of Infusion Device into Superior Vena Cava, Percutaneous Approach (ICD-10-PCS; 2017-07-08)
PROC: 30233N1 Transfusion of Nonautologous Red Blood Cells into Peripheral Vein, Percutaneous Approach (ICD-10-PCS; 2017-07-10)
PROC: 5A09357 Assistance with Respiratory Ventilation, Less than 24 Consecutive Hours, Continuous Positive Airway Pressure (ICD-10-PCS; 2017-07-10)
DX: A41.9 Sepsis, unspecified organism (principal); J96.01 Acute respiratory failure with hypoxia; R65.21 Severe sepsis with septic shock; K63.1 Perforation of intestine (nontraumatic); J18.9 Pneumonia, unspecified organism; E83.42 Hypomagnesemia; D62 Acute posthemorrhagic anemia; K57.20 Diverticulitis of large intestine with perforation and abscess without bleeding; N17.9 Acute kidney failure, unspecified; E87.2 Acidosis; I69.354 Hemiplegia and hemiparesis following cerebral infarction affecting left non-dominant side; E87.5 Hyperkalemia; E87.6 Hypokalemia; R65.20 Severe sepsis without septic shock; E78.5 Hyperlipidemia, unspecified; F17.210 Nicotine dependence, cigarettes, uncomplicated; N40.0 Benign prostatic hyperplasia without lower urinary tract symptoms; F10.20 Alcohol dependence, uncomplicated; R56.9 Unspecified convulsions; I69.398 Other sequelae of cerebral infarction; I12.9 Hypertensive chronic kidney disease with stage 1 through stage 4 chronic kidney disease, or unspecified chronic kidney disease; N18.9 Chronic kidney disease, unspecified; J44.9 Chronic obstructive pulmonary disease, unspecified; R30.0 Dysuria
CPT/HCPCS: 36415; 36416; 36430; 51702; 71045; 74177; 80048; 80053; 80307; 81001; 81003; 81015; 82274; 82533; 82805; 83605; 83735; 84100; 85007; 85014; 85018; 85025; 85027; 85610; 86850; 86900; 86901; 87040; 87076; 87086; 87149; 88307; 93005; 94002; 94003; 94640; 94660; 94799; 96365; 96375; A4216; C9113; G8978-GP-CK; G8979-GP-CI; J0131; J0360; J0456; J0696; J1265; J1450; J1644; J1650; J1953; J2060; J2250; J2270; J2405; J2543; J2704; J2920; J3010; J3411; J3475; J3480; J7050; J7070; J7620; P9016

== ENCOUNTER 2017-07-24 13:51 | Outpatient (CLI) | payer SELFPAY ==
[2017-07-24] MEDS ORDERED: Sodium Chloride 0.9% 15 ML NEB ONE (14:58)
== END 2017-07-24 13:52 | disposition home or self-care (01) ==
LOC: WCC 13:51
PROVIDERS: ATTEND Family Medicine
DX: T81.89XD Other complications of procedures, not elsewhere classified, subsequent encounter (principal); Z90.49 Acquired absence of other specified parts of digestive tract
CPT/HCPCS: 97606; A4218

== ENCOUNTER 2017-07-28 10:47 | Outpatient (CLI) | payer SELFPAY | END 2017-07-28 10:48 | disposition home or self-care (01) | LOC: WCC 10:47 | PROVIDERS: ATTEND Family Medicine | DX: T81.89XD Other complications of procedures, not elsewhere classified, subsequent encounter (principal); Z90.49 Acquired absence of other specified parts of digestive tract | CPT/HCPCS: 97606 ==

== ENCOUNTER 2017-07-31 08:40 | Outpatient (CLI) | payer SELFPAY ==
[2017-07-31] MEDS ORDERED: Sodium Chloride 0.9% 15 ML NEB ONE (09:00)
== END 2017-07-31 08:41 | disposition home or self-care (01) ==
LOC: WCC 08:40
PROVIDERS: ATTEND Family Medicine
DX: T81.89XD Other complications of procedures, not elsewhere classified, subsequent encounter (principal)
CPT/HCPCS: 97605; A4218

== ENCOUNTER 2017-08-03 13:00 | Outpatient (CLI) | payer SELFPAY | END 2017-08-03 13:01 | disposition home or self-care (01) | LOC: WCC 13:00 | PROVIDERS: ATTEND Family Medicine | DX: T81.89XD Other complications of procedures, not elsewhere classified, subsequent encounter (principal); Z90.49 Acquired absence of other specified parts of digestive tract | CPT/HCPCS: 97605 ==

== ENCOUNTER 2017-08-06 01:25 | Emergency (ER) | payer SELFPAY | END 2017-08-06 04:51 | disposition home or self-care (01) | LOC: ERS 01:25 | DX: T81.89XA Other complications of procedures, not elsewhere classified, initial encounter (principal); G89.29 Other chronic pain; M25.512 Pain in left shoulder; I10 Essential (primary) hypertension; F32.9 Major depressive disorder, single episode, unspecified; F17.210 Nicotine dependence, cigarettes, uncomplicated; Z71.6 Tobacco abuse counseling | CPT/HCPCS: 99406 ==

== ENCOUNTER 2017-08-07 13:00 | Outpatient (CLI) | payer SELFPAY ==
[~2017-08-07 13:00] MED LIST changes: -EPINEPHrine 1 MG/10 ML Abboject SYRINGE ONE; -ISOVUE-370 76%-LOCM 1 ML ONE; +Lidocaine 2% Jelly 5 ML TUBE ONE; +Sodium Chloride 0.9% 15 ML NEB ONE
== END 2017-08-07 13:01 | disposition home or self-care (01) ==
LOC: WCC 13:00
PROVIDERS: ATTEND Family Medicine
DX: T81.89XD Other complications of procedures, not elsewhere classified, subsequent encounter (principal); Z90.49 Acquired absence of other specified parts of digestive tract
CPT/HCPCS: 97605; A4218

== ENCOUNTER 2017-08-10 10:10 | Outpatient (CLI) | payer SELFPAY ==
[2017-08-10] MEDS ORDERED: Sodium Chloride 0.9% 15 ML NEB ONE (15:32)
--- NOTE | 2017-08-11 06:02 | HP ---
DATE OF SERVICE: 08/10/2017 HISTORY OF PRESENT ILLNESS: Mr. Dante Vences is a very pleasant 57-year-old gentleman who presents t o the [facility] for evaluation of a midline abdominal wound subsequent to surgery for perforated s igmoid diverticulitis on 07/08/2017. The patient underwent the preceding procedure by Dr. Shaggy Thornton ent. Negative pressure therapy was initiated intraoperatively and upon discharge from [facility], the patient was referred to the Wound Center for assistance with dressing change s of the wound VAC. PAST MEDICAL HISTORY: 1. History of hypertension. 2. History of diverticulitis. 3. Osteoarthritis. 4. History of gastrointestinal bleeding. 5. MCA cerebrovascular accident. 6. Benign prostatic hypertrophy. 7. Post-stroke seizures. PAST SURGICAL HISTORY: 1. Tonsillectomy. 2. Surgery for perforated sigmoid diverticulitis on 07/08/2017 as per HPI. MEDICATIONS: 1. Lipitor. 2. Lisinopril. 3. Aspirin 325 mg. 4. Coreg. 5. Flomax. 6. Keppra. 7. Nexium. 8. Coenzyme Q10. 9. Zoloft. 10. Seroquel. 11. [place]. 12. Zofran. ALLERGIES: No known diagnosed allergies. SOCIAL HISTORY: Significant for tobacco use of approximately one and a half packs of cigarettes per day for 40 years. The patient admits to the heavy consumption of alcohol in the past. FAMILY HISTORY: Significant for diabetes mellitus. The patient states that his grandmother was diag nosed with diabetes mellitus. Family history is negative for coronary artery disease. PHYSICAL EXAMINATION: VITAL SIGNS: Temperature 98.1, pulse 66, respirations 18, blood pressure 97/52. GENERAL: A 57-year-old gentleman lying on table in examination room in no acute distress. HEENT: Normocephalic, atraumatic. NECK: No nuchal rigidity. CHEST: Clear to auscultation. CARDIAC: Regular rate and rhythm. ABDOMEN: Soft. A midline abdominal wound is present. Granulation tissue is present within the woun d margins. No purulent drainage is associated with the wound. No erythema of the skin surrounding t he wound is present. No maceration of the skin of the periwound is noted. The dimensions of the wou nd are approximately 14.5 x 3.8 cm. EXTREMITIES: No clubbing or cyanosis. ASSESSMENT AND PLAN: 1. Midline abdominal wound as described above. Negative pressure therapy will be continued with rose ssing changes of the wound VAC 2 times per week here in the Wound Center. The wound has been viewed by Dr. Perry today. I will see Mr. Vences again in 2 weeks. 2. History of hypertension. 3. History of diverticulitis. 4. Osteoarthritis. 5. History of gastrointestinal bleeding. 6. Middle cerebral artery cerebrovascular accident. 7. Benign prostatic hypertrophy. 8. Post-stroke seizures.
== END 2017-08-10 10:11 | disposition home or self-care (01) ==
LOC: WCC 10:10
PROVIDERS: ATTEND Family Medicine
DX: T81.89XD Other complications of procedures, not elsewhere classified, subsequent encounter (principal); I10 Essential (primary) hypertension; M19.90 Unspecified osteoarthritis, unspecified site; N40.0 Benign prostatic hyperplasia without lower urinary tract symptoms; I69.398 Other sequelae of cerebral infarction; R56.9 Unspecified convulsions
CPT/HCPCS: 97605; 99203; A4218; G0463

== ENCOUNTER 2017-08-14 13:04 | Outpatient (CLI) | payer SELFPAY ==
[~2017-08-14 13:04] MED LIST changes: -Lidocaine 2% Jelly 5 ML TUBE ONE
== END 2017-08-14 13:05 | disposition home or self-care (01) ==
LOC: WCC 13:04
PROVIDERS: ATTEND Family Medicine
DX: T81.89XD Other complications of procedures, not elsewhere classified, subsequent encounter (principal); Z93.3 Colostomy status
CPT/HCPCS: 97605; A4218

== ENCOUNTER 2017-08-14 13:54 | Inpatient (IN) | payer SELFPAY ==
[2017-08-14 15:07] LABS: #Lymphocytes 2.1 thou/uL (1.20-3.40); #Monocytes 0.7 thou/uL (0.11-0.59); #Neutrophils 5.8 thou/uL (1.40-6.50); %Basophils 0.5 % (0.0-1.0); %Eosinophils 0.4 % (0.0-10.0); %Lymphocytes 24.1 % (21.0-51.0); %Monocytes 8.2 % (0.0-10.0); %Neutrophils 66.8 % (42.0-75.0); Hemoglobin 7.7 g/dL (14.0-18.0); Mean Corpuscular HGB CONC 33.5 g/dL (32.0-36.0); Mean Corpuscular Hemoglobin 28.5 pg (27.0-31.0); Mean Corpuscular Volume 85.1 fl (80.0-94.0); Mean Platelet Volume 8.4 fL (7.4-10.4); Platelet Count 279 thou/uL (130-400); Red Blood Cell (RBC) Count 2.72 mill/uL (4.70-6.10); White Blood Cell (WBC) Count 8.7 thou/uL (4.8-10.8)
[2017-08-14 15:29] LABS: ALT (SGPT) 11 U/L (8-55); AST (SGOT) 12 U/L (5-34); Albumin 3.3 g/dL (3.5-5.0); Alkaline Phosphatase 95 U/L (40-150); Anion Gap 20 mmol/L (10-20); BUN (Urea Nitrogen) 70 mg/dL (8.4-25.7); Bilirubin, Total 0.2 mg/dL (0.2-1.2); Calc. Creatinine Clearance 0 mL/min (70-130); Calcium 9.2 mg/dL (7.8-10.44); Carbon Dioxide 18 mmol/L (22-29); Chloride 100 mmol/L (98-107); Estimated GFR-MDRD 8; Globulin 7.3 g/dL (2.4-3.5); Glucose 91 mg/dL (70-105); Protein, Total 10.6 g/dL (6.0-8.3); Sodium 132 mmol/L (136-145)
[2017-08-14] MEDS ORDERED: Sodium Chloride 0.9% 1,000 ML IV SCH (17:53)
[2017-08-14] MEDS ORDERED: Ondansetron ODT 4 MG TAB PO PRN (18:02)
[2017-08-14] MEDS ORDERED: Bisacodyl 5 MG TAB PO PRN (18:02)
[2017-08-14 18:07] VITALS: BMI 22.5
--- NOTE | 2017-08-14 19:10 | ULT ---
RENAL ULTRASOUND: HISTORY: Acute renal insufficiency. TECHNIQUE: Real-time imaging of the right and left kidneys is performed. FINDINGS: The right kidney measures 10.2 and the left 10.4 cm in size. No signs of cyst, mass, or obstruction. The bladder region appears unremarkable. IMPRESSION: Unremarkable renal ultrasound. POS: DONNIE
--- NOTE | 2017-08-14 19:11 | CON ---
DATE OF CONSULTATION: 08/14/2017 REASON FOR CONSULTATION: Elevated creatinine. HISTORY OF PRESENT ILLNESS: This is a 57-year-old gentleman with a past medical history significant for colostomy, presented to the hospital feeling weak and tired, who was noted to have acute kidney i njury. The patient was making urine with excessive discharge from colostomy. The patient denies no headache, numbness, tingling, or weakness. Denies any nausea, vomiting, or chest pain. PAST MEDICAL HISTORY: Significant for a stroke, hyperlipidemia, tobacco abuse, BPH, diverticulitis, and colostomy. SOCIAL/ECONOMIC HISTORY: No alcohol or drug use. FAMILY HISTORY: Negative for ESRD. ALLERGIES: Reviewed. REVIEW OF SYSTEMS: Fifteen-point review of systems was performed and negative except positives noted above. GENERAL: Weakness- HEAD: Headache- NECK: No swelling or lumps. NOSE: No epistaxis or discharge. EYES: No diplopia or pain. 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 NEUROPSYCHIATIC SYSTEMS: No suicidal ideation. No ideation. SKIN: Denies any rash or ulcer. CONSTITUTIONAL: No fever or chills. PHYSICAL EXAMINATION: GENERAL: Patient is awake, alert. VITAL SIGNS: Afebrile, pulse 75, breathing 16, and blood pressure 100/70. GENERAL APPEARANCE AND MENTAL STATUS: Fair. HEAD/NECK: Normocephalic. Atraumatic. EYES: EOMI. No deformity. EARS: Clear. No ulcers. NOSE: Intact. No lesions. MOUTH: Clear. No discharge. THROAT: Clear. No exudate. LUNGS: Clear. No crackles. CARDIAC: S1, S2. No rub. ABDOMEN: Abdominal colostomy. GENITALIA/RECTUM: Reid absent. BACK/EXTREMITIES: Edema 0+ Ulcer- NEUROLOGICAL: Alert and motor intact. SKIN: Rash- Bruise- LYMPHATICS: Edema- Ulcer- LABORATORY DATA: Hemoglobin 7.7, potassium 6.0. ASSESSMENT AND RECOMMENDATIONS: Acute kidney disease, most likely due to decreased effective arteria l blood volume due to colostomy drainage as well as poor intake and ARMIN inhibitor. We would recommen d aggressive hydration and rechecking stat potassium and metabolic acidosis, stable. We will order r enal imaging, no urgent indication for dialysis and follow labs closely.
[2017-08-14 19:15] LABS: Anion Gap 18 mmol/L (10-20); BUN (Urea Nitrogen) 69 mg/dL (8.4-25.7); Calc. Creatinine Clearance 12 mL/min (70-130); Calcium 8.6 mg/dL (7.8-10.44); Carbon Dioxide 17 mmol/L (22-29); Chloride 105 mmol/L (98-107); Estimated GFR-MDRD 9; Glucose 79 mg/dL (70-105); Potassium 5.5 mmol/L (3.5-5.1); Sodium 134 mmol/L (136-145)
[2017-08-14] MEDS: Atorvastatin Calcium 40 MG TAB PO SCH (20:37)
[2017-08-14] MEDS: Tamsulosin HCl 0.4 MG CAP PO SCH (20:38)
[2017-08-14] MEDS: levETIRAcetam 500 MG TAB PO SCH (20:38)
[2017-08-14] MEDS: HYDROcodone/Acetaminophen 10/325 mg Tablet PO PRN (20:43)
[2017-08-14] MEDS ORDERED: Famotidine 20 MG TAB PO SCH (21:00)
[2017-08-14] MEDS: Sodium Chloride 0.9% 1,000 ML IV SCH (21:36)
--- NOTE | 2017-08-15 00:54 | HP ---
PRIMARY CARE PHYSICIAN: Dr. Mehnaz Rubin. CHIEF COMPLAINT: Hypotension. HISTORY OF PRESENT ILLNESS: This is a 57-year-old white male with a complicated past medical history, most recently admitted with sepsis from a perforated chronic diverticulitis. He had a colostomy done, had dehiscence and infection, and had to have a wound VAC placed. He has been seeing Wound Care as an outpatient and has been healing well; however, since his discharge in the hospital last month, he has had decreased appetite and energy level, and this has gotten significantly worse over the last 3 days. He has not eaten or drank much at all according to his . He states that the food just tastes bad. He is not sure why he does not feel like eating or drinking. He has no energy and does feel depressed, but does not want to kill himself. He went in to Wound Care today and was found to have a low blood pressure in the 80 systolic, so he was sent over to the hospital here in the ER. Here, he was noted to have severe renal failure, creatinine of 7.07 up from 0.75 three weeks ago, and a potassium of 6. Also, in the emergency room, his blood pressure was found to drop from 89/50 lying to 59/36 standing with some dizziness on standing. Dr. Kumari was consulted from the emergency room and he asked the patient be admitted. He is going to see him and consider if he needs dialysis or not. The patient was given IV fluids in the emergency room. PAST MEDICAL HISTORY: 1. Recent right MCA stroke with some residual left upper extremity weakness. 2. Hypertension. 3. Dyslipidemia. 4. Benign prostatic hyperplasia. 5. History of diverticulosis with recurrent diverticulitis. 6. History of recent new-onset seizures. PAST SURGICAL HISTORY: 1. Tonsillectomy. 2. Laparotomy with colostomy. ALLERGIES: No known drug allergies. CURRENT MEDICATIONS: 1. Lisinopril 10 mg daily. 2. Atorvastatin 80 mg daily. 3. Aspirin 325 mg daily. 4. Carvedilol 12.5 mg twice a day. 5. Tamsulosin 0.4 mg daily. 6. Keppra 500 mg twice a day. 7. Nexium 20 mg daily. 8. Sertraline 50 mg daily. 9. Seroquel 25 mg daily. PAST PSYCHIATRIC HISTORY: Anxiety and depression. SOCIAL HISTORY: The patient smokes about 1 pack per day, drinks alcohol socially. No illicit drug use. He lives with his . FAMILY HISTORY: No strong family history of premature coronary artery disease, stroke, or cancer. REVIEW OF SYSTEMS: Constitutional: No fevers. He has been cold a lot recently. Eyes: No double vision or blurred vision. ENT: No congestion, drainage, or sore throat. Pulmonary: No coughing, wheezing, or shortness of breath. Cardiac: No chest pain, no palpitations, or racing heart. Gastrointestinal: No significant abdominal pain. No nausea or vomiting. He has had some loose output from the ostomy. No constipation. No blood in it. Genitourinary: See HPI. No dysuria. Has had some decreased urine output. Musculoskeletal: No muscle aches or joint pains. Skin: has noticed what appears to be a new pressure ulcer on his sacrum, from him not wanting to get out of bed much, though he is able to walk. Neurologic: The patient has some mild weakness in his left upper extremity and possibly a little bit in his left lower extremity, though he is able to walk without difficulty. No new focal deficits that he has noticed. PHYSICAL EXAMINATION: VITAL SIGNS: Blood pressure 110/53, pulse 65, respirations 16, temperature 98, O2 sat 99% on room air. GENERAL: This is a well-developed, well-nourished, white male in no apparent distress. HEENT: Pupils equal, round, and reactive to light. Oropharynx is clear without lesions, erythema, or exudate. NECK: Supple. No lymphadenopathy. No thyroid nodules or enlargement. No JVD. HEART: Regular rate and rhythm. No murmurs, rubs, or gallops. LUNGS: Clear to auscultation bilaterally. No wheezes, crackles, or rhonchi. ABDOMEN: Soft, nontender to palpation. Normoactive bowel sounds. No hepatosplenomegaly or other masses. He does have intact colostomy on his left abdomen and then in the midline, he does have a wound VAC in place without any drainage from it. EXTREMITIES: No clubbing, cyanosis, or edema. SKIN: The patient does have a sacral ulcer with a dressing in place by nursing here, and then the wound VAC as above. No other skin lesions noted. NEUROLOGIC: The patient has mild decreased strength in the left upper extremity and in the left lower extremity. Otherwise, no other focal neurologic deficits. No facial droop. He has clear speech. PSYCHIATRIC: The patient has a depressed affect. He is not suicidal or homicidal at this time. He is not having any hallucinations or early psychosis. LABORATORY DATA: CBC with a hemoglobin of 7.7, hematocrit of 23.1. This is actually stable from last month. White blood cell count and platelets are normal. Complete metabolic panel is notable for a sodium of 132; potassium of 6 ; creatinine is 7.7, up from normal last month; albumin of 3.3; the remainder is normal. ASSESSMENT: 1. Hypotension, appears to be related to volume depletion with poor p.o. intake. The patient has gotten fluids in the emergency room with some improvement in the blood pressure. We will continue IV fluids 100 mL per hour normal saline and we will monitor closely on telemetry. Blood cultures have been done in the ER in the case of infection causing the hypotension. 2. Acute renal failure, likely prerenal, though there may be some acute tubular necrosis aspect to it with how high his creatinine has gone up to. We will give IV fluids. Dr. Kumari consulted by the emergency room and he will see the patient and determine if he needs any sort of diuretic intervention. 3. Hyperkalemia, not severe range as of yet, 6 currently without any EKG changes per emergency room. We will monitor closely and give Kayexalate as needed and dialyze if necessary; however, I suspect that just IV fluids will be enough to get this down. 4. Ventral wound on abdomen, healing well with wound VAC. We will continue wound care. 5. Hypertension. We will hold antihypertensives for now until blood pressures have returned to normal. 6. Gastrointestinal prophylaxis. Put the patient on his home Nexium. 7. Code status discussed with the patient. He is a FULL CODE. Should he be incapacitated, his would be his medical decision maker, her name is Julietashu Ryder. This is actually not his , this is his long-term partner. We will have the patient fill out medical power of collections attorney paperwork for her while he is in the hospital. INDU
[2017-08-15] MEDS: HYDROcodone/Acetaminophen 10/325 mg Tablet PO PRN ×2 (03:29→18:52)
[2017-08-15] MEDS: Sodium Chloride 0.9% 1,000 ML IV SCH ×3 (03:30→21:53)
[2017-08-15 05:38] LABS: #Lymphocytes 1.5 thou/uL (1.20-3.40); #Monocytes 0.7 thou/uL (0.11-0.59); #Neutrophils 3.8 thou/uL (1.40-6.50); %Basophils 0.2 % (0.0-1.0); %Eosinophils 0.8 % (0.0-10.0); %Lymphocytes 24.3 % (21.0-51.0); %Monocytes 10.8 % (0.0-10.0); %Neutrophils 63.9 % (42.0-75.0); Hemoglobin 6.6 g/dL (14.0-18.0); Mean Corpuscular HGB CONC 32.8 g/dL (32.0-36.0); Mean Corpuscular Hemoglobin 28.6 pg (27.0-31.0); Mean Corpuscular Volume 87.3 fl (80.0-94.0); Mean Platelet Volume 8.8 fL (7.4-10.4); Platelet Count 239 thou/uL (130-400); Red Blood Cell (RBC) Count 2.32 mill/uL (4.70-6.10)
[2017-08-15 05:46] LABS: Anion Gap 14 mmol/L (10-20); BUN (Urea Nitrogen) 69 mg/dL (8.4-25.7); Calc. Creatinine Clearance 13 mL/min (70-130); Calcium 7.9 mg/dL (7.8-10.44); Carbon Dioxide 16 mmol/L (22-29); Chloride 109 mmol/L (98-107); Estimated GFR-MDRD 11; Glucose 74 mg/dL (70-105); Potassium 4.7 mmol/L (3.5-5.1); Sodium 134 mmol/L (136-145)
[2017-08-15] MEDS ORDERED: Sodium Bicarbonate 150 MEQ in Dextrose 5% in Water 850 ML IV SCH (08:15)
--- NOTE | 2017-08-15 08:59 | PDOC.PN ---
- Subjective Encounter Start Date: 08/15/17 Encounter Start Time: 11:00 Subjective: Energy level a little better. No pain. Ate breakfast and drank fluids this -: AM. - Objective Resuscitation Status: Resuscitation Status FULL:Full Resuscitation MAR Reviewed: Yes Vital Signs & Weight: Vital Signs (12 hours) Temp Pulse Resp BP 08/15/17 03:37 98.0 F 64 18 106/54 L 08/15/17 00:00 68 16 88/53 L Weight Weight 144 lb Result Diagrams: 08/15/17 04:51 08/15/17 04:51 Phys Exam - Physical Examination Constitutional: NAD HEENT: moist MMs Respiratory: no wheezing, no rales, no rhonchi Cardiovascular: RRR, no significant murmur Gastrointestinal: soft, positive bowel sounds wound vac and colostomy in place Musculoskeletal: no edema Neurological: non-focal, moves all 4 limbs Psychiatric: A&O x 3 Deviation from normal: mildly depressed affect Dx/Plan (1) Acute renal failure (ARF) Status: Acute Comment: Improving with fluid infusion (2) Hyperkalemia Code(s): E87.5 - HYPERKALEMIA Status: Resolved (3) Hypotension Status: Acute Comment: Improving with IV fluids, continue to monitor (4) Anemia Code(s): D64.9 - ANEMIA, UNSPECIFIED Status: Acute Qualifiers: Iron deficiency anemia type: chronic blood loss Comment: dropped with IV fluid replacement, transfusion today (5) BPH (benign prostatic hyperplasia) Code(s): N40.0 - BENIGN PROSTATIC HYPERPLASIA WITHOUT LOWER URINRY TRACT SYMP Status: Chronic (6) Dyslipidemia Code(s): E78.5 - HYPERLIPIDEMIA, UNSPECIFIED Status: Chronic (7) Hypertension Code(s): I10 - ESSENTIAL (PRIMARY) HYPERTENSION Status: Chronic Qualifiers: Hypertension type: essential hypertension Qualified Code(s): I10 - Essential (primary) hypertension - Plan cont current plan of care, PT/OT Continue IV fluids * . - Discharge Day Encounter end time: 11:15
[2017-08-15] MEDS: levETIRAcetam 500 MG TAB PO SCH ×2 (09:09→20:21)
--- NOTE | 2017-08-15 09:09 | PRG ---
DATE OF SERVICE: 08/15/2017 SUBJECTIVE: A 57-year-old gentleman being seen for acute kidney injury. The patient denies any naus ea, vomiting, or chest pain. PHYSICAL EXAMINATION: GENERAL: Patient is awake, alert. VITAL SIGNS: Afebrile, pulse 75, breathing 16, blood pressure 106/54. HEAD/NECK: Normocephalic. Atraumatic. EYES: EOMI. No deformity. EARS: Clear. No ulcers. NOSE: Intact. No lesions. MOUTH: Clear. No discharge. THROAT: Clear. No exudate. LUNGS: Clear. No crackles. CARDIAC: S1, S2. No rub. ABDOMEN: Benign. BS+. GENITALIA/RECTUM: Reid absent. BACK/EXTREMITIES: Edema 0+ Ulcer- NEUROLOGICAL: Alert and motor intact. SKIN: Rash- Bruise- LYMPHATICS: Edema- Ulcer- LABORATORY DATA: Show hemoglobin 6.6, potassium 4.7, creatinine 5.6. ASSESSMENT AND RECOMMENDATIONS: 1. Acute kidney injury, improved. The patient has chronic kidney disease stage 5. 2. Anemia. Would recommend transfusion. 3. Hyperkalemia, improved. 4. Metabolic acidosis. Start bicarbonate drip. Overall, prognosis is poor. No urgent indication f or dialysis.
[2017-08-15] MEDS ORDERED: Sodium Chloride 0.9% 10 ML ONE (20:05)
[2017-08-15] MEDS: Atorvastatin Calcium 40 MG TAB PO SCH (20:21)
[2017-08-15] MEDS: Tamsulosin HCl 0.4 MG CAP PO SCH (20:21)
[2017-08-15] MEDS: Sodium Bicarbonate 150 MEQ in Dextrose 5% in Water 850 ML IV SCH (20:53)
[2017-08-16] MEDS: HYDROcodone/Acetaminophen 10/325 mg Tablet PO PRN ×2 (01:04→09:54)
[2017-08-16 05:15] LABS: Hemoglobin 8.2 g/dL (14.0-18.0)
[2017-08-16] MEDS: levETIRAcetam 500 MG TAB PO SCH ×2 (09:54→20:04)
[2017-08-16] MEDS: Sodium Bicarbonate 150 MEQ in Dextrose 5% in Water 850 ML IV SCH (10:15)
--- NOTE | 2017-08-16 10:55 | PRG ---
DATE OF SERVICE: 08/16/2017 SUBJECTIVE: A 57-year-old gentleman being seen for acute kidney injury. The patient denies any naus ea, vomiting, or chest pain. PHYSICAL EXAMINATION: GENERAL: Patient is awake, alert. VITAL SIGNS: Afebrile, pulse 65, breathing 16, blood pressure 135/63. HEAD/NECK: Normocephalic. Atraumatic. EYES: EOMI. No deformity. EARS: Clear. No ulcers. NOSE: Intact. No lesions. MOUTH: Clear. No discharge. THROAT: Clear. No exudate. LUNGS: Clear. No crackles. CARDIAC: S1, S2. No rub. ABDOMEN: Benign. BS+. GENITALIA/RECTUM: Reid absent. BACK/EXTREMITIES: Edema 0+ Ulcer- NEUROLOGICAL: Alert and motor intact. SKIN: Rash- Bruise- LYMPHATICS: Edema- Ulcer- LABORATORY DATA: Show hemoglobin 8.2, creatinine is pending. ASSESSMENT AND PLAN: 1. Acute kidney injury with chronic kidney disease stage 5, we will recheck labs today. 2. Hyperkalemia. We will follow potassium. 3. Anemia, stable. 4. Medications based on glomerular filtration rate are appropriate.
[2017-08-16 11:05] LABS: #Lymphocytes 1.2 thou/uL (1.20-3.40); #Monocytes 0.5 thou/uL (0.11-0.59); #Neutrophils 3.5 thou/uL (1.40-6.50); %Basophils 0.1 % (0.0-1.0); %Eosinophils 0.8 % (0.0-10.0); %Lymphocytes 22.1 % (21.0-51.0); %Monocytes 10.1 % (0.0-10.0); %Neutrophils 66.9 % (42.0-75.0); Hemoglobin 8.6 g/dL (14.0-18.0); Mean Corpuscular HGB CONC 33.5 g/dL (32.0-36.0); Mean Corpuscular Hemoglobin 28.5 pg (27.0-31.0); Mean Corpuscular Volume 85.1 fl (80.0-94.0); Mean Platelet Volume 8.2 fL (7.4-10.4); Platelet Count 221 thou/uL (130-400); RBC Distribution Width 14.5 % (11.5-14.5); Red Blood Cell (RBC) Count 3.02 mill/uL (4.70-6.10); White Blood Cell (WBC) Count 5.2 thou/uL (4.8-10.8)
[2017-08-16 11:41] LABS: Anion Gap 10 mmol/L (10-20); BUN (Urea Nitrogen) 46 mg/dL (8.4-25.7); Calc. Creatinine Clearance 52 mL/min (70-130); Calcium 8.3 mg/dL (7.8-10.44); Carbon Dioxide 23 mmol/L (22-29); Chloride 110 mmol/L (98-107); Estimated GFR-MDRD 51; Glucose 97 mg/dL (70-105); Potassium 4.3 mmol/L (3.5-5.1); Sodium 139 mmol/L (136-145)
--- NOTE | 2017-08-16 12:43 | PDOC.PN ---
- Subjective Encounter Start Date: 08/16/17 Encounter Start Time: 12:35 Subjective: f/u for OLGA, hyperkalemia and dehydration. Overall feeling better and no -: N/V/D. Good appetite. Ambulating in room. - Objective Resuscitation Status: Resuscitation Status FULL:Full Resuscitation MAR Reviewed: Yes Vital Signs & Weight: Vital Signs (12 hours) Temp Pulse Resp BP Pulse Ox 08/16/17 07:15 98.4 F 67 18 121/58 L 96 08/16/17 04:00 98.6 F 67 18 135/63 93 L 08/16/17 02:53 94 L Weight Admit Weight 144 lb Weight 142 lb 14.4 oz I&O: 08/15/17 08/16/17 08/17/17 06:59 06:59 06:59 Intake Total 3343 Output Total 925 Balance 2418 Result Diagrams: 08/16/17 10:57 08/16/17 10:57 Additional Labs: Laboratory Tests 08/14/17 08/14/17 08/14/17 14:01 15:05 18:46 Hgb 7.7 L Sodium 132 L 134 L Potassium 6.0 H 5.5 H Creatinine 7.07 H 6.36 H 08/15/17 08/15/17 08/16/17 04:51 04:51 03:58 Hgb 6.6 L 8.2 L Sodium 134 L Potassium 4.7 Creatinine 5.61 H Radiology Reviewed by me: Yes (Renal sono - negative) EKG Reviewed by me: Yes (Tele - SR in 60's) Phys Exam - Physical Examination Constitutional: NAD alert, responsive HEENT: PERRLA, moist MMs, sclera anicteric, oral pharynx no lesions Neck: no nodes, no JVD, supple, full ROM Respiratory: no wheezing, no rales, no rhonchi, clear to auscultation bilateral S1, S2 Cardiovascular: RRR, no significant murmur, no rub, gallop Colostomy in place, intact midline abd wound with dressing in place Gastrointestinal: soft, non-tender, no distention, positive bowel sounds Musculoskeletal: no edema, pulses present Neurological: non-focal, normal sensation, moves all 4 limbs Psychiatric: normal affect, A&O x 3 Skin: no rash, normal turgor, cap refill <2 seconds Dx/Plan (1) OLGA (acute kidney injury) Code(s): N17.9 - ACUTE KIDNEY FAILURE, UNSPECIFIED Status: Acute Comment: Improving with volume replacement and avoidance of nephrotoxic medications, continue Sodium bicarbonate gtt and monitor trend, repeat creatinine in am (2) Hypotension Status: Acute Comment: Improving with IV fluids, limit antihypertensives another 24h (3) Anemia Code(s): D64.9 - ANEMIA, UNSPECIFIED Status: Acute Qualifiers: Iron deficiency anemia type: chronic blood loss Comment: s/p 2U PRBC's, H/H stable currently, continue to monitor trend, am H/H (4) Hyperkalemia Code(s): E87.5 - HYPERKALEMIA Status: Acute Comment: Resolved with correction of OLGA (5) Tobacco abuse Code(s): Z72.0 - TOBACCO USE Status: Chronic Comment: Tobacco cessation resources - Plan PT/OT, foster care social worker, DVT proph w/SCDs Stable currently -: Continue Sodium bicarbonate gtt -: Avoid nephrotoxic medications -: WCT with local care and colostomy monitoring -: OOB/ambulate with PT * AM lab: BMP, CBC * Transfer to medical * ? Home in 24h
[2017-08-16] MEDS: Tamsulosin HCl 0.4 MG CAP PO SCH (20:04)
[2017-08-16] MEDS: Atorvastatin Calcium 40 MG TAB PO SCH (20:04)
[2017-08-17] MEDS: Sodium Bicarbonate 150 MEQ in Dextrose 5% in Water 850 ML IV SCH (00:40)
[2017-08-17 05:12] LABS: Anion Gap 10 mmol/L (10-20); BUN (Urea Nitrogen) 29 mg/dL (8.4-25.7); Calc. Creatinine Clearance 81 mL/min (70-130); Calcium 7.9 mg/dL (7.8-10.44); Carbon Dioxide 29 mmol/L (22-29); Chloride 106 mmol/L (98-107); Estimated GFR-MDRD 85; Glucose 94 mg/dL (70-105); Potassium 4.1 mmol/L (3.5-5.1); Sodium 141 mmol/L (136-145)
[2017-08-17 05:30] LABS: Band 2 % (5-11); Eosinophils 1 % (0-10); Hemoglobin 8.8 g/dL (14.0-18.0); Lymphocytes 26 % (21-51); MDiff Complete? YES; Mean Corpuscular HGB CONC 33.6 g/dL (32.0-36.0); Mean Corpuscular Hemoglobin 28.6 pg (27.0-31.0); Mean Corpuscular Volume 85.1 fl (80.0-94.0); Mean Platelet Volume 8.6 fL (7.4-10.4); Monocytes 7 % (0-10); Neutrophil 64 % (42-75); Platelet Count 239 thou/uL (130-400); RBC Distribution Width 14.5 % (11.5-14.5); Red Blood Cell (RBC) Count 3.09 mill/uL (4.70-6.10); White Blood Cell (WBC) Count 6.1 thou/uL (4.8-10.8)
[2017-08-17 07:21] VITALS: BP 162/76; TEMP 98.3
[2017-08-17] MEDS: levETIRAcetam 500 MG TAB PO SCH (08:49)
[2017-08-17] MEDS: HYDROcodone/Acetaminophen 10/325 mg Tablet PO PRN (08:54)
--- NOTE | 2017-08-17 10:36 | DIS ---
DATE OF ADMISSION: 08/14/2017 DATE OF DISCHARGE: 08/18/2017 DISCHARGE DIAGNOSES: 1. Acute kidney injury, multifactorial, resolving. 2. Hyperkalemia secondary to #1, resolved. 3. Hypotension secondarily to dehydration, resolved. 4. Chronic normocytic anemia, status post 2 units of packed red blood cells. 5. Tobacco abuse. 6. Chronic ventral abdominal wound. CONSULTATIONS: Dr. Kumari with Nephrology Service. PERTINENT LABORATORY DATA AND X-RAY FINDINGS: Potassium ranged between 4.1-6.0, creatinine ranged be tween 0.92-7.07. Estimated GFR ranged between and 80-85. CBC showed a hemoglobin ranging between 6. 6-8.8, MCV 85. Renal ultrasound dated 08/14/2017, negative. HOSPITAL COURSE: The patient was initially admitted after presenting with hypotension, generalized w eakness, decreased appetite and energy level. The patient underwent general evaluation with screenin g metabolic panel showing acute kidney injury with initial creatinine at 7.07 with a previously noted creatinine of 0.75 approximately 3 weeks prior to this admission. The patient was noted with orthos tatic hypotension and placed on IV fluids. The patient was evaluated by the Nephrology Service with recommendations for aggressive hydration, sodium bicarbonate and discontinuation of ARMIN inhibitors an d nephrotoxic agents. Serial creatinine monitoring showed overall improving values with hydration an d avoidance of nephrotoxic agents. Creatinine trend normalized by the time of discharge with stabili zation of all electrolytes. The patient did not require any hemodialysis during the hospital course and remained clinically stable throughout. The patient's hypotension did improve with hydration and correction of acute kidney injury. The patient received local care for chronic ventral abdominal wou nd as well as colostomy care. The patient able to tolerate regular oral intake, ambulate without ass istance or difficulty and overall remained clinically stable. I have examined the patient at the kelly e of discharge and discussed followup instructions, pertinent laboratory and radiographic findings. The patient and significant other have verbalized understanding and agreement and will discharge home on 08/18/2017. DISCHARGE MEDICATIONS: 1. Aspirin 325 mg 1 tab p.o. daily. 2. Lipitor 80 mg p.o. at bedtime. 3. Coreg 12.5 mg p.o. b.i.d. 4. Nexium 20 mg p.o. daily. 5. [place] 10/325 mg 1-2 tabs p.o. q.6 hours p.r.n. pain. 6. Keppra 500 mg 1 tab p.o. b.i.d. 7. Lisinopril 10 mg p.o. daily, resume on 08/22/2017. 8. Seroquel 25 mg p.o. at bedtime. 9. Sertraline 50 mg p.o. daily. 10. Flomax 0.4 mg p.o. at bedtime. 11. Coenzyme Q10 200 mg p.o. daily. FOLLOWUP: The patient will follow up with the primary care provider, Dr. Mehnaz Rubin within 7 days of discharge. CONDITION ON DISCHARGE: Stable. ACTIVITY: ad chino. SPECIAL INSTRUCTIONS: The patient will follow up with [facility] 2 times per week. DIET: Heart healthy. CODE STATUS: FULL. DISPOSITION: Home, 08/18/2017. Total time preparing and coordinating discharge is 32 minutes.
== END 2017-08-17 10:29 | disposition home or self-care (01) | DRG 683 ==
LOC: ERS 13:54 → 2NO 15:31 → T4-A 08-16 15:21
PROVIDERS: ADMIT Emergency Medicine; ATTEND Emergency Medicine
PROC: 30233N1 Transfusion of Nonautologous Red Blood Cells into Peripheral Vein, Percutaneous Approach (ICD-10-PCS; principal; 2017-08-15)
DX: N17.9 Acute kidney failure, unspecified (principal); E87.2 Acidosis; I10 Essential (primary) hypertension; E78.5 Hyperlipidemia, unspecified; I95.1 Orthostatic hypotension; N40.0 Benign prostatic hyperplasia without lower urinary tract symptoms; D50.9 Iron deficiency anemia, unspecified; E87.5 Hyperkalemia; F17.210 Nicotine dependence, cigarettes, uncomplicated; Z93.3 Colostomy status; Z79.82 Long term (current) use of aspirin; Z79.899 Other long term (current) drug therapy
CPT/HCPCS: 36415; 36430; 76770; 80048; 80053; 85007; 85014; 85018; 85025; 85027; 86850; 86900; 86901; 93005; 94640; 96360; 96361; A4216; G8978-GP-CK; G8979-GP-CI; G8987-GO-CL; G8988-GO-CJ; J7070; J7620; P9016

== ENCOUNTER 2017-08-21 10:56 | Outpatient (CLI) | payer SELFPAY ==
--- NOTE | 2017-08-21 15:39 | PRG ---
DATE OF SERVICE: 08/21/2017 HISTORY: Mr. Dante Vences is a very pleasant 57-year-old gentleman, who presents to the Wound Center for evaluation of a midline abdominal wound subsequent to surgery for perforated sigmoid diverticuli tis on 07/08/2017. The patient underwent the preceding procedure by Dr. Shaggy Perry. Negative pre ssure therapy was initiated intraoperatively, and upon discharge from [facility] er, the patient was referred to the Wound Center for assistance with dressing changes of the wound [facility]. The patient was admitted to [facility] on 08/14/2017. During the patient' s hospital stay, Mr. Vences was treated for anemia and dehydration. The patient was discharged from [facility] on 08/17/2017. Since the patient's visit to the Wound Center on 06/2017, negative pressure therapy has been discontinued. The patient is now receiving dressing vinson es of Promogran and Aquacel followed by an ABD on a daily basis after cleansing and irrigation with t he assistance of his . PHYSICAL EXAMINATION: VITAL SIGNS: Temperature 97.6, pulse 70, respirations 16, blood pressure 141/63. ABDOMEN: Soft. A midline abdominal wound is present. Granulation tissue is present within the woun d margins. No purulent drainage is associated with the wound. No erythema of the skin surrounding t he wound is present. No maceration of the skin of the periwound is noted. The dimensions of the wou nd are approximately 12.9 x 3.0 cm. ASSESSMENT AND PLAN: 1. Midline abdominal wound as described above. Dressing changes of Promogran and Aquacel and an ABD will be continued on a daily basis after cleansing and irrigation with the assistance of the patient 's . The patient will be seen by Dr. Perry in approximately 1 week. I will see Mr. Vences again in 2 weeks. 2. History of hypertension. 3. History of diverticulitis. 4. Osteoarthritis. 5. History of gastrointestinal bleeding. 6. Middle cerebral artery cerebrovascular accident. 7. Benign prostatic hypertrophy. 8. Post stroke seizures.
[2017-08-21] MEDS ORDERED: Sodium Chloride 0.9% 15 ML NEB ONE (16:30)
== END 2017-08-21 10:57 | disposition home or self-care (01) ==
LOC: WCC 10:56
PROVIDERS: ATTEND Family Medicine
DX: T81.89XD Other complications of procedures, not elsewhere classified, subsequent encounter (principal); N40.1 Benign prostatic hyperplasia with lower urinary tract symptoms; M19.90 Unspecified osteoarthritis, unspecified site; I69.398 Other sequelae of cerebral infarction; I63.519 Cerebral infarction due to unspecified occlusion or stenosis of unspecified middle cerebral artery; I10 Essential (primary) hypertension; K57.92 Diverticulitis of intestine, part unspecified, without perforation or abscess without bleeding
CPT/HCPCS: 97602; A4218

== ENCOUNTER 2017-08-31 10:09 | Outpatient (CLI) | payer SELFPAY ==
[2017-08-31] MEDS ORDERED: Sodium Chloride 0.9% 15 ML NEB ONE (21:14)
== END 2017-08-31 10:10 | disposition home or self-care (01) ==
LOC: WCC 10:09
PROVIDERS: ATTEND Family Medicine
DX: T81.89XD Other complications of procedures, not elsewhere classified, subsequent encounter (principal)
CPT/HCPCS: 97602; A4218

== ENCOUNTER 2017-09-21 08:10 | Outpatient (CLI) | payer SELFPAY ==
--- NOTE | 2017-09-21 10:47 | PRG ---
DATE OF SERVICE: 09/21/2017 HISTORY: Mr. Dante Vences is a very pleasant 57-year-old gentleman who presents to the Wound Center for evaluation of a midline abdominal wound subsequent to surgery for perforated sigmoid diverticulit is on 07/08/2017. The patient underwent the preceding procedure by Dr. Shaggy Perry. Negative pres sure therapy was initiated intraoperatively and upon discharge from [facility] , the patient was referred to the Wound Center for assistance with dressing changes of the wound VAC. The patient was admitted to [facility] on 08/14/2017. During the patient's hospital stay, Mr. Vences was treated for anemia and dehydration. The patient was discharged from [facility] on 08/17/2017. After the patient's visit to the Wound Center on 2017, negative pressure therapy was discontinued. The patient has been performing dressing changes o f Promogran, Aquacel, followed by an ABD on a daily basis after cleansing and irrigation with the ass istance of his . PHYSICAL EXAMINATION: VITAL SIGNS: Temperature 97.6, pulse 53, respirations 18, blood pressure 114/58. ABDOMEN: Soft. A midline abdominal wound is present, which measures approximately 3.3 x 1.4 cm. Gr anulation tissue is present within the wound margins. No purulent drainage is associated with the wo und. No erythema of the skin surrounding the wound is present. No maceration of the skin of the per iwound is noted. ASSESSMENT AND PLAN: 1. Midline abdominal wound as described above. Dressing changes of Promogran and bordered gauze are to be performed on a daily basis after cleansing and irrigation with the assistance of the patient's . I will see Mr. Vences again in 3 weeks. 2. History of hypertension. 3. History of diverticulitis. 4. Osteoarthritis. 5. History of gastrointestinal bleeding. 6. Middle cerebral artery cerebrovascular accident. 7. Benign prostatic hypertrophy. 8. Post-stroke, seizures.
[2017-09-21] MEDS ORDERED: Sodium Chloride 0.9% 15 ML NEB ONE (14:37)
== END 2017-09-21 08:11 | disposition home or self-care (01) ==
LOC: WCC 08:10
PROVIDERS: ATTEND Family Medicine
DX: T81.89XD Other complications of procedures, not elsewhere classified, subsequent encounter (principal); M19.90 Unspecified osteoarthritis, unspecified site; I63.9 Cerebral infarction, unspecified; N40.0 Benign prostatic hyperplasia without lower urinary tract symptoms; I69.398 Other sequelae of cerebral infarction; R56.9 Unspecified convulsions; Z86.79 Personal history of other diseases of the circulatory system
CPT/HCPCS: 97602; A4218

== ENCOUNTER 2018-01-11 11:35 | Inpatient (IN) | payer SELFPAY ==
[2018-01-11 12:09] LABS: #Lymphocytes 1.1 thou/uL (1.20-3.40); #Monocytes 0.5 thou/uL (0.11-0.59); #Neutrophils 4.7 thou/uL (1.40-6.50); %Basophils 0.3 % (0.0-1.0); %Eosinophils 0.6 % (0.0-10.0); %Lymphocytes 17.2 % (21.0-51.0); %Monocytes 8.3 % (0.0-10.0); %Neutrophils 73.7 % (42.0-75.0); Hemoglobin 12.6 g/dL (14.0-18.0); Mean Corpuscular HGB CONC 33.9 g/dL (32.0-36.0); Mean Corpuscular Hemoglobin 32.7 pg (27.0-31.0); Mean Corpuscular Volume 96.5 fL (78.0-98.0); Mean Platelet Volume 9.1 fL (7.4-10.4); Platelet Count 217 thou/uL (130-400); RBC Distribution Width 11.7 % (11.5-14.5); Red Blood Cell (RBC) Count 3.86 mill/uL (4.70-6.10); White Blood Cell (WBC) Count 6.4 thou/uL (4.8-10.8)
--- NOTE | 2018-01-11 12:12 | RAD ---
PORTABLE CHEST: DATE: 01/11/2018. PROVIDED CLINICAL HISTORY: Cough. FINDINGS: Comparison 07/07/17. Cardiac silhouette appears enlarged. There is airspace disease in the left mid and lower lung zones suspicious for pneumonia. Lungs appear otherwise clear. No pleural fluid or pn eumothorax apparent. IMPRESSION: Airspace disease in the left mid and lower lung zones compatible with pneumonia in the appropriate cl inical context. Radiographic followup after treatment is recommended. POS: [facility]
[2018-01-11] MEDS ORDERED: Azithromycin 500 MG VIAL ONE ×2 (12:17→12:20)
[2018-01-11] MEDS ORDERED: cefTRIAXone\\ROCEPHIN 2 GM VIAL ONE (12:18)
[2018-01-11 12:33] LABS: ALT (SGPT) 15 U/L (8-55); AST (SGOT) 16 U/L (5-34); Albumin 3.3 g/dL (3.5-5.0); Alkaline Phosphatase 60 U/L (40-150); Anion Gap 17 mmol/L (10-20); BUN (Urea Nitrogen) 23 mg/dL (8.4-25.7); Bilirubin, Total 0.9 mg/dL (0.2-1.2); CK (CPK) 50 U/L (30-200); Calc. Creatinine Clearance 0 mL/min (70-130); Calcium 8.2 mg/dL (7.8-10.44); Carbon Dioxide 16 mmol/L (22-29); Chloride 108 mmol/L (98-107); Estimated GFR-MDRD 28; Globulin 5.5 g/dL (2.4-3.5); Glucose 90 mg/dL (70-105); Potassium 3.6 mmol/L (3.5-5.1); Protein, Total 8.8 g/dL (6.0-8.3); Sodium 137 mmol/L (136-145)
[2018-01-11 12:37] LABS: CKMB 0.8 ng/mL (0-6.6); Troponin I 0.137 ng/mL (< 0.028)
[2018-01-11] MEDS ORDERED: Fentanyl 100 MCG/2 ML VIAL ONE (12:54)
[2018-01-11 13:00] LABS: Actual Bicarbonate (HCO3a) 16.4 mEq/L (22-28); Analyzer IN Cardio ER; Base Excess (BEa) -10.1 mEq/L (-2.0 to +3.0); CO2 Tension 38.4 mmHg (35.0-45.0); Calcium, Ionized 1.02 mmol/L (1.12-1.30); Carboxyhemoglobin (COHb) 0.7 gm% (0.0-3.0); Hemoglobin (Hb) 10.6 g/dL (14.0-18.0); Potassium - ABG Lab 3.32 mmol/L (3.70-5.30)
[2018-01-11 13:01] LABS: pH, Arterial 7.25 (7.35-7.45)
[2018-01-11 13:02] LABS: Puncture Site RBA
--- NOTE | 2018-01-11 13:17 | CT ---
CT THORAX WITH CONTRAST CT ABDOMEN WITH CONTRAST CT PELVIS WITH CONTRAST: (trauma protocol) Date: 01/11/18 Time: 1224 hours HISTORY: 57-year-old male status post trauma to the chest, abdomen, and pelvis several days ago, with persiste nt pain in right ribs, now presents with generalized weakness, dyspnea, abdominal pain, body aches, a nd chills. TECHNIQUE: IV administration of iodinated contrast media. 100 mL Isovue-370. No oral contrast media. Single phase scans of thorax, abdomen, and pelvis. Sagittal reconstructions of thoracic and lumbar spine. FINDINGS: Thoracic and lumbar spine: Vertebral body heights are maintained, with no evidence of acute compression fracture. Thorax: There is consolidation of almost the entire left lower lobe. There is sparing of the anterobasilar se gment, but the rest of the left lower lobe is opacified. There are no adjacent acute left rib fractur es. There is a focal expansion of the posterolateral aspect of the left 8th rib representing an old, healed fracture deformity. The same is true for the posterior aspect of the left 10th rib. There may or may not be a small pleural effusion associated with the consolidation, but it is difficult to be s ure because that pleural effusion would be of the same low attenuation as the consolidation. There is certainly no moderate sized or large left pleural effusion. There is definitely no pleural effusion on the right side. No consolidation in the right lung or left upper lobe. No thoracic aortic dissecti on or aneurysm. Nonspecific scattered mildly enlarged mediastinal lymph nodes. No mediastinal hematom a. No hilar lymphadenopathy. No pericardial effusion. Abdomen/Pelvis: There is a slightly greater than 2 cm hepatic hemangioma at the dome of the right lobe of the liver, hepatic segment 7. No hepatic laceration or mass. All of the images of the abdomen are degraded by pa tient motion. There is a left anterolateral colostomy. There is a wide diastasis between the left and right rectus abdominus musculature, which is a new finding compared to the previous CT's of 07/08/17 and 07/14/17. This diastasis is approximately 10.5 cm transverse x 17 cm craniocaudal, resulting in anterior bulging of intraperitoneal contents, including omentum, a loop of transverse colon and some small bowel loops, into the level of the subcutaneous fat. There is a new finding of small, patchy low attenuation lesions in the left kidney, mostly in the upp er pole parenchyma, which are ill-defined. These were partially visualized on the CT of 07/14/17, and they could have represented focal pyelonephritis previously, but the fact that they persist on the c urrent CT suggests that they may instead represent renal infarctions. There is no hydronephrosis. Rig ht kidney, pancreas, adrenals, and spleen are normal. No small bowel dilation. Normal appendix. There is a Mick's pouch in the pelvis. Decompressed urinary bladder. No acute pelvic fracture or dislo cation. IMPRESSION: 1. Consolidation of almost the entire left lower lobe is evidence for left lower lobe pneumonia. 2. Interval development of diastasis between the right and left rectus abdominus musculature resulti ng in broad based, shallow herniation of intraperitoneal contents anteriorly into the level of the ventral subcutaneous fat. 3. Left-sided colostomy, and status post Mick's pouch. 4. Multifocal low density lesions in the left renal parenchyma, which are favored to represent left renal infarctions. 5. No evidence of acute traumatic injury. JUAN Bloom POS: [facility]
[2018-01-11] MEDS ORDERED: Senokot S 8.6-50 MG TAB PO PRN (14:23)
[2018-01-11 14:24] LABS: Bilirubin Negative (Negative); Blood, Urine Negative (Negative); Glucose, Urine (Dipstick) Negative (Negative); Leukocyte Negative (Negative); Nitrite Negative (Negative); Protein, Urine (Dipstick) 30 mg/dL (Neg-Trace); Urobilinogen 0.2 mg/dL (0.2-1.0); pH, Urine 5.5 (5.0-9.0)
[2018-01-11 14:28] LABS: Clarity Clear (Clear); Specific Gravity, Urine 1.034 (1.002-1.036)
[2018-01-11 14:31] LABS: Bacteria/HPF None Seen HPF (None Seen); RBC/HPF 0-3 HPF (0-3)
[2018-01-11 14:32] LABS: Pathc Cast-AUWi Flag 5.37 (0-2.49)
[2018-01-11 14:46] LABS: Crystals/HPF RARE AMORPH URATES HPF (Negative); Hyaline Casts/LPF 0-3 HYALINE CAST LPF (0-3 Hyaline); Other Casts/LPF None Seen LPF (0-3 Hyaline); Renal Epithelial None Seen HPF (0-3); Transitional Epithelial NONE SEEN HPF (0-3)
[2018-01-11] MEDS ORDERED: Lorazepam 2 MG/ML VIAL ONE (14:54)
[2018-01-11] MEDS ORDERED: Rocuronium Bromide 50 MG/5 ML VIAL ONE (15:09)
[2018-01-11 15:19] LABS: Troponin I 0.109 ng/mL (< 0.028)
[2018-01-11 15:37] LABS: Actual Bicarbonate (HCO3a) 17.9 mEq/L (22-28); Analyzer IN Cardio ER; Base Excess (BEa) -11.7 mEq/L (-2.0 to +3.0); CO2 Tension 57.3 mmHg (35.0-45.0); Calcium, Ionized 1.03 mmol/L (1.12-1.30); Carboxyhemoglobin (COHb) 0.7 gm% (0.0-3.0); Hemoglobin (Hb) 11.9 g/dL (14.0-18.0); O2 Tension (PaO2) 60.5 mmHg (80.0-100.0); Potassium - ABG Lab 3.63 mmol/L (3.70-5.30)
[2018-01-11 15:39] LABS: pH, Arterial 7.11 (7.35-7.45)
[2018-01-11 15:40] LABS: ALV-art Gradient 224.375 (0-20); Puncture Site LBA
[2018-01-11] MEDS ORDERED: fentaNYL Citrate/PF 2,000 MCG in Sodium Chloride 0.9% 60 ML IV SCH (15:52)
--- NOTE | 2018-01-11 16:04 | RAD ---
FRONTAL RADIOGRAPH CHEST PORTABLE SUPINE: 01/11/18 at 3:14 p.m. COMPARISON: 01/11/18 at 11:44 a.m. HISTORY: Respiratory distress, status post intubation, trauma. FINDINGS: endotracheal tube and nasogastric tube in place. New left perihilar and left basilar air space diseas e noted with medial left basilar consolidation/collapse. Endotracheal tube terminates at the level of the clavicular heads and nasogastric tube extends into the left upper abdomen. IMPRESSION: Extensive air space disease noted on the left, new when compared to the 01/11/18 exam performed at 11: 44 a.m. This may be on the basis of contusion, infectious pneumonitis or aspiration. Followup to res olution advised. POS: [facility]
[2018-01-11] MEDS ORDERED: Midazolam HCl 5 mg/ml Vial ONE ×2 (16:32→18:00)
--- NOTE | 2018-01-11 17:24 | HP ---
DATE OF ADMISSION: 01/11/2018 CHIEF COMPLAINT: Shortness of breath. HISTORY OF PRESENT ILLNESS: This patient is a 57-year-old male who presented to the emergency department. The patient reports that on Monday, he had a mechanical fall, tripping over something in his home. He impacted his right ribs on some concrete blocks. He had immediate pain and has been dealing with that for the last few days. He has had increasing shortness of breath and generalized weakness and ultimately presented to the emergency department. In the emergency department, the patient has had hypotension and tachycardia. He received 4 liters of IV normal saline. Subsequently, his sats have dropped and his blood pressure dropped again briefly. He was placed on BiPAP and his sats are better and his blood pressure has stabilized again. He primarily reports the pain on the right side and is described as sharp in nature. REVIEW OF SYSTEMS: The patient reports he has had some body aches and chills, but no specific fever. Denies nausea, vomiting, diarrhea, constipation, chest pain. He does admit to some cough and sputum production, which is thick and discolored, yellow. Otherwise, a 10-system review is negative except for those things mentioned in the history of present illness. PAST MEDICAL HISTORY: Notable for prior CVA with some residual left upper extremity weakness, hypertension, dyslipidemia, BPH, history of diverticulosis with diverticulitis and history of seizure disorder. The patient was admitted here in August, at which time he had hypotension and acute renal failure, which was felt to be partly due to dehydration. He also had some chronic anemia at that time. PAST SURGICAL HISTORY: The patient had a tonsillectomy. He had diverticular rupture with surgery requiring a diverting colostomy. The patient's central abdominal wound subsequently had major dehiscence requiring prolonged wound VAC. FAMILY HISTORY: Notable for no evidence of premature cardiac pulmonary disease or cancer. SOCIAL HISTORY: The patient continues to smoke a pack and a half of cigarettes per day. He drinks socially. He denies drugs. He is and lives with his . He is a full code and reports that his is on her way here. ALLERGIES: None. CURRENT MEDICATIONS: Lisinopril 10 mg 1 p.o. daily, atorvastatin 80 mg daily, aspirin 325 daily, carvedilol 12.5 mg 1 p.o. b.i.d., tamsulosin 0.4 mg daily, Keppra 500 mg 2 p.o. daily, Nexium 20 mg p.o. daily, sertraline 50 mg daily, Seroquel 25 mg daily. PHYSICAL EXAMINATION: VITAL SIGNS: Currently, most recent BP 98/57, pulse 117, respirations 32 on BiPAP, O2 sat 99. Lowest recorded blood pressure was 77/54 and sats as low as the 80s. GENERAL APPEARANCE: The patient is sitting up in bed, wearing BiPAP. He is awake and alert. HEENT: Pupils are reactive. NECK: Supple and symmetric. CARDIOVASCULAR: Tachycardic without murmurs or rubs. LUNGS: Have diffuse rales throughout all lung steve. ABDOMEN: Soft, nondistended. Positive bowel sounds. No masses. Slight epigastric tenderness with no guarding or rebound. Large, thin ventral scar with atrophied abdominus recti. LLQ stoma. EXTREMITIES: Warm and dry without edema. He does have good peripheral pulses. LABORATORY DATA: White count 6.4, hemoglobin 12.6, platelets 217,000. Blood gas, pH 7.25, pCO2 38, pO2 62, O2 sat 86.7, bicarbonate 16.4. Sodium 137, potassium 3.6, chloride 108, CO2 of 16, BUN 23, creatinine 2.4, glucose 90. Lactic acid 5.0, calcium 8.2, AST 16, ALT 15. CK 50. Troponin 0.137. BNP 1843. Total serum protein is 8.8. Chest x-ray shows airspace disease in the left mid and lower lung zones compatible with pneumonia. IMAGING: CT chest, abdomen and pelvis shows consolidation of the entire left lower lobe consistent with pneumonia. There is diastasis between the right and left rectus abdominis resulting in broad based shallow herniation of intraperitoneal contents. Left-sided colostomy status post Mick's pouch. Multifocal low-density lesions in the left renal parenchyma, possibly left renal infarctions. EKG shows sinus tachycardia with some PVCs, some T-wave inversion in the lateral leads with some left axis deviation. IMPRESSION AND PLAN: 1. Sepsis. The patient appears to have a substantial left-sided pneumonia with instability of vital signs including hypotension and tachycardia with hypoxia and tachypnea. The patient has received aggressive fluid resuscitation and has been given Rocephin and azithromycin in the emergency department. We will add vancomycin. 2. Pneumonia. The patient is placed in the CCU. We will consult Pulmonary. We will continue with broad spectrum antibiotics for what appears to be community-acquired pneumonia. Interestingly, this is on the left side and his rib injury was on the right. 3. Cardiac. The patient has received 4 liters of fluid for resuscitation of his hypotension. His blood pressure is better, but now he appears to have some generalized rales. His BNP was elevated at presentation as was his troponin. He gives no significant history of cardiac disease, but he does have Coreg in place, which may simply be for his blood pressure. We will obtain an echocardiogram and consult Cardiology. 4. Acute renal insufficiency. The patient has a history of prior similar episodes. His baseline creatinine is normal and is significantly elevated above that now. Again, he has received aggressive fluid resuscitation. We will continue to monitor his renal function as he improves. 5. Lactic acidosis, likely secondary to sepsis. The patient appears to have primary metabolic acidosis on his ABG. 6. History of hypertension. The patient's home medications will continue to be held until his pressure is more stabilized. 7. History of seizure disorder. Continue with the oral Keppra. 8. History of hyperlipidemia. Continue with Lipitor. MTDD
[2018-01-11] MEDS ORDERED: Sodium Bicarb 50 MEQ/50 ML Abboject 8.4% SYRINGE ONE (17:52)
[2018-01-11 18:04] LABS: Lactic Acid 2.5 mmol/L (0.5-2.2)
[2018-01-11 18:13] LABS: Troponin I 0.156 ng/mL (< 0.028)
--- NOTE | 2018-01-11 18:34 | RAD ---
CHEST 1 VIEW: Date: 01/11/18 COMPARISON: 01/11/18. HISTORY: Status post central line placement. FINDINGS: Endotracheal and nasogastric tube are noted. Right-sided central venous catheter terminates over the superior vena cava. There is no pneumothorax. Persistent opacification of left hemithorax. Stable car diac silhouette. IMPRESSION: Interval placement of right-sided central venous catheter with distal tip projecting over superior ve na cava. No pneumothorax. POS: [facility]
[2018-01-11 18:40] LABS: Phosphorus 3.8 mg/dL (2.3-4.7)
[2018-01-11 18:44] LABS: Magnesium 0.7 mg/dL (1.6-2.6)
[2018-01-11] MEDS ORDERED: Propofol BOLUS 1,000 MG/100 ML VIAL IV PRN (18:59)
[2018-01-11] MEDS ORDERED: Lorazepam 2 MG/ML VIAL SLOW IVP PRN (18:59)
[2018-01-11] MEDS ORDERED: Propofol 1,000 MG/100 ML VIAL IV PRN (18:59)
[2018-01-11] MEDS ORDERED: Fentanyl BOLUS 250 ML IVPB PRN (18:59)
[2018-01-11] MEDS ORDERED: Fentanyl CADD 250 ML IVPB SCH (18:59)
[2018-01-11 19:06] LABS: Actual Bicarbonate (HCO3a) 16.1 mEq/L (22-28); Base Excess (BEa) -9.9 mEq/L (-2.0 to +3.0); Calcium, Ionized 0.97 mmol/L (1.12-1.30); Carboxyhemoglobin (COHb) 0.7 gm% (0.0-3.0); Hemoglobin (Hb) 11.2 g/dL (14.0-18.0); O2 Tension (PaO2) 128.8 mmHg (80.0-100.0); Potassium - ABG Lab 3.49 mmol/L (3.70-5.30); Puncture Site RRA; pH, Arterial 7.27 (7.35-7.45)
[2018-01-11] MEDS ORDERED: Sodium Chloride 0.9% 1,000 ML IV SCH (20:00)
[2018-01-11 20:34] LABS: Medtox Reader # READER 4; Opiate Screen Detected (NotDetected)
[2018-01-11 20:35] LABS: Tricyclic Screen Detected (NotDetected)
[2018-01-11 20:36] LABS: Amphetamine Not Detected (NotDetected); Barbiturates Screen Not Detected (NotDetected); Benzodiazepine Screen Not Detected (NotDetected); Cocaine Metabolite Screen Not Detected (NotDetected); Medtox Control Line Valid? VALID (VALID); Methadone Not Detected (NotDetected); Methamphetamine Not Detected (NotDetected); Oxycodone Screen Not Detected (NotDetected); Phencyclidine (PCP) Not Detected (NotDetected); THC/Cannabinoid Screen Not Detected (NotDetected)
[2018-01-11] MEDS: Sodium Bicarbonate 150 MEQ in Dextrose 5% in Water 1,000 ML IV SCH (20:57)
[2018-01-11] MEDS ORDERED: Famotidine 20 MG TAB PO SCH (21:00)
[2018-01-11] MEDS: Vancomycin HCl 1 GM in Premix Bag 1 BAG IVPB SCH (21:05)
[2018-01-11 22:54] VITALS: BMI 28.3
[2018-01-11] MEDS: Norepinephrine 8 MG/250 ML BAG IVPB PRN (22:55)
[2018-01-12] MEDS: Hydrocortisone Sod Succ/PF 100 mg/2 ml Vial IVP SCH ×3 (01:14→12:30)
[2018-01-12] MEDS: Acetaminophen 325 MG TAB PO PRN ×2 (01:27→07:03)
[2018-01-12] MEDS ORDERED: MEROPENEM 1 GM/50 ML 1 GM in Premix Bag 1 BAG IVPB SCH (02:00)
--- NOTE | 2018-01-12 02:42 | CON ---
DATE OF CONSULTATION: 01/11/2018 HISTORY OF PRESENT ILLNESS: Mr. Vences is a gentleman that is well known to this hospital. He was seen in the emergency room this morning for shortness of breath. CT revealed a dense alveolar infiltrate in his left base. He was volume resuscitated. Subsequently, we required intubation late this afternoon. He was admitted to the ICU. I evaluated him in the emergency department after he was intubated and he was unable to give a history. PAST MEDICAL HISTORY: 1. Remarkable for CVA. 2. History of perforated diverticulitis. 3. History of laparotomy with healing by secondary intention. 4. History of a colostomy. 5. History of hypertension. 6. Lipid disorder. 7. Benign prostatic hypertrophy. 8. History of wound dehiscence with his surgery. SOCIAL HISTORY: He is a smoker of a pack and a half a day. He drinks occasionally. He supposedly does not use drugs. He is , lives with his . ALLERGIES: He reports no drug allergies. REVIEW OF SYSTEMS: Not obtainable. PHYSICAL EXAMINATION: GENERAL: He was unresponsive, intubated, and on pressors. VITAL SIGNS: Blood pressure is 115/54 when he arrived in the unit; heart rate was in the 90s; respiratory rates were mechanical ventilation at 30s, on assist- control ventilation. HEENT: Pupils were small and reactive. His sclerae were anicteric. Extraocular movements were not assessable. He has no cervical lymphadenopathies. LUNGS: Remarkable for lateral crackles at his left base. HEART: Regular rhythm, no S3. ABDOMEN: He has a healed large wound in his abdomen. He has a left mid lower quadrant ostomy. EXTREMITIES: Without clubbing, cyanosis or edema. His extremities are mottled. LABORATORY DATA: White count 6.4, hemoglobin 12.6, platelets 217,000. There is no manual differential done in the ER, so bands are not known. Sodium 137, potassium 3.6, chloride 108, bicarbonate 16, BUN 23, creatinine ____ _, CO2 of 38, pO2 of 62 right after lunch and at 3:30 was 711, CO2 of 57, pO2 of 60 after intubation. Blood gas 07:00 tonight , CO2 of 36, pO2 of 128. IMPRESSION: Clinical sepsis associated with a left lower lobe pneumonia, possibly aspiration mediated. PLAN: 1. Broad-antimicrobial coverage. 2. Vitamin C protocol given the severity of his illness. There is no downside to this and it may help, although clinical trials are pending. 3. Mechanical ventilation. 4. Nebulized treatments. Critical care time 40 minutes. We will continue to follow with the other physicians caring for him. INDU
[2018-01-12] MEDS: Norepinephrine 8 MG/250 ML BAG IVPB PRN ×2 (03:33→10:06)
[2018-01-12] MEDS: Sodium Bicarbonate 150 MEQ in Dextrose 5% in Water 1,000 ML IV SCH ×2 (03:33→12:27)
[2018-01-12 05:24] LABS: Anion Gap 16 mmol/L (10-20); BUN (Urea Nitrogen) 32 mg/dL (8.4-25.7); Calc. Creatinine Clearance 52 mL/min (70-130); Calcium 6.9 mg/dL (7.8-10.44); Carbon Dioxide 19 mmol/L (22-29); Chloride 109 mmol/L (98-107); Estimated GFR-MDRD 37; Glucose 114 mg/dL (70-105); Potassium 3.6 mmol/L (3.5-5.1); Sodium 140 mmol/L (136-145)
[2018-01-12 05:50] LABS: Band 10 % (5-11); Hemoglobin 11.2 g/dL (14.0-18.0); Hypochromia SLIGHT = 6-15 cells (100X) (0-5/hpf); Lymphocytes 32 % (21-51); MDiff Complete? YES; Mean Corpuscular HGB CONC 32.2 g/dL (32.0-36.0); Mean Corpuscular Hemoglobin 31.1 pg (27.0-31.0); Mean Corpuscular Volume 96.7 fL (78.0-98.0); Mean Platelet Volume 9.2 fL (7.4-10.4); Metamyelocyte 2 % (0-0); Monocytes 8 % (0-10); Neutrophil 48 % (42-75); PLT Morphology Comment Appears Adequate; Platelet Count 230 thou/uL (130-400); White Blood Cell (WBC) Count 8.4 thou/uL (4.8-10.8)
[2018-01-12] MEDS: Vancomycin HCl 1 GM in Premix Bag 1 BAG IVPB SCH (06:06)
[2018-01-12 07:16] LABS: Base Excess (BEa) -4.3 mEq/L (-2.0 to +3.0); CO2 Tension 29.7 mmHg (35.0-45.0); Calcium, Ionized 0.93 mmol/L (1.12-1.30); Carboxyhemoglobin (COHb) 0.7 gm% (0.0-3.0); Hemoglobin (Hb) 11.9 g/dL (14.0-18.0); Potassium - ABG Lab 3.74 mmol/L (3.70-5.30); pH, Arterial 7.42 (7.35-7.45)
[2018-01-12 07:17] LABS: ALV-art Gradient 211.375 (0-20); Puncture Site RBA
[2018-01-12] MEDS: Enoxaparin Sodium 40 MG/0.4 ML SYRINGE SC SCH (09:55)
[2018-01-12] MEDS ORDERED: Magnesium Sulfate 2 GM in Sodium Chloride 0.9% 100 ML IVPB SCH (10:00)
[2018-01-12] MEDS ORDERED: Magnesium 2 GM/50 ML 2 GM in Premix Bag 1 BAG IVPB SCH (10:15)
[2018-01-12] MEDS ORDERED: Magnesium Sulfate 4 GM in Sodium Chloride 0.9% 250 ML 250 ML IVPB SCH (10:45)
--- NOTE | 2018-01-12 12:43 | PRG ---
DATE OF SERVICE: 01/12/2018 SERVICE: Pulmonary Medicine. INTERVAL HISTORY: The patient is doing absolutely fantastic from a respiratory standpoint. He denie s any current chest pain, nausea or vomiting. He is on mechanical ventilation. He is awake and aler t. He is breathing comfortably. We dropped his rate a little bit. Otherwise, there has been no int erval change to his condition. OBJECTIVE: VITAL SIGNS: T-max 101.2, pulse 18, blood pressure 105/54, respirations 18, saturation 95% on 35% Fi O2 and a PEEP of 5. GENERAL: The patient is awake and alert, no apparent distress. LUNGS: Excellent air entry. Crackles are present left base. Otherwise, there is no prolonged expir atory phase or wheezing. HEART: Normal rate, regular. ABDOMEN: Soft, nontender, nondistended. Bowel sounds are positive. MUSCULOSKELETAL: No cyanosis or clubbing. There is 1+ pitting in the bilateral lower extremities. NEUROLOGIC: Grossly nonfocal. LABORATORY DATA: WBC 8.4, hemoglobin 11.2, platelets 230,000. Band count is 10%. A pH 7.42, pCO2 o f 29, pO2 108 on 50% FiO2 at that time. Creatinine 1.88 and beautifully down trending, BUN 30, magne sium 0.9, troponin 0.156 and gently up trending. Phosphorus was previously unremarkable. Urine drug screen is positive for opiates and tricyclics. Alpha hemolytic streptococcus is present in 2 out of 2 blood cultures. ASSESSMENT: 1. Acute hypoxic and hypercapnic respiratory failure. 2. Community-acquired pneumonia secondary to Streptococcus pneumoniae. 3. Severe sepsis. 4. Acute kidney injury. DISCUSSION AND PLAN: We will consolidate his antibiotics to cover the Streptococcus organism. He wi ll need at least 2 weeks of antibiotics. I will put him on a spontaneous breathing trial. If he magan ts criteria, extubation will be considered. Pulmonary Critical Care will continue to follow along an d he will need to remain in the ICU until tomorrow morning assuming everything goes well. CRITICAL CARE TIME: 30 minutes.
[2018-01-12] MEDS ORDERED: Azithromycin 500 MG in Sodium Chloride 0.9% 250 ML 250 ML IVPB SCH (13:00)
[2018-01-12] MEDS: Sodium Chloride 0.45% 1,000 ML IV SCH (13:05)
[2018-01-12] MEDS: cefTRIAXone\\ROCEPHIN 2 GM in Sodium Chloride 0.9% 100 ML IVPB SCH (13:18)
--- NOTE | 2018-01-12 13:52 | CON ---
DATE OF CONSULTATION: 01/12/2018 HISTORY OF PRESENT ILLNESS: The patient is a 57-year-old gentleman who presents with fevers, chills, and productive cough. The patient has a history of cerebrovascular accident and he was seen in 2006 with a stroke. The patient has no known cardiac history. He was in his usual state of health when he developed fevers, chills, and productive cough. The patient denied having any chest discomfort. PAST MEDICAL HISTORY: Significant for, 1. Cerebrovascular accident. 2. Hypertension. 3. Dyslipidemia. 4. History of a colostomy. PAST SURGICAL HISTORY: He has had a colostomy. He has had a laparotomy. He has had wound dehiscenc e after surgery. SOCIAL HISTORY: The patient has a long history of continued tobacco abuse. He has previously used c ocaine. FAMILY HISTORY: No strong family history of heart disease. ALLERGIES: No known drug allergies. MEDICATIONS: See nursing list. PHYSICAL EXAMINATION GENERAL: Ill-appearing gentleman with a blood pressure of 105/54. NECK: Full. LUNGS: Have crackles in the left lung field. HEART: Regular rate and rhythm, normal S1, S2. ABDOMEN: Distended. He has a large wound. EXTREMITIES: Showed no edema. LABORATORY RESULTS: Sodium was 140, potassium 3.6, chloride 109, bicarbonate 19, BUN 32, creatinine 1.8. His white blood cell count is 8.4, hemoglobin 11.2, hematocrit 34.8 and his platelets were 230. IMAGING: His EKG revealed him to have normal sinus rhythm with possible previous anterior infarct, T -wave abnormality suggestive of ischemia and chest x-ray revealed left-sided infiltrate. IMPRESSION: 1. Pneumonia. 2. Hypertension. 3. Renal insufficiency. 4. History of cerebrovascular accident. 5. Tobacco abuse. 6. History of illicit drug use. This gentleman presents with pneumonia. He has a markedly elevated BNP. We will check an echocardio gram to reevaluate his left ventricular function. We will restart the patient on lipid lowering medi cation. We will follow this patient with you through his hospitalization. This is a critical care n ote to Dr. Marcelino Rosa.
[2018-01-12] MEDS ORDERED: cefTRIAXone\\ROCEPHIN 1 GM in Sodium Chloride 0.9% 100 ML IVPB SCH (14:00)
--- NOTE | 2018-01-12 17:24 | PDOC.PN ---
- Subjective Encounter Start Date: 01/12/18 Encounter Start Time: 09:50 Doing well. Was intubated at the time my visit. Awake and tolerating the ET well. (subsequently extubated). - Objective Resuscitation Status: Resuscitation Status FULL:Full Resuscitation Vital Signs & Weight: Vital Signs (12 hours) Temp Pulse Pulse Pulse Resp BP BP 01/12/18 14:07 116 H 124 H 111/61 01/12/18 12:30 106 H 20 01/12/18 12:00 99.0 F 01/12/18 10:33 96 95/54 L 01/12/18 10:30 16 01/12/18 09:05 18 01/12/18 08:00 100.1 F H 30 H 01/12/18 06:58 97 125/66 01/12/18 06:53 98 30 H BP Pulse Ox Pulse Ox Pulse Ox 01/12/18 14:07 94/85 94 L 92 L 01/12/18 12:30 96 01/12/18 12:00 01/12/18 10:33 01/12/18 10:30 01/12/18 09:05 01/12/18 08:00 01/12/18 06:58 01/12/18 06:53 99 Weight Weight 186 lb 11.704 oz Most Recent Monitor Data Heart Rate from ECG 119 NIBP 114/62 NIBP BP-Mean 79 Respiration from ECG 28 SpO2 92 I&O: 01/11/18 01/12/18 01/13/18 06:59 06:59 06:59 Intake Total 3186.1 1029 Output Total 650 855 Balance 2536.1 174 Result Diagrams: 01/12/18 04:49 01/12/18 04:49 Phys Exam - Physical Examination Constitutional: NAD Respiratory: no wheezing, no rales, no rhonchi, clear to auscultation bilateral Much improved from yesterday. Cardiovascular: RRR, no significant murmur Gastrointestinal: soft, non-tender, no distention, positive bowel sounds Musculoskeletal: no edema Psychiatric: normal affect Dx/Plan (1) OLGA (acute kidney injury) Code(s): N17.9 - ACUTE KIDNEY FAILURE, UNSPECIFIED Status: Acute Comment: Improving with volume replacement and avoidance of nephrotoxic medications, continue Sodium bicarbonate gtt and monitor trend, repeat creatinine in am (2) Bacteremia Code(s): R78.81 - BACTEREMIA Status: Acute (3) Hypotension Status: Acute Comment: Improving with IV fluids, limit antihypertensives another 24h (4) PNA (pneumonia) Code(s): J18.9 - PNEUMONIA, UNSPECIFIED ORGANISM Status: Acute (5) Sepsis Code(s): A41.9 - SEPSIS, UNSPECIFIED ORGANISM Status: Acute (6) H/O: CVA (cerebrovascular accident) Code(s): Z86.73 - PRSNL HX OF TIA (TIA), AND CEREB INFRC W/O RESID DEFICITS Status: Chronic (7) Hypertension Code(s): I10 - ESSENTIAL (PRIMARY) HYPERTENSION Status: Chronic Qualifiers: Hypertension type: essential hypertension Qualified Code(s): I10 - Essential (primary) hypertension (8) Tobacco abuse Code(s): Z72.0 - TOBACCO USE Status: Chronic (9) Hypomagnesemia Code(s): E83.42 - HYPOMAGNESEMIA Status: Acute - Plan * Strep bacteremia. Likely strep pneumonia. Continue with Rocephin. Extubated today. Continue fluids for renal function. Creatinine is improving. Continue pulmonary treatments. ECHO. Pulmonary and Cardiology following. Severely hypomagnesemic, but has had this with previous admissions as well.
[2018-01-12] MEDS: levETIRAcetam 500 MG TAB PO SCH (20:22)
[2018-01-12] MEDS: Diabetic Tussin 200 MG/10 ML UDCUP PO PRN (21:12)
[2018-01-13 04:40] LABS: Anion Gap 11 mmol/L (10-20); BUN (Urea Nitrogen) 33 mg/dL (8.4-25.7); Calc. Creatinine Clearance 96 mL/min (70-130); Calcium 7.6 mg/dL (7.8-10.44); Carbon Dioxide 26 mmol/L (22-29); Chloride 107 mmol/L (98-107); Estimated GFR-MDRD 75; Glucose 78 mg/dL (70-105); Potassium 3.3 mmol/L (3.5-5.1); Sodium 141 mmol/L (136-145)
[2018-01-13 07:16] LABS: Band 23 % (5-11); Lymphocytes 16 % (21-51); MDiff Complete? YES; Mean Corpuscular Hemoglobin 31.8 pg (27.0-31.0); Mean Corpuscular Volume 96.4 fL (78.0-98.0); Mean Platelet Volume 9.7 fL (7.4-10.4); Metamyelocyte 1 % (0-0); Monocytes 8 % (0-10); Myelocyte 3 % (0-0); Neutrophil 49 % (42-75); PLT Morphology Comment Appears Decreased; Platelet Count 99 thou/uL (130-400); RBC Distribution Width 11.8 % (11.5-14.5); Red Blood Cell (RBC) Count 2.83 mill/uL (4.70-6.10)
[2018-01-13] MEDS: Diabetic Tussin 200 MG/10 ML UDCUP PO PRN ×2 (08:06→17:57)
[2018-01-13] MEDS: levETIRAcetam 500 MG TAB PO SCH ×2 (08:16→20:25)
[2018-01-13] MEDS: Enoxaparin Sodium 40 MG/0.4 ML SYRINGE SC SCH (08:16)
[2018-01-13] MEDS: Acetaminophen 325 MG TAB PO PRN ×3 (08:16→20:25)
[2018-01-13] MEDS: Sodium Chloride 0.45% 1,000 ML IV SCH (10:18)
--- NOTE | 2018-01-13 10:18 | PRG ---
DATE OF SERVICE: 01/13/2018 SUBJECTIVE: The patient is sitting up in a chair. He had no acute complaints. PHYSICAL EXAMINATION: VITAL SIGNS: On exam, his temperature is 98.7, pulse 94, blood pressure 99/57. He is currently on a Precedex drip for alcohol withdrawal symptoms. Total intake for the last 24 hours 3556 and output 2 575. HEENT EXAM: Unremarkable. NECK: No JVD. LUNGS: Fairly clear without wheezing or rhonchi. CARDIOVASCULAR: S1 and S2, regular. ABDOMEN: Soft. EXTREMITIES: No edema. LABORATORY DATA: White blood cell count 5, hematocrit 27.3, platelet count 99. Sodium 141, potassiu m 3.3, chloride 107, CO2 of 26, BUN 33, creatinine 1.0, glucose 78. ASSESSMENT: 1. Status post acute respiratory failure, requiring mechanical ventilation. 2. Alcohol withdrawal. 3. Sepsis. 4. Acute kidney injury. 5. Precipitous drop in platelet count overnight. PLAN: 1. Continue Precedex drip for alcohol withdrawal symptoms. 2. Continuing IV antibiotics. 3. Withhold enoxaparin and follow the platelet count. If the platelet count does not improve off th e enoxaparin, then we will have to consider withdrawing the patient from other medications. 4. Recheck labs tomorrow.
[2018-01-13] MEDS: cefTRIAXone\\ROCEPHIN 2 GM in Sodium Chloride 0.9% 100 ML IVPB SCH (11:50)
--- NOTE | 2018-01-13 12:08 | PDOC.PN ---
- Subjective Encounter Start Date: 01/13/18 Encounter Start Time: 09:15 Apparently had some agitation overnight requiring some Precedex. Doing better now. Still feels like he has chest congestion. - Objective Resuscitation Status: Resuscitation Status FULL:Full Resuscitation Vital Signs & Weight: Vital Signs (12 hours) Temp Pulse Ox 01/13/18 08:00 100 01/13/18 07:00 98.7 F Weight Weight 186 lb 11.704 oz Most Recent Monitor Data Heart Rate from ECG 105 NIBP 110/59 NIBP BP-Mean 82 Respiration from ECG 29 SpO2 95 I&O: 01/12/18 01/13/18 01/14/18 06:59 06:59 06:59 Intake Total 3186.1 3556.8 Output Total 650 2575 295 Balance 2536.1 981.8 -295 Result Diagrams: 01/13/18 03:51 01/13/18 03:51 Phys Exam - Physical Examination Constitutional: NAD Sitting up in chair. Respiratory: no wheezing Rales bilaterally, but worse on the right. TTP right ribs. Cardiovascular: RRR, no significant murmur Gastrointestinal: soft, non-tender, no distention, positive bowel sounds Musculoskeletal: no edema Psychiatric: normal affect Skin: no rash, normal turgor Dx/Plan (1) Sepsis Code(s): A41.9 - SEPSIS, UNSPECIFIED ORGANISM Status: Acute Comment: Septic shock. Required aggressive fluid resuscitation and pressors. Still on pressor support. Secondary to pneumonia and bacteremia with Strep. (2) OLGA (acute kidney injury) Code(s): N17.9 - ACUTE KIDNEY FAILURE, UNSPECIFIED Status: Acute Comment: Improving with volume replacement and avoidance of nephrotoxic medications. Creat in normal range today. (3) Bacteremia Code(s): R78.81 - BACTEREMIA Status: Acute Comment: Strep. Continue Rocephin. Likely seeded from pneumonia. (4) Hypotension Status: Acute Comment: Improving with IV fluids, limit antihypertensives another 24h (5) PNA (pneumonia) Code(s): J18.9 - PNEUMONIA, UNSPECIFIED ORGANISM Status: Acute Comment: Strep. Continue rocephin, nebs, oxygen support. (6) H/O: CVA (cerebrovascular accident) Code(s): Z86.73 - PRSNL HX OF TIA (TIA), AND CEREB INFRC W/O RESID DEFICITS Status: Chronic (7) Hypertension Code(s): I10 - ESSENTIAL (PRIMARY) HYPERTENSION Status: Chronic Qualifiers: Hypertension type: essential hypertension Qualified Code(s): I10 - Essential (primary) hypertension Comment: Holding meds. Hypotensive. (8) Tobacco abuse Code(s): Z72.0 - TOBACCO USE Status: Chronic (9) Hypomagnesemia Code(s): E83.42 - HYPOMAGNESEMIA Status: Resolved (10) COPD (chronic obstructive pulmonary disease) Status: Acute (11) Alcohol dependence Code(s): F10.20 - ALCOHOL DEPENDENCE, UNCOMPLICATED Status: Acute Comment: Possible withdrawal symptoms last night. Managed with Precedex. (12) Cardiomyopathy Code(s): I42.9 - CARDIOMYOPATHY, UNSPECIFIED Status: Acute Comment: EF 30-35 % with regional wall motion abnormalities likely represent prior infarct. Cardiology following. - Plan * Above. Pulmonology following.
[2018-01-13 21:22] LABS: Actual Bicarbonate (HCO3a) 23.8 mEq/L (22-28); CO2 Tension 35.2 mmHg (35.0-45.0); Calcium, Ionized 1.11 mmol/L (1.12-1.30); Carboxyhemoglobin (COHb) 1.3 gm% (0.0-3.0); Potassium - ABG Lab 2.85 mmol/L (3.70-5.30); pH, Arterial 7.45 (7.35-7.45)
[2018-01-13 21:24] LABS: Puncture Site RRAD
[2018-01-13] MEDS ORDERED: Furosemide 40 MG/4 ML VIAL ONE (21:32)
[2018-01-13] MEDS ORDERED: Furosemide 40 MG/4 ML VIAL SLOW IVP SCH (21:45)
[2018-01-14] MEDS: Diabetic Tussin 200 MG/10 ML UDCUP PO PRN ×3 (00:09→21:49)
[2018-01-14 04:16] LABS: Band 1 % (5-11); Hemoglobin 9.7 g/dL (14.0-18.0); Hypochromia SLIGHT = 6-15 cells (100X) (0-5/hpf); Lymphocytes 7 % (21-51); MDiff Complete? YES; Mean Corpuscular HGB CONC 34.1 g/dL (32.0-36.0); Mean Corpuscular Hemoglobin 32.5 pg (27.0-31.0); Mean Corpuscular Volume 95.3 fL (78.0-98.0); Mean Platelet Volume 9.2 fL (7.4-10.4); Monocytes 7 % (0-10); Neutrophil 85 % (42-75); PLT Morphology Comment Appears Adequate; Platelet Count 131 thou/uL (130-400); RBC Distribution Width 11.6 % (11.5-14.5); Red Blood Cell (RBC) Count 2.99 mill/uL (4.70-6.10); White Blood Cell (WBC) Count 11.4 thou/uL (4.8-10.8)
[2018-01-14 04:24] LABS: Anion Gap 11 mmol/L (10-20); BUN (Urea Nitrogen) 32 mg/dL (8.4-25.7); Calc. Creatinine Clearance 101 mL/min (70-130); Calcium 8.7 mg/dL (7.8-10.44); Carbon Dioxide 28 mmol/L (22-29); Chloride 105 mmol/L (98-107); Estimated GFR-MDRD 80; Glucose 98 mg/dL (70-105); Sodium 141 mmol/L (136-145)
[2018-01-14] MEDS ORDERED: CCU Electrolyte Replacement 1 EACH FS ONE (07:45)
[2018-01-14] MEDS ORDERED: Potassium Chloride 40 MEQ in Sodium Chloride 0.9% 250 ML 250 ML IVPB PRN (07:48)
[2018-01-14] MEDS ORDERED: Magnesium Oxide 400 MG TAB PO PRN ×2 (07:48)
[2018-01-14] MEDS ORDERED: Magnesium 2 GM/NS 0.9% 100 ML 2 GM in Premix Bag 1 BAG IVPB PRN (07:48)
[2018-01-14] MEDS ORDERED: CCU ELECTROLYTE REPLACEMENT PROTOCOL FS PRN (07:48)
[2018-01-14] MEDS ORDERED: Potassium Phosphate 9 MMOL in Sodium Chloride 0.9% 100 ML IVPB PRN (07:48)
[2018-01-14] MEDS ORDERED: Potassium Phosphate 12 MMOL in Sodium Chloride 0.9% 250 ML 250 ML IV PRN (07:48)
[2018-01-14] MEDS ORDERED: Potassium Phosphate 15 MMOL in Sodium Chloride 0.9% 250 ML 250 ML IV PRN (07:48)
[2018-01-14] MEDS: Potassium Chloride 40 MEQ in Premix Bag 1 BAG IVPB PRN (08:50)
[2018-01-14] MEDS: Enoxaparin Sodium 30 MG/0.3 ML SYRINGE SC SCH (08:50)
[2018-01-14] MEDS: levETIRAcetam 500 MG TAB PO SCH ×2 (08:51→20:50)
[2018-01-14] MEDS: Sodium Chloride 0.45% 1,000 ML IV SCH (08:56)
[2018-01-14] MEDS ORDERED: Lidocaine 5% Patch TD SCH (10:00)
--- NOTE | 2018-01-14 11:29 | PRG ---
DATE OF SERVICE: 01/14/2018 SUBJECTIVE: The patient was persistently asking for pain medicine last night and developed some pulm onary edema and required Lasix. He is better after the dose of Lasix. OBJECTIVE: VITAL SIGNS: On exam, temperature is , blood pressure 106/60. He is continuing to be on a Prec edex drip, because of withdrawal symptoms. A 24-hour intake 1920 and output 3465. HEENT: Unremarkable. NECK: No JVD. CHEST: Clear to auscultation. ABDOMEN: Soft, mildly tender over the right flank. EXTREMITIES: No clubbing, cyanosis, or edema. LABORATORY DATA: Sodium 141, potassium 3.0, chloride 105, CO2 of 20, BUN 32, creatinine 0.9, glucose 98. White blood cell count of 11.4, hematocrit , platelet count 131. ASSESSMENT: 1. Status post acute respiratory failure, requiring mechanical ventilation. 2. Alcohol withdrawal. 3. Sepsis. 4. Acute kidney injury, which is better. 5. Platelet drop yesterday, which is now better today. PLAN: 1. I think we can go ahead and restart his enoxaparin, but maybe at the lower dose. If his platelet count trends upward, then we can go to the higher dose on Monday. 2. Monitor electrolytes and replace potassium. 3. Try to wean Precedex drip. 4. Try to avoid narcotic medications.
[2018-01-14] MEDS: cefTRIAXone\\ROCEPHIN 2 GM in Sodium Chloride 0.9% 100 ML IVPB SCH (11:41)
--- NOTE | 2018-01-14 12:30 | PDOC.PN ---
- Subjective Encounter Start Date: 01/14/18 Encounter Start Time: 09:00 Complains of pain in the ribs. Says he had injured left ribs in the past and recently the right side. Says Tylenol is not helping at all. - Objective Resuscitation Status: Resuscitation Status FULL:Full Resuscitation Vital Signs & Weight: Vital Signs (12 hours) Temp 01/14/18 08:00 98.9 F 01/14/18 04:00 98.7 F Weight Weight 186 lb 11.704 oz Most Recent Monitor Data Heart Rate from ECG 94 NIBP 102/83 NIBP BP-Mean 90 Respiration from ECG 25 SpO2 98 I&O: 01/13/18 01/14/18 01/15/18 06:59 06:59 06:59 Intake Total 3556.8 1920.0 410 Output Total 2575 3465 340 Balance 981.8 -1545.0 70 Result Diagrams: 01/14/18 03:29 01/14/18 03:29 Phys Exam - Physical Examination Constitutional: NAD Sitting up in chair. Talking. Appears comfortable. Slightly decreased BS at bases. Left moreso than right. Cardiovascular: RRR, no significant murmur, no rub Gastrointestinal: soft, non-tender, no distention, positive bowel sounds LLQ stoma. Large, old midline incisional scar. Musculoskeletal: no edema Dx/Plan (1) Sepsis Code(s): A41.9 - SEPSIS, UNSPECIFIED ORGANISM Status: Acute Comment: Septic shock. Required aggressive fluid resuscitation and pressors. Off pressors. Secondary to pneumonia and bacteremia with Strep. (2) OLGA (acute kidney injury) Code(s): N17.9 - ACUTE KIDNEY FAILURE, UNSPECIFIED Status: Acute Comment: Improving with volume replacement and avoidance of nephrotoxic medications. Creat in normal range now. (3) Bacteremia Code(s): R78.81 - BACTEREMIA Status: Acute Comment: Strep. Continue Rocephin. Likely seeded from pneumonia. (4) Hypotension Status: Acute Comment: Improving with IV fluids, limit antihypertensives another 24h (5) PNA (pneumonia) Code(s): J18.9 - PNEUMONIA, UNSPECIFIED ORGANISM Status: Acute Comment: Strep. Continue rocephin, nebs, oxygen support. (6) H/O: CVA (cerebrovascular accident) Code(s): Z86.73 - PRSNL HX OF TIA (TIA), AND CEREB INFRC W/O RESID DEFICITS Status: Chronic (7) Hypertension Code(s): I10 - ESSENTIAL (PRIMARY) HYPERTENSION Status: Chronic Qualifiers: Hypertension type: essential hypertension Qualified Code(s): I10 - Essential (primary) hypertension Comment: Holding meds. Hypotensive. (8) Tobacco abuse Code(s): Z72.0 - TOBACCO USE Status: Chronic (9) Hypomagnesemia Code(s): E83.42 - HYPOMAGNESEMIA Status: Resolved (10) COPD (chronic obstructive pulmonary disease) Status: Acute (11) Alcohol dependence Code(s): F10.20 - ALCOHOL DEPENDENCE, UNCOMPLICATED Status: Acute Comment: Possible withdrawal symptoms. Managed with Precedex. (12) Cardiomyopathy Code(s): I42.9 - CARDIOMYOPATHY, UNSPECIFIED Status: Acute Comment: EF 30-35 % with regional wall motion abnormalities likely represent prior infarct. Cardiology following. (13) Chest wall pain Code(s): R07.89 - OTHER CHEST PAIN Status: Acute Comment: Recent fall with right sided injury. Also complains of left sided pain now. BP still tenous. Social history concerning. Avoiding opioids. Toradol 30 mg IV q 6 hours prn. - Plan * Still in unit as he is still on Precedex.
[2018-01-14] MEDS: Ketorolac Tromethamine 30 MG/ML VIAL IVP PRN ×2 (14:21→20:51)
[2018-01-14 15:38] LABS: Potassium 3.3 mmol/L (3.5-5.1)
[2018-01-14] MEDS: Potassium Chloride 20 MEQ TAB PO PRN (18:03)
[2018-01-14] MEDS: Lidocaine Patch Removal 1 EACH TOP SCH (21:00)
[2018-01-14] MEDS: Acetaminophen 325 MG TAB PO PRN (21:51)
[2018-01-15] MEDS: Sodium Chloride 0.45% 1,000 ML IV SCH (00:52)
[2018-01-15 04:17] LABS: Anion Gap 10 mmol/L (10-20); BUN (Urea Nitrogen) 27 mg/dL (8.4-25.7); Calc. Creatinine Clearance 105 mL/min (70-130); Calcium 8.7 mg/dL (7.8-10.44); Carbon Dioxide 28 mmol/L (22-29); Chloride 106 mmol/L (98-107); Estimated GFR-MDRD 84; Glucose 102 mg/dL (70-105); Potassium 3.2 mmol/L (3.5-5.1); Sodium 141 mmol/L (136-145)
[2018-01-15] MEDS: Ketorolac Tromethamine 30 MG/ML VIAL IVP PRN ×2 (04:42→20:13)
[2018-01-15] MEDS: Diabetic Tussin 200 MG/10 ML UDCUP PO PRN ×3 (04:43→21:36)
[2018-01-15] MEDS: Acetaminophen 325 MG TAB PO PRN ×2 (04:43→20:12)
[2018-01-15] MEDS: Potassium Chloride 40 MEQ in Premix Bag 1 BAG IVPB PRN (05:07)
[2018-01-15] MEDS ORDERED: Furosemide 40 MG/4 ML VIAL SLOW IVP SCH (08:45)
[2018-01-15] MEDS ORDERED: Ketorolac Tromethamine 30 MG/ML VIAL IVP SCH (08:45)
[2018-01-15] MEDS: levETIRAcetam 500 MG TAB PO SCH ×2 (08:57→20:12)
[2018-01-15] MEDS: Enoxaparin Sodium 30 MG/0.3 ML SYRINGE SC SCH (08:58)
[2018-01-15] MEDS: Lidocaine 5% Patch TD SCH ×3 (09:00→19:13)
[2018-01-15] MEDS ORDERED: hydrALAZINE 20 MG/ML VIAL SLOW IVP PRN (09:26)
--- NOTE | 2018-01-15 10:11 | RAD ---
AP VIEW OF THE CHEST: INDICATION: Volume overload. COMPARISON: Prior exam dated 01/11/2018. FINDINGS: Since the comparison examination, there has been interval removal of the ET tube and gastric catheter . Right internal jugular central venous catheter is stable. There is worsening central edema and a left-sided pleural effusion present. No pneumothorax is evident. IMPRESSION: Worsening cardiomegaly, central edema pattern, and left-sided pleural effusion is suspicious for volu me overload. POS: TPC
--- NOTE | 2018-01-15 11:00 | PRG ---
DATE OF SERVICE: 01/15/2018 SERVICE: Pulmonary Medicine INTERVAL HISTORY: The patient is doing poorly from a respiratory standpoint. This morning, he developed increasing shortness of breath and little hypoxemia. He was found to be significantly volume overloaded. He was given a dose of Lasix and he is starting to settle down once again. He has chest pain associated with rib fractures. Outside of that, there has been no interval change to his condition. PHYSICAL EXAMINATION: VITAL SIGNS: Afebrile, pulse 93, blood pressure 107/60, respirations 21, saturation 100% on 2 liters nasal cannula. GENERAL: The patient is awake, alert, in no apparent distress. LUNGS: Decent air entry. There is a prolonged expiratory phase. Crackles and wheezing are both appreciated without rhonchi. HEART: Normal rate, regular. ABDOMEN: Soft, nontender, nondistended. Bowel sounds are positive. MUSCULOSKELETAL: No cyanosis or clubbing. There is no pitting in the bilateral lower extremities. NEUROLOGIC: Grossly nonfocal. LABORATORY DATA: Potassium 3.2. Basic metabolic profile is otherwise unremarkable. Streptococcus pneumonia is growing in 2 out of 2 which is pansensitive. Urine cultures are negative. IMAGING: Chest x-ray demonstrates findings consistent with a left-sided pleural effusion, pulmonary edema, and left lower lobe infiltrate. There is an IJ which remains in good position. ASSESSMENT: 1. Acute hypoxic and hypercapnic respiratory failure, resolved. 2. Community-acquired pneumonia secondary to Streptococcus. 3. Bacteremia secondary to Streptococcus. 4. Severe sepsis. 5. Acute kidney injury, resolved. 6. Hypokalemia. 7. Pleural effusion on the left. 8. Alcohol withdraw. DISCUSSION AND PLAN: I will give the patient a couple doses of potassium. We will also repeat a dose of Lasix in the afternoon, schedule a daily p.o. dose. I will do an ultrasound of his chest to make certain that he does not have a significant pocket of fluid there. If he does, thoracentesis may need to be considered to exclude the possibility of infection. MTDD
[2018-01-15] MEDS ORDERED: Furosemide 40 MG TAB PO SCH (16:00)
[2018-01-15] MEDS: Potassium Chloride 20 MEQ TAB PO SCH ×2 (16:07→19:11)
[2018-01-15] MEDS: cefTRIAXone\\ROCEPHIN 2 GM in Sodium Chloride 0.9% 100 ML IVPB SCH (16:09)
--- NOTE | 2018-01-15 16:44 | PDOC.CTH ---
<Amalia Purvis - Last Filed: 01/15/18 16:32> Cardiology Progress Note - Subjective The pt seen and examined. Lasix was given this AM for complaining of SOB and wheezing. Complaining of intermittent pain to bilat lateral chest fair. - Objective Vital Signs Temp Pulse Resp Pulse Ox 01/15/18 15:59 97 22 H 99 01/15/18 13:00 100 22 H 99 01/15/18 12:00 98.5 F 01/15/18 08:00 98.6 F 01/15/18 07:58 93 L Weight 186 lb 11.704 oz 01/14/18 01/15/18 01/16/18 06:59 06:59 06:59 Intake Total 1920.0 1674.4 550 Output Total 3465 1290 1200 Balance -1545.0 384.4 -650 - Physical Examination General/Neuro: alert & oriented x3 Neck: no JVD present Lungs: other: (coarses and diminished at bases) Heart: RRR Abdomen: soft Extremities: other: (No edema) - Telemetry Telemetry Rhythm: [id number] - Labs Result Diagrams: 01/14/18 03:29 01/15/18 03:40 Troponin/CKMB CK-MB (CK-2) 0.8 ng/mL (0-6.6) 01/11/18 11:58 Troponin I 0.156 ng/mL (< 0.028) H 01/11/18 17:39 - Assessment/Plan 1. Acute on Chronic Systolic HF - stable with Lasix 40mg PO daily; start Coreg 3.125mg BID and Lisinopril 2.5mg qd; cont. to monitor 2. Sepsis 2/2 PNA - on IV antibiotics; managed by insurance licensing supervisor/PCP 3. HTN - stable 4. Tachycardia - start Coreg 3.125 mg BID; cont. to monitor 5. OLGA - improving 6. COPD - managed by insurance licensing supervisor 7. Hx of CVA - stable 8. Diverticulosis w/ s/p segmental resection and colostomy placement - 9. Tabacco/ETOH/Ilicit drug abuse - smoking, EOTH, and ilicit drug cessation education given to the pt. 10. Chest wall pain 2/2 fall 1 wk ago - stable with Toradol, managed by PCP TEMITOPE huerta * Echo on 10/05/18 showed EF 30-35%, mildly dilated LA, akinetic inferior wall, mildly elevated LV, mod MR, mild TR. Review of Systems - Review of Systems Constitutional: reports: weakness EENTM: reports: no symptoms reported Respiratory: reports: shortness of breath Cardiac (ROS): reports: no symptoms reported ABD/GI: reports: no symptoms reported : reports: no symptoms reported Musculoskeletal: reports: see HPI <Nguyễn Reardon - Last Filed: 01/15/18 19:03> Cardiology Progress Note - Objective Vital Signs Temp Pulse Resp Pulse Ox 01/15/18 16:00 99.6 F 95 01/15/18 15:59 97 22 H 99 01/15/18 13:00 100 22 H 99 01/15/18 12:00 98.5 F 95 01/15/18 08:00 98.6 F 01/15/18 07:58 93 L Weight 186 lb 11.704 oz 01/14/18 01/15/18 01/16/18 06:59 06:59 06:59 Intake Total 1920.0 1674.4 820 Output Total 3465 1290 2030 Balance -1545.0 384.4 -1210 - Labs Result Diagrams: 01/14/18 03:29 01/15/18 03:40 Troponin/CKMB CK-MB (CK-2) 0.8 ng/mL (0-6.6) 01/11/18 11:58 Troponin I 0.156 ng/mL (< 0.028) H 01/11/18 17:39 - Assessment/Plan Pt. seen and eval. by me. I agree with the A\P by the SODA FLAKER. exam: regular rhythm. tachycardia.Chest: scattered rhonchi.
[2018-01-15] MEDS ORDERED: Carvedilol 3.125 MG TAB PO SCH (16:45)
--- NOTE | 2018-01-15 18:57 | PDOC.PN ---
- Subjective Encounter Start Date: 01/15/18 Encounter Start Time: 10:40 Pt seen for followup re: systolic CHF exacerbation. c/o eliot chest pain. No nausea or vomiting. - Objective Resuscitation Status: Resuscitation Status FULL:Full Resuscitation MAR Reviewed: Yes Vital Signs & Weight: Vital Signs (12 hours) Temp Pulse Resp Pulse Ox 01/15/18 16:00 99.6 F 95 01/15/18 15:59 97 22 H 99 01/15/18 13:00 100 22 H 99 01/15/18 12:00 98.5 F 95 01/15/18 08:00 98.6 F 01/15/18 07:58 93 L Weight Weight 186 lb 11.704 oz Most Recent Monitor Data Heart Rate from ECG 112 NIBP 149/87 NIBP BP-Mean 121 Respiration from ECG 20 SpO2 73 I&O: 01/14/18 01/15/18 01/16/18 06:59 06:59 06:59 Intake Total 1920.0 1674.4 700 Output Total 3465 1290 1430 Balance -1545.0 384.4 -730 Result Diagrams: 01/14/18 03:29 01/15/18 03:40 EKG Reviewed by me: Yes (Tele: NSR) Phys Exam - Physical Examination Constitutional: NAD HEENT: moist MMs Neck: supple Eliot crackles Cardiovascular: RRR Gastrointestinal: soft LLQ stoma Neurological: moves all 4 limbs Psychiatric: normal affect Dx/Plan (1) Systolic heart failure, ACC/AHA stage C Code(s): I50.20 - UNSPECIFIED SYSTOLIC (CONGESTIVE) HEART FAILURE Status: Acute Comment: vs volume overload. Pt received furosemide, check x-ray. (2) Bacteremia Code(s): R78.81 - BACTEREMIA Status: Acute Comment: continue ceftriaxone for strep bacteremia (3) PNA (pneumonia) Code(s): J18.9 - PNEUMONIA, UNSPECIFIED ORGANISM Status: Acute Comment: continue ceftriaxone for pneumonia (4) BPH (benign prostatic hyperplasia) Code(s): N40.0 - BENIGN PROSTATIC HYPERPLASIA WITHOUT LOWER URINRY TRACT SYMP Status: Chronic Comment: stable (5) Dyslipidemia Code(s): E78.5 - HYPERLIPIDEMIA, UNSPECIFIED Status: Chronic (6) Hypertension Code(s): I10 - ESSENTIAL (PRIMARY) HYPERTENSION Status: Chronic Qualifiers: Hypertension type: essential hypertension Qualified Code(s): I10 - Essential (primary) hypertension Comment: started on Coreg and lisinopril - Plan * . continue toradol for pain Review of Systems - Review of Systems Cardiovascular: chest pain. negative: palpitations, orthopnea, paroxysmal nocturnal dyspnea, edema, light headedness Gastrointestinal: negative: Nausea, Vomiting, Abdominal Pain, Diarrhea, Constipation, Melena, Hematochezia - Medications/Allergies Allergies/Adverse Reactions: Allergies Allergy/AdvReac Type Severity Reaction Status Date / Time No Known Drug Allergies Allergy Verified 01/12/18 03:45 Medications: Current Medications Acetaminophen (Tylenol) 650 mg PO Q4H PRN PRN Reason: Headache/Fever/Mild Pain (1-3) Last Admin: 01/15/18 04:43 Dose: 650 mg Albuterol/Ipratropium (Duoneb) 3 ml NEB [id number] PRN PRN Reason: SOB &/or Wheezing Last Admin: 01/15/18 15:59 Dose: 3 ml Aspirin (Aspirin Chewable) 81 mg PO DAILY [facility] Last Admin: 01/15/18 08:57 Dose: 81 mg Carvedilol (Coreg) 3.125 mg PO BID-[facility] Enoxaparin Sodium (Lovenox) 30 mg SC 0900 [facility] Last Admin: 01/15/18 08:58 Dose: 30 mg Furosemide (Lasix) 40 mg PO DAILY-AC [facility] Guaifenesin (Robitussin Sf) 300 mg PO Q6H PRN PRN Reason: Cough Last Admin: 01/15/18 16:55 Dose: 300 mg Hydralazine HCl (Apresoline) 10 mg SLOW IVP Q6H PRN PRN Reason: SBP Greater Than 170 Thiamine HCl 200 mg/ Sodium (Chloride) 52 mls @ 100 mls/hr IVPB Q12HR [facility] Last Admin: 01/15/18 16:06 Dose: 52 mls Ceftriaxone Sodium 2 gm/ (Sodium Chloride) 100 mls @ 200 mls/hr IVPB Q24HR [facility] Stop: 01/25/18 12:59 Last Admin: 01/15/18 16:09 Dose: 100 mls Dexmedetomidine HCl 400 mcg/ (Sodium Chloride) 100 mls @ 0 mls/hr IVPB INF [facility] DAVID ; Protocol Last Admin: 01/14/18 18:03 Dose: 100 mls Potassium Chloride 40 meq/ (Sodium Chloride) 270 mls @ 135 mls/hr IVPB ASDIR PRN PRN Reason: FOR SERUM K+ 2.5 - 3.5 Potassium Chloride 40 meq/ (Device) 100 mls @ 50 mls/hr IVPB ASDIR PRN PRN Reason: FOR SERUM K+ 2.5 - 3.5 Last Admin: 01/15/18 05:07 Dose: 100 mls Magnesium Sulfate 1 gm/ Sodium (Chloride) 102 mls @ 102 mls/hr IV PRN PRN PRN Reason: MAG LEVEL 1.4 - 2.0 Magnesium Sulfate 2 gm/ Device 100 mls @ 100 mls/hr IVPB ASDIR PRN PRN Reason: MAGNESIUM < 1.4 Potassium Phosphate 9 mmol/ (Sodium Chloride) 103 mls @ 25.75 mls/hr IVPB ASDIR PRN PRN Reason: Phosphate 1.0-1.8 Potassium Phosphate 12 mmol/ (Sodium Chloride) 254 mls @ 63.5 mls/hr IV ASDIR PRN PRN Reason: Serum phosphate 0.5-0.9 Potassium Phosphate 15 mmol/ (Sodium Chloride) 255 mls @ 63.75 mls/hr IV ASDIR PRN PRN Reason: Serum Phos < 0.5 Ketorolac Tromethamine (Toradol) 30 mg IVP Q6H PRN PRN Reason: Pain Stop: 01/19/18 12:28 Last Admin: 01/15/18 04:42 Dose: 30 mg Levetiracetam (Keppra) 500 mg PO BID [facility] Last Admin: 01/15/18 08:57 Dose: 500 mg Lidocaine (Lidoderm 5% Patch) 1 patch TD DAILY [facility] Last Admin: 01/15/18 09:00 Dose: 1 patch Lisinopril (Zestril) 2.5 mg PO DAILY [facility] Magnesium Oxide (Magnesium Oxide) 400 mg PO BIDPRN PRN PRN Reason: FOR SERUM MAG 1.4 - 2.0 Magnesium Oxide (Magnesium Oxide) 800 mg PO PRN PRN PRN Reason: FOR SERUM MAG < 1.4 Miscellaneous Medication (Phos-Nak) 1 pkt PO TIDPRN PRN PRN Reason: FOR PHOS LEVEL 1.0 - 1.8 Miscellaneous Medication (Phos-Nak) 2 pkt PO TIDPRN PRN PRN Reason: FOR PHOS LEVEL 0.5 - 1.0 Miscellaneous Medication (Lidocaine Patch Removal) 1 each TOP 2100 [facility] Last Admin: 01/14/18 21:00 Dose: Not Given Ccu Electrolyte (Replacement Protocol) 0 each FS PRN PRN PRN Reason: FOR ELECTROLYTE REPLACEMENT Pantoprazole Sodium (Protonix) 40 mg PO DAILY [facility] Last Admin: 01/15/18 08:57 Dose: 40 mg Potassium Chloride (K-Dur) 40 meq PO ASDIR PRN PRN Reason: FOR SERUM K+ 2.5 - 3.5 Last Admin: 01/14/18 18:03 Dose: 40 meq Potassium Chloride (Klor-Con) 40 meq PER TUBE ASDIR PRN PRN Reason: FOR SERUM K+ 2.5-3.5 Quetiapine Fumarate (Seroquel) 25 mg PO HS [facility] Last Admin: 01/14/18 20:51 Dose: 25 mg Senna/Docusate Sodium (Senokot S) 2 tab PO BID PRN PRN Reason: Constipation Sertraline HCl (Zoloft) 50 mg PO DAILY [facility] Last Admin: 01/15/18 08:58 Dose: 50 mg Sodium Chloride (Flush - Normal Saline) 10 ml IVF Q12HR [facility] Last Admin: 01/15/18 08:59 Dose: 10 ml Sodium Chloride (Flush - Normal Saline) 10 ml IVF PRN PRN PRN Reason: Saline Flush
[2018-01-15] MEDS: Lidocaine Patch Removal 1 EACH TOP SCH (20:14)
[2018-01-16] MEDS: Acetaminophen 325 MG TAB PO PRN ×2 (00:19→04:45)
[2018-01-16] MEDS ORDERED: Furosemide 40 MG/4 ML VIAL SLOW IVP SCH ×2 (01:45→21:45)
[2018-01-16] MEDS: Ketorolac Tromethamine 30 MG/ML VIAL IVP PRN ×4 (01:56→22:06)
[2018-01-16 03:42] LABS: Anion Gap 12 mmol/L (10-20); BUN (Urea Nitrogen) 24 mg/dL (8.4-25.7); Calc. Creatinine Clearance 96 mL/min (70-130); Calcium 9.5 mg/dL (7.8-10.44); Carbon Dioxide 29 mmol/L (22-29); Chloride 104 mmol/L (98-107); Estimated GFR-MDRD 75; Glucose 127 mg/dL (70-105); Potassium 3.5 mmol/L (3.5-5.1); Sodium 141 mmol/L (136-145)
[2018-01-16 03:46] LABS: Magnesium 0.9 mg/dL (1.6-2.6); Phosphorus 1.7 mg/dL (2.3-4.7)
[2018-01-16 03:53] LABS: Band 6 % (5-11); Hemoglobin 10.4 g/dL (14.0-18.0); Hypochromia SLIGHT = 6-15 cells (100X) (0-5/hpf); Lymphocytes 5 % (21-51); MDiff Complete? YES; Mean Corpuscular HGB CONC 32.9 g/dL (32.0-36.0); Mean Corpuscular Hemoglobin 31.4 pg (27.0-31.0); Mean Corpuscular Volume 95.2 fL (78.0-98.0); Mean Platelet Volume 8.6 fL (7.4-10.4); Monocytes 6 % (0-10); Neutrophil 83 % (42-75); PLT Morphology Comment Appears Adequate; Platelet Count 238 thou/uL (130-400); Red Blood Cell (RBC) Count 3.31 mill/uL (4.70-6.10); White Blood Cell (WBC) Count 22.1 thou/uL (4.8-10.8)
[2018-01-16] MEDS: Potassium Chloride 20 MEQ TAB PO PRN (04:04)
[2018-01-16] MEDS: Furosemide 40 MG TAB PO SCH (07:25)
[2018-01-16] MEDS ORDERED: Carvedilol 3.125 MG TAB PO SCH (08:00)
[2018-01-16] MEDS ORDERED: Potassium Chloride 20 MEQ TAB PO SCH (09:00)
[2018-01-16] MEDS ORDERED: Magnesium Sulfate 4 GM in Sodium Chloride 0.9% 250 ML 250 ML IVPB SCH (09:00)
[2018-01-16] MEDS ORDERED: Potassium Phosphate 30 MMOL in Sodium Chloride 0.9% 500 ML IVPB SCH (09:00)
[2018-01-16] MEDS ORDERED: Lisinopril 2.5 MG TAB PO SCH (09:00)
[2018-01-16] MEDS: Enoxaparin Sodium 30 MG/0.3 ML SYRINGE SC SCH (10:04)
[2018-01-16] MEDS: levETIRAcetam 500 MG TAB PO SCH ×2 (10:04→20:16)
[2018-01-16] MEDS: Lidocaine 5% Patch TD SCH (11:58)
--- NOTE | 2018-01-16 13:44 | PRG ---
DATE OF SERVICE: 01/16/2018 SERVICE: Pulmonary Medicine. INTERVAL HISTORY: The patient continues to look better. He has complaints of continuous pain and an xiety. He is requesting narcotics and benzodiazepines. I explained to him that this is part of the issue that brought him into the hospital. As such, we do need to make a concerted effort moving forw tracey to get him off of these medications. He has a little bit of shortness of breath, this is signifi cantly improved since yesterday morning, however. He has not required any noninvasive ventilation si nce then. Otherwise, he is slowly and steadily improving his strength. . OBJECTIVE: VITAL SIGNS: Afebrile, pulse 101, blood pressure 135/80, respirations 23, saturation 100% on 2 liter s nasal cannula. GENERAL: The patient is awake, alert, no apparent distress. LUNGS: Decent air entry. Dependent crackles are present. HEART: Normal rate, regular. ABDOMEN: Soft, nontender, nondistended. Bowel sounds are positive. MUSCULOSKELETAL: No cyanosis or clubbing. No pitting in the bilateral lower extremities. NEUROLOGIC: Grossly nonfocal. LABORATORY DATA: WBC 22.1, hemoglobin 10.4, platelets 238,000. Magnesium 0.9, phosphorus 1.7. Stre ptococcus pneumonia is growing in 2 out of 2 blood cultures. Urine cultures negative to date. ASSESSMENT: 1. Acute hypoxic and hypercapnic respiratory failure, resolved. 2. Community-acquired pneumonia secondary to Streptococcus. 3. Bacteremia secondary to Streptococcus. 4. Pleural effusion on the left, new. 5. Severe sepsis. 6. Acute kidney injury, resolved. 7. Hypokalemia, improving. DISCUSSION AND PLAN: We will replace the patient's magnesium and phosphorus today. He is back on hi s SSRI and trazodone. We will do an ultrasound at bedside. If there is a large pocket of fluid, tho racentesis will be considered as the patient's white blood cell count is going up. That being said, he indicates to me that he is feeling much improved. As such, we will continue our supportive care a nd diuretics.
[2018-01-16] MEDS: cefTRIAXone\\ROCEPHIN 2 GM in Sodium Chloride 0.9% 100 ML IVPB SCH (14:05)
[2018-01-16] MEDS: Carvedilol 6.25 MG TAB PO SCH (17:05)
[2018-01-16] MEDS: Lidocaine Patch Removal 1 EACH TOP SCH (21:54)
[2018-01-16] MEDS: Diabetic Tussin 200 MG/10 ML UDCUP PO PRN (22:05)
--- NOTE | 2018-01-16 22:48 | PDOC.PN ---
- Subjective Encounter Start Date: 01/16/18 Encounter Start Time: 09:00 -: old records requested/rev Subjective: nsg notes rev, jennifer ovn -: pt seen in f/u for bacteremia and septic shock - overall significantly impv -: pt no new c/o, eager for transfer to floor - Objective Resuscitation Status: Resuscitation Status FULL:Full Resuscitation Vital Signs & Weight: Vital Signs (12 hours) Temp Pulse Pulse Resp BP BP BP 01/16/18 20:00 97.5 F L 97 18 151/93 H 01/16/18 19:19 97 20 01/16/18 17:36 97.8 F 80 24 H 147/80 H 01/16/18 17:05 149/53 H 01/16/18 16:00 99.3 F 01/16/18 15:03 89 142/88 H 01/16/18 12:00 97.8 F Pulse Ox Pulse Ox 01/16/18 20:00 93 L 01/16/18 19:19 93 L 01/16/18 17:36 94 L 01/16/18 17:05 01/16/18 16:00 01/16/18 15:03 96 01/16/18 12:00 Weight Weight 186 lb 11.704 oz Most Recent Monitor Data Heart Rate from ECG 100 NIBP 149/83 NIBP BP-Mean 113 Respiration from ECG 26 SpO2 94 I&O: 01/15/18 01/16/18 01/17/18 06:59 06:59 06:59 Intake Total 1674.4 1288 1727 Output Total 1290 3920 1250 Balance 384.4 -2632 477 Result Diagrams: 01/17/18 04:33 01/17/18 04:33 Phys Exam - Physical Examination Constitutional: NAD Dx/Plan - Plan - Physical Examination Constitutional: NAD HEENT: moist MMs Neck: supple Eliot crackles, marginal air mvmt but otherwise grossly clear to auscultation no conversational dyspnea Cardiovascular: RRR Gastrointestinal: soft LLQ stoma Neurological: moves all 4 limbs Psychiatric: normal affect Dx/Plan (1) Systolic heart failure, ACC/AHA stage C Code(s): I50.20 - UNSPECIFIED SYSTOLIC (CONGESTIVE) HEART FAILURE Status: Acute Comment: vs volume overload. Pt received furosemide, check x-ray. continue symptomatic mgmt (2) Bacteremia Code(s): R78.81 - BACTEREMIA Status: Acute Comment: continue ceftriaxone for strep bacteremia repeat CBC in AM afebrile (3) PNA (pneumonia) Code(s): J18.9 - PNEUMONIA, UNSPECIFIED ORGANISM Status: Acute Comment: continue ceftriaxone for pneumonia see above re: abx currently tolerating RA and able to ambulate (4) BPH (benign prostatic hyperplasia) Code(s): N40.0 - BENIGN PROSTATIC HYPERPLASIA WITHOUT LOWER URINRY TRACT SYMP Status: Chronic Comment: stable (5) Dyslipidemia Code(s): E78.5 - HYPERLIPIDEMIA, UNSPECIFIED Status: Chronic (6) Hypertension Code(s): I10 - ESSENTIAL (PRIMARY) HYPERTENSION Status: Chronic Qualifiers: Hypertension type: essential hypertension Qualified Code(s): I10 - Essential (primary) hypertension Comment: started on Coreg and lisinopril - Plan diet: as nery activity: as nery dvt ppx ok for transfer to medical floor
[2018-01-17] MEDS: Ketorolac Tromethamine 30 MG/ML VIAL IVP PRN ×3 (04:53→21:21)
[2018-01-17 06:29] LABS: BUN (Urea Nitrogen) 24 mg/dL (8.4-25.7); Calc. Creatinine Clearance 90 mL/min (70-130); Calcium 9.5 mg/dL (7.8-10.44); Carbon Dioxide 28 mmol/L (22-29); Estimated GFR-MDRD 70; Glucose 130 mg/dL (70-105); Magnesium 1.6 mg/dL (1.6-2.6); Phosphorus 3.2 mg/dL (2.3-4.7)
[2018-01-17 06:37] LABS: Anion Gap 15 mmol/L (10-20); Chloride 102 mmol/L (98-107); Potassium 4.1 mmol/L (3.5-5.1); Sodium 141 mmol/L (136-145)
[2018-01-17 06:46] LABS: Band 23 % (5-11); Hemoglobin 11.6 g/dL (14.0-18.0); Lymphocytes 6 % (21-51); MDiff Complete? YES; Mean Corpuscular Hemoglobin 31.7 pg (27.0-31.0); Mean Corpuscular Volume 96.2 fL (78.0-98.0); Mean Platelet Volume 8.8 fL (7.4-10.4); Metamyelocyte 4 % (0-0); Monocytes 3 % (0-10); Myelocyte 1 % (0-0); Neutrophil 63 % (42-75); PLT Morphology Comment Appears Adequate; Platelet Count 295 thou/uL (130-400); RBC Distribution Width 12.2 % (11.5-14.5); Red Blood Cell (RBC) Count 3.65 mill/uL (4.70-6.10); White Blood Cell (WBC) Count 25.9 thou/uL (4.8-10.8)
--- NOTE | 2018-01-17 08:12 | PDOC.CTH ---
<Amalia Purvis - Last Filed: 01/17/18 08:12> Cardiology Progress Note - Subjective The pt seen and examined. No overnight events. No cardiac complaints. He is resting well at this time. - Objective Vital Signs Temp Pulse Resp BP Pulse Ox 01/17/18 07:43 98.5 F 88 16 156/87 H 94 L 01/17/18 05:00 99 16 01/17/18 04:00 98.3 F 97 22 H 131/82 95 01/17/18 00:00 99.3 F 98 22 H 123/74 91 L Weight 186 lb 11.704 oz 01/16/18 01/17/18 01/18/18 06:59 06:59 06:59 Intake Total 1288 2227 Output Total 3920 1950 Balance -2632 277 - Physical Examination General/Neuro: alert & oriented x3 Neck: no JVD present Lungs: other: (diminished at bases) Heart: RRR Abdomen: soft Extremities: other: (No edema) - Labs Result Diagrams: 01/17/18 04:33 01/17/18 04:33 Troponin/CKMB CK-MB (CK-2) 0.8 ng/mL (0-6.6) 01/11/18 11:58 Troponin I 0.156 ng/mL (< 0.028) H 01/11/18 17:39 - Assessment/Plan 1. Acute on Chronic Systolic HF - stable with Lasix 40mg PO daily; start Coreg 6.25mg BID and Lisinopril 2.5mg qd; Will increase Lisinopril to 5mg qd; cont. to monitor 2. Sepsis 2/2 stap PNA - on IV antibiotics; managed by light cleaner/PCP 3. HTN - Increase Lisinopril from 2.5mg to 5mg qd 4. Tachycardia - stable with Coreg 6.25mg BID; cont. to monitor 5. OLGA - improving 6. COPD - managed by light cleaner 7. Hx of CVA - stable 8. Diverticulosis w/ s/p segmental resection and colostomy placement - 9. Tabacco/ETOH/Ilicit drug abuse - smoking, EOTH, and ilicit drug cessation education given to the pt. 10. Chest wall pain 2/2 fall 1 wk ago - stable with Toradol and lidocaine cream ; managed by PCP TEMITOPE huerta * Echo on 01/12/18 showed EF 30-35%, mildly dilated LA, akinetic inferior wall, mildly elevated LV, mod MR, mild TR. * When the pt is stable, the pt need Stress test and repeat Echo prior to discharge. Review of Systems - Review of Systems Constitutional: reports: no symptoms reported EENTM: reports: no symptoms reported Respiratory: reports: no symptoms reported Cardiac (ROS): reports: no symptoms reported ABD/GI: reports: no symptoms reported : reports: no symptoms reported Musculoskeletal: reports: no symptoms reported <Nguyễn Reardon - Last Filed: 01/17/18 18:31> Cardiology Progress Note - Objective Vital Signs Temp Pulse Resp BP BP Pulse Ox 01/17/18 18:03 142/85 H 01/17/18 09:44 88 156/87 H 01/17/18 08:00 94 L 01/17/18 07:43 98.5 F 88 16 156/87 H 94 L Weight 186 lb 11.704 oz 01/16/18 01/17/18 01/18/18 06:59 06:59 06:59 Intake Total 1288 2227 180 Output Total 3920 1950 Balance -2632 277 180 - Labs Result Diagrams: 01/17/18 04:33 01/17/18 04:33 Troponin/CKMB CK-MB (CK-2) 0.8 ng/mL (0-6.6) 01/11/18 11:58 Troponin I 0.156 ng/mL (< 0.028) H 01/11/18 17:39 - Assessment/Plan Pt. seen and eval. by Dat agree with the A/P by the MOBILE DESIGNER. The CXR still shows a left effusion or infiltrate at the base.He is still coughing,productive. no edema. RRR. if the EF is not improved then he will be a candidate for a Life- Vest. Continue medical management. he will need a stress test but I dont think he is well enough yet. it would be better if the left uffusion is improved first.
--- NOTE | 2018-01-17 09:02 | RAD ---
CHEST ONE VIEW: History: 57-year-old male with history of follow up perfusion. Comparison: 01-15-18 FINDINGS: There is some persistent but slightly improved bilateral vascular congestion. There is a persistent, probably slightly smaller left pleural effusion. Heart size is stable. No new confluent process. IMPRESSION: Improving bilateral vascular congestion. Decreasing left pleural effusion. Continued short term follo w up for complete clearing or stability. POS: MICHELL
[2018-01-17] MEDS: Furosemide 40 MG TAB PO SCH (09:44)
[2018-01-17] MEDS: Lisinopril 5 MG TAB PO SCH (09:44)
[2018-01-17] MEDS: Carvedilol 6.25 MG TAB PO SCH ×2 (09:44→18:03)
[2018-01-17] MEDS: Lidocaine 5% Patch TD SCH (09:44)
[2018-01-17] MEDS: Enoxaparin Sodium 30 MG/0.3 ML SYRINGE SC SCH (09:45)
[2018-01-17] MEDS: levETIRAcetam 500 MG TAB PO SCH ×2 (09:45→20:39)
[2018-01-17] MEDS: Diabetic Tussin 200 MG/10 ML UDCUP PO PRN (09:52)
[2018-01-17] MEDS: cefTRIAXone\\ROCEPHIN 2 GM in Sodium Chloride 0.9% 100 ML IVPB SCH (11:43)
[2018-01-17] MEDS ORDERED: Magnesium Sulfate 2 GM in Sodium Chloride 0.9% 100 ML IVPB SCH (12:45)
--- NOTE | 2018-01-17 12:57 | PRG ---
DATE OF SERVICE: 01/17/2018 SERVICE: Pulmonary Medicine. INTERVAL HISTORY: The patient is doing great from a respiratory standpoint. He denies any current fevers, chills, chest pain, nausea, vomiting. He actually feels like his strength is improving. He is eager to get out of the hospital. He is able to walk 300 feet with physical therapy yesterday. He is back on room air. He feels that he does not have any significant dyspnea that limits his activity currently. PHYSICAL EXAMINATION: VITAL SIGNS: Afebrile, pulse 80, blood pressure is 156/87, respirations 16, saturation 94% on room air. GENERAL: The patient is awake and alert, in no apparent distress. LUNGS: Excellent air entry. There is a slight prolonged expiratory phase. I do not appreciate any wheezing. Rhonchi are present, but clear with cough. No crackles. HEART: Normal rate, regular. ABDOMEN: Soft, nontender, nondistended. Bowel sounds are positive. MUSCULOSKELETAL: No cyanosis or clubbing. There is no pitting in the bilateral lower extremities. NEUROLOGIC: Grossly nonfocal. LABORATORY DATA: WBC 25.6, hemoglobin 11.6, platelets 295,000. Basic metabolic profile is completely unremarkable. Magnesium and phosphorus have corrected into the normal limits. A 2 out of 2 blood cultures are growing Streptococcus pneumoniae. Urine cultures negative to date. IMAGING: Chest x-ray demonstrates improving bilateral vascular congestion and decreasing left pleural effusion. ASSESSMENT: 1. Acute hypoxic and hypercapnic respiratory failure, resolved. 2. Community-acquired pneumonia secondary to Streptococcus. 3. Bacteremia secondary to Streptococcus. 4. Pleural effusion on the left. 5. Severe sepsis, resolving. 6. Acute kidney injury, resolved. 7. Hypokalemia, resolved. DISCUSSION AND PLAN: The patient tells me that on a day by day basis, he continues to improve. The pleural parenchymal base is improving on a day by day basis as well. The bedside ultrasound was performed yesterday. We did not see a large pocket of fluid, what is there was completely free flowing. As such , thoracentesis is not being entertained at this time. Magnesium will be replaced today. We will continue to diurese the patient until he returns close to euvolemia. From my perspective, he can be transitioned out of the hospital. I have cautioned him that if his breathing discomfort or fever profile gets worse, he needs to return to the emergency department sooner. That being said, from my perspective, he is stable for transition out of the hospital. I will need to get a chest x-ray on him in 4 weeks in the outpatient setting to make certain this infiltrate resolves in its entirety. INDU
[2018-01-17] MEDS ORDERED: Magnesium 2 GM/50 ML 2 GM in Premix Bag 1 BAG IVPB SCH (13:00)
--- NOTE | 2018-01-17 17:12 | PDOC.PN ---
- Subjective Encounter Start Date: 01/17/18 Encounter Start Time: 17:00 Subjective: f/u for bacteremia and septic shock; nsg notes rev, jennifer ovn -: no new c/o, eager for d/c. pt states he has been ambulating, tolerating -: diet w/o difficulty and his works Dw[employer] And is able to care for him - Objective Resuscitation Status: Resuscitation Status FULL:Full Resuscitation Vital Signs & Weight: Vital Signs (12 hours) Temp Pulse Resp BP BP Pulse Ox 01/17/18 09:44 88 156/87 H 01/17/18 08:00 94 L 01/17/18 07:43 98.5 F 88 16 156/87 H 94 L Weight Weight 186 lb 11.704 oz Most Recent Monitor Data Heart Rate from ECG 100 NIBP 149/83 NIBP BP-Mean 113 Respiration from ECG 26 SpO2 94 I&O: 01/16/18 01/17/18 01/18/18 06:59 06:59 06:59 Intake Total 1288 2227 180 Output Total 3920 1950 Balance -2632 277 180 Result Diagrams: 01/17/18 04:33 01/17/18 04:33 Phys Exam - Physical Examination Constitutional: NAD Dx/Plan - Plan - Physical Examination Constitutional: NAD HEENT: moist MMs Neck: supple Eliot crackles, marginal air mvmt but otherwise grossly clear to auscultation no conversational dyspnea Cardiovascular: RRR, pulses 2+ b/l UE, no pitting pedal edema Gastrointestinal: soft LLQ stoma, + ostomy output soft Neurological: moves all 4 limbs, able to get out of bed and into chair w/o assist Psychiatric: normal affect Dx/Plan (1) Systolic heart failure, ACC/AHA stage C Code(s): I50.20 - UNSPECIFIED SYSTOLIC (CONGESTIVE) HEART FAILURE Status: Acute Comment: vs volume overload. Pt received furosemide, check x-ray. continue symptomatic mgmt (2) Bacteremia Code(s): R78.81 - BACTEREMIA Status: Acute Comment: continue ceftriaxone for strep bacteremia repeat CBC in AM afebrile concern for persistent bacteremia, will repeat blood cultures however, clinically the pt appears very well (3) PNA (pneumonia) Code(s): J18.9 - PNEUMONIA, UNSPECIFIED ORGANISM Status: Acute Comment: continue ceftriaxone for pneumonia see above re: abx currently tolerating RA and able to ambulate (4) BPH (benign prostatic hyperplasia) Code(s): N40.0 - BENIGN PROSTATIC HYPERPLASIA WITHOUT LOWER URINRY TRACT SYMP Status: Chronic Comment: stable (5) Dyslipidemia Code(s): E78.5 - HYPERLIPIDEMIA, UNSPECIFIED Status: Chronic (6) Hypertension Code(s): I10 - ESSENTIAL (PRIMARY) HYPERTENSION Status: Chronic Qualifiers: Hypertension type: essential hypertension Qualified Code(s): I10 - Essential (primary) hypertension Comment: started on Coreg and lisinopril Leukocytosis see discussion above under bacteremia and pneumonia could be delayed reactive leukocytosis from the bactermia and pneumonia as pt has been hemodynamically stable w/o fever will need to continue to monitor at least for initiation of downward trend prior to d/c home - Plan diet: as nery activity: as nery dvt ppx d/w pt, pt's bedside nsg, and Dr. Castro greater than 30 minutes spent coordinating care Review of Systems - Medications/Allergies Allergies/Adverse Reactions: Allergies Allergy/AdvReac Type Severity Reaction Status Date / Time No Known Drug Allergies Allergy Verified 01/12/18 03:45 Medications: Current Medications Acetaminophen (Tylenol) 650 mg PO Q4H PRN PRN Reason: Headache/Fever/Mild Pain (1-3) Last Admin: 01/16/18 04:45 Dose: 650 mg Albuterol/Ipratropium (Duoneb) 3 ml NEB [id number] PRN PRN Reason: SOB &/or Wheezing Last Admin: 01/18/18 03:08 Dose: 3 ml Aspirin (Aspirin Chewable) 81 mg PO DAILY [facility] Last Admin: 01/17/18 09:45 Dose: 81 mg Carvedilol (Coreg) 6.25 mg PO BID-[facility] Last Admin: 01/17/18 18:03 Dose: 6.25 mg Enoxaparin Sodium (Lovenox) 30 mg SC 0900 [facility] Last Admin: 01/17/18 09:45 Dose: 30 mg Furosemide (Lasix) 40 mg PO DAILY-[facility] Last Admin: 01/17/18 09:44 Dose: 40 mg Guaifenesin (Robitussin Sf) 300 mg PO Q6H PRN PRN Reason: Cough Last Admin: 01/18/18 02:31 Dose: 300 mg Hydralazine HCl (Apresoline) 10 mg SLOW IVP Q6H PRN PRN Reason: SBP Greater Than 170 Ceftriaxone Sodium 2 gm/ (Sodium Chloride) 100 mls @ 200 mls/hr IVPB Q24HR [facility] Stop: 01/25/18 12:59 Last Admin: 01/17/18 11:43 Dose: 100 mls Ketorolac Tromethamine (Toradol) 30 mg IVP Q6H PRN PRN Reason: Pain Stop: 01/19/18 12:28 Last Admin: 01/17/18 21:21 Dose: 30 mg Levetiracetam (Keppra) 500 mg PO BID [facility] Last Admin: 01/17/18 20:39 Dose: 500 mg Lidocaine (Lidoderm 5% Patch) 1 patch TD DAILY [facility] Last Admin: 01/17/18 09:44 Dose: 1 patch Lisinopril (Zestril) 5 mg PO DAILY [facility] Last Admin: 01/17/18 09:44 Dose: 5 mg Miscellaneous Medication (Lidocaine Patch Removal) 1 each TOP 2100 [facility] Last Admin: 01/17/18 20:39 Dose: 1 each Nicotine (Nicoderm Patch) 21 mg TOP HS [facility] Pantoprazole Sodium (Protonix) 40 mg PO DAILY [facility] Last Admin: 01/17/18 09:45 Dose: 40 mg Quetiapine Fumarate (Seroquel) 25 mg PO HS [facility] Last Admin: 01/17/18 20:39 Dose: 25 mg Senna/Docusate Sodium (Senokot S) 2 tab PO BID PRN PRN Reason: Constipation Sertraline HCl (Zoloft) 50 mg PO DAILY [facility] Last Admin: 01/17/18 09:44 Dose: 50 mg Simethicone (Mylicon Drops 40 Mg/0.6ml Drop) 20 mg PO QID PRN PRN Reason: Gas Pain Last Admin: 01/16/18 14:07 Dose: 20 mg Sodium Chloride (Flush - Normal Saline) 10 ml IVF Q12HR [facility] Last Admin: 01/17/18 20:39 Dose: 10 ml Sodium Chloride (Flush - Normal Saline) 10 ml IVF PRN PRN PRN Reason: Saline Flush
[2018-01-17] MEDS: Lidocaine Patch Removal 1 EACH TOP SCH (20:39)
[2018-01-17] MEDS ORDERED: Nicotine 21 MG PATCH TOP SCH (22:30)
[2018-01-18] MEDS: Diabetic Tussin 200 MG/10 ML UDCUP PO PRN ×2 (02:31→22:35)
[2018-01-18 06:30] LABS: Band 7 % (5-11); Eosinophils 3 % (0-10); Hemoglobin 11.3 g/dL (14.0-18.0); Lymphocytes 12 % (21-51); MDiff Complete? YES; Mean Corpuscular HGB CONC 31.9 g/dL (32.0-36.0); Mean Corpuscular Hemoglobin 30.7 pg (27.0-31.0); Mean Corpuscular Volume 96.2 fL (78.0-98.0); Mean Platelet Volume 9.3 fL (7.4-10.4); Monocytes 6 % (0-10); Myelocyte 2 % (0-0); Neutrophil 70 % (42-75); Platelet Count 317 thou/uL (130-400); RBC Distribution Width 12.3 % (11.5-14.5); Red Blood Cell (RBC) Count 3.69 mill/uL (4.70-6.10); Toxic Granulation SLIGHT; White Blood Cell (WBC) Count 19.5 thou/uL (4.8-10.8)
[2018-01-18 06:33] LABS: Anion Gap 16 mmol/L (10-20); BUN (Urea Nitrogen) 25 mg/dL (8.4-25.7); Calc. Creatinine Clearance 90 mL/min (70-130); Carbon Dioxide 25 mmol/L (22-29); Chloride 103 mmol/L (98-107); Estimated GFR-MDRD 70; Glucose 101 mg/dL (70-105); Magnesium 1.6 mg/dL (1.6-2.6); Phosphorus 4.4 mg/dL (2.3-4.7); Potassium 3.6 mmol/L (3.5-5.1); Sodium 140 mmol/L (136-145)
[2018-01-18] MEDS: levETIRAcetam 500 MG TAB PO SCH ×2 (08:54→20:31)
[2018-01-18] MEDS: Carvedilol 6.25 MG TAB PO SCH ×2 (08:55→16:32)
[2018-01-18] MEDS: Lisinopril 5 MG TAB PO SCH (08:55)
[2018-01-18] MEDS: Enoxaparin Sodium 30 MG/0.3 ML SYRINGE SC SCH (08:56)
[2018-01-18] MEDS: Furosemide 40 MG TAB PO SCH (08:56)
[2018-01-18] MEDS: Ketorolac Tromethamine 30 MG/ML VIAL IVP PRN ×2 (09:09→20:32)
[2018-01-18] MEDS: Lidocaine 5% Patch TD SCH (09:38)
--- NOTE | 2018-01-18 11:00 | PDOC.CTH ---
<Amalia Purvis - Last Filed: 01/18/18 12:36> Cardiology Progress Note - Subjective The pt seen and examined. No overnight events. No cardiac complaints. - Objective Vital Signs Temp Pulse Resp BP BP BP Pulse Ox 01/18/18 08:55 84 131/80 01/18/18 08:33 98.5 F 84 20 131/80 97 01/18/18 03:43 98.9 F 84 18 126/73 93 L 01/18/18 03:08 78 16 95 Weight 186 lb 11.704 oz 01/17/18 01/18/18 01/19/18 06:59 06:59 06:59 Intake Total 2227 580 Output Total 1950 600 Balance 277 -20 - Physical Examination General/Neuro: alert & oriented x3 Neck: no JVD present Lungs: CTA (diminished at bases) Heart: RRR Abdomen: soft Extremities: other: (No edema) - Labs Result Diagrams: 01/18/18 04:53 01/18/18 04:53 Troponin/CKMB CK-MB (CK-2) 0.8 ng/mL (0-6.6) 01/11/18 11:58 Troponin I 0.156 ng/mL (< 0.028) H 01/11/18 17:39 - Assessment/Plan 1. Acute on Chronic Systolic HF - stable with Lasix 40mg PO daily, Coreg 6.25mg BID and Lisinopril 5mg qd. Cont. to monitor 2. Sepsis 2/2 stap PNA - on IV antibiotics; managed by vermin exterminator/PCP 3. HTN - stable 4. Tachycardia - stable with Coreg 6.25mg BID; cont. to monitor 5. OLGA - improving 6. COPD - managed by vermin exterminator 7. Hx of CVA - stable 8. Diverticulosis w/ s/p segmental resection and colostomy placement - 9. Tabacco/ETOH/Ilicit drug abuse - smoking, EOTH, and ilicit drug cessation education given to the pt. 10. Chest wall pain 2/2 fall 1 wk ago - stable with Toradol and lidocaine cream ; managed by PCP MAR reviewed * Echo on 01/12/18 showed EF 30-35%, mildly dilated LA, akinetic inferior wall, mildly elevated LV, mod MR, mild TR. * Repeat Echo was done this AM and the result is pending at this time. If the EF is not improved, then he will be a candidate for a Life-Vest. * When the pt is stable, the pt can have Stress test as outpt. Review of Systems - Review of Systems Constitutional: reports: no symptoms reported, weakness EENTM: reports: no symptoms reported Respiratory: reports: no symptoms reported Cardiac (ROS): reports: no symptoms reported ABD/GI: reports: no symptoms reported : reports: no symptoms reported <Nguyễn Reardon - Last Filed: 01/18/18 15:54> Cardiology Progress Note - Objective Vital Signs Temp Pulse Resp BP BP BP Pulse Ox 01/18/18 11:29 98.8 F 78 20 106/51 L 96 01/18/18 08:55 84 131/80 01/18/18 08:33 98.5 F 84 20 131/80 97 01/18/18 08:00 96 Weight 186 lb 11.704 oz 01/17/18 01/18/18 01/19/18 06:59 06:59 06:59 Intake Total 2227 580 Output Total 1950 600 Balance 277 -20 - Labs Result Diagrams: 01/18/18 04:53 01/18/18 04:53 Troponin/CKMB CK-MB (CK-2) 0.8 ng/mL (0-6.6) 01/11/18 11:58 Troponin I 0.156 ng/mL (< 0.028) H 01/11/18 17:39 - Assessment/Plan Echo today: EF 40-45%. No indication for a Life-Vest. I agree with the A/P by the BANKING SUPERVISOR. From my perspective he could be d/c'd and f/u as an outpt. at some point when the PNA is resolved then he should he a stress test. continue medical treatment. F/u in the office in 2 weeks.
[2018-01-18] MEDS: cefTRIAXone\\ROCEPHIN 2 GM in Sodium Chloride 0.9% 100 ML IVPB SCH (13:56)
--- NOTE | 2018-01-18 14:01 | PRG ---
DATE OF SERVICE: 01/18/2018 SERVICE: Pulmonary Medicine. INTERVAL HISTORY: The patient is breathing very well today. He is on room air. Denies any shortnes s of breath or chest discomfort. His cough is improving dramatically. Cardiology is doing a cathete rization on him prior to being discharged from the hospital. Wonderfully, his white blood cell count is starting to trend downward. He has absolutely no complaints and continues to feel better. PHYSICAL EXAMINATION: VITAL SIGNS: Afebrile, pulse 78, blood pressure 106/61, respirations 20, saturation 96% on room air. GENERAL: The patient is awake, alert, no apparent distress. LUNGS: Excellent air entry. Crackles are present, particularly at the left base. No prolonged expi ratory phase or wheezing is otherwise appreciated. HEART: Normal rate, regular. ABDOMEN: Soft, nontender, nondistended. Bowel sounds are positive. MUSCULOSKELETAL: No cyanosis or clubbing. There is no pitting in the bilateral lower extremities. NEUROLOGIC: Grossly nonfocal. LABORATORY DATA: Basic metabolic profile and magnesium and phosphorus fall within normal limits. WB C down trending to 19.5, bands are now 7%. Monocyte and lymphocyte counts are starting to rebound. ASSESSMENT: 1. Acute hypoxic and hypercapnic respiratory failure, resolved. 2. Community-acquired pneumonia secondary to Streptococcus. 3. Bacteremia secondary to Streptococcus. 4. Pleural effusion on the left. 5. Severe sepsis, resolved. 6. Acute kidney injury, resolved. PLAN: I will once again replace a little bit of magnesium. That being said, give the patient a labo ratory holiday in the morning. I will switch him over to p.o. antibiotics. From my perspective, he is stable for transition out of the hospital. He will require a full 2 week course of these antibiot ics. Pulmonary will continue to follow. At this point, the patient has no further requirements for inpatient Pulmonary or Critical Care opinion and I will sign off. We will set him up with a chest x- ray in roughly 4-6 weeks to verify the infiltrate resolves.
--- NOTE | 2018-01-18 17:45 | PDOC.PN ---
- Subjective Encounter Start Date: 01/18/18 Encounter Start Time: 17:43 Pt seen for followup re: bacteremia. Feels better. Ambulating. - Objective Resuscitation Status: Resuscitation Status FULL:Full Resuscitation MAR Reviewed: Yes Vital Signs & Weight: Vital Signs (12 hours) Temp Pulse Resp BP BP BP Pulse Ox 01/18/18 15:32 97.8 F 87 16 128/66 96 01/18/18 11:29 98.8 F 78 20 106/51 L 96 01/18/18 08:55 84 131/80 01/18/18 08:33 98.5 F 84 20 131/80 97 01/18/18 08:00 96 Weight Weight 186 lb 11.704 oz Most Recent Monitor Data Heart Rate from ECG 100 NIBP 149/83 NIBP BP-Mean 113 Respiration from ECG 26 SpO2 94 I&O: 01/17/18 01/18/18 01/19/18 06:59 06:59 06:59 Intake Total 2227 580 Output Total 1950 600 Balance 277 -20 Result Diagrams: 01/18/18 04:53 01/18/18 04:53 EKG Reviewed by me: Yes (Tele: NSR) Phys Exam - Physical Examination Constitutional: NAD HEENT: moist MMs Neck: supple Respiratory: clear to auscultation bilateral Cardiovascular: RRR Gastrointestinal: soft Neurological: moves all 4 limbs Psychiatric: normal affect Dx/Plan (1) Bacteremia Code(s): R78.81 - BACTEREMIA Status: Acute Comment: continue levofloxacin (2) PNA (pneumonia) Code(s): J18.9 - PNEUMONIA, UNSPECIFIED ORGANISM Status: Acute Comment: continue levofloxacin (3) BPH (benign prostatic hyperplasia) Code(s): N40.0 - BENIGN PROSTATIC HYPERPLASIA WITHOUT LOWER URINRY TRACT SYMP Status: Chronic Comment: stable (4) Dyslipidemia Code(s): E78.5 - HYPERLIPIDEMIA, UNSPECIFIED Status: Chronic (5) Hypertension Code(s): I10 - ESSENTIAL (PRIMARY) HYPERTENSION Status: Chronic Qualifiers: Hypertension type: essential hypertension Qualified Code(s): I10 - Essential (primary) hypertension Comment: continue Coreg and lisinopril (6) Systolic heart failure, ACC/AHA stage C Code(s): I50.20 - UNSPECIFIED SYSTOLIC (CONGESTIVE) HEART FAILURE Status: Resolved Comment: Pt is off of diuretics now - Plan * . Review of Systems - Review of Systems Respiratory: SOB with Excertion. negative: Cough, Shortness of Breath, Pleuritic Pain, Wheezing Cardiovascular: negative: chest pain, palpitations, orthopnea, paroxysmal nocturnal dyspnea, edema, light headedness - Medications/Allergies Allergies/Adverse Reactions: Allergies Allergy/AdvReac Type Severity Reaction Status Date / Time No Known Drug Allergies Allergy Verified 01/12/18 03:45 Medications: Current Medications Acetaminophen (Tylenol) 650 mg PO Q4H PRN PRN Reason: Headache/Fever/Mild Pain (1-3) Last Admin: 01/16/18 04:45 Dose: 650 mg Albuterol/Ipratropium (Duoneb) 3 ml NEB [id number] PRN PRN Reason: SOB &/or Wheezing Last Admin: 01/18/18 03:08 Dose: 3 ml Aspirin (Aspirin Chewable) 81 mg PO DAILY [facility] Last Admin: 01/18/18 08:56 Dose: 81 mg Carvedilol (Coreg) 6.25 mg PO BID-[facility] Last Admin: 01/18/18 16:32 Dose: 6.25 mg Enoxaparin Sodium (Lovenox) 30 mg SC 0900 [facility] Last Admin: 01/18/18 08:56 Dose: 30 mg Guaifenesin (Robitussin Sf) 300 mg PO Q6H PRN PRN Reason: Cough Last Admin: 01/18/18 02:31 Dose: 300 mg Hydralazine HCl (Apresoline) 10 mg SLOW IVP Q6H PRN PRN Reason: SBP Greater Than 170 Ketorolac Tromethamine (Toradol) 30 mg IVP Q6H PRN PRN Reason: Pain Stop: 01/19/18 12:28 Last Admin: 01/18/18 09:09 Dose: 30 mg Levetiracetam (Keppra) 500 mg PO BID [facility] Last Admin: 01/18/18 08:54 Dose: 500 mg Levofloxacin (Levaquin) 750 mg PO 0600 [facility] Stop: 01/26/18 06:01 Lidocaine (Lidoderm 5% Patch) 1 patch TD DAILY [facility] Last Admin: 01/18/18 09:38 Dose: 1 patch Lisinopril (Zestril) 5 mg PO DAILY [facility] Last Admin: 01/18/18 08:55 Dose: 5 mg Miscellaneous Medication (Lidocaine Patch Removal) 1 each TOP 2100 [facility] Last Admin: 01/17/18 20:39 Dose: 1 each Nicotine (Nicoderm Patch) 21 mg TOP HS [facility] Pantoprazole Sodium (Protonix) 40 mg PO DAILY [facility] Last Admin: 01/18/18 08:56 Dose: 40 mg Quetiapine Fumarate (Seroquel) 25 mg PO HS [facility] Last Admin: 01/17/18 20:39 Dose: 25 mg Senna/Docusate Sodium (Senokot S) 2 tab PO BID PRN PRN Reason: Constipation Sertraline HCl (Zoloft) 50 mg PO DAILY [facility] Last Admin: 01/18/18 08:55 Dose: 50 mg Simethicone (Mylicon Drops 40 Mg/0.6ml Drop) 20 mg PO QID PRN PRN Reason: Gas Pain Last Admin: 01/16/18 14:07 Dose: 20 mg Sodium Chloride (Flush - Normal Saline) 10 ml IVF Q12HR [facility] Last Admin: 01/18/18 09:52 Dose: 10 ml Sodium Chloride (Flush - Normal Saline) 10 ml IVF PRN PRN PRN Reason: Saline Flush
[2018-01-18 20:01] VITALS: BP 134/64; TEMP 98.3
[2018-01-18] MEDS: Lidocaine Patch Removal 1 EACH TOP SCH (20:31)
[2018-01-18] MEDS ORDERED: Nicotine 21 MG PATCH TOP SCH (21:00)
[2018-01-19] MEDS: Acetaminophen 325 MG TAB PO PRN (00:32)
--- NOTE | 2018-01-19 11:46 | DIS ---
DATE OF ADMISSION: 01/11/2018 DATE OF DISCHARGE: 01/19/2018 PRIMARY CARE PHYSICIAN: Mehnaz Rubin M.D. DISCHARGE DIAGNOSES: 1. Acute hypoxic and hypercapnic respiratory failure. 2. Community-acquired pneumonia secondary to Streptococcus. 3. Bacteremia secondary to Streptococcus. 4. Severe sepsis. 5. Acute kidney injury. 6. Septic shock. CONDITION OF PATIENT ON THE DAY OF DISCHARGE: Stable. I assessed Mr. Vences on the day of discharge. He denies any chest pain or shortness of breath. Vital signs are stable. He is ambulating in the h allway. S1 and S2 are heard, regular. Lungs are clear to auscultation bilaterally. DISCHARGE MEDICATIONS: Aspirin 81 mg daily; amitriptyline 10 mg at bedtime; esomeprazole 20 mg daily ; quetiapine 25 mg at bedtime; ropinirole 0.5 mg in the evening; sertraline 50 mg daily; Coenzyme Q10 200 mg daily; Lipitor 80 mg at bedtime; Coreg dose decreased to 6.25 mg 2 times a day; Keppra 500 mg 2 times a day; levofloxacin 750 mg daily, 7 more days; lisinopril dose decreased to 5 mg daily; rachel kizzy 21 mg patch daily; Flomax 0.4 mg at bedtime; furosemide 40 mg daily; potassium chloride 10 mEq d aily. HOSPITAL COURSE: Mr. Vences is a pleasant 57-year-old gentleman who was admitted to [facility] on 01/11/2018 for sepsis and pneumonia. Please refer to Dr. Rosa's history and ph ysical note dated 01/11/2018 for further details. He was seen by Pulmonology Service, Dr. Babcock, and Cardiology Service, Dr. Chung. He was treated with intravenous antibiotics. He had a left basal infiltrate at the time of admission. Late on 01/11/2018, he required intubation and was admitted to the ICU. Cardiology service saw him for markedly elevated BNP. A 2D echocardiogram on 01/12/2018 showed left ventricular ejection fraction of 30%-35%, mildly dilated left atrium, akinetic inferior wall, mildly increased left ventricular size, moderate mitral regurgitation and mild tricuspid regurgitation. He also received diuretics. He was also extubated on 01/12/2018. He continued to be on pressors for se ptic shock. Blood cultures grew Streptococcus pneumonia in 2 out of 2 sets, and the organism was pansensitive. He continued to improve clinically. He was weaned off of pressors. He was transferred to the medica l floor. He had a repeat 2D echocardiogram on 01/18/2018, which showed left ventricular ejection fra ction of 40%-45%, akinetic apex, hypokinetic septum, normal right ventricular size and function. He was also seen by therapy services and was ambulating in the hallways. He is being discharged home in a stable condition. He is advised to follow up with his primary care provider in 3-5 days. He will need his BMP checked in approximately a week's time to ensure stability of creatinine and potassium levels. He did have a cute kidney injury at the time of admission, with a creatinine of 2.40. Many thanks for allowing me to participate in your patient's care. Please feel free to contact me wi th any questions or concerns. DISCHARGE DESTINATION: Home. TOTAL AMOUNT OF TIME SPENT COORDINATING THIS DISCHARGE: 33 minutes.
[2018-01-19] MEDS: levETIRAcetam 500 MG TAB PO SCH (12:01)
[2018-01-19] MEDS: Carvedilol 6.25 MG TAB PO SCH (12:01)
[2018-01-19] MEDS: Enoxaparin Sodium 30 MG/0.3 ML SYRINGE SC SCH (12:01)
[2018-01-19] MEDS: Lidocaine 5% Patch TD SCH (12:02)
[2018-01-19] MEDS: Lisinopril 5 MG TAB PO SCH (12:02)
--- NOTE | 2018-01-19 14:40 | PDOC.CTH ---
Addendum entered and electronically signed by Nguyễn Reardon MD 01/19/18 13:55: Original Note: <Amalia Purvis - Last Filed: 01/19/18 12:15> Cardiology Progress Note - Subjective the pt seen and examined. No overnight events. No cardiac complaints. He stated he can breath and feel better today. - Objective Vital Signs Pulse Pulse Ox 01/19/18 12:02 80 01/19/18 07:49 97 Weight 186 lb 11.704 oz 01/18/18 01/19/18 01/20/18 06:59 06:59 06:59 Intake Total 580 236 Output Total 600 Balance -20 236 - Physical Examination General/Neuro: alert & oriented x3 Neck: no JVD present Lungs: CTA Heart: RRR Abdomen: soft Extremities: other: (No edema) - Telemetry Telemetry Rhythm: SR 80s - Labs Result Diagrams: 01/18/18 04:53 01/18/18 04:53 Troponin/CKMB CK-MB (CK-2) 0.8 ng/mL (0-6.6) 01/11/18 11:58 Troponin I 0.156 ng/mL (< 0.028) H 01/11/18 17:39 - Assessment/Plan 1. Acute on Chronic Systolic HF - EF improved to 40-45% on 01/18/18; stable with Lasix 40mg PO daily, Coreg 6.25mg BID and Lisinopril 5mg qd. Cont. to monitor 2. Sepsis 2/2 stap PNA - on IV antibiotics; managed by kiln transfer operator/PCP 3. HTN - stable 4. Tachycardia - stable with Coreg 6.25mg BID; cont. to monitor 5. OLGA - improving 6. COPD - managed by kiln transfer operator 7. Hx of CVA - stable 8. Diverticulosis w/ s/p segmental resection and colostomy placement - 9. Tabacco/ETOH/Ilicit drug abuse - smoking, EOTH, and ilicit drug cessation education given to the pt. 10. Chest wall pain 2/2 fall 1 wk ago - stable with Toradol and lidocaine cream ; managed by PCP TEMITOPE huerta * Echo on 01/12/18 showed EF 30-35%, mildly dilated LA, akinetic inferior wall, mildly elevated LV, mod MR, mild TR. * Repeat Echo on 01/18/18 showed EF 40-45%. *The pt is stable to d/c. The pt will f/u with Dr Reardon' office within 2 wks with Stress test as outpt. Review of Systems - Review of Systems Constitutional: reports: no symptoms reported EENTM: reports: no symptoms reported Respiratory: reports: no symptoms reported Cardiac (ROS): reports: no symptoms reported ABD/GI: reports: no symptoms reported : reports: no symptoms reported Musculoskeletal: reports: no symptoms reported Skin: reports: no symptoms reported <Nguyễn Reardon - Last Filed: 01/19/18 13:53> Cardiology Progress Note - Objective Vital Signs Pulse Pulse Ox 01/19/18 12:02 80 01/19/18 07:49 97 Weight 186 lb 11.704 oz 01/18/18 01/19/18 01/20/18 06:59 06:59 06:59 Intake Total 580 236 Output Total 600 Balance -20 236 - Labs Result Diagrams: 01/18/18 04:53 01/18/18 04:53 Troponin/CKMB CK-MB (CK-2) 0.8 ng/mL (0-6.6) 01/11/18 11:58 Troponin I 0.156 ng/mL (< 0.028) H 01/11/18 17:39 - Assessment/Plan Pt. seen and eval. by me. i agree with the a/P by the IP ATTORNEY. He should f/u in the office in the next 1-2 weeks and will need a stress test in the near future when the PNA has resolved.
== END 2018-01-19 13:24 | disposition home or self-care (01) | DRG 871 ==
LOC: ERS 11:35 → ERHOLD 16:19 → CCU 18:55 → T4-B 01-16 16:26 → 2NO 01-18 15:38
PROVIDERS: ADMIT Internal Medicine; ATTEND Internal Medicine
PROC: 5A1945Z Respiratory Ventilation, 24-96 Consecutive Hours (ICD-10-PCS; principal; 2018-01-11)
DX: A41.9 Sepsis, unspecified organism (principal); J96.02 Acute respiratory failure with hypercapnia; J96.01 Acute respiratory failure with hypoxia; J15.4 Pneumonia due to other streptococci; I50.23 Acute on chronic systolic (congestive) heart failure; I69.854 Hemiplegia and hemiparesis following other cerebrovascular disease affecting left non-dominant side; J90 Pleural effusion, not elsewhere classified; N17.9 Acute kidney failure, unspecified; F10.239 Alcohol dependence with withdrawal, unspecified; E78.5 Hyperlipidemia, unspecified; N40.0 Benign prostatic hyperplasia without lower urinary tract symptoms; G40.909 Epilepsy, unspecified, not intractable, without status epilepticus; F17.210 Nicotine dependence, cigarettes, uncomplicated; R65.20 Severe sepsis without septic shock; E87.6 Hypokalemia; F41.9 Anxiety disorder, unspecified; I11.0 Hypertensive heart disease with heart failure; J44.9 Chronic obstructive pulmonary disease, unspecified; E83.42 Hypomagnesemia
CPT/HCPCS: 31500; 36415; 36556; 51702; 71045; 71260; 74177; 80048; 80053; 80306; 81003; 81015; 82550; 82553; 82805; 83605; 83735; 83880; 84100; 84484; 85025; 87040; 87077; 87086; 87149; 87186; 93005; 93306; 93798; 94002; 94003; 94150; 94640; 94660; 94760; 96361; 96365; 96366; 96367; 96368; 96374; 96375; 96376; G8978-GP-CL; G8979-GP-CJ; J0456; J0696; J1650; J1720; J1885; J1940; J2060; J2185; J2250; J3010; J3370; J3411; J3475; J3480; J7050; J7070; J7620

== ENCOUNTER 2018-05-03 09:37 | Outpatient (CLI) | payer OTHER ==
--- NOTE | 2018-05-03 10:10 | RAD ---
CHEST TWO VIEWS: History: Dyspnea. Comparison: 01-17-18 FINDINGS: Cardiac silhouette and pulmonary vasculature are unremarkable. Mediastinum is midline. No confluent a irspace consolidation, pneumothorax, or pleural fluid. IMPRESSION: No active cardiopulmonary abnormalities are demonstrated. POS: [facility]
== END 2018-05-03 09:38 | disposition home or self-care (01) ==
LOC: RAD 09:37
PROVIDERS: ATTEND Internal Medicine
DX: R06.00 Dyspnea, unspecified (principal)
CPT/HCPCS: 71046

== ENCOUNTER 2019-02-28 02:27 | Inpatient (IN) | payer OTHER, SELFPAY ==
[2019-02-28 02:59] LABS: #Lymphocytes 0.7 thou/uL (1.20-3.40); #Monocytes 0.4 thou/uL (0.11-0.59); #Neutrophils 4.6 thou/uL (1.40-6.50); %Basophils 0.2 % (0.0-1.0); %Eosinophils 0.2 % (0.0-10.0); %Lymphocytes 11.7 % (21.0-51.0); %Neutrophils 80.9 % (42.0-75.0); Hemoglobin 11.3 g/dL (14.0-18.0); Mean Corpuscular HGB CONC 34.5 g/dL (32.0-36.0); Mean Corpuscular Volume 95.8 fL (78.0-98.0); Mean Platelet Volume 8.3 fL (7.4-10.4); Platelet Count 151 thou/uL (130-400); RBC Distribution Width 14.5 % (11.5-14.5); Red Blood Cell (RBC) Count 3.42 mill/uL (4.70-6.10); White Blood Cell (WBC) Count 5.7 thou/uL (4.8-10.8)
[2019-02-28 03:17] LABS: ALT (SGPT) 8 U/L (8-55); AST (SGOT) 7 U/L (5-34); Albumin 2.9 g/dL (3.5-5.0); Alkaline Phosphatase 53 U/L (40-110); Anion Gap 16 mmol/L (10-20); BUN (Urea Nitrogen) 21 mg/dL (8.4-25.7); Bilirubin, Total 1.1 mg/dL (0.2-1.2); Calc. Creatinine Clearance 0 mL/min (70-130); Calcium 8.3 mg/dL (7.8-10.44); Carbon Dioxide 16 mmol/L (22-29); Chloride 108 mmol/L (98-107); Estimated GFR-MDRD 30; Globulin 6.8 g/dL (2.4-3.5); Glucose 95 mg/dL (70-105); Potassium 3.3 mmol/L (3.5-5.1); Protein, Total 9.7 g/dL (6.0-8.3); Sodium 137 mmol/L (136-145)
[2019-02-28] MEDS ORDERED: cefTRIAXone\\ROCEPHIN 2 GM VIAL ONE (03:41)
[2019-02-28] MEDS ORDERED: Azithromycin 500 MG VIAL ONE (03:41)
[2019-02-28] MEDS ORDERED: Ketorolac Tromethamine 30 MG/ML VIAL ONE (04:18)
[2019-02-28 06:09] LABS: Bilirubin Negative (Negative); Blood, Urine Negative (Negative); Clarity Clear (Clear); Glucose, Urine (Dipstick) Normal (Negative); Leukocyte Negative Leu/uL (Negative); Nitrite 1+ (Negative); Protein, Urine (Dipstick) 50 mg/dL (Neg-Trace); RBC/HPF 0-3 HPF (0-3); Squamous Epithelial 0-3 HPF (0-3)
[2019-02-28 06:12] LABS: Troponin I 0.037 ng/mL (< 0.028)
[2019-02-28 06:24] LABS: Bacteria/HPF 1+ HPF (None Seen)
[2019-02-28 06:29] LABS: Lactic Acid 5.3 mmol/L (0.5-2.2)
[2019-02-28] MEDS ORDERED: methylPREDNISolone Sod Succ/PF 125 MG/2 ML VIAL ONE (07:12)
--- NOTE | 2019-02-28 08:00 | RAD ---
Portable frontal chest radiograph: 02/28/2019 COMPARISON: 05/03/2018 HISTORY: Shortness of breath, malaise, sepsis protocol FINDINGS: Mild increased linear interstitial density noted in both lung bases. No pneumothorax or ple ural fluid. No focal consolidation or alveolar edema. IMPRESSION: No focal consolidation or alveolar edema.
[2019-02-28 08:08] LABS: Analyzer IN Cardio ER; Base Excess (BEa) -11.1 mEq/L (-2.0 to +3.0); Calcium, Ionized 1.07 mmol/L (1.12-1.30); Carboxyhemoglobin (COHb) 0.6 gm% (0.0-3.0); Hemoglobin (Hb) 10.3 g/dL (14.0-18.0); Potassium - ABG Lab 3.54 mmol/L (3.70-5.30); pH, Arterial 7.35 (7.35-7.45)
[2019-02-28 08:11] LABS: ALV-art Gradient 33.855 (0-20); CO2 Tension 23.9 mmHg (35.0-45.0); Puncture Site RBA
[2019-02-28] MEDS ORDERED: Acetaminophen 325 MG TAB PO PRN (08:11)
[2019-02-28] MEDS ORDERED: Furosemide 20 MG/2 ML VIAL SLOW IVP SCH (09:00)
--- NOTE | 2019-02-28 09:34 | CON ---
DATE OF CONSULTATION: HISTORY OF PRESENT ILLNESS: This is a 59-year-old gentleman, other than usual history he presents to the hospital with symptoms of neck swelling, pain, difficulty breathing. He has been in this hospital numerous times. He sees one of the doctors in our office. In fact about a year ago, he had a diagnosis of respiratory failure, pneumonia, Staphylococcus sepsis, renal failure, and septic shock. I am told he sees a doctor in [employer], Dr. Rubin. About 2 months ago, he was hospitalized at the [facility], where apparently, he was trached, some kind of infection in his neck and had respiratory failure. He now presents with recurrent respiratory failure without any fever or chills. EXTENSIVE PAST MEDICAL HISTORY: Pertinent for cardiomyopathy. EF has been 35%. History of alcohol abuse, tobacco abuse, history of CVA, history of diverticulitis, hypertension, BPH. PREVIOUS SURGERIES: Got a trach, colostomy. SOCIAL HISTORY: Previous heavy alcohol abuse, he says cut back on his drinking. He still is smoking. 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 HOME MEDICATIONS: Apparently has included; 1. Requip 0.5. 2. Keppra 500. 3. Flomax 0.4. 4. Zoloft 50. 5. Seroquel 25. 6. Potassium. 7. Lisinopril 5. 8. Nicotine 21. 9. Levaquin. 10. Lasix 40. 11. Coreg 6.25. 12. Lipitor 80. 13. Aspirin. 14. Amitriptyline. He is now started on Zosyn, vancomycin, neb treatments. REVIEW OF SYSTEMS: Otherwise negative. PHYSICAL EXAMINATION: GENERAL: In the ICU, his neck has swollen. VITAL SIGNS: His temperature 99, pulse 80, blood pressure 130/80. CHEST: Diffuse rhonchi. CARDIAC: Sinus tach. ABDOMEN: Soft. LABORATORY DATA: X-ray shows cardiomegaly. PO2 is 86, pCO2 is room air. Lactic acid 5.3. His troponin is normal. Additional lab shows his white count 5000, H and H 11 and 32, platelet count is normal. His chemistry shows creatinine is 2.24. IMPRESSION: 1. Right neck swelling, right abscess. 2. Recent trach. 3. Tobacco abuse. 4. Congestive heart failure. 5. History of alcohol abuse. 6. Renal failure. 7. History of cerebrovascular accident. PLAN: CT of his neck is being ordered. Consult ENT thereafter. Neb treatment. Decadron was initiated. Continue broad-spectrum antibiotics. DVT prophylaxis. Proton pump inhibitors. This is a 45-minute critical time. Job ID: [id number]
[2019-02-28] MEDS: Vancomycin HCl 1 GM in Premix Bag 1 BAG IVPB SCH ×2 (09:37→20:22)
[2019-02-28] MEDS: Dexamethasone 4 mg/ml Vial SLOW IVP SCH ×3 (09:41→21:36)
[2019-02-28 09:44] LABS: Troponin I 0.066 ng/mL (< 0.028)
--- NOTE | 2019-02-28 10:49 | CT ---
CT neck soft tissues noncontrast: DATE: Chief Petroleum Engineer today HISTORY: 59-year-old male with neck swelling. Dr. Amos discussed the findings highly suspicious for laryngeal cancer by telephone with Dr. Restrepo's se katarzynataHola lemosley Jean-Pierre at 10:26 AM on 02/28/2019. She was instructed to notify Dr. Restrepo. TECHNIQUE: No IV contrast given because of low GFR. COMPARISON: CT angiogram of neck of 02/17/2017. FINDINGS: Lack of IV contrast limits the evaluation, especially for evaluation of abscess and tumor necrosis. Images are degraded by patient motion because of dyspnea due to hypoxemia when patient lies supine. There is a new finding of severe soft tissue thickening involving the larynx, including supraglottic larynx, with complete effacement of bilateral para glottic fat. There is complete effacement of bilateral piriform sinuses, and thickening of the right side of the epiglottis. Aryepiglottic folds a re not distinguishable from adjacent structures. There is diffuse fat stranding in the deep spaces of the neck, including bilateral carotid, retropharyngeal, submandibular, and visceral spaces, such t hat it is difficult to determine how much, if any, tumor extension there is outside of the laryngeal skeleton. There is another new finding of a symmetrical thickening of the right tonsillar pillar. There is narr owing of the oropharyngeal airway due to combination of superior extension of the posterior pharyngeal wall component of soft tissue density mass, very thickened uvula, and thickening of the ri ght tonsillar pillar. No enlargement of adenoids. There is a moderately large region of encephalomalacia and gliosis involving right temporal and parietal lobes. IMPRESSION: 1. Severe soft tissue thickening of the supraglottic larynx, suspicious for laryngeal cancer. 2. Extensive edema throughout central deep soft tissues of the neck. Uncertain whether or not there i s superimposed infection. 3. Narrowing of oropharyngeal airway due to superior extent of posterior pharyngeal wall component of superimposed glottic laryngeal mass. 4. Recommend otolaryngology consultation.
[2019-02-28 11:56] VITALS: BMI 26.8
[2019-02-28] MEDS ORDERED: Dexamethasone 4 MG in Sodium Chloride 0.9% 50 ML SLOW IVP SCH (12:00)
--- NOTE | 2019-02-28 12:16 | HP ---
CHIEF COMPLAINT: Shortness of breath. HISTORY OF PRESENT ILLNESS: This patient is a 59-year-old male with a longstanding history of smoking a pack and half cigarettes per day. The patient was previously admitted here last year with pneumonia and COPD exacerbation requiring intubation. The patient ultimately told me that he had been in the [facility] two months ago, where he was diagnosed with pneumonia, required intubation, and subsequently trach placement. He says he had some type of infection issue related with trach, but it was ultimately removed. He states that 4 days ago, he started developing some pain in the right lower jaw area with associated difficulty swallowing and shortness of breath. Denies any fevers or chills. Does have some upper respiratory symptoms with rhinorrhea, and he also has some cough, which has been largely nonproductive. The patient continues to smoke in the emergency department. It was felt that the patient might have pneumonia. He was given Rocephin and azithromycin. He had some hemodynamic instability. He was given a 3 L of normal saline via bolus. He was given methylprednisolone, DuoNeb's, and Toradol. REVIEW OF SYSTEMS: As above. All other systems were reviewed. The patient has some difficulty elaborating much because of his difficulty with breathing and talking. He does admit to hoarseness. He denies any headache, chest pains, or palpitations. All other systems reviewed, all pertinent positives and negatives noted in the history of present illness. PAST MEDICAL HISTORY: Notable for prior admissions for COPD, pneumonia, and the recent admission with the trach placement as stated above. He has a history of hypertension, CVAs, seizure x1, diverticulitis, dyslipidemia and some chronic anemia. PAST SURGICAL HISTORY: Had a perforated ruptured diverticulum requiring bowel resection and colostomy placement. He has had a tonsillectomy and the above-mentioned trach. FAMILY HISTORY: No evidence of premature cardiopulmonary disease or cancer. SOCIAL HISTORY: The patient continues to smoke a pack to a pack and half cigarettes per day. Drinks socially. Denies drugs. He is , lives with his . He is full code, and his is his surrogate decision maker. CURRENT MEDICATIONS: Lisinopril 10 mg daily and aspirin 325 mg daily. ALLERGIES: NONE. PHYSICAL EXAMINATION: VITAL SIGNS: Temperature is 95 on 10 L of nasal cannula oxygen, although it appears as though this was not actually in place in his nose. BP is 85/60, respirations are 30, temperature is 98.7. GENERAL APPEARANCE: Age-appropriate male, who is sitting up in bed. He is clearly in some respiratory distress. He has hypophonia and hoarseness of voice. He is , however, awake and alert enough to participate with the exam. HEENT: PERRL. He has no OP lesions, appears dentulous, and appears to have a competent airway. He does have a right submandibular area that extends from the subareolar area to near the apex that is edematous, very tender. NECK: He has no other palpable lymph nodes. He does have a small well-healed tracheotomy scar that is actually difficult to see. HEART: Tachycardic, regular. No murmurs. No JVD. LUNGS: He has some minimal basilar rales. He is tachypneic, using some axillary muscles, and he does have notable stridor and hypophonia. ABDOMEN: Soft, nontender, and nondistended. He does have a midline incisional scar with a para-incisional hernia and a left-sided colostomy, which appears to be functioning normally. It is nontender. No palpable masses. EXTREMITIES: No cyanosis, clubbing, or edema. PSYCH: Normal affect and behavior. NEURO: The patient moves all extremities spontaneously, but has no specific defects. LABORATORY DATA: White count 5.7, hemoglobin 11.3, platelets 151. Sodium 137, potassium 3.3, chloride 108, CO2 of 16, BUN 21, creatinine 2.24, glucose 95. Lactic acid 6.8, subsequent 5.3, total bilirubin 1.1, AST 7, ALT 8. Troponin 0.034, subsequently 0.037. BNP 1028. Albumin 2.9. Urinalysis shows positive nitrites , negative leukocyte esterase, 4 to 6 white cells, some hyaline casts are present. Procalcitonin was 33.9. ABG showed pH is 7.35, pCO2 is 24, pO2 is 86, bicarb is 13. IMAGING STUDIES: Chest x-ray negative for acute cardiopulmonary processes. IMPRESSION AND PLAN: 1. Acute hypoxic respiratory failure, unclear etiology. Chest x-ray appears normal. It appears as though this lesion in his submandibular area is likely culprit in the change. I have discussed the case with Dr. Restrepo with Pulmonary Critical Care and Dr. Chapman with ENT. We will try to get a CT scan of the neck. We will make sure his airway is stable before sending him to CT. 2. Septic shock. The patient was hypotensive. He is receiving fluid resuscitation. We will expand the antibiotics to include vancomycin and Zosyn to cover the potential that there is an abscess developing in the right submandibular area. Follow up cultures. Continue to fluid resuscitate or add pressors as needed. 3. Metabolic acidosis with lactic acidosis, possibly due to sepsis or hypoxia again giving adequate fluid resuscitation. 4. Elevated BNP. The patient appears to be more hypotensive and hypoxic. Suspect this is not overt failure, especially in light of a negative chest x-ray. 5. Indeterminate troponins consistent with [id number] elevation myocardial infarction type 2 secondary to acute respiratory failure and sepsis. 6. Acute kidney injury. The patient's baseline GFR is in the 70s and 80s, he is now at 30. Should likely improve with fluid resuscitation. We will continue to monitor. 7. History of tobacco abuse. Putting him at risk for neoplasm in the right submandibular area. 8. History of chronic obstructive pulmonary disease. We will add nebulizers p.r.n. 9. Avoiding anticoagulation for DVT prophylaxis in light of the possible need for surgical intervention to the right mandibular lesion. Time spent in Critical Care was 48 min. Job ID: [id number] MTDD
[2019-02-28] MEDS: Piperacillin/Tazobactam 3.375 GM in Sodium Chloride 0.9% 100 ML IVPB SCH ×3 (12:27→23:17)
[2019-02-28] MEDS ORDERED: Morphine 2 MG/ML SYRINGE SLOW IVP PRN (13:18)
[2019-02-28] MEDS: Morphine 4 MG/ML VIAL SLOW IVP PRN ×2 (18:05→23:17)
--- NOTE | 2019-02-28 19:54 | CON ---
DATE OF CONSULTATION: 02/28/2019 REASON FOR CONSULTATION: Consult for shortness of breath and neck swelling, by Dr. Rosa. HISTORY OF PRESENT ILLNESS: A 59-year-old male patient with history of pneumonia, renal insufficiency, and hypertension, presenting with several days of neck soreness and difficulty swallowing and odynophagia and rapid increasing shortness of breath and difficulty breathing, presenting to the emergency room and admitted by Medicine to the intensive care unit. The patient has had some systemic symptoms, but denies fever or chills measured at home. He does have some cough and a significant smoking history where he smoked roughly one-pack of cigarettes per day for many years. REVIEW OF SYSTEMS: SKIN: Negative. EYES: Negative. EARS, NOSE, AND THROAT: See HPI, otherwise negative. RESPIRATORY: Shortness of breath and cough. CARDIOVASCULAR: Negative. GASTROINTESTINAL: Negative MUSCULOSKELETAL: Negative. NEUROLOGIC: Negative. HEMATOLOGIC: See HPI. LYMPHATIC: See HPI. IMMUNOLOGIC: See HPI. ENDOCRINE: Negative. PAST MEDICAL HISTORY: See HPI. PAST SURGICAL HISTORY: No past head and neck surgery. CURRENT MEDICATIONS: See electronic medical record. ALLERGIES: NO KNOWN DRUG ALLERGIES. SOCIAL HISTORY AND FAMILY HISTORY: One-half pack-year smoking history for several years. PHYSICAL EXAMINATION: GENERAL: The patient is alert with no acute airway distress. The patient is moving air and alert and responding. HEENT: Face and head, normocephalic, atraumatic with no skin lesions; however, there is right facial tenderness and right jaw tenderness. No frontal tenderness or parotid gland masses or submandibular gland masses or lesions. However, the right submandibular gland is tender. Eyes equally round and reactive to light. No nystagmus on lateral gaze. Ears, right and left pinna are normal. EAC is clear. Nose, external nose is normal. Nasal mucosa is healthy. There is minor erythema and thick mucus throughout. Oral cavity; lips, tongue and floor of mouth and teeth showed no signs of infection, erythema, or edema. However, soft palate and uvula as well as posterior pharynx shows significant swelling and redness. There is significant swelling with mild redness in base of tongue is clear. No clear masses or lesions. NECK: No palpable lymphadenopathy or neck masses. Trachea is midline. Thyroid is normal in palpable size with no clear masses or lesions. NEUROLOGIC: Cranial nerves 2 through 12 are grossly intact, and mood and affect are normal. ASSESSMENT AND PLAN: The patient is a 59-year-old gentleman with a past medical history as listed above, significant airway distress and recent soreness of throat with shortness of breath and tachycardia indicating early onset sepsis and respiratory distress. The patient admitted by Medicine Service to the intensive care unit. CT scan shows some retropharyngeal edema and swelling of the pharynx, soft palate, and down into the larynx into the right neck. Given this swelling and his history of taking lisinopril and the rapid onset would consider angioedema on our differential and recommend that the patient discontinue lisinopril and change to other blood pressure management medications as an outpatient. Currently, recommend IV broad-spectrum antibiotics given his airway distress and Decadron as needed for airway swelling and difficulty breathing as the patient develops swelling or difficulty breathing. Recommend 8 to 12 mg of Decadron every 8 hours for 3 doses for airway swelling. At this point, given CT imaging, recommend following patient with clinical examinations and then having patient followup as an outpatient for flexible laryngoscopy and possible CT neck with contrast for evaluation of possible malignancy that was superinfected given smoking history. However, at this point, there is no evidence of clear discrete masses that could be driving this issue. Job ID: [id number]
[2019-03-01] MEDS: Dexamethasone 4 mg/ml Vial SLOW IVP SCH ×3 (04:11→20:39)
[2019-03-01 05:01] LABS: ALT (SGPT) 10 U/L (8-55); AST (SGOT) 14 U/L (5-34); Albumin 2.5 g/dL (3.5-5.0); Alkaline Phosphatase 21 U/L (40-110); Anion Gap 14 mmol/L (10-20); BUN (Urea Nitrogen) 42 mg/dL (8.4-25.7); Bilirubin, Total 0.3 mg/dL (0.2-1.2); Calc. Creatinine Clearance 37 mL/min (70-130); Calcium 7.8 mg/dL (7.8-10.44); Carbon Dioxide 17 mmol/L (22-29); Chloride 109 mmol/L (98-107); Estimated GFR-MDRD 29; Glucose 147 mg/dL (70-105); Potassium 4.3 mmol/L (3.5-5.1); Protein, Total 8.5 g/dL (6.0-8.3); Sodium 136 mmol/L (136-145)
[2019-03-01] MEDS: Piperacillin/Tazobactam 3.375 GM in Sodium Chloride 0.9% 100 ML IVPB SCH ×2 (05:22→10:58)
[2019-03-01] MEDS ORDERED: Carvedilol 6.25 MG TAB PO SCH (08:00)
[2019-03-01] MEDS: levETIRAcetam 500 MG TAB PO SCH ×2 (08:25→21:40)
[2019-03-01] MEDS: Morphine 4 MG/ML VIAL SLOW IVP PRN (08:25)
[2019-03-01] MEDS: Vancomycin HCl 1 GM in Premix Bag 1 BAG IVPB SCH (08:31)
--- NOTE | 2019-03-01 10:47 | RAD ---
Exam: Modified barium swallow with speech therapist HISTORY: Unspecified dysphasia, feeding difficulties. Fluoroscopy time 0.1 minutes. Dose 0.060 mares centimeters squared Patient was given one swallow of thin liquids and demonstrated severe penetration and severe aspirati on. No additional imaging was performed. IMPRESSION: Severe penetration aspiration with thin liquids. Only one swallow was given. Please see speech therap y report for additional findings and recommendations.
--- NOTE | 2019-03-01 11:44 | PRG ---
DATE OF SERVICE: 03/01/2019 INTERVAL HISTORY: The patient is doing okay from respiratory standpoint. Indicates his breathing is much improved compared to presentation. Denies any current fevers, chills, nausea, vomiting, or diarrhea. Otherwise, he is in usual state of health and has no specific complaints. He is having troubles with swallowing. He has been going on for about a week now. He is coughing up a little bit of yellow phlegm. No overnight events occurred. PHYSICAL EXAMINATION: VITAL SIGNS: Afebrile, pulse 92, blood pressure 96/55, respirations 13, saturation 100%, currently on room air. GENERAL: The patient is awake and alert, in no apparent distress. LUNGS: Rhonchi are present. There is decreased air entry and prolonged expiratory phase. Minimal wheezing is present. No crackles are appreciated. HEART: Normal rate and regular. ABDOMEN: Soft, nontender, nondistended. Bowel sounds are positive. MUSCULOSKELETAL: No cyanosis or clubbing. There is no pitting in the bilateral lower extremities. NEUROLOGIC: Grossly nonfocal. LABORATORY DATA: PH 7.35, pCO2 24, PO2 86. Creatinine 2.34 and stable, BUN 42. Bicarb 17, anion gap 14. Basic metabolic profile and liver function studies are otherwise unremarkable. Magnesium 1.2. Troponin is gently uptrending to 0.06, procalcitonin 33. Urinalysis is unremarkable. Blood cultures are growing Streptococcus pneumoniae in 2/2. Influenza A and B are negative. IMAGING DATA: Modified speech and swallow demonstrates severe penetration and aspiration with thin liquids. Only one swallow was given. The patient has been recommended to be n.p.o. long-term. ASSESSMENT: 1. Echocardiogram demonstrates 20% to 25% ejection fraction with 1/[address] of the neck demonstrates severe soft tissue thickening of the supraglottic larynx suspicious for laryngeal cancer. Extensive edema throughout the central deep soft tissues of the neck, likely consistent with an infection. Narrowing of the oropharyngeal area. ENT consultation was recommended. 3. Chest x-ray demonstrates no acute cardiopulmonary abnormality. ASSESSMENT: 1. Acute respiratory failure secondary to upper airway inflammation/lesion, resolving. 2. Bacteremia secondary to Streptococcus. 3. Oropharyngeal dysphagia. 4. Recent history of tracheostomy with subsequent decannulation. 5. Recent protracted hospital stay following [id number] arrest. DISCUSSION AND PLAN: At this point, the patient is doing fantastic from a respiratory standpoint. He does not have any impending respiratory failure. I will back off on the Decadron and keep him on antibiotics going. Since we are dealing with strep species, vancomycin will be interrupted. Pulmonary/Critical Care will follow along for the time being. He will require a minimum of 2 weeks of antibiotics. My suspicion is that all the changes in the neck are likely associated with acute inflammatory process from a focalized infection. Repeat CT scan in the outpatient setting and ENT followup will be required. Job ID: [id number]
[2019-03-01] MEDS: Sodium Chloride 0.45% 1,000 ML IV SCH ×2 (11:49→20:47)
[2019-03-01] MEDS ORDERED: Sodium Chloride 0.9% 500 ML IVPB SCH (13:30)
--- NOTE | 2019-03-01 13:37 | PDOC.HOSPP ---
- Subjective Encounter Date: 03/01/19 Encounter Time: 13:36 Subjective: Doing ok other than his inability to swallow. Nurse reported the relative hypotension. - Objective Vital Signs & Weight: Vital Signs (12 hours) Temp Pulse Resp BP Pulse Ox 03/01/19 12:47 78/58 L 03/01/19 12:45 98.3 F 63 16 76/57 L 95 03/01/19 07:32 95 03/01/19 06:39 100 03/01/19 06:38 99 20 100 03/01/19 04:00 97.7 F 03/01/19 02:27 93 16 98 Weight Weight 171 lb 1.259 oz Most Recent Monitor Data Heart Rate from ECG 92 NIBP 81/56 NIBP BP-Mean 64 Respiration from ECG 13 SpO2 96 I&O: 02/28/19 03/01/19 03/02/19 06:59 06:59 06:59 Intake Total 900 0 Output Total 1310 600 Balance -410 -600 Result Diagrams: 02/28/19 02:53 03/01/19 04:20 Hospitalist ROS - Medication Medications: Active Medications Generic Name Dose Route Start Last Admin Trade Name Freq PRN Reason Stop Dose Admin Albuterol/Ipratropium 3 ml 02/28/19 10:30 03/01/19 10:24 Duoneb NEB Not Given [id number] JUAN DAVID Piperacillin Sod/Tazobactam 100 mls @ 200 mls/hr 02/28/19 12:00 03/01/19 10: 58 Sod 3.375 gm/ Sodium Chloride IVPB 100 mls Q6HR JUAN DAVID Administration Sodium Chloride 1,000 mls @ 75 mls/hr 03/01/19 11:15 03/01/19 11:49 1/2 Normal Saline IV 1,000 mls .[id number] JUAN DAVID Administration Levetiracetam 500 mg 03/01/19 09:00 03/01/19 08:25 Keppra PO 500 mg BID JUAN DAVID Administration Sertraline HCl 50 mg 03/01/19 09:00 03/01/19 08:25 Zoloft PO 50 mg DAILY JUAN DAVID Administration Sodium Chloride 10 ml 02/28/19 09:00 03/01/19 08:25 Flush - Normal Saline IVF 10 ml Q12HR JUAN DAVID Administration - Exam General Appearance: NAD, awake alert ENT - other findings: Hoarseness and hypophonia Heart: RRR, no murmur, no gallops, no rubs, normal peripheral pulses Respiratory: CTAB, no wheezes, no rales, no ronchi, normal chest expansion, no tachypnea, normal percussion Respiratory - other findings: Diminished Gastrointestinal: soft, non-tender, non-distended, normal bowel sounds Gastrointestinal - other findings: Incisional hernia, left colostomy. Skin: normal turgor Musculoskeletal: normal tone Psychiatric: normal affect, somnolent Hosp A/P (1) Acute respiratory failure with hypoxia Code(s): J96.01 - ACUTE RESPIRATORY FAILURE WITH HYPOXIA Status: Acute (2) Mass of submandibular region Code(s): R22.0 - LOCALIZED SWELLING, MASS AND LUMP, HEAD Status: Acute (3) Streptococcal bacteremia Code(s): R78.81 - BACTEREMIA; B95.5 - UNSP STREPTOCOCCUS THE CAUSE OF DISEASES CLASSD ELSWHR Status: Acute (4) OLGA (acute kidney injury) Code(s): N17.9 - ACUTE KIDNEY FAILURE, UNSPECIFIED Status: Acute (5) COPD (chronic obstructive pulmonary disease) Status: Acute (6) Cardiomyopathy Code(s): I42.9 - CARDIOMYOPATHY, UNSPECIFIED Status: Acute (7) Hypotension Status: Acute (8) Hypertension Code(s): I10 - ESSENTIAL (PRIMARY) HYPERTENSION Status: Chronic Qualifiers: Hypertension type: essential hypertension Qualified Code(s): I10 - Essential (primary) hypertension (9) Dysphagia Code(s): R13.10 - DYSPHAGIA, UNSPECIFIED Status: Acute - Plan Doing much better overall. Seems to be breathing better and he has been moved to the medical floor. Still hoarse and has some mechanical obstruction from the mass. He has been borderline hypotensive. Fluid bolus. Stop Coreg. Likely also related to morphine. Will decrease the dose of that as well. Await ID input. Continue IV abx for the bacteremia. Will need outpatient ENT follow up. Consult cardiology in light of severely depressed EF and global hypokinesis. Will likely need LifeVest. Appears to have significant dysphagia in MBS. Await DIP BRAZIER final recs.
[2019-03-01] MEDS: cefTRIAXone\\ROCEPHIN 2 GM in Sodium Chloride 0.9% 100 ML IVPB SCH (18:39)
[2019-03-01 18:45] LABS: Complement-C4 16.6 mg/dL (15-53)
[2019-03-01] MEDS: Nicotine 21 MG PATCH TOP SCH (20:38)
[2019-03-01] MEDS: Amitriptyline HCl 10 MG TAB PO SCH (21:40)
[2019-03-01] MEDS: Tamsulosin HCl 0.4 MG CAP PO SCH (21:40)
[2019-03-01] MEDS: Atorvastatin Calcium 40 MG TAB PO SCH (21:40)
[2019-03-01] MEDS: rOPINIRole HCl 0.5 MG TAB PO SCH (21:40)
[2019-03-01] MEDS ORDERED: Lorazepam 2 MG/ML VIAL SLOW IVP SCH (21:45)
[2019-03-01] MEDS ORDERED: Acetaminophen 1,000 MG in Premix Bag 1 BAG IVPB SCH (21:45)
[2019-03-01 23:55] LABS: HIV (1/2) Antibody/Antigen Non-Reactive (NonReactive); HIV 1/2 INDEX 0.08 S/CO (<1.00); Hep C IgG Ab Non-Reactive (NonReactive); Hep C Index 0.51 S/CO (0-0.79)
--- NOTE | 2019-03-02 00:54 | CON ---
DATE OF CONSULTATION: REASON FOR CONSULTATION: Bacteremia, upper airway inflammatory changes. HISTORY OF PRESENT ILLNESS: A 59-year-old, history of prior MCA, CVA with residual right upper extremity weakness, hypertension, chronic smoking, and previous intraabdominal inflammatory process secondary to ruptured diverticulitis which required washout, colostomy placement which is still present. Also has had prior episodes of pneumonia with a positive test for Streptococcus pneumoniae antigen in 2016. He also was admitted to [facility] about a year ago for pneumonia requiring intubation and tracheostomy placement. Tracheostomy has been removed. About 2 weeks ago, he developed worsening pain during swallowing and neck pain. This was associated with coughing spells and dysphonia. He was brought to the emergency room and was hypotensive and was given IV fluids and broad-spectrum coverage methylprednisolone and inhalers. Initial BP 85/60, respiratory rate 30, temperature 98.7. Lungs with minimal inspiratory crackles at the bases. Abdomen was soft, nondistended, with a left-sided colostomy which appeared normal. INITIAL LABORATORY DATA: White cell count 5.7, hemoglobin 11.3, platelets 151, and 80% neutrophils. PH 7.35, pCO2 of 23, pO2 of 86. Sodium 137, creatinine 2.24 with a baseline of 1.08 last year. His BNP was 1327, albumin 2.9, and serum total protein was 9.7. Procalcitonin 33.91. WBC count 4.6. The patient has had 2 sets of blood cultures positive for Streptococcus pneumoniae. In December, he also had Streptococcus pneumoniae, 2 sets positive. In January 2018, he had Streptococcus pneumoniae, 2 positive sets of blood culture. In June 2017, he had again Streptococcus pneumoniae, 2 sets of positive blood cultures. He has had 4 echocardiograms and none of them with evidence of vegetation. Currently, Mr. Vences is uncomfortable at rest because of his upper airway problems with dysphonia and difficulty with handling secretions and pain around the area of his larynx, hypopharynx. He denies headaches. No visual symptoms. No chest pain. No abdominal pain. Mild dyspnea. He is voiding without problems. His colostomy does not bother him. No joint symptoms. No neurological symptoms. PAST MEDICAL HISTORY: COPD, pneumonia, chronic smoking, multiple episodes of Streptococcus pneumoniae bacteremia since 2017, hypergammaglobulinemia, ruptured diverticulum with diverticulitis requiring segmental bowel resection, colostomy placement, recent pneumonia with tracheostomy placement at [facility]. FAMILY HISTORY: Noncontributory. SOCIAL HISTORY: Current smoker. Drinks occasionally. . ALLERGIES: NONE. CURRENT MEDICATIONS: 1. Tylenol. 2. DuoNeb. 3. Elavil. 4. Lipitor. 5. Decadron. 6. Keppra. 7. Morphine. 8. Zosyn. PHYSICAL EXAMINATION: VITAL SIGNS: Temperature has been normal since admission and blood pressure 91/57, pulse 63, respirations 16, O2 saturation 95. SKIN: The patient has some element of onychodystrophy, excoriation in the skin of the upper extremities. Peripheral IV access. He is voiding in the urinal. Colostomy appears normal. No lymphadenopathy. HEENT: Ocular movements conjugate. Sclerae are white. Pupils are equal. Oral cavity with no [place] teeth. Posterior oropharynx is dry. I did not identify any inflammatory changes. Markedly tender lateral neck region. No masses are palpated. Trachea is midline. No stridor is noted. LUNGS: With symmetric air entry with bibasilar inspiratory crackles, more prominent on the left base. No wheezing. HEART: S1 and S2 with diminished heart sounds. No obvious murmurs. No S3 or S4. ABDOMEN: Soft, not distended or tender. Colostomy appears normal. GENITOURINARY: No bladder distention. No genital abnormalities. EXTREMITIES: No joint inflammatory activity. No edema. Pulses are 1+ in dorsalis pedis. Cognitive function appears to be intact. Moves all extremities equally. LABORATORY DATA: Urinalysis has been noted above as well as the other changes. IMAGING STUDIES: We have a chest, abdomen, and pelvis CT from January 2018 with consolidation of left entire lower lobe and low densities in the left renal parenchyma. He has a chest x-ray this time with no focal consolidation or alveolar edema. There is a neck CT with severe soft tissue thickening of the supraglottic larynx suspicious for laryngeal cancer. Extensive edema throughout central deep soft tissues of neck. Narrowing of oropharyngeal airway due to superior extent of posterior pharyngeal wall component of superimposed glottic laryngeal mass. This was a noncontrast study. ASSESSMENT: 1. Chronic smoking, recurrent episodes of Streptococcus pneumoniae bacteremia, at least 4 different episodes over the past 2 years. 2. Hypergammaglobulinemia. 3. Ruptured diverticulitis. 4. Inflammatory changes versus malignancy in the larynx, hypopharynx. DISCUSSION: The patient must have either hypogammaglobulinemia or functionally abnormal gammaglobulin due to plasma cell dyscrasia, hyposplenism with a complement deficiency would be another possibility. He does have evidence of aspiration in the swallow study. The ENT evaluation was limited to physical examination. I do not think he had any endoscopic procedure to evaluate further the laryngeal area. At least it does not transpire in the note that it is available for review. I believe most of the ENT evaluation was recommended to be done in the outpatient setting. At this moment, we will switch him to Rocephin daily, discontinue Zosyn, and check serum protein electrophoresis, immunoglobulin quantitation, complement levels. We will check HIV for completeness sake and hepatitis C as well. Job ID: [id number]
--- NOTE | 2019-03-02 01:32 | CON ---
DATE OF CONSULTATION: 03/01/2019 INDICATION FOR CONSULTATION: This is a 59-year-old gentleman who was admitted with shortness of breath, respiratory distress with edema and swelling of the neck. He has a history of cardiomyopathy. We were asked to see him due to his decrease in left ventricular systolic function. HISTORY OF PRESENT ILLNESS: This is a very unfortunate 59-year-old gentleman who has had some problems with cardiomyopathy for several years now. He is not usually seen in the office, I believe is due to financial problems, but he also has been having a long history of tobacco abuse, alcohol abuse, hypertension. He has suffered strokes in the past, but he presented after several days having some swelling in his neck and pain and difficulty swallowing. Apparently, had a swallowing study and was showing some aspiration. He also has a history in the past of pneumonia and some history of renal insufficiency. He did have a CVA in the past and this may be some of the etiology of the problems with swallowing. He may be having chronic aspiration. At this time, he did undergo a repeat echocardiogram. Ejection fraction continues to deteriorate, it is now 20% to 25%. Previous echos showed ejection fraction of 30% to 35%. At this time, he is having some difficulty at least even talking. His family are at the bedside and they were giving some of the history. PAST MEDICAL HISTORY: Please refer the notes dictated by my nurse practitioner. SOCIAL HISTORY: Please refer the notes dictated by my nurse practitioner. FAMILY HISTORY: Please refer the notes dictated by my nurse practitioner. REVIEW OF SYSTEMS: Please refer the notes dictated by my nurse practitioner. MEDICATIONS: Please refer the notes dictated by my nurse practitioner. ALLERGIES: PLEASE REFER THE NOTES DICTATED BY MY NURSE PRACTITIONER. PHYSICAL EXAMINATION: GENERAL: Reveals a middle-aged gentleman who appears to be ill, obviously, he has neck swelling. He appears to be somewhat uncomfortable. He has some coughing, he was trying to clear his throat during the evaluation, but otherwise seems to be relatively coherent. VITAL SIGNS: His blood pressure is on the low side. This is one of the reasons that we were asked to see this gentleman. Blood pressure is 91/57. He is afebrile. Heart rate is in the 80s to 90s. This appears to be . Respiratory rate is in the 20s, O2 saturations in the 90% to 95% range. HEENT: Show the head to be normocephalic and atraumatic. He does have evidence of edema of the neck and swelling with some erythema and obviously this is tender. I could not auscultate the carotids due to the pain in the neck. CHEST: He has decreased breath sounds, but there are no gross rhonchi or wheezing noted. CARDIOVASCULAR: Reveals a regular rate and rhythm at this time. I did not hear any gross murmurs. ABDOMEN: Soft and nontender. EXTREMITIES: Show no clubbing or cyanosis. Pedal pulses are not palpable by me. SKIN: Warm and dry. NEUROLOGIC: He appears to be intact. LABORATORY DATA: Show a WBC of 5.7, hemoglobin 11.3, and a platelet count of a 151,000. His sodium is 136, potassium was 4.3. His BUN was 42 with a creatinine of 2.34. The blood sugar was 147. His lactic acid was elevated at 5.3. Cardiac enzymes are indeterminate with a troponin I of 0.037, increased up to 0.066. Most likely, this is due to demand ischemia associated with the respiratory distress that he has suffered earlier. His BNP, however, is elevated at 1327, compatible with his cardiomyopathy. His blood gases performed yesterday showed a pH of 7.35, pCO2 of 23.9, and a pO2 of 86 with O2 saturation of 95.6%. Urinalysis showed 1+ bacteria in the urine. IMPRESSION: 1. Respiratory failure, which is improved, most likely due to constriction of the airways associated with this large either infection or malignancy that he has in his neck. He did have a CT scan performed with some concern that this may be some type of laryngeal cancer, but he has been placed on IV antibiotics. In case this is infection then hopefully this will actually resolve or improve significantly. 2. History of known cardiomyopathy. He has been noncompliant with followups and medications. We will continue to try encourage this patient. I do not know that he has had a cardiac catheterization he did have a stress test actually in the past, back in 2013. At that time, I believe it was unremarkable. There was no evidence that he had any ischemia at that time. Ejection fraction at that time in 2013 was about 58%. He did have no evidence of ischemia, but this would need to be repeated since this has been already five and half years ago. 3. History of tobacco abuse, unfortunately he continues to smoke. 4. History of alcohol use, which may be the etiology of his cardiomyopathy. He has decreased his alcohol intake, but apparently has been continuing to drink some. I have reviewed his medications. He may need diuretics. This may also improve some of the swelling and help him breathe somewhat better. He had a chest x-ray performed yesterday on admission, which showed no significant edema or any evidence of pneumothorax or any evidence of pleural effusions. We would be more than happy to continue to follow the patient with you. Certainly, he will need further evaluation once the situation with his neck has improved and we know the etiology of this swelling in the neck. Certainly, if this is a malignancy, then this is most likely will indicate a poor outcome for this patient. Job ID: [id number]
[2019-03-02] MEDS ORDERED: Morphine 2 MG/ML SYRINGE SLOW IVP SCH (05:00)
[2019-03-02] MEDS: Nitroglycerin 0.4 MG TAB (25 Tab Bottle) SL PRN ×3 (05:07→05:21)
[2019-03-02 05:32] LABS: Anion Gap 13 mmol/L (10-20); BUN (Urea Nitrogen) 52 mg/dL (8.4-25.7); Calc. Creatinine Clearance 54 mL/min (70-130); Calcium 8.2 mg/dL (7.8-10.44); Carbon Dioxide 16 mmol/L (22-29); Chloride 112 mmol/L (98-107); Estimated GFR-MDRD 44; Glucose 118 mg/dL (70-105); Magnesium 1.6 mg/dL (1.6-2.6); Phosphorus 4.1 mg/dL (2.3-4.7); Potassium 3.9 mmol/L (3.5-5.1); Sodium 137 mmol/L (136-145)
[2019-03-02 05:36] LABS: Troponin I 0.108 ng/mL (< 0.028)
[2019-03-02 05:56] LABS: Band 17 % (5-11); Hemoglobin 9.7 g/dL (14.0-18.0); Lymphocytes 2 % (21-51); MDiff Complete? YES; Mean Corpuscular HGB CONC 33.9 g/dL (32.0-36.0); Mean Corpuscular Hemoglobin 32.2 pg (27.0-31.0); Mean Corpuscular Volume 94.8 fL (78.0-98.0); Mean Platelet Volume 9.6 fL (7.4-10.4); Monocytes 1 % (0-10); Neutrophil 80 % (42-75); Platelet Count 132 thou/uL (130-400); RBC Distribution Width 14.4 % (11.5-14.5); Red Blood Cell (RBC) Count 3.03 mill/uL (4.70-6.10); White Blood Cell (WBC) Count 11.9 thou/uL (4.8-10.8)
[2019-03-02] MEDS: Morphine 2 MG/ML SYRINGE SLOW IVP PRN ×2 (08:35→18:10)
[2019-03-02] MEDS: Dexamethasone 4 mg/ml Vial SLOW IVP SCH ×2 (08:37→20:41)
[2019-03-02] MEDS: levETIRAcetam 500 MG TAB PO SCH ×2 (08:38→20:16)
--- NOTE | 2019-03-02 11:36 | PDOC.HOSPP ---
- Subjective Encounter Date: 03/02/19 Subjective: Patient resting well and is afebrile - Objective Vital Signs & Weight: Vital Signs (12 hours) Temp Pulse Resp BP Pulse Ox 03/02/19 11:17 92 16 03/02/19 08:00 100 03/02/19 07:38 97.5 F L 52 L 22 H 123/78 100 03/02/19 04:30 98.2 F 82 20 116/71 99 03/02/19 02:01 51 L 18 95 Weight Weight 171 lb 1.259 oz Most Recent Monitor Data Heart Rate from ECG 92 NIBP 81/56 NIBP BP-Mean 64 Respiration from ECG 13 SpO2 96 I&O: 03/01/19 03/02/19 03/03/19 06:59 06:59 06:59 Intake Total 900 920 Output Total 1310 800 Balance -410 120 Result Diagrams: 03/02/19 05:01 03/02/19 05:01 Hospitalist ROS - Review of Systems Constitutional: reports: weakness - Medication Medications: Active Medications Generic Name Dose Route Start Last Admin Trade Name Jacey PRN Reason Stop Dose Admin Albuterol/Ipratropium 3 ml 02/28/19 10:30 03/02/19 11:17 Duoneb NEB 3 ml [id number] JUAN DAVID Administration Amitriptyline HCl 10 mg 03/01/19 21:00 03/01/19 21:40 Elavil PO Not Given HS JUAN DAVID Atorvastatin Calcium 80 mg 03/01/19 21:00 03/01/19 21:40 Lipitor PO Not Given HS JUAN DAVID Dexamethasone 4 mg 03/01/19 21:00 03/02/19 08:37 Decadron SLOW IVP 4 mg Q12HR JUAN DAVID Administration Sodium Chloride 1,000 mls @ 75 mls/hr 03/01/19 11:15 03/01/19 20:47 1/2 Normal Saline IV 1,000 mls .[id number] JUAN DAVID Administration Ceftriaxone Sodium 2 gm/ 100 mls @ 200 mls/hr 03/01/19 18:00 03/01/19 18:39 Sodium Chloride IVPB 100 mls 1800 JUAN DAVID Administration Acetaminophen 1,000 mg/ Device 100 mls @ 400 mls/hr 03/01/19 21:45 03/01/19 22:13 IVPB 03/02/19 21:46 100 mls NOW JUAN DAVID Administration Levetiracetam 500 mg 03/01/19 09:00 03/02/19 08:38 Keppra PO Not Given BID JUAN DAVID Morphine Sulfate 2 mg 03/01/19 14:48 03/02/19 08:35 Morphine SLOW IVP 2 mg Q4H PRN Administration Moderate to Severe Pain (6-10) Nicotine 21 mg 03/01/19 21:00 03/01/19 20:38 Nicoderm Patch TOP 21 mg HS JUAN DAVID Administration Nitroglycerin 0.4 mg 03/02/19 04:58 03/02/19 05:21 Nitrostat SL 0.4 mg Q5MIN PRN Administration Chest Pain Quetiapine Fumarate 25 mg 03/01/19 21:00 03/01/19 21:40 Seroquel PO Not Given HS [facility] Ropinirole HCl 0.5 mg 03/01/19 21:00 03/01/19 21:40 Requip PO Not Given QPM [facility] Sertraline HCl 50 mg 03/01/19 09:00 03/02/19 08:38 Zoloft PO Not Given DAILY [facility] Sodium Chloride 10 ml 02/28/19 09:00 03/02/19 08:38 Flush - Normal Saline IVF Not Given Q12HR [facility] Tamsulosin HCl 0.4 mg 03/01/19 21:00 03/01/19 21:40 Flomax PO Not Given HS [facility] - Exam General Appearance: awake alert Eye: anicteric sclera ENT: normocephalic atraumatic Neck: supple, symmetric, no JVD Heart: RRR, no murmur, no gallops Respiratory: CTAB, no wheezes, no rales, no ronchi Gastrointestinal: soft, non-tender, non-distended, normal bowel sounds Extremities: no cyanosis, no clubbing Skin: no rashes Neurological: no weakness, no focal deficits, no new deficit Psychiatric: normal affect, normal behavior, A&O x 3 Hosp A/P (1) Acute respiratory failure with hypoxia Code(s): J96.01 - ACUTE RESPIRATORY FAILURE WITH HYPOXIA Status: Resolved (2) Dysphagia Code(s): R13.10 - DYSPHAGIA, UNSPECIFIED Status: Acute Qualifiers: Dysphagia type: oropharyngeal phase Qualified Code(s): R13.12 - Dysphagia, oropharyngeal phase Plan: i have consulted GI for PEG tube placement. (3) Mass of submandibular region Code(s): R22.0 - LOCALIZED SWELLING, MASS AND LUMP, HEAD Status: Acute Plan: appreciate ENT follow up (4) Streptococcal bacteremia Code(s): R78.81 - BACTEREMIA; B95.5 - UNSP STREPTOCOCCUS THE CAUSE OF DISEASES CLASSD ELSWHR Status: Acute Plan: appreciate ID follow up. (5) Acute renal failure (ARF) Status: Acute (6) Alcohol dependence Code(s): F10.20 - ALCOHOL DEPENDENCE, UNCOMPLICATED Status: Acute Qualifiers: Substance use status: uncomplicated Qualified Code(s): F10.20 - Alcohol dependence, uncomplicated (7) Anemia Code(s): D64.9 - ANEMIA, UNSPECIFIED Status: Chronic Qualifiers: Iron deficiency anemia type: chronic blood loss (8) COPD (chronic obstructive pulmonary disease) Status: Chronic (9) Cardiomyopathy Code(s): I42.9 - CARDIOMYOPATHY, UNSPECIFIED Status: Chronic Qualifiers: Cardiomyopathy type: alcoholic Qualified Code(s): I42.6 - Alcoholic cardiomyopathy Plan: EF IS 20% (10) BPH (benign prostatic hyperplasia) Code(s): N40.0 - BENIGN PROSTATIC HYPERPLASIA WITHOUT LOWER URINRY TRACT SYMP Status: Chronic (11) Dyslipidemia Code(s): E78.5 - HYPERLIPIDEMIA, UNSPECIFIED Status: Chronic (12) Hypertension Code(s): I10 - ESSENTIAL (PRIMARY) HYPERTENSION Status: Chronic Qualifiers: Hypertension type: essential hypertension Qualified Code(s): I10 - Essential (primary) hypertension (13) Tobacco abuse Code(s): Z72.0 - TOBACCO USE Status: Chronic - Plan old records reviewed/req, plan discussed w/ family, continue antibiotics, respiratory therapy, out of bed/ambulate 1.D/W GI for PEG placment.
[2019-03-02] MEDS ORDERED: Ondansetron PF 4 MG/2 ML Vial SLOW IVP PRN (14:01)
[2019-03-02] MEDS: Sodium Chloride 0.45% 1,000 ML IV SCH (14:53)
--- NOTE | 2019-03-02 17:01 | CON ---
DATE OF CONSULTATION: 03/02/2019 REASON FOR CONSULTATION: 1. Submandibular abscess, recurrent. 2. Dysphagia and failed modified barium swallow. HISTORY OF PRESENT ILLNESS: Mr. Dante Vences is a 59-year-old male, hospitalized with neck pain, and was found to have evidence of some mandible abscess. He is on IV antibiotics. The patient apparently had difficult time swallowing and also has had a modified barium swallow. He failed the swallow study. The patient had been treated with IV fluids and IV antibiotics. I was asked to see the patient by the hospitalist for possible endoscopic gastrostomy tube placement. The patient has had similar episodes of abscess over the submandibular area in 2018 and was seen by Dr. Solorzano. A temporary tracheostomy because of respiratory difficulty. This was in 2018. Subsequently, the tracheostomy was closed. The patient has a complicated medical history. The patient hospitalized here in 2018 with a perforated sigmoid colon and underwent surgery by Dr. Marcelino Perry. He had sigmoid colectomy and colostomy. He had a very complicated course in 2018 requiring mechanical ventilation. Also seen by Dr. Elvin Lugo. The patient appears very comfortable. No acute distress. He denies any painful swallowing, but does complain of some difficult swallowing. He has a large submandibular swelling. No relevant history. PAST MEDICAL HISTORY: 1. COPD. 2. Pneumonia, requiring mechanical ventilation in 2018. 3. Hypertension. 4. Past history of CVAs. 5. Seizure disorder. 6. Diverticulitis. 7. Dyslipidemia. 8. Chronic anemia. 9. Recurrent submandibular abscess in 2018 and 2019. 10. Tracheostomy in 2018 with subsequent closure. 11. Sigmoid resection with colostomy in 2018. 12. Tonsillectomy. SOCIAL HISTORY: The patient is a chronic smoker. He continues to smoke. He drinks alcohol socially. ALLERGIES: NONE. MEDICATION LIST: Reviewed. REVIEW OF SYSTEMS: Unremarkable except for dysphagia. PHYSICAL EXAMINATION: GENERAL: He appears comfortable. He is awake, alert, oriented to time, place, and person. VITAL SIGNS: Afebrile, pulse is 91, blood pressure is 128/51. HEENT: Conjunctivae are clear. He has very large submandibular swelling. He is in no respiratory distress and breathing is even and not labored. CARDIOVASCULAR SYSTEM: First and second heart sounds normal. LUNGS: Clear to auscultation. ABDOMEN: Soft and nontender. He has a colostomy over the left lower quadrant. He has a large midline scar. He also has hernia. No organomegaly. No masses. EXTREMITIES: No edema. LABORATORY DATA: The most recent one, today WBC 11,900, hemoglobin 9.7, hematocrit 28.7, MCV 94.8, platelet count is 132,000, polymorphs 80, bands 17%. Chem-7 today normal lytes, BUN is 52, creatinine is 1.67, glucose is 118, magnesium is 1.6, calcium 8.2, troponin 0.108. CLINICAL IMPRESSION AND PLAN: A 59-year-old male with large submandibular abscess, recurrent. He has had similar episodes in 2018 and had tracheostomy. He has failed modified barium swallow. He definitely needs some nutrition support. I did talk to Mr. Vences about having EGD and PEG tube placed. He fully understood the procedure. I will plan for EGD and PEG tube placement tomorrow and make further recommendations. Job ID: [id number]
--- NOTE | 2019-03-02 17:34 | PRG ---
DATE OF SERVICE: 03/02/2019 SUBJECTIVE: Dante Vences remains stable. He is in no distress. He was seen by Speech and also seen by Gastroenterology. It is anticipated that he will have a PEG placed. He is in no distress. He says he still feels a little short of breath, but he is not tachypneic. I suspect this is related to upper airway issues. OBJECTIVE: VITAL SIGNS: He is afebrile, heart rate is 96, respiratory rate is 20, oximetry is 98 to 100 on room air, and blood pressure 138/87. LUNGS: Free of wheezes. HEART: Regular rhythm. ABDOMEN: Soft. IMPRESSION: 1. Soft tissue infection of his neck. 2. Recurrent episodes of Streptococcus pneumoniae bacteremia. 3. History of ruptured diverticulitis. 4. History of neck swelling, felt to be inflammatory at this time, but cancer is not 100% ruled out. 5. ? Compromised immune system, leaving these recurrent infections. 6. History of a tracheostomy. PLAN: His antimicrobial therapy has been adjusted and workup continues. Overall, he appears to be clinically stable. Job ID: [id number]
[2019-03-02] MEDS: cefTRIAXone\\ROCEPHIN 2 GM in Sodium Chloride 0.9% 100 ML IVPB SCH (18:00)
[2019-03-02] MEDS: Atorvastatin Calcium 40 MG TAB PO SCH (20:16)
[2019-03-02] MEDS: Amitriptyline HCl 10 MG TAB PO SCH (20:16)
[2019-03-02] MEDS: Tamsulosin HCl 0.4 MG CAP PO SCH (20:17)
[2019-03-02] MEDS: rOPINIRole HCl 0.5 MG TAB PO SCH (20:17)
[2019-03-02] MEDS: Nicotine 21 MG PATCH TOP SCH (20:41)
[2019-03-03] MEDS: Sodium Chloride 0.45% 1,000 ML IV SCH ×2 (00:30→18:12)
[2019-03-03] MEDS: Nitroglycerin 0.4 MG TAB (25 Tab Bottle) SL PRN ×4 (02:00→06:46)
[2019-03-03] MEDS: Morphine 2 MG/ML SYRINGE SLOW IVP PRN ×2 (02:04→15:50)
[2019-03-03 06:59] LABS: Phosphorus 3.9 mg/dL (2.3-4.7)
[2019-03-03 07:01] LABS: Anion Gap 11 mmol/L (10-20); BUN (Urea Nitrogen) 48 mg/dL (8.4-25.7); Calc. Creatinine Clearance 70 mL/min (70-130); Carbon Dioxide 22 mmol/L (22-29); Chloride 109 mmol/L (98-107); Estimated GFR-MDRD 59; Glucose 162 mg/dL (70-105); Magnesium 1.7 mg/dL (1.6-2.6); Sodium 138 mmol/L (136-145)
[2019-03-03] MEDS ORDERED: Ondansetron HCl/PF 4 MG/2 ML Vial IVP PRN (07:59)
[2019-03-03 08:14] LABS: Band 11 % (5-11); Hemoglobin 10.4 g/dL (14.0-18.0); Lymphocytes 6 % (21-51); MDiff Complete? YES; Mean Corpuscular HGB CONC 33.8 g/dL (32.0-36.0); Mean Corpuscular Hemoglobin 31.8 pg (27.0-31.0); Mean Corpuscular Volume 94.1 fL (78.0-98.0); Mean Platelet Volume 9.8 fL (7.4-10.4); Metamyelocyte 1 % (0-0); Monocytes 1 % (0-10); Neutrophil 81 % (42-75); Platelet Count 173 thou/uL (130-400); Red Blood Cell (RBC) Count 3.28 mill/uL (4.70-6.10)
[2019-03-03] MEDS ORDERED: Midazolam HCl 2 mg/2 ml Vial ONE (08:50)
[2019-03-03] MEDS ORDERED: Lidocaine 1% PF 5 ML VIAL ONE (09:45)
[2019-03-03] MEDS ORDERED: PROPOFOL 200 MG/20 ML VIAL ONE (09:45)
[2019-03-03] MEDS ORDERED: EPINEPHrine 1 MG/10 ML Abboject SYRINGE ONE (09:45)
[2019-03-03] MEDS ORDERED: Ondansetron PF 4 MG/2 ML Vial ONE (10:02)
[2019-03-03] MEDS ORDERED: Fentanyl 100 MCG/2 ML VIAL ONE (10:27)
--- NOTE | 2019-03-03 11:23 | OP ---
DATE OF PROCEDURE: 03/03/2019 OPERATIVE PROCEDURE: 1. Esophagogastroduodenoscopy with endoscopic gastrostomy tube placement. 2. EGD with injection of epinephrine 1:10,000 solution, total of 6 mL injected. 3. EGD with BICAP therapy of bleeding ulcer in the gastric antrum. PREOPERATIVE DIAGNOSIS: A 59-year-old male with some mandibular abscess, on antibiotics. He has had difficulty swallowing and also failed modified barium swallow. He is undergoing EGD. POSTOPERATIVE DIAGNOSES: Large and deep ulceration over the gastric antrum with a large blood vessel with mild oozing and large amount of coffee-ground material in the stomach. DESCRIPTION OF PROCEDURE: The patient was placed on his back and was given sedation by Anesthesia Department. The patient on scheduled antibiotic therapy and no further antibiotics were given. A bite block was placed. A Pentax video gastroscope under direct vision passed down the oropharynx past the GE junction into the stomach. The esophageal mucosa appeared normal. The GE junction, no pathology. Apparently, stomach of the patient was found to have a large amount of coffee material. No fresh blood seen. Water was used to irrigate and wash out. In the gastric fundus, gastric body, no pathology. The patient had a very large and deep ulceration. The ulcer is very humongous and it measured probably about 5 cm long and probably about 3 cm wide. There was a very large visible vessel with mild oozing of blood seen. So we decided to inject the visible vessel with 1:10,000 epinephrine. 5 mL injected. After the injection, I decided to cauterize the area with a 7-Khmer BICAP probe. However, upon touching the visible vessel, this was bleeding. tried to cauterize. The more cautery was used, the patient had more oozing of blood from the area. Because of risk of perforation, I did not feel comfortable on using the probe anymore. The scope was taken out and another 11 mL of epinephrine was injected in 1 mL increments over the ulcer base. After receiving injection, the bleeding actually quit. The scope was advanced to the duodenum and brought back. Again, the ulcer base appeared to have stopped bleeding. There was no oozing of blood noted. The G-tube site was marked by applying finger pressure over the abdominal wall and also by transillumination from within. The site was cleaned and surgically prepped. The site was anesthetized with 1% Xylocaine infiltration. Over the site, a 16 Angiocath was advanced into the stomach. Through the Angiocath, a guidewire was advanced into the stomach. This was grasped with polypectomy snare. The wire was pulled out from the stomach. To the end of the guidewire protruding outside the mouth, the gastrostomy tube was connected. The wire was pulled back retrograde and the tube was replaced. The patient was re-scoped again and I went down to the duodenal bulb and came out. The ulcer base appears smooth and does not show any bleeding. Did look raw and the ulcer base was very large and humongous. The bleeding had completely stopped and the ulcer base looked more than clean. The G-tube was in good place and the stomach decompressed and the scope removed. RECOMMENDATION: 1. N.p.o. 2. Connect the G-tube to low Goo suction. 3. We will hold off feeding until tomorrow because of the risk of bleeding and ulcer is very large and quite deep. We will follow up H and H and transfuse p.r.n. Also consider IV Protonix. Job ID: [id number]
[2019-03-03] MEDS: levETIRAcetam 500 MG TAB PO SCH ×2 (11:46→20:36)
[2019-03-03] MEDS: Dexamethasone 4 mg/ml Vial SLOW IVP SCH ×2 (11:47→20:35)
[2019-03-03] MEDS: Pantoprazole 80 MG in Sodium Chloride 0.9% 100 ML IVPB SCH ×2 (11:49→23:00)
--- NOTE | 2019-03-03 15:00 | PRG ---
DATE OF SERVICE: 03/03/2019 SUBJECTIVE: Mr. Vences had a gastrostomy tube placed due to his swallowing impairment and the findings noted on the CT scan with a possible malignancy in the laryngeal area. He is very sedated right now, I cannot interview him. The nurse stated that he has not had any stooling and he is voiding without difficulty. No respiratory issues. OBJECTIVE: VITAL SIGNS: His temperature has been normal. BP 130/80, pulse 90, and respirations 16. GENERAL: Appears drowsy, will briefly open his eyes and has a hard time following commands because of sedation for the procedure. HEENT: Pupils are equal. Eye movements appear conjugate. No nystagmus. LUNGS: Symmetric air entry. HEART: S1 and S2. Regular rate. ABDOMEN: Soft with a gastrostomy area. He seems to be able to move all extremities. LABORATORY DATA: The white cell count is at 10,000, hemoglobin 10.4, and platelets 173 with 81% neutrophils. Creatinine is down to 1.25, calcium was 7.8 and 8.2. The IgG total was 4778 and IgM was markedly decreased, and complement C3 was low at 30, which is also markedly decreased. Hepatitis C and HIV serology nonreactive and Streptococcus pneumonia with the usual susceptibility profile identified in the blood cultures. ASSESSMENT AND DISCUSSION: Chronic smoking, recurrent episodes of strep pneumoniae bacteremia at least four different episodes over the past 2 years, hypergammaglobulinemia, ruptured diverticulitis, inflammatory changes in the larynx and hypopharynx with possibility of malignancy and inability to swallow liquids or solids, and now gastrostomy tube placement. The possibility of plasma cell dyscrasia is high and we are awaiting on the serum protein electrophoresis. May need consultation with Hematology/Oncology depending on results, but the level of IgG is extremely high. An autoimmune process would be another possibility, but I still think plasma cell dyscrasia is at the top of the list of possibilities. Job ID: [id number]
--- NOTE | 2019-03-03 15:03 | PDOC.HOSPP ---
- Subjective Encounter Date: 03/03/19 Subjective: nausea with abdominal cramps - Objective Vital Signs & Weight: Vital Signs (12 hours) Temp Pulse Resp BP Pulse Ox 03/03/19 12:30 96 139/81 03/03/19 12:15 90 16 03/03/19 12:00 90 146/72 H 03/03/19 11:30 91 150/93 H 96 03/03/19 11:00 97.9 F 84 18 152/96 H 98 03/03/19 08:00 98 03/03/19 07:21 97.9 F 65 18 132/75 98 03/03/19 04:12 97.6 F 62 19 162/73 H 99 Weight Weight 171 lb 1.259 oz Most Recent Monitor Data Heart Rate from ECG 92 NIBP 81/56 NIBP BP-Mean 64 Respiration from ECG 13 SpO2 96 I&O: 03/02/19 03/03/19 03/04/19 06:59 06:59 06:59 Intake Total 920 900 Output Total 800 100 Balance 120 800 Result Diagrams: 03/03/19 06:03 03/03/19 06:03 Hospitalist ROS - Review of Systems Gastrointestinal: reports: nausea - Medication Medications: Active Medications Generic Name Dose Route Start Last Admin Trade Name Freq PRN Reason Stop Dose Admin Albuterol/Ipratropium 3 ml 02/28/19 10:30 03/03/19 12:15 Duoneb NEB 3 ml [id number] JUAN DAVID Administration Amitriptyline HCl 10 mg 03/01/19 21:00 03/02/19 20:16 Elavil PO Not Given HS JUAN DAVID Atorvastatin Calcium 80 mg 03/01/19 21:00 03/02/19 20:16 Lipitor PO Not Given HS JUAN DAVID Dexamethasone 4 mg 03/01/19 21:00 03/03/19 11:47 Decadron SLOW IVP 4 mg Q12HR JUAN DAVID Administration Sodium Chloride 1,000 mls @ 75 mls/hr 03/01/19 11:15 03/03/19 00:30 1/2 Normal Saline IV 1,000 mls .[id number] JUAN DAVID Administration Ceftriaxone Sodium 2 gm/ 100 mls @ 200 mls/hr 03/01/19 18:00 03/02/19 18:00 Sodium Chloride IVPB 100 mls 1800 JUAN DAVID Administration Pantoprazole Sodium 80 mg/ 100 mls @ 10 mls/hr 03/03/19 10:15 03/03/19 11:49 Sodium Chloride IVPB 100 mls INF JUAN DAVID Administration Levetiracetam 500 mg 03/01/19 09:00 03/03/19 11:46 Keppra PO Not Given BID JUAN DAVID Morphine Sulfate 2 mg 03/01/19 14:48 03/03/19 02:04 Morphine SLOW IVP 2 mg Q4H PRN Administration Moderate to Severe Pain (6-10) Nicotine 21 mg 03/01/19 21:00 03/02/19 20:41 Nicoderm Patch TOP 21 mg HS JUAN DAVID Administration Nitroglycerin 0.4 mg 03/02/19 04:58 03/03/19 06:46 Nitrostat SL 0.4 mg Q5MIN PRN Administration Chest Pain Ondansetron HCl 4 mg 03/02/19 14:01 03/02/19 14:03 Zofran SLOW IVP 4 mg Q6H PRN Administration Nausea/Vomiting Quetiapine Fumarate 25 mg 03/01/19 21:00 03/02/19 20:17 Seroquel PO Not Given HS [facility] Ropinirole HCl 0.5 mg 03/01/19 21:00 03/02/19 20:17 Requip PO Not Given QPM JUAN DAVID Sertraline HCl 50 mg 03/01/19 09:00 03/03/19 11:47 Zoloft PO Not Given DAILY JUAN DAVID Sodium Chloride 10 ml 02/28/19 09:00 03/03/19 11:47 Flush - Normal Saline IVF 10 ml Q12HR JUAN DAVID Administration Tamsulosin HCl 0.4 mg 03/01/19 21:00 03/02/19 20:17 Flomax PO Not Given HS [facility] - Exam Eye: PERRL, anicteric sclera ENT: normocephalic atraumatic, no oropharyngeal lesions, moist mucosa Neck: supple, symmetric, no JVD, no thyromegaly, no lymphadenopathy, no carotid bruit Heart: RRR, no murmur, no gallops, no rubs, normal peripheral pulses Respiratory: CTAB, no wheezes, no rales, no ronchi, normal chest expansion, no tachypnea, normal percussion Gastrointestinal: no rigidity Gastrointestinal - other findings: PEG IN PLACE. Extremities: no cyanosis, no clubbing Skin: no rashes Neurological: normal sensation to touch, no weakness, no focal deficits, no new deficit Psychiatric: normal behavior Hosp A/P (1) Acute respiratory failure with hypoxia Code(s): J96.01 - ACUTE RESPIRATORY FAILURE WITH HYPOXIA Status: Resolved (2) Dysphagia Code(s): R13.10 - DYSPHAGIA, UNSPECIFIED Status: Acute Qualifiers: Dysphagia type: oropharyngeal phase Qualified Code(s): R13.12 - Dysphagia, oropharyngeal phase (3) Mass of submandibular region Code(s): R22.0 - LOCALIZED SWELLING, MASS AND LUMP, HEAD Status: Acute (4) Streptococcal bacteremia Code(s): R78.81 - BACTEREMIA; B95.5 - UNSP STREPTOCOCCUS THE CAUSE OF DISEASES CLASSD [id number] Status: Acute Plan: PATIENT ON IV ROCEPHIN PER ID RECCS. (5) Acute renal failure (ARF) Status: Acute (6) Alcohol dependence Code(s): F10.20 - ALCOHOL DEPENDENCE, UNCOMPLICATED Status: Acute Qualifiers: Substance use status: uncomplicated Qualified Code(s): F10.20 - Alcohol dependence, uncomplicated (7) Anemia Code(s): D64.9 - ANEMIA, UNSPECIFIED Status: Chronic Qualifiers: Iron deficiency anemia type: chronic blood loss (8) COPD (chronic obstructive pulmonary disease) Status: Chronic (9) Cardiomyopathy Code(s): I42.9 - CARDIOMYOPATHY, UNSPECIFIED Status: Chronic Qualifiers: Cardiomyopathy type: alcoholic Qualified Code(s): I42.6 - Alcoholic cardiomyopathy (10) BPH (benign prostatic hyperplasia) Code(s): N40.0 - BENIGN PROSTATIC HYPERPLASIA WITHOUT LOWER URINRY TRACT SYMP Status: Chronic (11) Dyslipidemia Code(s): E78.5 - HYPERLIPIDEMIA, UNSPECIFIED Status: Chronic (12) Hypertension Code(s): I10 - ESSENTIAL (PRIMARY) HYPERTENSION Status: Chronic Qualifiers: Hypertension type: essential hypertension Qualified Code(s): I10 - Essential (primary) hypertension (13) Tobacco abuse Code(s): Z72.0 - TOBACCO USE Status: Chronic (14) Acalculous cholecystitis Code(s): K81.9 - CHOLECYSTITIS, UNSPECIFIED Status: Acute Plan: This is suspected though and i will contact radiology for evaluating this. - Plan old records reviewed/req, dc IVF Doing much better overall. Patient on iv Rocephin per ID reccs. Will need outpatient ENT follow up. Significant reduced EF with global hypokinesis. Had significant dyphagia and failed speech and swallow.S/p PEG tube placement. Will consult radiology for drain placement for suspected acalculous cholecystitis.
--- NOTE | 2019-03-03 16:22 | ULT ---
RIGHT UPPER QUADRANT ULTRASOUND: Date: 03/03/19 COMPARISON: None. HISTORY: Evaluate for acalculous cholecystitis. TECHNIQUE: Multiplanar Epstein scale sonographic imaging of the right upper quadrant provided. FINDINGS: The distal body and tail of the pancreas are obscured by bowel gas. No focal liver lesion. No intrahe patic biliary dilatation. Common bile duct measures 5 mm, within normal limits. There is a probable 1 cm stone in the region of the gallbladder neck. In the region of the gallbladder fundus, there is an area of abnormal echogenicity measuring 2.6 x 3. 2 cm, which could represent stones and sludge in the region of the gallbladder fundus versus calcific ation of the wall of the gallbladder. The java jsf developer reports a negative Morfin's sign. No pericholec ystic fluid. Gallbladder wall upper limits of normal in thickness. Right kidney measures 9.2 cm craniocaudal dimension and demonstrates no stone, hydronephrosis, or mas s. IMPRESSION: 1. Cholelithiasis. Negative Morfin's sign. Upper limits of normal gallbladder wall thickening. Kathy cystitis in the proper clinical setting cannot be fully excluded. Study of choice for further assessm ent would be a hepatobiliary scan. Of note, there is a focal area of abnormal heterogeneous echogenic ity in the region of the gallbladder fundus. This could represent stones and/or sludge trapped within the Phrygian cap or could be related to gallbladder wall calcification. CT could best assess this fi nding. 2. No evidence for biliary dilatation. POS: [facility]
[2019-03-03 16:48] LABS: Band 26 % (5-11); Hemoglobin 10.3 g/dL (14.0-18.0); Lymphocytes 2 % (21-51); MDiff Complete? YES; Mean Corpuscular Hemoglobin 31.8 pg (27.0-31.0); Mean Corpuscular Volume 93.6 fL (78.0-98.0); Mean Platelet Volume 9.2 fL (7.4-10.4); Metamyelocyte 2 % (0-0); Monocytes 6 % (0-10); Myelocyte 1 % (0-0); Neutrophil 63 % (42-75); Platelet Count 165 thou/uL (130-400); Platelet Morphology Comment Appears Adequate; Polychromasia SLIGHT = 2-3 cells (100X) (0-2/hpf); RBC Distribution Width 14.1 % (11.5-14.5); Red Blood Cell (RBC) Count 3.24 mill/uL (4.70-6.10); White Blood Cell (WBC) Count 8.5 thou/uL (4.8-10.8)
[2019-03-03] MEDS: cefTRIAXone\\ROCEPHIN 2 GM in Sodium Chloride 0.9% 100 ML IVPB SCH (18:12)
--- NOTE | 2019-03-03 20:04 | PRG ---
DATE OF SERVICE: 03/03/2019 SUBJECTIVE: This is a 59-year-old male, seen me yesterday for a gastrostomy tube placement. The patient underwent an EGD this morning. He was found to have a very large and deep ulceration over the gastric antrum, close to pyloric opening. There also had blood vessel with bleeding. The ulcer was quite large and blood vessel also very large. The patient underwent injection of epinephrine and also had a BICAP therapy however, the BICAP therapy kept bleeding and bleeding more. Due to risk of perforation, I then injected another 10 mL of epinephrine with control of bleeding. He underwent EGD and PEG tube placement subsequently. the ulcer site is free of any bleeding, appears to be having good hemostasis. He has a gastrostomy tube to suction. He has somewhat over 50 mL of dark blood. He also has some dark blood in the tube. Hemoglobin did not drop down very much. Before the EGD, his blood count was 10.4, now after the procedure the blood count is 10.3. RECOMMENDATIONS: 1. [facility]. 2. IV PPI. 3. Repeat CBC tomorrow. Stable consider starting tube feeding. Job ID: [id number]
[2019-03-03] MEDS: Nicotine 21 MG PATCH TOP SCH (20:35)
[2019-03-03] MEDS: Amitriptyline HCl 10 MG TAB PO SCH (20:35)
[2019-03-03] MEDS: Atorvastatin Calcium 40 MG TAB PO SCH (20:36)
[2019-03-03] MEDS: rOPINIRole HCl 0.5 MG TAB PO SCH (20:36)
[2019-03-03] MEDS: Tamsulosin HCl 0.4 MG CAP PO SCH (20:36)
--- NOTE | 2019-03-03 20:42 | PRG ---
DATE OF SERVICE: 03/03/2019 SUBJECTIVE: Mr. Vences is afebrile. OBJECTIVE: VITAL SIGNS: Heart rate is in the 90s, respiratory rate is in the teens, oximetry is 98% on room air, blood pressure 133/71. LUNGS: Clear. HEART: Regular rhythm. ABDOMEN: Soft. He has a PEG in place now. LABORATORY DATA: White count is 8.5, hemoglobin 10.3, platelets 165. Sodium 138; potassium 4; chloride 109; bicarb 22; BUN 48; creatinine 1.25, down from 1.61 yesterday and 2.34 the day before. IMPRESSION: 1. Neck swelling, likely infectious. 2. Status post percutaneous endoscopic gastrostomy for swallowing dysfunction. 3. Acute on chronic renal dysfunction that is improving. 4. History of recurrent episodes of Streptococcus pneumoniae bacteremia. 5. ? Compromised immune system. 6. History of tracheostomy in the past. PLAN: Continue with current antimicrobial therapy. Supportive care. Physical therapy. Job ID: [id number]
--- NOTE | 2019-03-03 21:00 | PDOC.CPN ---
- Subjective Date: 03/03/19 Time: 21:07 Interval history: The pt seen and examined. No overnight events. No cardiac complaints. - Objective Allergies/Adverse Reactions: Allergies Allergy/AdvReac Type Severity Reaction Status Date / Time No Known Drug Allergies Allergy Verified 02/28/19 15:19 Visit Medications: Current Medications Acetaminophen (Tylenol) 650 mg PO Q4H PRN PRN Reason: Headache/Fever/Mild Pain (1-3) Albuterol/Ipratropium (Duoneb) 3 ml NEB Q2H PRN PRN Reason: SOB &/or Wheezing Albuterol/Ipratropium (Duoneb) 3 ml NEB [id number] JUAN DAVID Last Admin: 03/03/19 19:21 Dose: 3 ml Amitriptyline HCl (Elavil) 10 mg PO HS JUAN DAVID Last Admin: 03/03/19 20:35 Dose: Not Given Atorvastatin Calcium (Lipitor) 80 mg PO HS JUAN DAVID Last Admin: 03/03/19 20:36 Dose: Not Given Dexamethasone (Decadron) 4 mg SLOW IVP Q12HR JUAN DAVID Last Admin: 03/03/19 20:35 Dose: 4 mg Sodium Chloride (1/2 Normal Saline) 1,000 mls @ 75 mls/hr IV .[id number] JUAN DAVID Last Admin: 03/03/19 18:12 Dose: 1,000 mls Ceftriaxone Sodium 2 gm/ (Sodium Chloride) 100 mls @ 200 mls/hr IVPB 1800 JUAN DAVID Last Admin: 03/03/19 18:12 Dose: 100 mls Pantoprazole Sodium 80 mg/ (Sodium Chloride) 100 mls @ 10 mls/hr IVPB INF JUAN DAVID Last Admin: 03/03/19 11:49 Dose: 100 mls Levetiracetam (Keppra) 500 mg PO BID JUAN DAVID Last Admin: 03/03/19 20:36 Dose: Not Given Morphine Sulfate (Morphine) 2 mg SLOW IVP Q4H PRN PRN Reason: Moderate to Severe Pain (6-10) Last Admin: 03/03/19 15:50 Dose: 2 mg Nicotine (Nicoderm Patch) 21 mg TOP HS JUAN DAVID Last Admin: 03/03/19 20:35 Dose: 21 mg Nitroglycerin (Nitrostat) 0.4 mg SL Q5MIN PRN PRN Reason: Chest Pain Last Admin: 03/03/19 06:46 Dose: 0.4 mg Ondansetron HCl (Zofran) 4 mg SLOW IVP Q6H PRN PRN Reason: Nausea/Vomiting Last Admin: 03/02/19 14:03 Dose: 4 mg Quetiapine Fumarate (Seroquel) 25 mg PO HS [facility] Last Admin: 03/03/19 20:36 Dose: Not Given Ropinirole HCl (Requip) 0.5 mg PO QPM [facility] Last Admin: 03/03/19 20:36 Dose: Not Given Sertraline HCl (Zoloft) 50 mg PO DAILY [facility] Last Admin: 03/03/19 11:47 Dose: Not Given Sodium Chloride (Flush - Normal Saline) 10 ml IVF Q12HR [facility] Last Admin: 03/03/19 20:36 Dose: 10 ml Sodium Chloride (Flush - Normal Saline) 10 ml IVF PRN PRN PRN Reason: Saline Flush Tamsulosin HCl (Flomax) 0.4 mg PO HS [facility] Last Admin: 03/03/19 20:36 Dose: Not Given Vital Signs & Weight: Vital Signs Temp Pulse Resp BP Pulse Ox 03/03/19 20:13 98.3 F 91 14 133/71 98 03/03/19 19:21 12 03/03/19 16:00 89 16 03/03/19 15:00 99 148/76 H 03/03/19 12:30 96 139/81 03/03/19 12:15 90 16 03/03/19 12:00 90 146/72 H 03/03/19 11:30 91 150/93 H 96 03/03/19 11:00 97.9 F 84 18 152/96 H 98 Weight 171 lb 1.259 oz - Physical Exam General: alert & oriented x3 HEENT: mucus membranes moist Neck: supple neck Cardiac: irregularly regular Lungs: decreased breath sounds - Labs Result Diagrams: 03/03/19 16:16 03/03/19 06:03 Troponin/CKMB CK-MB (CK-2) 1.0 ng/mL (0-6.6) 02/28/19 02:53 Troponin I 0.108 ng/mL (< 0.028) H 03/02/19 05:01 - Assessment/Plan Assessment/Plan: 1. Chronic Systolic HF with EF 20-25% - will resume bblocker, ARMIN, diuretic once ok to use PEG tube 2. Ischemic CMY - May need LifeVest at discharge; however, he is uninsured 3. S/p EGD and PEG tube placement for dysphagia on 03/03/2019 - EGD today showed very large ulceration; 4. HTN - stable 5. swelling at neck 6. OLGA - improving 7.COPD - stable with RA 8. ETOH and Tobacco abuse - strongly recommend ETOH and tobacco cessation 9. suspected acalculous cholecystitis MAR reviewed * Echo ion 02/28/2019 with EF 20-25%, grade I dd, severe global hypokinesis, mild-mod MR, mild TR, and dilated IVC.
[2019-03-04] MEDS: Morphine 2 MG/ML SYRINGE SLOW IVP PRN ×5 (00:24→21:54)
[2019-03-04] MEDS: Sodium Chloride 0.45% 1,000 ML IV SCH ×2 (05:36→08:45)
[2019-03-04 06:53] LABS: Hemoglobin 10.3 g/dL (14.0-18.0); Mean Corpuscular HGB CONC 34.5 g/dL (32.0-36.0); Mean Corpuscular Hemoglobin 31.8 pg (27.0-31.0); Mean Corpuscular Volume 92.2 fL (78.0-98.0); Mean Platelet Volume 9.5 fL (7.4-10.4); Platelet Count 174 thou/uL (130-400); Red Blood Cell (RBC) Count 3.25 mill/uL (4.70-6.10); White Blood Cell (WBC) Count 7.1 thou/uL (4.8-10.8)
[2019-03-04 07:06] LABS: Phosphorus 3.9 mg/dL (2.3-4.7)
[2019-03-04 07:08] LABS: ALT (SGPT) 8 U/L (8-55); AST (SGOT) 6 U/L (5-34); Albumin 2.6 g/dL (3.5-5.0); Alkaline Phosphatase 30 U/L (40-110); Anion Gap 12 mmol/L (10-20); BUN (Urea Nitrogen) 39 mg/dL (8.4-25.7); Bilirubin, Total 0.2 mg/dL (0.2-1.2); Calc. Creatinine Clearance 81 mL/min (70-130); Calcium 8.4 mg/dL (7.8-10.44); Carbon Dioxide 23 mmol/L (22-29); Chloride 107 mmol/L (98-107); Estimated GFR-MDRD 70; Globulin 4.3 g/dL (2.4-3.5); Glucose 167 mg/dL (70-105); Magnesium 1.5 mg/dL (1.6-2.6); Potassium 4.1 mmol/L (3.5-5.1); Protein, Total 6.9 g/dL (6.0-8.3); Sodium 138 mmol/L (136-145)
[2019-03-04 08:14] LABS: Band 4 % (5-11); Lymphocytes 2 % (21-51); MDiff Complete? YES; Monocytes 7 % (0-10); Neutrophil 87 % (42-75); Platelet Morphology Comment Appears Adequate; Polychromasia SLIGHT = 2-3 cells (100X) (0-2/hpf)
[2019-03-04] MEDS: levETIRAcetam 500 MG TAB PO SCH ×2 (08:22→21:13)
[2019-03-04] MEDS: Dexamethasone 4 mg/ml Vial SLOW IVP SCH ×2 (08:46→21:13)
--- NOTE | 2019-03-04 09:24 | CON ---
DATE OF CONSULTATION: PRIMARY CARE PHYSICIAN: Unknown. PRIMARY FINANCIAL SERVICES INTERN: Sabrina Reardon MD REASON FOR CARDIOLOGY CONSULT: Congestive heart failure and hypotension. HISTORY OF PRESENT ILLNESS: Mr. Vences is a 59-year-old male with a significant history of pneumonia, renal insufficiency, hypertension, chronic systolic heart failure, COPD, history of CVA, diverticulitis status post segmental resection and colostomy placement, tobacco, EtOH and illicit drug abuse. The patient presents to the emergency department for complaint of difficulty swallowing and dysphagia and increased shortness of breath. The patient was found to have EF in the 20% to 25%. He has been on carvedilol, lisinopril, and Lasix at home. He has not seen Dr. Reardon as outpatient. The patient denied dizziness, lightheadedness, numbness in the left upper arm. The patient complained of sharp chest pain in the middle of the mediastinal area, which increased with cough. He has continued coughing due to possible mass in his esophagus right now. The patient's echocardiogram was done on February 28 with EF of 20% to 25%, grade 1 diastolic dysfunction, severe global hypokinesis, [id number] mitral valve regurgitation, mild tricuspid regurgitation, and dilated IVC. The patient was recommend to have a stress test as an outpatient at Dr. Reardon' office last year, but he has not had that test done at this moment. MEDICAL HISTORY: 1. Chronic systolic heart failure. 2. Hypertension. 3. Sepsis secondary to pneumonia. 4. Tachycardia. 5. Chronic kidney disease. 6. COPD. 7. History of CVA and diverticulosis status post segmental resection and colostomy placement. 8. Tobacco, EtOH, and illicit drug abuse. SURGICAL HISTORY: Bowel resection and colostomy placement, tonsillectomy. FAMILY HISTORY: No evidence of premature cardiopulmonary disease or cancer. SOCIAL HISTORY: He lives with his fiancee. He continues smoking 1 pack cigarettes a day and drinking and using illicit drug abuse. He is applying for disability. ALLERGIES: NO KNOWN DRUG ALLERGY. HOME MEDICATIONS: 1. Atorvastatin 80 mg once a day. 2. Flomax 0.4 mg once a day. 3. Keppra 500 mg twice a day. 4. Nexium 20 mg once a day. 5. CoQ10 200 mg once a day. 6. Sertraline 50 mg once a day. 7. Seroquel 25 mg once a day. 8. Elavil 10 mg once a day. 9. Requip 0.5 mg once a day. 10. Aspirin 81 mg once a day. 11. Carvedilol 6.25 mg twice a day. 12. Lisinopril 5 mg once a day. 13. Nicotine patch 21 mg once a day. 14. Furosemide 40 mg once a day. 15. Potassium 10 mEq once a day. REVIEW OF SYSTEMS: 12-point review of systems is negative unless otherwise mentioned in the HPI. PHYSICAL EXAMINATION: VITAL SIGNS: Blood pressure heart rate around 90s, respiratory rate 16, and O2 saturation 100% on room air. GENERAL: The patient is alert and oriented x4, but easy to fall asleep possibly due to morphine, but not in acute distress. HEENT: Head, normocephalic and atraumatic. Eyes, extraocular muscle movement intact. ENT and mouth, oral and nasal mucosa moist without lesions. NECK: Supple. Normal range of motion. No JVD. RESPIRATORY: Clear to auscultate bilaterally, but rhonchi in bilateral lower lobes. No wheezing or rale noted. CARDIOVASCULAR: Regular rate and rhythm. Normal S1 and S2. There is no S3 or S4. No significant murmur, hives or thrill noted. 2+ pulses in bilateral upper and lower extremities. No edema in the lower extremities. ABDOMEN: Soft and nontender. No mass to palpitate. No bowel sounds are present. SKIN: Warm and dry. No rash, lesion or erythema noted. MUSCULOSKELETAL: The patient is able to move all extremities without difficulty. The patient denied claudication. NEUROLOGIC: The patient is alert and oriented x4, nonfocal. PSYCHIATRIC: The patient's mood is appropriate. LABORATORY DATA: WBC 5.7, hemoglobin 11.3, hematocrit 32.8, and platelet 151. Sodium 136, potassium 4.3, BUN 42, and creatinine 2.34. Lactic acid 5.3. Magnesium is 1.2, which is covered by IV magnesium. AST 14 and ALT 10. CK-MB is 1.0. Troponin is 0.034, 0.037, and 0.066. Speech modified barium swallow shows severe penetration aspiration with thin liquid, only one swallow was given. CT neck shows severe soft tissue thickening of the supraglottic larynx, suspicious for laryngeal cancer, extensive edema throughout the central deep soft tissues of neck; however, the patient cannot have MRI due to the elevated creatinine level. ASSESSMENT/PLAN: 1. Acute on chronic systolic and diastolic heart failure with ejection fraction of 20% to 25% with grade 1 diastolic dysfunction. The patient is doing relatively well without any diuretic at this moment. He was on carvedilol and lisinopril, which is on hold due to the hypotension secondary to possible morphine administration. Once the patient's vital signs are stable, we would like to resume those medication and possible diuretic. At this moment, the patient does not have any fundings available for himself, he is an uninsured patient. If possible, we would like to order the LifeVest for this patient at discharge. 2. Oropharyngeal/laryngeal dysphagia, which is already seeing Dr. Chapman. ENT doctors are already following this patient. At this moment, the patient cannot have CT or MRI with iodine due to the kidney function. 3. Bacteremia secondary to , which is managed by ID. 4. Acute on chronic kidney disease. The patient might need a Nephrology consult for worsening of the kidney function. 5. Hypotension. The patient's blood pressure is stable at this moment with holding carvedilol and lisinopril, and I decreased the patient's morphine dosage. We would like to continue to monitor. Thank you very much for Cardiology Service to participate in the care of this patient. We will follow along the patient's care team and make further recommendations. Job ID: [id number]
--- NOTE | 2019-03-04 09:50 | PDOC.CPN ---
- Subjective Date: 03/04/19 Time: 09:52 Interval history: The pt seen and examined. No overnight events. No cardiac complaints. - Objective Allergies/Adverse Reactions: Allergies Allergy/AdvReac Type Severity Reaction Status Date / Time No Known Drug Allergies Allergy Verified 02/28/19 15:19 Visit Medications: Current Medications Acetaminophen (Tylenol) 650 mg PO Q4H PRN PRN Reason: Headache/Fever/Mild Pain (1-3) Albuterol/Ipratropium (Duoneb) 3 ml NEB Q2H PRN PRN Reason: SOB &/or Wheezing Albuterol/Ipratropium (Duoneb) 3 ml NEB [id number] JUAN DAVID Last Admin: 03/04/19 07:21 Dose: 3 ml Amitriptyline HCl (Elavil) 10 mg PO HS JUAN DAVID Last Admin: 03/03/19 20:35 Dose: Not Given Atorvastatin Calcium (Lipitor) 80 mg PO HS JUAN DAVID Last Admin: 03/03/19 20:36 Dose: Not Given Dexamethasone (Decadron) 4 mg SLOW IVP Q12HR [facility] Last Admin: 03/04/19 08:46 Dose: 4 mg Sodium Chloride (1/2 Normal Saline) 1,000 mls @ 75 mls/hr IV .[id number] JUAN DAVID Last Admin: 03/04/19 08:45 Dose: 1,000 mls Ceftriaxone Sodium 2 gm/ (Sodium Chloride) 100 mls @ 200 mls/hr IVPB 1800 JUAN DAVID Last Admin: 03/03/19 18:12 Dose: 100 mls Pantoprazole Sodium 80 mg/ (Sodium Chloride) 100 mls @ 10 mls/hr IVPB INF [facility] Last Admin: 03/03/19 23:00 Dose: 100 mls Levetiracetam (Keppra) 500 mg PO BID JUAN DAVID Last Admin: 03/04/19 08:22 Dose: Not Given Morphine Sulfate (Morphine) 2 mg SLOW IVP Q4H PRN PRN Reason: Moderate to Severe Pain (6-10) Last Admin: 03/04/19 07:05 Dose: 2 mg Nicotine (Nicoderm Patch) 21 mg TOP HS JUAN DAVID Last Admin: 03/03/19 20:35 Dose: 21 mg Nitroglycerin (Nitrostat) 0.4 mg SL Q5MIN PRN PRN Reason: Chest Pain Last Admin: 03/03/19 06:46 Dose: 0.4 mg Ondansetron HCl (Zofran) 4 mg SLOW IVP Q6H PRN PRN Reason: Nausea/Vomiting Last Admin: 03/02/19 14:03 Dose: 4 mg Quetiapine Fumarate (Seroquel) 25 mg PO HS [facility] Last Admin: 03/03/19 20:36 Dose: Not Given Ropinirole HCl (Requip) 0.5 mg PO QPM [facility] Last Admin: 03/03/19 20:36 Dose: Not Given Sertraline HCl (Zoloft) 50 mg PO DAILY [facility] Last Admin: 03/04/19 08:23 Dose: Not Given Sodium Chloride (Flush - Normal Saline) 10 ml IVF Q12HR [facility] Last Admin: 03/04/19 08:23 Dose: Not Given Sodium Chloride (Flush - Normal Saline) 10 ml IVF PRN PRN PRN Reason: Saline Flush Tamsulosin HCl (Flomax) 0.4 mg PO [facility] Last Admin: 03/03/19 20:36 Dose: Not Given Vital Signs & Weight: Vital Signs Temp Pulse Resp BP Pulse Ox 03/04/19 08:05 97.9 F 86 16 132/75 95 03/04/19 07:21 70 16 96 03/04/19 04:40 97.5 F L 77 16 127/74 96 03/04/19 00:23 98.1 F 62 14 155/54 H 94 L 03/03/19 22:11 85 12 Weight 171 lb 1.259 oz - Physical Exam General: alert & oriented x3 HEENT: mucus membranes moist Neck: supple neck Cardiac: regular rate and rhythm Lungs: clear to auscultation, decreased breath sounds Neuro: cranial nerve 2-12 intact - Labs Result Diagrams: 03/04/19 06:11 03/04/19 06:11 Troponin/CKMB CK-MB (CK-2) 1.0 ng/mL (0-6.6) 02/28/19 02:53 Troponin I 0.108 ng/mL (< 0.028) H 03/02/19 05:01 - Assessment/Plan Assessment/Plan: 1. Chronic Systolic HF with EF 20-25% - will resume bblocker, ARMIN, diuretic once ok to use PEG tube 2. Ischemic CMY - May need LifeVest at discharge; however, it is uncertain since he is uninsured 3. S/p EGD and PEG tube placement for dysphagia on 03/03/2019 - EGD on 2018 showed very large ulceration; On Protonix IV drip; managed by GI 4. HTN - stable 5. swelling at neck 6. OLGA - improving 7.COPD - stable with RA 8. ETOH and Tobacco abuse - strongly recommend ETOH and tobacco cessation 9. suspected acalculous cholecystitis MAR reviewed * Echo ion 02/28/2019 with EF 20-25%, grade I dd, severe global hypokinesis, mild-mod MR, mild TR, and dilated IVC. Pt. seen and eval. by me. A PEG tube has been placed. 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 He c/o's of occasional chest pain. He still has neck pain but this is improving. When feasible I would suggest a cardiac cath to rule out severe CAD as a possible etiology of his CMY and chest pain. He has declined a Life-Vest in the past.
[2019-03-04] MEDS ORDERED: Magnesium Sulfate 2 GM in Sodium Chloride 0.9% 100 ML IVPB SCH (14:00)
[2019-03-04] MEDS ORDERED: Magnesium 2 GM/50 ML 2 GM in Premix Bag 1 BAG IVPB SCH (14:15)
--- NOTE | 2019-03-04 14:16 | PRG ---
DATE OF SERVICE: 03/04/2019 SERVICE: Pulmonary Medicine. INTERVAL HISTORY: The patient is doing fine from respiratory standpoint. Breathing comfortably. No complaints of chest discomfort, fevers, or chills. Otherwise, there has been no change to his condition. PHYSICAL EXAMINATION: VITAL SIGNS: Afebrile, pulse 86, blood pressure 136/68, respirations 18, saturation 95% on room air. GENERAL: The patient is awake and alert, in no apparent distress. LUNGS: Very good air entry. No prolonged expiratory phase or wheezing is appreciated. HEART: Normal rate and regular. ABDOMEN: Soft, nontender, nondistended. Bowel sounds are positive. MUSCULOSKELETAL: No cyanosis or clubbing. No pitting in the bilateral lower extremities. NEUROLOGIC: Grossly nonfocal. LABORATORY DATA: WBC is 7.1, hemoglobin 10.3, and platelets 174,000. Neutrophil count is 87% on top of 4% bands. Basic metabolic profile and liver function studies are essentially unremarkable except for magnesium of 1.5. Liver function studies are negative. IgG level is significantly positive. IgA and IgM are low. Complement C3 levels are low. Streptococcus pneumonia is growing in 2/2 blood cultures. This is fairly sensitive organism. Influenza A and B are unremarkable. ASSESSMENT: 1. Acute respiratory failure secondary to upper airway inflammation/lesion, resolved. 2. Bacteremia secondary to Streptococcus pneumoniae. 3. Oropharyngeal dysphagia, possibly secondary infection. 4. Recent history of tracheostomy with subsequent decannulation. 5. Recent protracted hospital stay following [id number] arrest. DISCUSSION AND PLAN: There is absolutely no concern for upper airway lesion at this point. I will replace the magnesium and give him a laboratory holiday tomorrow morning. At this point, he has no further requirements for inpatient Pulmonary Critical Care opinion and I will sign off. He will need repeat imaging of the head and neck in the outpatient setting. IgG is elevated. Immunofixation is pending. Job ID: [id number] MTDD
--- NOTE | 2019-03-04 15:10 | PDOC.HOSPP ---
- Subjective Encounter Date: 03/04/19 Subjective: diffuse abdominal pain without nausea and vomiting - Objective Vital Signs & Weight: Vital Signs (12 hours) Temp Pulse Resp BP Pulse Ox 03/04/19 13:54 78 16 98 03/04/19 12:14 98.5 F 86 18 136/68 95 03/04/19 10:25 83 16 96 03/04/19 08:05 97.9 F 86 16 132/75 95 03/04/19 07:21 70 16 96 03/04/19 04:40 97.5 F L 77 16 127/74 96 Weight Admit Weight 171 lb 1.259 oz Weight 171 lb 1.259 oz Most Recent Monitor Data Heart Rate from ECG 92 NIBP 81/56 NIBP BP-Mean 64 Respiration from ECG 13 SpO2 96 I&O: 03/03/19 03/04/19 03/05/19 06:59 06:59 06:59 Intake Total 900 0 Output Total 100 550 Balance 800 -550 Result Diagrams: 03/04/19 06:11 03/04/19 06:11 Hospitalist ROS - Review of Systems Gastrointestinal: reports: abdominal pain - Medication Medications: Active Medications Generic Name Dose Route Start Last Admin Trade Name Freq PRN Reason Stop Dose Admin Albuterol/Ipratropium 3 ml 02/28/19 10:30 03/04/19 13:54 Duoneb NEB 3 ml [id number] JUAN DAVID Administration Amitriptyline HCl 10 mg 03/01/19 21:00 03/03/19 20:35 Elavil PO Not Given HS JUAN DAVID Atorvastatin Calcium 80 mg 03/01/19 21:00 03/03/19 20:36 Lipitor PO Not Given HS JUAN DAVID Dexamethasone 4 mg 03/01/19 21:00 03/04/19 08:46 Decadron SLOW IVP 4 mg Q12HR JUAN DAVID Administration Sodium Chloride 1,000 mls @ 75 mls/hr 03/01/19 11:15 03/04/19 08:45 1/2 Normal Saline IV 1,000 mls .[id number] JUAN DAVID Administration Ceftriaxone Sodium 2 gm/ 100 mls @ 200 mls/hr 03/01/19 18:00 03/03/19 18:12 Sodium Chloride IVPB 100 mls 1800 JUAN DAVID Administration Pantoprazole Sodium 80 mg/ 100 mls @ 10 mls/hr 03/03/19 10:15 03/03/19 23:00 Sodium Chloride IVPB 100 mls INF JUAN DAVID Administration Levetiracetam 500 mg 03/01/19 09:00 03/04/19 08:22 Keppra PO Not Given BID JUAN DAVID Morphine Sulfate 2 mg 03/01/19 14:48 03/04/19 12:41 Morphine SLOW IVP 2 mg Q4H PRN Administration Moderate to Severe Pain (6-10) Nicotine 21 mg 03/01/19 21:00 03/03/19 20:35 Nicoderm Patch TOP 21 mg HS JUAN DAVID Administration Nitroglycerin 0.4 mg 03/02/19 04:58 03/03/19 06:46 Nitrostat SL 0.4 mg Q5MIN PRN Administration Chest Pain Ondansetron HCl 4 mg 03/02/19 14:01 03/02/19 14:03 Zofran SLOW IVP 4 mg Q6H PRN Administration Nausea/Vomiting Quetiapine Fumarate 25 mg 03/01/19 21:00 03/03/19 20:36 Seroquel PO Not Given HS [facility] Ropinirole HCl 0.5 mg 03/01/19 21:00 03/03/19 20:36 Requip PO Not Given QPM [facility] Sertraline HCl 50 mg 03/01/19 09:00 03/04/19 08:23 Zoloft PO Not Given DAILY [facility] Sodium Chloride 10 ml 02/28/19 09:00 03/04/19 08:23 Flush - Normal Saline IVF Not Given Q12HR [facility] Tamsulosin HCl 0.4 mg 03/01/19 21:00 03/03/19 20:36 Flomax PO Not Given HS [facility] - Exam Eye: PERRL, anicteric sclera ENT: normocephalic atraumatic, no oropharyngeal lesions, moist mucosa Neck: supple, symmetric, no JVD, no thyromegaly, no lymphadenopathy, no carotid bruit Heart: RRR, no murmur, no gallops, no rubs, normal peripheral pulses Respiratory: CTAB, no wheezes, no rales, no ronchi, normal chest expansion, no tachypnea, normal percussion Gastrointestinal: soft, non-tender, non-distended, normal bowel sounds, no palpable masses, no hepatomegaly, no splenomegaly, no bruit Extremities: no cyanosis, no clubbing, no edema Skin: no rashes Neurological: cranial nerve grossly intact, normal sensation to touch, no weakness, no focal deficits, no new deficit Musculoskeletal: normal tone, normal strength, no muscle wasting Psychiatric: normal behavior Hosp A/P (1) Acute respiratory failure with hypoxia Code(s): J96.01 - ACUTE RESPIRATORY FAILURE WITH HYPOXIA Status: Resolved (2) Dysphagia Code(s): R13.10 - DYSPHAGIA, UNSPECIFIED Status: Acute Qualifiers: Dysphagia type: oropharyngeal phase Qualified Code(s): R13.12 - Dysphagia, oropharyngeal phase Plan: s/p PEG TUBE placement. (3) Mass of submandibular region Code(s): R22.0 - LOCALIZED SWELLING, MASS AND LUMP, HEAD Status: Acute (4) Streptococcal bacteremia Code(s): R78.81 - BACTEREMIA; B95.5 - UNSP STREPTOCOCCUS THE CAUSE OF DISEASES CLASSD ELSWHR Status: Acute (5) Acute renal failure (ARF) Status: Acute (6) Alcohol dependence Code(s): F10.20 - ALCOHOL DEPENDENCE, UNCOMPLICATED Status: Acute Qualifiers: Substance use status: uncomplicated Qualified Code(s): F10.20 - Alcohol dependence, uncomplicated (7) Anemia Code(s): D64.9 - ANEMIA, UNSPECIFIED Status: Chronic Qualifiers: Iron deficiency anemia type: chronic blood loss (8) COPD (chronic obstructive pulmonary disease) Status: Chronic (9) Cardiomyopathy Code(s): I42.9 - CARDIOMYOPATHY, UNSPECIFIED Status: Chronic Qualifiers: Cardiomyopathy type: alcoholic Qualified Code(s): I42.6 - Alcoholic cardiomyopathy Plan: EF is 25% and cardiology adviced life vest (10) BPH (benign prostatic hyperplasia) Code(s): N40.0 - BENIGN PROSTATIC HYPERPLASIA WITHOUT LOWER URINRY TRACT SYMP Status: Chronic (11) Dyslipidemia Code(s): E78.5 - HYPERLIPIDEMIA, UNSPECIFIED Status: Chronic (12) Hypertension Code(s): I10 - ESSENTIAL (PRIMARY) HYPERTENSION Status: Chronic Qualifiers: Hypertension type: essential hypertension Qualified Code(s): I10 - Essential (primary) hypertension (13) Tobacco abuse Code(s): Z72.0 - TOBACCO USE Status: Chronic (14) Cholelithiasis NOS Code(s): K80.20 - CALCULUS OF GALLBLADDER W/O CHOLECYSTITIS W/O OBSTRUCTION Status: Chronic Plan: asymptomatic and close monitoring - Plan old records reviewed/req, PT/OT, respiratory therapy Doing much better overall. Patient on iv Rocephin per ID reccs. Will need outpatient ENT follow up. Significant reduced EF with global hypokinesis. Had significant dyphagia and failed speech and swallow.S/p PEG tube placement. No evidence of acute cholecystitis.Cholelithiasis present though. PEG tube feedings from today.PT/TO activated.
--- NOTE | 2019-03-04 15:23 | PRG ---
DATE OF SERVICE: 03/04/2019 SUBJECTIVE: This is a 59-year-old male with submandibular abscess, on antibiotic therapy. Because of the abscess, he has significant difficulty swallowing. He has failed modified barium swallow. He underwent EGD and PEG tube placed yesterday. During the PEG tube placement, he was noted to have coffee-ground material in the stomach. He had a prepyloric ulcer which was quite large and deep. There was a visible vessel and also hemorrhagic appearing mucosa. The ulcer base was injected with epinephrine and also cauterized with BICAP. Because of the deep ulceration, there is a possibility of perforation, so I could not really cauterize extensively. It was actually treated with epinephrine injection. He has done well. He had suction to the gastrostomy yesterday. He is having about . Also his colostomy bag has some dark stool which is small. The patient complains of abdominal pain over the G-tube site. The G-tube site is inspected. It appears to be healthy. The G-tube bumper was loosened up. PHYSICAL EXAMINATION: GENERAL: He appears comfortable, in no acute distress. VITAL SIGNS: Stable. Pulse is 78, blood pressure is 136/60. CARDIOVASCULAR: Within normal limits. LUNGS: Within normal limits. ABDOMEN: Soft. Abdomen is nontender. The G-tube bumper was loosened. His hemoglobin has remained the same over the last 24 hours. It is around 10.4, 10.3, 10.3. The blood seen in the canister is probably old blood while he has probably passed some old blood into the colostomy bag. RECOMMENDATIONS: 1. Continue IV Protonix. 2. Start G-tube feeding today. Dr. Marcelino Peralta is covering me and if there are any problems please call Dr. Marcelino Peralta. Job ID: [id number]
[2019-03-04] MEDS: Pantoprazole 80 MG in Sodium Chloride 0.9% 100 ML IVPB SCH (15:26)
[2019-03-04 16:57] LABS: Troponin I 0.051 ng/mL (< 0.028)
[2019-03-04] MEDS: cefTRIAXone\\ROCEPHIN 2 GM in Sodium Chloride 0.9% 100 ML IVPB SCH (17:56)
[2019-03-04] MEDS: Amitriptyline HCl 10 MG TAB PO SCH (21:12)
[2019-03-04] MEDS: Atorvastatin Calcium 40 MG TAB PO SCH (21:13)
[2019-03-04] MEDS: Nicotine 21 MG PATCH TOP SCH (21:15)
[2019-03-04] MEDS: Tamsulosin HCl 0.4 MG CAP PO SCH (21:16)
[2019-03-04] MEDS: rOPINIRole HCl 0.5 MG TAB PO SCH (21:19)
[2019-03-04 21:47] LABS: Troponin I 0.036 ng/mL (< 0.028)
[2019-03-05 01:49] LABS: Troponin I 0.019 ng/mL (< 0.028)
[2019-03-05] MEDS: Morphine 2 MG/ML SYRINGE SLOW IVP PRN ×4 (03:49→21:56)
[2019-03-05] MEDS: Pantoprazole 80 MG in Sodium Chloride 0.9% 100 ML IVPB SCH ×2 (05:10→15:23)
[2019-03-05] MEDS: Sodium Chloride 0.45% 1,000 ML IV SCH ×2 (08:04→21:44)
[2019-03-05] MEDS: levETIRAcetam 500 MG TAB PO SCH ×2 (08:06→21:12)
[2019-03-05] MEDS: Dexamethasone 4 mg/ml Vial SLOW IVP SCH ×2 (08:06→21:11)
--- NOTE | 2019-03-05 11:22 | PDOC.HOSPP ---
- Subjective Encounter Date: 03/05/19 Subjective: resting well with PEG tube feedings.No c/o chest pain. - Objective Vital Signs & Weight: Vital Signs (12 hours) Temp Pulse Resp BP Pulse Ox 03/05/19 11:16 67 16 97 03/05/19 08:00 97 03/05/19 07:29 98.1 F 69 20 129/67 95 03/05/19 07:04 68 16 96 03/05/19 05:27 98.1 F 72 19 125/73 95 03/05/19 01:53 65 18 93 L 03/05/19 00:00 98.2 F 74 18 117/67 93 L Weight Admit Weight 171 lb 1.259 oz Weight 171 lb 1.259 oz Most Recent Monitor Data Heart Rate from ECG 92 NIBP 81/56 NIBP BP-Mean 64 Respiration from ECG 13 SpO2 96 I&O: 03/04/19 03/05/19 03/06/19 06:59 06:59 06:59 Intake Total 0 996 Output Total 550 450 Balance -550 546 Result Diagrams: 03/04/19 06:11 03/04/19 06:11 Hospitalist ROS - Review of Systems Other: afebrile and no c/o chest pain - Medication Medications: Active Medications Generic Name Dose Route Start Last Admin Trade Name Freq PRN Reason Stop Dose Admin Albuterol/Ipratropium 3 ml 02/28/19 10:30 03/05/19 11:16 Duoneb NEB 3 ml [id number] JUAN DAVID Administration Amitriptyline HCl 10 mg 03/01/19 21:00 03/04/19 21:12 Elavil PO 10 mg HS JUAN DAVID Administration Atorvastatin Calcium 80 mg 03/01/19 21:00 03/04/19 21:13 Lipitor PO 80 mg HS JUAN DAVID Administration Dexamethasone 4 mg 03/01/19 21:00 03/05/19 08:06 Decadron SLOW IVP 4 mg Q12HR JUAN DAVID Administration Sodium Chloride 1,000 mls @ 75 mls/hr 03/01/19 11:15 03/05/19 08:04 1/2 Normal Saline IV 1,000 mls .[id number] JUAN DAVID Administration Ceftriaxone Sodium 2 gm/ 100 mls @ 200 mls/hr 03/01/19 18:00 03/04/19 17:56 Sodium Chloride IVPB 100 mls 1800 JUAN DAVID Administration Pantoprazole Sodium 80 mg/ 100 mls @ 10 mls/hr 03/03/19 10:15 03/05/19 05:10 Sodium Chloride IVPB 100 mls INF JUAN DAVID Administration Levetiracetam 500 mg 03/01/19 09:00 03/05/19 08:06 Keppra PO Not Given BID JUAN DAVID Morphine Sulfate 2 mg 03/01/19 14:48 03/05/19 08:16 Morphine SLOW IVP 2 mg Q4H PRN Administration Moderate to Severe Pain (6-10) Nicotine 21 mg 03/01/19 21:00 03/04/19 21:15 Nicoderm Patch TOP 21 mg HS JUAN DAVID Administration Nitroglycerin 0.4 mg 03/02/19 04:58 03/03/19 06:46 Nitrostat SL 0.4 mg Q5MIN PRN Administration Chest Pain Ondansetron HCl 4 mg 03/02/19 14:01 03/02/19 14:03 Zofran SLOW IVP 4 mg Q6H PRN Administration Nausea/Vomiting Quetiapine Fumarate 25 mg 03/01/19 21:00 03/04/19 21:19 Seroquel PO Not Given HS [facility] Ropinirole HCl 0.5 mg 03/01/19 21:00 03/04/19 21:19 Requip PO Not Given QPM JUAN DAVID Sertraline HCl 50 mg 03/01/19 09:00 03/05/19 08:05 Zoloft PO 50 mg DAILY JUAN DAVID Administration Sodium Chloride 10 ml 02/28/19 09:00 03/05/19 08:06 Flush - Normal Saline IVF Not Given Q12HR [facility] Tamsulosin HCl 0.4 mg 03/01/19 21:00 03/04/19 21:16 Flomax PO 0.4 mg HS JUAN DAVID Administration - Exam General Appearance: awake alert Eye: PERRL, anicteric sclera ENT: normocephalic atraumatic, no oropharyngeal lesions, moist mucosa Neck: supple, symmetric, no JVD, no thyromegaly, no lymphadenopathy, no carotid bruit Heart: RRR, no murmur, no gallops, no rubs, normal peripheral pulses Respiratory: CTAB, no wheezes, no rales, no ronchi, normal chest expansion, no tachypnea, normal percussion Gastrointestinal: soft, non-tender, non-distended, normal bowel sounds, no palpable masses, no hepatomegaly, no splenomegaly, no bruit Gastrointestinal - other findings: PEG TUBE IN PLACE. Extremities: no cyanosis, no clubbing, no edema Skin: normal turgor, no lesions, no rashes Neurological: cranial nerve grossly intact, normal sensation to touch, no weakness, no focal deficits, no new deficit Musculoskeletal: normal tone, normal strength, no muscle wasting Psychiatric: normal behavior Hosp A/P (1) Acute respiratory failure with hypoxia Code(s): J96.01 - ACUTE RESPIRATORY FAILURE WITH HYPOXIA Status: Resolved (2) Dysphagia Code(s): R13.10 - DYSPHAGIA, UNSPECIFIED Status: Acute Qualifiers: Dysphagia type: oropharyngeal phase Qualified Code(s): R13.12 - Dysphagia, oropharyngeal phase Plan: On PEG tube feedings and speech and swallow eval to contiue. (3) Mass of submandibular region Code(s): R22.0 - LOCALIZED SWELLING, MASS AND LUMP, HEAD Status: Acute (4) Streptococcal bacteremia Code(s): R78.81 - BACTEREMIA; B95.5 - UNSP STREPTOCOCCUS THE CAUSE OF DISEASES CLASSD ELSWHR Status: Acute (5) Acute renal failure (ARF) Status: Acute (6) Alcohol dependence Code(s): F10.20 - ALCOHOL DEPENDENCE, UNCOMPLICATED Status: Acute Qualifiers: Substance use status: uncomplicated Qualified Code(s): F10.20 - Alcohol dependence, uncomplicated (7) Anemia Code(s): D64.9 - ANEMIA, UNSPECIFIED Status: Chronic Qualifiers: Iron deficiency anemia type: chronic blood loss (8) COPD (chronic obstructive pulmonary disease) Status: Chronic (9) Cardiomyopathy Code(s): I42.9 - CARDIOMYOPATHY, UNSPECIFIED Status: Chronic Qualifiers: Cardiomyopathy type: alcoholic Qualified Code(s): I42.6 - Alcoholic cardiomyopathy Plan: EF is 20-25%.Will start on Lisinopril at 2.5 mg daily. (10) BPH (benign prostatic hyperplasia) Code(s): N40.0 - BENIGN PROSTATIC HYPERPLASIA WITHOUT LOWER URINRY TRACT SYMP Status: Chronic (11) Dyslipidemia Code(s): E78.5 - HYPERLIPIDEMIA, UNSPECIFIED Status: Chronic (12) Hypertension Code(s): I10 - ESSENTIAL (PRIMARY) HYPERTENSION Status: Chronic Qualifiers: Hypertension type: essential hypertension Qualified Code(s): I10 - Essential (primary) hypertension (13) Tobacco abuse Code(s): Z72.0 - TOBACCO USE Status: Chronic (14) Cholelithiasis NOS Code(s): K80.20 - CALCULUS OF GALLBLADDER W/O CHOLECYSTITIS W/O OBSTRUCTION Status: Chronic - Plan old records reviewed/req, PT/OT, speech therapy Doing much better overall. Patient on iv Rocephin per ID reccs. Will need outpatient ENT follow up. Significant reduced EF with global hypokinesis.EF 20-25%.STARTED ON LISINOPRIL 2.5 MG DAILY.Appreciate cardiology reccs. Had significant dyphagia and failed speech and swallow.S/p PEG tube placement. No evidence of acute cholecystitis.Cholelithiasis present though. PEG tube feedings .PT/TO activated.
--- NOTE | 2019-03-05 13:03 | PDOC.CPN ---
- Subjective Date: 03/05/19 Time: 13:05 Interval history: The pt seen and examined. No overnight events. No cardiac complaints. - Objective Allergies/Adverse Reactions: Allergies Allergy/AdvReac Type Severity Reaction Status Date / Time No Known Drug Allergies Allergy Verified 02/28/19 15:19 Visit Medications: Current Medications Acetaminophen (Tylenol) 650 mg PO Q4H PRN PRN Reason: Headache/Fever/Mild Pain (1-3) Albuterol/Ipratropium (Duoneb) 3 ml NEB Q2H PRN PRN Reason: SOB &/or Wheezing Albuterol/Ipratropium (Duoneb) 3 ml NEB [id number] [facility] Last Admin: 03/05/19 11:16 Dose: 3 ml Amitriptyline HCl (Elavil) 10 mg PO HS [facility] Last Admin: 03/04/19 21:12 Dose: 10 mg Atorvastatin Calcium (Lipitor) 80 mg PO HS [facility] Last Admin: 03/04/19 21:13 Dose: 80 mg Dexamethasone (Decadron) 4 mg SLOW IVP Q12HR [facility] Last Admin: 03/05/19 08:06 Dose: 4 mg Sodium Chloride (1/2 Normal Saline) 1,000 mls @ 75 mls/hr IV .[id number] [facility] Last Admin: 03/05/19 08:04 Dose: 1,000 mls Ceftriaxone Sodium 2 gm/ (Sodium Chloride) 100 mls @ 200 mls/hr IVPB 1800 [facility] Last Admin: 03/04/19 17:56 Dose: 100 mls Pantoprazole Sodium 80 mg/ (Sodium Chloride) 100 mls @ 10 mls/hr IVPB INF [facility] Last Admin: 03/05/19 05:10 Dose: 100 mls Levetiracetam (Keppra) 500 mg PO BID [facility] Last Admin: 03/05/19 08:06 Dose: Not Given Lisinopril (Zestril) 2.5 mg PO DAILY [facility] Morphine Sulfate (Morphine) 2 mg SLOW IVP Q4H PRN PRN Reason: Moderate to Severe Pain (6-10) Last Admin: 03/05/19 08:16 Dose: 2 mg Nicotine (Nicoderm Patch) 21 mg TOP HS [facility] Last Admin: 03/04/19 21:15 Dose: 21 mg Nitroglycerin (Nitrostat) 0.4 mg SL Q5MIN PRN PRN Reason: Chest Pain Last Admin: 03/03/19 06:46 Dose: 0.4 mg Ondansetron HCl (Zofran) 4 mg SLOW IVP Q6H PRN PRN Reason: Nausea/Vomiting Last Admin: 03/02/19 14:03 Dose: 4 mg Quetiapine Fumarate (Seroquel) 25 mg PO HS [facility] Last Admin: 03/04/19 21:19 Dose: Not Given Ropinirole HCl (Requip) 0.5 mg PO QPM [facility] Last Admin: 03/04/19 21:19 Dose: Not Given Sertraline HCl (Zoloft) 50 mg PO DAILY [facility] Last Admin: 03/05/19 08:05 Dose: 50 mg Sodium Chloride (Flush - Normal Saline) 10 ml IVF Q12HR [facility] Last Admin: 03/05/19 08:06 Dose: Not Given Sodium Chloride (Flush - Normal Saline) 10 ml IVF PRN PRN PRN Reason: Saline Flush Tamsulosin HCl (Flomax) 0.4 mg PO HS [facility] Last Admin: 03/04/19 21:16 Dose: 0.4 mg Vital Signs & Weight: Vital Signs Temp Pulse Resp BP Pulse Ox Pulse Ox 03/05/19 12:20 98.1 F 60 20 130/73 97 03/05/19 11:32 93 L 03/05/19 11:16 67 16 97 03/05/19 08:00 97 03/05/19 07:29 98.1 F 69 20 129/67 95 03/05/19 07:04 68 16 96 03/05/19 05:27 98.1 F 72 19 125/73 95 03/05/19 01:53 65 18 93 L Admit Weight 171 lb 1.259 oz Weight 171 lb 1.259 oz - Physical Exam General: alert & oriented x3 HEENT: mucus membranes moist Neck: supple neck Cardiac: regular rate and rhythm Lungs: decreased breath sounds Neuro: cranial nerve 2-12 intact Musculoskeletal: decreased range of motion - Labs Result Diagrams: 03/04/19 06:11 03/04/19 06:11 Troponin/CKMB CK-MB (CK-2) 1.0 ng/mL (0-6.6) 02/28/19 02:53 Troponin I 0.019 ng/mL (< 0.028) 03/05/19 01:23 - Assessment/Plan Assessment/Plan: 1. Chronic Systolic HF with EF 20-25% - On Lisinopril; will resume bblocker once his HR is more stable; When feasible, possible cardiac cath to rule out severe CAD as a possible etiology of his CMY and chest pain 2. Ischemic CMY - May need LifeVest at discharge; however, it is uncertain since he is uninsured 3. S/p EGD and PEG tube placement for dysphagia on 03/03/2019 - EGD on 2018 showed very large ulceration; On Protonix IV drip; managed by GI 4. HTN - stable 5. swelling at neck 6. OLGA - improving 7.COPD - stable with RA 8. ETOH and Tobacco abuse - strongly recommend ETOH and tobacco cessation 9. suspected acalculous cholecystitis MAR reviewed Pt. seen and eval. by me. I agree with the A/P by the [employer].He was resting comfortably . Chest clear anteriorly. RRR. No edema. Peg tube in place. I would advise further cardiac workup when he is more stable. He has been noncompliant with f/u and advise to stop smoking. He also continue with ETOH. He has refused Life-Vest in the past.
--- NOTE | 2019-03-05 14:15 | EKG ---
Test Reason : Blood Pressure : / mmHG Vent. Rate : 086 BPM Atrial Rate : 086 BPM P-R Int : 172 ms QRS Dur : 092 ms QT Int : 414 ms P-R-T Axes : 061 -24 065 degrees QTc Int : 495 ms Sinus rhythm with occasional Premature ventricular complexes Cannot rule out Anteroseptal infarct (cited on or before 11-JAN-2018) Abnormal ECG When compared with ECG of 02-MAR-2019 04:53, (Unconfirmed) Incomplete right bundle branch block is no longer Present Questionable change in initial forces of Anteroseptal leads Confirmed by SEBLE CARD, DR. Jennings ([id number]) on 03/05/2019 2:15:45 PM Referred By: ROSANNE Confirmed By:DR. Dick PRUETT MD
--- NOTE | 2019-03-05 15:54 | PRG ---
DATE OF SERVICE: 03/05/2019 SUBJECTIVE: Mr. Vences is feeling pretty well. He has some ongoing mild upper abdominal discomfort. The PEG site looks good and feels okay. He has been tolerating tube feeds just fine. He tells me that he is actually feeling like he might be able to swallow a lot better. He has much less sore throat. He has been swallowing sips of water and actually had a Twix bar earlier today. He is requesting repeat evaluation for speech pathology. OBJECTIVE: VITAL SIGNS: Temperature 98.1, pulse 57, blood pressure 130/73, and 96% oxygen saturation on room air. GENERAL: No acute distress. HEART: Regular rate and rhythm. LUNGS: Clear to auscultation bilaterally. Abdomen: Nondistended. Bowel sounds are present. PEG tube in place in the left upper quadrant with external bumper set 3 cm. PEG site looks good. Tolerating feeds. EXTREMITIES: No peripheral edema. LABORATORY STUDIES: Troponin 0.019, hemoglobin 10.3, WBC 7.1, platelets 174. Sodium 138, potassium 4.1, BUN 39, and creatinine 1.08. ASSESSMENT/PLAN: 1. Oropharyngeal dysphagia. 2. PEG tube status, status post 2 days post PEG tube placement by Dr. Beltran. The patient is tolerating tube feeds well. The PEG site looks good. The patient feels that his oropharyngeal dysphagia may be significantly improving. It would certainly be reasonable to have him re-evaluated by speech pathology. If he is cleared for oral intake, that is fine. Just continue to flush the PEG tube regularly to keep it from clogging. If he does well with this, I would still not remove the PEG tube in the acute setting. This should be left in at least 3 months prior to removal, to allow the tract to mature, and reduce the risk of any complications associated with PEG tube removal. 3. Gastric ulcer. The patient had a large gastric ulcer, which was injected with epinephrine and cauterized by Dr. Beltran. I see no evidence of any ongoing GI bleeding. He is going to need to stay on IV PPI, can transition to 40 mg IV twice daily while hospitalized. Upon hospital discharge, he will need to continue on Protonix 40 mg twice daily through the PEG tube, or p.o. if he is able to take p.o. He will need to continue on this for at least the next couple of months. GI will sign off, but please call back anytime with questions or concerns. Dr. Brooks is covering over the long weekend. Job ID: [id number]
--- NOTE | 2019-03-05 17:36 | EKG ---
Test Reason : Blood Pressure : / mmHG Vent. Rate : 084 BPM Atrial Rate : 084 BPM P-R Int : 172 ms QRS Dur : 094 ms QT Int : 554 ms P-R-T Axes : 062 -37 023 degrees QTc Int : 654 ms Sinus rhythm with frequent Premature ventricular complexes Left axis deviation Low voltage QRS Incomplete right bundle branch block Cannot rule out Anteroseptal infarct (cited on or before 11-JAN-2018) Prolonged QT Abnormal ECG When compared with ECG of 28-FEB-2019 02:42, (Unconfirmed) Significant changes have occurred Confirmed by MICHEAL OLVERA (2) on 03/05/2019 5:36:25 PM Referred By: MIHIR Confirmed By:MICHEAL OLVERA
[2019-03-05] MEDS: cefTRIAXone\\ROCEPHIN 2 GM in Sodium Chloride 0.9% 100 ML IVPB SCH (17:46)
[2019-03-05] MEDS: Atorvastatin Calcium 40 MG TAB PO SCH (21:11)
[2019-03-05] MEDS: Tamsulosin HCl 0.4 MG CAP PO SCH (21:11)
[2019-03-05] MEDS: Amitriptyline HCl 10 MG TAB PO SCH (21:12)
[2019-03-05] MEDS: rOPINIRole HCl 0.5 MG TAB PO SCH (21:12)
[2019-03-05] MEDS: Nicotine 21 MG PATCH TOP SCH (21:12)
[2019-03-06] MEDS: Pantoprazole 80 MG in Sodium Chloride 0.9% 100 ML IVPB SCH (02:30)
[2019-03-06] MEDS: Morphine 2 MG/ML SYRINGE SLOW IVP PRN ×3 (03:43→12:10)
[2019-03-06] MEDS: levETIRAcetam 500 MG TAB PO SCH ×2 (07:18→20:20)
[2019-03-06] MEDS: Sodium Chloride 0.45% 1,000 ML IV SCH (08:46)
[2019-03-06] MEDS ORDERED: Lisinopril 2.5 MG TAB PO SCH (09:00)
[2019-03-06] MEDS: Dexamethasone 4 mg/ml Vial SLOW IVP SCH (09:02)
--- NOTE | 2019-03-06 13:00 | PDOC.HOSPP ---
- Subjective Encounter Date: 03/06/19 Encounter Time: 12:45 Subjective: Patient is eager to consume food. States he is tolering pills PO daily. Denies CP, SOB, palpitations, N/V/D/C. He is receiving tube feeds continuously via PEG tube. Reports he has had his colostomy bag for 2 yrs and states it is due to a bowel perforation. No fever or chills. - Objective Vital Signs & Weight: Vital Signs (12 hours) Temp Pulse Resp BP Pulse Ox 03/06/19 10:11 79 12 94 L 03/06/19 08:42 72 03/06/19 07:57 97.8 F 72 18 141/64 H 94 L 03/06/19 06:27 67 14 93 L 03/06/19 02:11 12 Weight Admit Weight 171 lb 1.259 oz Weight 171 lb 1.259 oz Most Recent Monitor Data Heart Rate from ECG 92 NIBP 81/56 NIBP BP-Mean 64 Respiration from ECG 13 SpO2 96 I&O: 03/05/19 03/06/19 03/07/19 06:59 06:59 06:59 Intake Total 996 2070 30 Output Total 450 900 Balance 546 1170 30 Result Diagrams: 03/04/19 06:11 03/04/19 06:11 Hospitalist ROS - Medication Medications: Active Medications Generic Name Dose Route Start Last Admin Trade Name Freq PRN Reason Stop Dose Admin Amitriptyline HCl 10 mg 03/01/19 21:00 03/05/19 21:12 Elavil PO 10 mg HS JUAN DAVID Administration Atorvastatin Calcium 80 mg 03/01/19 21:00 03/05/19 21:11 Lipitor PO 80 mg HS JUAN DAVID Administration Ceftriaxone Sodium 2 gm/ 100 mls @ 200 mls/hr 03/01/19 18:00 03/05/19 17:46 Sodium Chloride IVPB 100 mls 1800 JUAN DAVID Administration Levetiracetam 500 mg 03/01/19 09:00 03/06/19 07:18 Keppra PO Not Given BID JUAN DAVID Nicotine 21 mg 03/01/19 21:00 03/05/19 21:12 Nicoderm Patch TOP 21 mg HS JUAN DAVID Administration Nitroglycerin 0.4 mg 03/02/19 04:58 03/03/19 06:46 Nitrostat SL 0.4 mg Q5MIN PRN Administration Chest Pain Ondansetron HCl 4 mg 03/02/19 14:01 03/02/19 14:03 Zofran SLOW IVP 4 mg Q6H PRN Administration Nausea/Vomiting Quetiapine Fumarate 25 mg 03/01/19 21:00 03/05/19 21:12 Seroquel PO 25 mg HS JUAN DAVID Administration Ropinirole HCl 0.5 mg 03/01/19 21:00 03/05/19 21:12 Requip PO 0.5 mg QPM JUAN DAVID Administration Sertraline HCl 50 mg 03/01/19 09:00 03/06/19 08:42 Zoloft PO 50 mg DAILY JUAN DAVID Administration Sodium Chloride 10 ml 02/28/19 09:00 03/06/19 07:17 Flush - Normal Saline IVF Not Given Q12HR JUAN DAVID Tamsulosin HCl 0.4 mg 03/01/19 21:00 03/05/19 21:11 Flomax PO 0.4 mg HS JUAN DAVID Administration - Exam General Appearance: NAD, awake alert Eye: PERRL ENT: normocephalic atraumatic Heart: RRR, no murmur, no gallops Respiratory: CTAB, no wheezes, normal chest expansion Gastrointestinal: soft, non-tender Gastrointestinal - other findings: PEG tube connected to feeds; Left sided colostomy in place Skin: normal turgor, no lesions Hosp A/P (1) Streptococcal bacteremia Code(s): R78.81 - BACTEREMIA; B95.5 - UNSP STREPTOCOCCUS THE CAUSE OF DISEASES CLASSD ELSWHR Status: Acute Plan: Will obtain repeat blood cultures to evaluate for clearance of bacteremina ID on board Continue current IV ABX High risk due to need for IV ABX and risk of septic shock (2) Dysphagia Code(s): R13.10 - DYSPHAGIA, UNSPECIFIED Status: Acute Qualifiers: Dysphagia type: oropharyngeal phase Qualified Code(s): R13.12 - Dysphagia, oropharyngeal phase Plan: Speech therapy reconsult ordered last night Will follow eval Cras consult for bolus PEG feed recommendations (3) CHF (congestive heart failure) Code(s): I50.9 - HEART FAILURE, UNSPECIFIED Status: Acute Qualifiers: Heart failure type: combined systolic and diastolic Heart failure chronicity: acute Qualified Code(s): I50.41 - Acute combined systolic ( congestive) and diastolic (congestive) heart failure Plan: Cardiology on board Has EF of 20% with LVDD and reduced RV systolic function; Global hypokinesis Likely needs ischemia evaluation prior to DC - LHC vs stress test. Will defer to cardiology On presentation, patient had throat swelling concerning for angioedema. ENT recommended avoidance of ACEI/ARBs Will start hydralazine and nitrite therapy. Also, add Toprol XL (4) COPD (chronic obstructive pulmonary disease) Status: Chronic Qualifiers: COPD type: unspecified COPD Qualified Code(s): J44.9 - Chronic obstructive pulmonary disease, unspecified Plan: Not in exacerbation DC duonebs around the clock Duonebs PRN (5) Hypertension Code(s): I10 - ESSENTIAL (PRIMARY) HYPERTENSION Status: Chronic Qualifiers: Hypertension type: essential hypertension Qualified Code(s): I10 - Essential (primary) hypertension Plan: Stable BP Monitor on toprol, hydralazine and nitrite therapy (6) Tobacco abuse Code(s): Z72.0 - TOBACCO USE Status: Chronic Plan: On NRT (7) High total IgG Code(s): R76.8 - OTHER SPECIFIED ABNORMAL IMMUNOLOGICAL FINDINGS IN SERUM Status: Acute Plan: Unknown etiology Patient has had strep bacteremia x 4 in the past 2 yrs Concern for plasma cell dyscrasia given elevated IgG levels Oncology consulted. Will follow recommendations - Plan continue antibiotics, speech therapy, out of bed/ambulate
[2019-03-06 13:09] LABS: #Lymphocytes 0.4 thou/uL (1.20-3.40); #Monocytes 0.8 thou/uL (0.11-0.59); #Neutrophils 6.8 thou/uL (1.40-6.50); %Basophils 0.3 % (0.0-1.0); %Eosinophils 0.1 % (0.0-10.0); %Lymphocytes 4.9 % (21.0-51.0); %Monocytes 10.3 % (0.0-10.0); %Neutrophils 84.4 % (42.0-75.0); Hemoglobin 11.2 g/dL (14.0-18.0); Mean Corpuscular HGB CONC 34.5 g/dL (32.0-36.0); Mean Corpuscular Hemoglobin 31.6 pg (27.0-31.0); Mean Corpuscular Volume 91.6 fL (78.0-98.0); Mean Platelet Volume 9.4 fL (7.4-10.4); Platelet Count 188 thou/uL (130-400); RBC Distribution Width 14.1 % (11.5-14.5); Red Blood Cell (RBC) Count 3.54 mill/uL (4.70-6.10)
[2019-03-06 13:30] LABS: ALT (SGPT) 22 U/L (8-55); AST (SGOT) 10 U/L (5-34); Albumin 2.9 g/dL (3.5-5.0); Alkaline Phosphatase 67 U/L (40-110); Anion Gap 10 mmol/L (10-20); BUN (Urea Nitrogen) 31 mg/dL (8.4-25.7); Bilirubin, Total 0.2 mg/dL (0.2-1.2); Calc. Creatinine Clearance 99 mL/min (70-130); Calcium 8.3 mg/dL (7.8-10.44); Carbon Dioxide 27 mmol/L (22-29); Chloride 98 mmol/L (98-107); Estimated GFR-MDRD 89; Globulin 4.2 g/dL (2.4-3.5); Glucose 214 mg/dL (70-105); Magnesium 1.2 mg/dL (1.6-2.6); Phosphorus 3.6 mg/dL (2.3-4.7); Potassium 3.9 mmol/L (3.5-5.1); Protein, Total 7.1 g/dL (6.0-8.3); Sodium 131 mmol/L (136-145)
[2019-03-06] MEDS: cefTRIAXone\\ROCEPHIN 2 GM in Sodium Chloride 0.9% 100 ML IVPB SCH (17:01)
[2019-03-06] MEDS: HYDROcodone/Acetaminophen 5/325 mg Tablet PO PRN (18:37)
[2019-03-06] MEDS: Amitriptyline HCl 10 MG TAB PO SCH (20:43)
[2019-03-06] MEDS: Atorvastatin Calcium 40 MG TAB PO SCH (20:43)
[2019-03-06] MEDS: Nicotine 21 MG PATCH TOP SCH (20:43)
[2019-03-06] MEDS: hydrALAZINE 25 MG TAB PO SCH (20:43)
[2019-03-06] MEDS: Pantoprazole 40 MG VIAL IVP SCH (20:43)
[2019-03-06] MEDS: Tamsulosin HCl 0.4 MG CAP PO SCH (20:43)
[2019-03-06] MEDS: rOPINIRole HCl 0.5 MG TAB PO SCH (20:44)
[2019-03-06] MEDS: Magnesium Oxide 400 MG TAB PO SCH (20:44)
[2019-03-06] MEDS: Isosorbide Dinitrate 5 MG TAB PO SCH (20:44)
[2019-03-07] MEDS: HYDROcodone/Acetaminophen 5/325 mg Tablet PO PRN ×4 (02:22→20:32)
[2019-03-07 05:56] LABS: Band 7 % (5-11); Hemoglobin 10.9 g/dL (14.0-18.0); Lymphocytes 8 % (21-51); MDiff Complete? YES; Mean Corpuscular HGB CONC 34.2 g/dL (32.0-36.0); Mean Corpuscular Hemoglobin 31.3 pg (27.0-31.0); Mean Corpuscular Volume 91.4 fL (78.0-98.0); Mean Platelet Volume 9.5 fL (7.4-10.4); Monocytes 11 % (0-10); Myelocyte 2 % (0-0); Neutrophil 72 % (42-75); Platelet Count 227 thou/uL (130-400); RBC Distribution Width 14.2 % (11.5-14.5); Red Blood Cell (RBC) Count 3.48 mill/uL (4.70-6.10); White Blood Cell (WBC) Count 8.8 thou/uL (4.8-10.8)
[2019-03-07 06:08] LABS: ALT (SGPT) 24 U/L (8-55); AST (SGOT) 12 U/L (5-34); Albumin 2.7 g/dL (3.5-5.0); Alkaline Phosphatase 53 U/L (40-110); Anion Gap 10 mmol/L (10-20); BUN (Urea Nitrogen) 31 mg/dL (8.4-25.7); Bilirubin, Total 0.2 mg/dL (0.2-1.2); Calc. Creatinine Clearance 102 mL/min (70-130); Calcium 8.1 mg/dL (7.8-10.44); Carbon Dioxide 29 mmol/L (22-29); Chloride 96 mmol/L (98-107); Estimated GFR-MDRD Greater than 90; Globulin 3.9 g/dL (2.4-3.5); Glucose 146 mg/dL (70-105); Magnesium 1.2 mg/dL (1.6-2.6); Phosphorus 3.5 mg/dL (2.3-4.7); Potassium 3.6 mmol/L (3.5-5.1); Protein, Total 6.6 g/dL (6.0-8.3); Sodium 131 mmol/L (136-145)
[2019-03-07] MEDS: levETIRAcetam 500 MG TAB PO SCH ×2 (08:10→20:32)
[2019-03-07] MEDS: Magnesium Oxide 400 MG TAB PO SCH ×2 (09:29→20:31)
[2019-03-07] MEDS: hydrALAZINE 25 MG TAB PO SCH ×2 (09:30→20:32)
[2019-03-07] MEDS: Isosorbide Dinitrate 5 MG TAB PO SCH ×2 (09:34→20:31)
[2019-03-07] MEDS: Pantoprazole 40 MG VIAL IVP SCH ×2 (09:36→20:31)
--- NOTE | 2019-03-07 09:42 | PDOC.HOSPP ---
- Subjective Encounter Date: 03/07/19 Encounter Time: 09:15 Subjective: Patient underwent reevaluation by speech therapy yesterday evening and has been placed on modified diet. The patient reports good PO input. Reports that he is ambulating. Denies N/V/D/C. No fever or chills. No CP, SOB or palpitations. - Objective Vital Signs & Weight: Vital Signs (12 hours) Temp Pulse Resp BP Pulse Ox 03/07/19 09:30 74 03/07/19 07:49 98.3 F 74 22 H 131/72 94 L Weight Admit Weight 171 lb 1.259 oz Weight 171 lb 1.259 oz Most Recent Monitor Data Heart Rate from ECG 92 NIBP 81/56 NIBP BP-Mean 64 Respiration from ECG 13 SpO2 96 I&O: 03/06/19 03/07/19 03/08/19 06:59 06:59 06:59 Intake Total 2070 750 Output Total 900 Balance 1170 750 Result Diagrams: 03/07/19 05:02 03/07/19 05:02 Hospitalist ROS - Medication Medications: Active Medications Generic Name Dose Route Start Last Admin Trade Name Freq PRN Reason Stop Dose Admin Hydrocodone Bitart/Acetaminophen 1 tab 03/06/19 13:04 03/07/19 09:31 [place] 5/325 PO 1 tab Q4H PRN Administration Severe Pain (7-10) Amitriptyline HCl 10 mg 03/01/19 21:00 03/06/19 20:43 Elavil PO 10 mg HS JUAN DAVID Administration Atorvastatin Calcium 80 mg 03/01/19 21:00 03/06/19 20:43 Lipitor PO 80 mg HS JUAN DAVID Administration Hydralazine HCl 25 mg 03/06/19 21:00 03/07/19 09:30 Apresoline PO 25 mg BID JUAN DAVID Administration Ceftriaxone Sodium 2 gm/ 100 mls @ 200 mls/hr 03/01/19 18:00 03/06/19 17:01 Sodium Chloride IVPB 100 mls 1800 JUAN DAVID Administration Isosorbide Dinitrate 5 mg 03/06/19 21:00 03/07/19 09:34 Isordil PO 5 mg BID JUAN DAVID Administration Levetiracetam 500 mg 03/01/19 09:00 03/07/19 08:10 Keppra PO Not Given BID JUAN DAVID Magnesium Oxide 800 mg 03/06/19 21:00 03/07/19 09:29 Magnesium Oxide PO 03/08/19 21:01 800 mg BID JUAN DAVID Administration Metoprolol Succinate 12.5 mg 03/07/19 09:00 03/07/19 09:31 Toprol Xl PO 12.5 mg DAILY JUAN DAVID Administration Nicotine 21 mg 03/01/19 21:00 03/06/19 20:43 Nicoderm Patch TOP 21 mg HS JUAN DAVID Administration Nitroglycerin 0.4 mg 03/02/19 04:58 03/03/19 06:46 Nitrostat SL 0.4 mg Q5MIN PRN Administration Chest Pain Ondansetron HCl 4 mg 03/02/19 14:01 03/02/19 14:03 Zofran SLOW IVP 4 mg Q6H PRN Administration Nausea/Vomiting Pantoprazole Sodium 40 mg 03/06/19 21:00 03/07/19 09:36 Protonix IVP 40 mg BID JUAN DAVID Administration Quetiapine Fumarate 25 mg 03/01/19 21:00 03/06/19 20:44 Seroquel PO 25 mg HS JUAN DAVID Administration Ropinirole HCl 0.5 mg 03/01/19 21:00 03/06/19 20:44 Requip PO 0.5 mg QPM JUAN DAVID Administration Sertraline HCl 50 mg 03/01/19 09:00 03/07/19 09:29 Zoloft PO 50 mg DAILY JUAN DAVID Administration Sodium Chloride 10 ml 02/28/19 09:00 03/07/19 08:10 Flush - Normal Saline IVF Not Given Q12HR JUAN DAVID Tamsulosin HCl 0.4 mg 03/01/19 21:00 03/06/19 20:43 Flomax PO 0.4 mg HS JUAN DAVID Administration - Exam General Appearance: NAD, awake alert Eye: PERRL, anicteric sclera ENT: normocephalic atraumatic Neck: supple, symmetric, no thyromegaly Heart: RRR, no murmur, no gallops, normal peripheral pulses Respiratory: CTAB, no wheezes, normal chest expansion Gastrointestinal: soft, non-tender, non-distended Gastrointestinal - other findings: PEG tube in place Extremities: no cyanosis, no clubbing, no edema Hosp A/P (1) Streptococcal bacteremia Code(s): R78.81 - BACTEREMIA; B95.5 - UNSP STREPTOCOCCUS THE CAUSE OF DISEASES CLASSD ELSWHR Status: Acute (2) Dysphagia Code(s): R13.10 - DYSPHAGIA, UNSPECIFIED Status: Acute Qualifiers: Dysphagia type: oropharyngeal phase Qualified Code(s): R13.12 - Dysphagia, oropharyngeal phase (3) CHF (congestive heart failure) Code(s): I50.9 - HEART FAILURE, UNSPECIFIED Status: Acute Qualifiers: Heart failure type: combined systolic and diastolic Heart failure chronicity: acute Qualified Code(s): I50.41 - Acute combined systolic ( congestive) and diastolic (congestive) heart failure (4) COPD (chronic obstructive pulmonary disease) Status: Chronic Qualifiers: COPD type: unspecified COPD Qualified Code(s): J44.9 - Chronic obstructive pulmonary disease, unspecified (5) Hypertension Code(s): I10 - ESSENTIAL (PRIMARY) HYPERTENSION Status: Chronic Qualifiers: Hypertension type: essential hypertension Qualified Code(s): I10 - Essential (primary) hypertension (6) Tobacco abuse Code(s): Z72.0 - TOBACCO USE Status: Chronic (7) High total IgG Code(s): R76.8 - OTHER SPECIFIED ABNORMAL IMMUNOLOGICAL FINDINGS IN SERUM Status: Acute (8) Gastric ulcer Code(s): K25.9 - GASTRIC ULCER, UNSP ACUTE OR CHRONIC, W/O HEMOR OR PERF Status: Acute Qualifiers: Gastric ulcer chronicity: acute Gastric ulcer complication status: without hemorrhage or perforation Qualified Code(s): K25.3 - Acute gastric ulcer without hemorrhage or perforation - Plan plan discussed w/ family, out of bed/ambulate Hosp A/P (1) Streptococcal bacteremia Repeat blood cultures obtained yesterday. Negative so far ID on board. Continue current IV ABX. Likely transition to PO abx to finish a total of 2 wk duration ABX at discharge High risk due to need for IV ABX and risk of septic shock (2) Dysphagia Speech therapy has reevaluated the patient and he is on a modified diet after understanding the risks of aspiration Dental Office Receptionist consulted for bolus PEG feed recommendations If patient has poor PO intake, then, he will be given PEG feeds. If he has good PO intake, hold PEG feeds (3) CHF (congestive heart failure) Cardiology on board. Case DW Dr. Dr. Jarvis Has EF of 20% with LVDD and reduced RV systolic function; Global hypokinesis Likely needs ischemia evaluation with a LH per cardiology However, given the recent diagnosis of gastric ulcer and high risk of bleeding with any DAPT, no C for now Patient to follow up with cardiology as an outpatient for [facility] shceduling On presentation, patient had throat swelling concerning for angioedema. ENT recommended avoidance of ACEI/ARBs Continue hydralazine and nitrite therapy. Continue Toprol XL (4) COPD (chronic obstructive pulmonary disease) Not in exacerbation Continue Duonebs PRN (5) Hypertension Stable BP Continue toprol, hydralazine and nitrite therapy (6) Tobacco abuse On NRT Continue the same (7) High total IgG Unknown etiology Patient has had strep bacteremia x 4 in the past 2 yrs Concern for plasma cell dyscrasia given elevated IgG levels Oncology consulted. Awaiting consult Will follow oncology recommendations I wonder if he needs a bone marrow biopsy 8) Gastric Ulcer On PPI IV BID Eventual transition to PPI PO BID at the time of discharge per GI GI has signed off Needs outpatient follow up with GI after discharge
--- NOTE | 2019-03-07 10:15 | RAD ---
MODIFIED BARIUM SWALLOW: Date: 03/07/19 The patient was given consistencies of barium under fluoroscopic observation. INDICATION: Neck mass. Dysphagia with feeding difficulties. FINDINGS: There is moderate swallowing dysfunction. There is spillage and pooling in the vallecula and piriform sinuses. Laryngeal penetration and aspiration was noted with thin liquids. IMPRESSION: Moderate swallowing dysfunction with aspiration noted with thin liquids. See speech pathology recomme ndation. EXPOSURE: Fluoro time: 2 minutes POS: OFF
[2019-03-07] MEDS: cefTRIAXone\\ROCEPHIN 2 GM in Sodium Chloride 0.9% 100 ML IVPB SCH (16:17)
[2019-03-07] MEDS: Atorvastatin Calcium 40 MG TAB PO SCH (20:31)
[2019-03-07] MEDS: rOPINIRole HCl 0.5 MG TAB PO SCH (20:31)
[2019-03-07] MEDS: Amitriptyline HCl 10 MG TAB PO SCH (20:32)
[2019-03-07] MEDS: Tamsulosin HCl 0.4 MG CAP PO SCH (20:32)
[2019-03-07] MEDS: Nicotine 21 MG PATCH TOP SCH (20:32)
[2019-03-08 05:27] LABS: #Eosinphils 0.1 thou/uL (0.0-0.7); #Lymphocytes 1.3 thou/uL (1.20-3.40); #Neutrophils 11.5 thou/uL (1.40-6.50); %Basophils 0.1 % (0.0-1.0); %Lymphocytes 9.2 % (21.0-51.0); %Monocytes 7.1 % (0.0-10.0); %Neutrophils 82.5 % (42.0-75.0); Hemoglobin 10.6 g/dL (14.0-18.0); Mean Corpuscular HGB CONC 33.7 g/dL (32.0-36.0); Mean Corpuscular Hemoglobin 31.2 pg (27.0-31.0); Mean Corpuscular Volume 92.4 fL (78.0-98.0); Mean Platelet Volume 9.7 fL (7.4-10.4); Platelet Count 231 thou/uL (130-400); RBC Distribution Width 14.8 % (11.5-14.5); White Blood Cell (WBC) Count 13.9 thou/uL (4.8-10.8)
[2019-03-08 05:47] LABS: Anion Gap 10 mmol/L (10-20); BUN (Urea Nitrogen) 40 mg/dL (8.4-25.7); Calc. Creatinine Clearance 79 mL/min (70-130); Calcium 7.9 mg/dL (7.8-10.44); Carbon Dioxide 30 mmol/L (22-29); Chloride 97 mmol/L (98-107); Estimated GFR-MDRD 68; Glucose 113 mg/dL (70-105); Potassium 3.8 mmol/L (3.5-5.1); Sodium 133 mmol/L (136-145)
[2019-03-08] MEDS: Magnesium Oxide 400 MG TAB PO SCH ×2 (08:39→21:08)
[2019-03-08] MEDS: levETIRAcetam 500 MG TAB PO SCH ×2 (08:39→21:09)
[2019-03-08] MEDS: Pantoprazole 40 MG VIAL IVP SCH ×2 (08:40→21:09)
[2019-03-08] MEDS: Isosorbide Dinitrate 5 MG TAB PO SCH ×2 (08:40→21:08)
[2019-03-08] MEDS: hydrALAZINE 25 MG TAB PO SCH ×2 (08:40→21:08)
[2019-03-08] MEDS: HYDROcodone/Acetaminophen 5/325 mg Tablet PO PRN ×3 (08:45→21:18)
--- NOTE | 2019-03-08 13:28 | PDOC.HOSPP ---
- Subjective Encounter Date: 03/08/19 Encounter Time: 11:37 Subjective: Patient denies any fever or chills. States that he has been tolerating the modified diet. He is eager to be discharged home. On IV abx for his strep bacteremia. - Objective Vital Signs & Weight: Vital Signs (12 hours) Temp Pulse Resp BP BP Pulse Ox 03/08/19 08:40 65 106/62 03/08/19 08:00 95 03/08/19 07:13 97.9 F 65 16 106/62 93 L Weight Admit Weight 171 lb 1.259 oz Weight 171 lb 1.259 oz Most Recent Monitor Data Heart Rate from ECG 92 NIBP 81/56 NIBP BP-Mean 64 Respiration from ECG 13 SpO2 96 I&O: 03/07/19 03/08/19 03/09/19 06:59 06:59 06:59 Intake Total 750 480 Balance 750 480 Result Diagrams: 03/08/19 05:00 03/08/19 05:00 Hospitalist ROS - Medication Medications: Active Medications Generic Name Dose Route Start Last Admin Trade Name Freq PRN Reason Stop Dose Admin Hydrocodone Bitart/Acetaminophen 1 tab 03/06/19 13:04 03/08/19 08:45 [place] 5/325 PO 1 tab Q4H PRN Administration Severe Pain (7-10) Amitriptyline HCl 10 mg 03/01/19 21:00 03/07/19 20:32 Elavil PO 10 mg HS JUAN DAVID Administration Atorvastatin Calcium 80 mg 03/01/19 21:00 03/07/19 20:31 Lipitor PO 80 mg HS JUAN DAVID Administration Hydralazine HCl 25 mg 03/06/19 21:00 03/08/19 08:40 Apresoline PO Not Given BID JUAN DAVID Ceftriaxone Sodium 2 gm/ 100 mls @ 200 mls/hr 03/01/19 18:00 03/07/19 16:17 Sodium Chloride IVPB 100 mls 1800 JUAN DAVID Administration Isosorbide Dinitrate 5 mg 03/06/19 21:00 03/08/19 08:40 Isordil PO 5 mg BID JUAN DAVID Administration Levetiracetam 500 mg 03/01/19 09:00 03/08/19 08:39 Keppra PO 500 mg BID JUAN DAVID Administration Magnesium Oxide 800 mg 03/06/19 21:00 03/08/19 08:39 Magnesium Oxide PO 03/08/19 21:01 800 mg BID JUAN DAVID Administration Metoprolol Succinate 12.5 mg 03/07/19 09:00 03/08/19 08:39 Toprol Xl PO 12.5 mg DAILY JUAN DAVID Administration Nicotine 21 mg 03/01/19 21:00 03/07/19 20:32 Nicoderm Patch TOP 21 mg HS JUAN DAVID Administration Nitroglycerin 0.4 mg 03/02/19 04:58 03/03/19 06:46 Nitrostat SL 0.4 mg Q5MIN PRN Administration Chest Pain Ondansetron HCl 4 mg 03/02/19 14:01 03/02/19 14:03 Zofran SLOW IVP 4 mg Q6H PRN Administration Nausea/Vomiting Pantoprazole Sodium 40 mg 03/06/19 21:00 03/08/19 08:40 Protonix IVP 40 mg BID JUAN DAVID Administration Quetiapine Fumarate 25 mg 03/01/19 21:00 03/07/19 20:31 Seroquel PO 25 mg HS JUAN DAVID Administration Ropinirole HCl 0.5 mg 03/01/19 21:00 03/07/19 20:31 Requip PO 0.5 mg QPM JUAN DAVID Administration Sertraline HCl 50 mg 03/01/19 09:00 03/08/19 08:40 Zoloft PO 50 mg DAILY JUAN DAVID Administration Sodium Chloride 10 ml 02/28/19 09:00 03/08/19 08:41 Flush - Normal Saline IVF 10 ml Q12HR JUAN DAVID Administration Tamsulosin HCl 0.4 mg 03/01/19 21:00 03/07/19 20:32 Flomax PO 0.4 mg HS JUAN DAVID Administration - Exam General Appearance: NAD, awake alert Heart: RRR, no murmur, normal peripheral pulses Respiratory: CTAB, no wheezes, normal chest expansion Gastrointestinal: soft, non-tender, non-distended, normal bowel sounds Hosp A/P (1) Streptococcal bacteremia Code(s): R78.81 - BACTEREMIA; B95.5 - UNSP STREPTOCOCCUS THE CAUSE OF DISEASES CLASSD ELSWHR Status: Acute (2) Dysphagia Code(s): R13.10 - DYSPHAGIA, UNSPECIFIED Status: Acute Qualifiers: Dysphagia type: oropharyngeal phase Qualified Code(s): R13.12 - Dysphagia, oropharyngeal phase (3) CHF (congestive heart failure) Code(s): I50.9 - HEART FAILURE, UNSPECIFIED Status: Acute Qualifiers: Heart failure type: combined systolic and diastolic Heart failure chronicity: acute Qualified Code(s): I50.41 - Acute combined systolic ( congestive) and diastolic (congestive) heart failure (4) COPD (chronic obstructive pulmonary disease) Status: Chronic Qualifiers: COPD type: unspecified COPD Qualified Code(s): J44.9 - Chronic obstructive pulmonary disease, unspecified (5) Hypertension Code(s): I10 - ESSENTIAL (PRIMARY) HYPERTENSION Status: Chronic Qualifiers: Hypertension type: essential hypertension Qualified Code(s): I10 - Essential (primary) hypertension (6) Tobacco abuse Code(s): Z72.0 - TOBACCO USE Status: Chronic (7) High total IgG Code(s): R76.8 - OTHER SPECIFIED ABNORMAL IMMUNOLOGICAL FINDINGS IN SERUM Status: Acute (8) Gastric ulcer Code(s): K25.9 - GASTRIC ULCER, UNSP ACUTE OR CHRONIC, W/O HEMOR OR PERF Status: Acute Qualifiers: Gastric ulcer chronicity: acute Gastric ulcer complication status: without hemorrhage or perforation Qualified Code(s): K25.3 - Acute gastric ulcer without hemorrhage or perforation - Plan DVT proph w/SCDs Hosp A/P (1) Streptococcal bacteremia Repeat blood cultures have been negative so far ID on board. Continue current IV ABX. Duration and route of abx based on ID recommendations (2) Dysphagia Modified Ba swallow demonstrated some penetration DW patient regarding high risk of aspiration pneumonia Pt. states he wants to continue eating despite the high risk He is agreeable to keep the PEG tube though (3) CHF (congestive heart failure) Cardiology on board. Has EF of 20% with LVDD and reduced RV systolic function; Global hypokinesis Likely needs ischemia evaluation with a LH per cardiology However, given the recent diagnosis of gastric ulcer and high risk of bleeding with any DAPT, no [facility] for now Patient to follow up with cardiology as an outpatient for [facility] shceduling On presentation, patient had throat swelling concerning for angioedema. ENT recommended avoidance of ACEI/ARBs Continue hydralazine and nitrite therapy. May consider spironolactone eventually for optimization of medical therapy Continue Toprol XL (4) COPD (chronic obstructive pulmonary disease) Not in exacerbation Continue Duonebs PRN (5) Hypertension Well controlled BP Continue toprol, hydralazine and nitrite therapy (6) Tobacco abuse On NRT Continue the same (7) High total IgG Unknown etiology Patient has had strep bacteremia x 4 in the past 2 yrs Concern for plasma cell dyscrasia given elevated IgG levels Oncology consulted. Awaiting consult Will follow oncology recommendations I wonder if he needs a bone marrow biopsy 8) Gastric Ulcer On PPI IV BID Eventual transition to PPI PO BID at the time of discharge per GI GI has signed off Needs outpatient follow up with GI after discharge for possible repeat EGD to assess his gastric ulcer
[2019-03-08 15:09] LABS: Kappa Lambda Light Chain Ratio 0.2 (0.26-1.65); Kappa Light Chains 8.5 mg/L (3.3-19.4); Lambda Light Chain 42.1 mg/L (5.7-26.3)
[2019-03-08] MEDS: cefTRIAXone\\ROCEPHIN 2 GM in Sodium Chloride 0.9% 100 ML IVPB SCH (17:25)
[2019-03-08] MEDS: Amitriptyline HCl 10 MG TAB PO SCH (21:07)
[2019-03-08] MEDS: Atorvastatin Calcium 40 MG TAB PO SCH (21:07)
[2019-03-08] MEDS: Nicotine 21 MG PATCH TOP SCH (21:09)
[2019-03-08] MEDS: Tamsulosin HCl 0.4 MG CAP PO SCH (21:10)
[2019-03-08] MEDS: rOPINIRole HCl 0.5 MG TAB PO SCH (21:10)
[2019-03-09] MEDS: HYDROcodone/Acetaminophen 5/325 mg Tablet PO PRN ×3 (01:24→09:41)
[2019-03-09 06:38] LABS: #Eosinphils 0.1 thou/uL (0.0-0.7); #Lymphocytes 1.9 thou/uL (1.20-3.40); #Monocytes 0.9 thou/uL (0.11-0.59); #Neutrophils 9.5 thou/uL (1.40-6.50); %Basophils 0.3 % (0.0-1.0); %Eosinophils 0.6 % (0.0-10.0); %Lymphocytes 15.5 % (21.0-51.0); %Monocytes 7.5 % (0.0-10.0); %Neutrophils 76.1 % (42.0-75.0); Hemoglobin 11.9 g/dL (14.0-18.0); Mean Corpuscular HGB CONC 32.9 g/dL (32.0-36.0); Mean Corpuscular Hemoglobin 30.7 pg (27.0-31.0); Mean Corpuscular Volume 93.4 fL (78.0-98.0); Mean Platelet Volume 9.4 fL (7.4-10.4); Platelet Count 242 thou/uL (130-400); RBC Distribution Width 14.9 % (11.5-14.5); Red Blood Cell (RBC) Count 3.88 mill/uL (4.70-6.10); White Blood Cell (WBC) Count 12.5 thou/uL (4.8-10.8)
[2019-03-09 07:00] LABS: Anion Gap 10 mmol/L (10-20); BUN (Urea Nitrogen) 34 mg/dL (8.4-25.7); Calc. Creatinine Clearance 86 mL/min (70-130); Calcium 8.5 mg/dL (7.8-10.44); Carbon Dioxide 29 mmol/L (22-29); Chloride 99 mmol/L (98-107); Estimated GFR-MDRD 75; Glucose 117 mg/dL (70-105); Potassium 3.6 mmol/L (3.5-5.1); Sodium 134 mmol/L (136-145)
[2019-03-09] MEDS: levETIRAcetam 500 MG TAB PO SCH (08:33)
[2019-03-09] MEDS: hydrALAZINE 25 MG TAB PO SCH (08:34)
[2019-03-09] MEDS: Isosorbide Dinitrate 5 MG TAB PO SCH (08:34)
[2019-03-09] MEDS: Pantoprazole 40 MG VIAL IVP SCH (08:34)
--- NOTE | 2019-03-09 11:25 | PDOC.CPN ---
- Subjective Date: 03/09/19 Time: 10:45 Interval history: Doing well. Breathing back to baseline. no angina. He wants to go home. - Review of Systems General: denies: fever/chills, weight/appetite/sleep changes, night sweats, fatigue Respiratory: denies: cough, congestion, shortness of breath, exercise intolerance Cardiovascular: denies: chest pain, palpitation, edema, paroxysmal nocturnal dyspnea, orthopnea Gastrointestinal: denies: nausea, vomiting, diarrhea, constipation, abd pain, GI bleeding Musculoskeletal: denies: pain, tenderness, stiffness, swelling, arthritis/ arthralgias Neurological: denies: numbness, syncope, seizure, weakness - Objective Allergies/Adverse Reactions: Allergies Allergy/AdvReac Type Severity Reaction Status Date / Time No Known Drug Allergies Allergy Verified 02/28/19 15:19 Visit Medications: Current Medications Acetaminophen (Tylenol) 650 mg PO Q4H PRN PRN Reason: Headache/Fever/Mild Pain (1-3) Last Admin: 03/09/19 08:33 Dose: 650 mg Hydrocodone Bitart/Acetaminophen ([place] 5/325) 1 tab PO Q4H PRN PRN Reason: Severe Pain (7-10) Last Admin: 03/09/19 09:41 Dose: 1 tab Albuterol/Ipratropium (Duoneb) 3 ml NEB Q2H PRN PRN Reason: SOB &/or Wheezing Amitriptyline HCl (Elavil) 10 mg PO HS [facility] Last Admin: 03/08/19 21:07 Dose: 10 mg Atorvastatin Calcium (Lipitor) 80 mg PO HS [facility] Last Admin: 03/08/19 21:07 Dose: 80 mg Hydralazine HCl (Apresoline) 25 mg PO BID [facility] Last Admin: 03/09/19 08:34 Dose: Not Given Ceftriaxone Sodium 2 gm/ (Sodium Chloride) 100 mls @ 200 mls/hr IVPB 1800 [facility] Last Admin: 03/08/19 17:25 Dose: 100 mls Isosorbide Dinitrate (Isordil) 5 mg PO BID [facility] Last Admin: 03/09/19 08:34 Dose: 5 mg Levetiracetam (Keppra) 500 mg PO BID [facility] Last Admin: 03/09/19 08:33 Dose: 500 mg Metoprolol Succinate (Toprol Xl) 12.5 mg PO DAILY [facility] Last Admin: 03/09/19 08:33 Dose: 12.5 mg Nicotine (Nicoderm Patch) 21 mg TOP HS [facility] Last Admin: 03/08/19 21:09 Dose: 21 mg Nitroglycerin (Nitrostat) 0.4 mg SL Q5MIN PRN PRN Reason: Chest Pain Last Admin: 03/03/19 06:46 Dose: 0.4 mg Ondansetron HCl (Zofran) 4 mg SLOW IVP Q6H PRN PRN Reason: Nausea/Vomiting Last Admin: 03/02/19 14:03 Dose: 4 mg Pantoprazole Sodium (Protonix) 40 mg IVP BID [facility] Last Admin: 03/09/19 08:34 Dose: 40 mg Quetiapine Fumarate (Seroquel) 25 mg PO HS [facility] Last Admin: 03/08/19 21:10 Dose: 25 mg Ropinirole HCl (Requip) 0.5 mg PO QPM [facility] Last Admin: 03/08/19 21:10 Dose: 0.5 mg Sertraline HCl (Zoloft) 50 mg PO DAILY [facility] Last Admin: 03/09/19 08:33 Dose: 50 mg Sodium Chloride (Flush - Normal Saline) 10 ml IVF Q12HR [facility] Last Admin: 03/09/19 08:35 Dose: 10 ml Sodium Chloride (Flush - Normal Saline) 10 ml IVF PRN PRN PRN Reason: Saline Flush Tamsulosin HCl (Flomax) 0.4 mg PO HS [facility] Last Admin: 03/08/19 21:10 Dose: 0.4 mg Vital Signs & Weight: Vital Signs Temp Pulse Resp BP BP Pulse Ox 03/09/19 08:34 72 115/70 03/09/19 08:00 93 L 03/09/19 07:23 99 F 72 18 115/70 93 L Admit Weight 171 lb 1.259 oz Weight 171 lb 1.259 oz - Physical Exam General: alert & oriented x3 HEENT: mucus membranes moist Neck: supple neck Cardiac: regular rate and rhythm, no murmur Lungs: clear to auscultation Neuro: grossly intact Abdomen: active bowel sounds Extremities: no edema Skin: clear Musculoskeletal: no pain - Labs Result Diagrams: 03/09/19 06:22 03/09/19 06:22 Troponin/CKMB CK-MB (CK-2) 1.0 ng/mL (0-6.6) 02/28/19 02:53 Troponin I 0.019 ng/mL (< 0.028) 03/05/19 01:23 - Assessment/Plan Assessment/Plan: 1. Acute on chronic systolic heart failure 2. Gastric ulcers. 3. HTN 4. OLGA on CKD 5. COPD 6. Alcohol abuse PLAN: - Continue medical therapy. - We recommend lifevest before discharge for primary prevention of SCD. He is currently not interested in this. He wants to go home. He understands he is at higher risk for SCD, he verbalizes understanding of this. - Alcohol use cessation counselling. - May discharge any time from cardiac perspective. - Dr. Reardon Pt. Follow up with Amalia or Dr. Reardon in 1 month.
--- NOTE | 2019-03-09 14:44 | CON ---
DATE OF CONSULTATION: REASON FOR CONSULTATION: Hypergammaglobulinemia. HISTORY OF PRESENT ILLNESS: A 59-year-old male with COPD, CHF, CVA, seizure, and tobacco abuse, presenting to the hospital with shortness of breath, severe sepsis, and respiratory failure. The patient has a history of multiple episodes of pneumonia and strep pneumo, currently with strep pneumo bacteremia. The patient has severe dysphagia with high risk respiration is being followed by GI and also has CHF with an EF of 20% to 25% during this admission. He had multiple episodes of strep pneumo. His immunoglobulin levels were checked and he was found to have severely high IgG of 4778 and low IgA and IgM. His C3 complement was also low with normal C4. An SPEP was sent; however, quantity was not sufficient for analysis and the test could not be done. The patient denies any history of monoclonal gammopathies or any family history of cancer. He denies any kidney disease or bone pains, other than a left rotator cuff injury. REVIEW OF SYSTEMS: Ten-point review of systems negative except as per HPI. PAST MEDICAL HISTORY: COPD, multiple episodes of pneumonia, CHF, CVAs, and seizure. PAST SURGICAL HISTORY: Bowel resection and colostomy, tonsillectomy, tracheostomy. FAMILY HISTORY: No cancer. SOCIAL HISTORY: Tobacco abuse. Social alcohol drinker. CURRENT MEDICATIONS: Reviewed. ALLERGIES: NO KNOWN DRUG ALLERGIES. PHYSICAL EXAMINATION: VITAL SIGNS: Temperature 99, pulse 72, respirations 18, saturating 93% on room air, and blood pressure 115/70. GENERAL APPEARANCE: The patient is lying in bed, in no acute distress. HEENT: Normocephalic and atraumatic. NECK: Supple with no lymphadenopathy. CARDIAC: S1 and S2. Regular rhythm and rate. LUNGS: Respirations are nonlabored and clear. ABDOMEN: Soft and nontender. Left-sided colostomy. LABORATORY DATA: White blood cells 12.5, hemoglobin 11.9, and platelets 242. Sodium 134, potassium 3.6, BUN 34, creatinine 1.02, calcium 8.5, albumin 2.7, total protein 6.6, and globulin 3.9. IgG 4778, IgA 5, IgM 7, C3 of 30, C4 of 16.6, free kappa light chain 8.5, free lambda light chain 42.1, and free light chain ratio 0.20. IMAGING DATA: Echocardiogram dated January 28, 2019 shows an EF of 20% to 25%. 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 The patient does not have any signs or symptoms of active myeloma; however, does have a very high IgG level, which is suspicious. An SPEP was sent; however, was QNS, hence so has to be repeated today. He has very minimally increased lambda chains in the blood as well. Other causes for hypergammaglobulinemia include infection, liver disease, and autoimmune disease, which he may have given his low C3. He does not have any CRAB criteria or diagnosis of active myeloma; however, it is not a dedicated images of its bones, which is not required at this time unless his SPEP shows a monoclonal gammopathy. If he does have an M-spike, I then recommended full evaluation with skeletal survey or PET and bone marrow biopsy, UPEP/CRISTIAN. However, this is not needed at this time. The SPEP will take days to come back and so if he is stable for discharge, he may follow up in the clinic if this test is positive. Thank you for this consult. Job ID: [id number]
[2019-03-09 16:11] VITALS: BP 125/72; TEMP 98.8
--- NOTE | 2019-03-09 18:58 | DIS ---
DATE OF ADMISSION: 02/28/2019 DATE OF DISCHARGE: 03/09/2019 ADMISSION DIAGNOSES: 1. Acute hypoxic respiratory failure. 2. Submandibular lesion. 3. Septic shock. 4. Metabolic acidosis with lactic acidosis. 5. Elevated BNP. 6. Indeterminate troponins consistent with non-ST segment elevation myocardial infarction. 7. Acute kidney injury. 8. History of tobacco abuse. 9. History of chronic obstructive pulmonary disease. DISCHARGE DIAGNOSES: 1. Streptococcal bacteremia. 2. Dysphagia with submandibular mass evaluated by ENT, Dr. Chapman. 3. Acute combined systolic and diastolic congestive heart failure. 4. Chronic obstructive pulmonary disease without exacerbation. 5. Essential hypertension. 6. Tobacco abuse. 7. High total IgG suspicious for plasma cell dyscrasia. 8. Gastric ulcer. 9. Dysphagia status post PEG tube placement. CONSULTATIONS: 1. ENT, Dr. Tommie Chapman. 2. Dr. Amalia Purvis, Cardiology. 3. Dr. Elvin Lugo, Infectious Disease. 4. Gastroenterology, Dr. Beltran. PERTINENT PROCEDURES AND IMAGING: The patient underwent an echocardiogram which revealed an ejection fraction of 20% to 25% with grade 3 diastolic dysfunction. Severe global hypokinesis with dilated left ventricle and dilated right ventricle with reduced right ventricular systolic function. IVC was dilated. The patient underwent CT scan of the neck on the day of presentation without contrast. This revealed severe soft tissue thickening of the supraglottic larynx suspicious for laryngeal cancer. Extensive edema throughout central deep soft tissues of the neck uncertain whether or not there is superimposed infection. Narrowing of oropharyngeal airway due to superior extent of posterior pharyngeal wall component of superimposed glottic laryngeal mask. Otolaryngology consultation recommended. The patient underwent an abdominal ultrasound on 03/03/2019 which revealed cholelithiasis without any Morfin sign. No evidence of biliary ductal dilatation. HOSPITAL COURSE: The patient is a 59-year-old male with a history of tobacco use and history of COPD who presented to the emergency department due to pain in the right lower jaw area associated with difficulty swallowing and shortness of breath. The patient underwent a CT scan which revealed findings suspicious for supraglottic laryngeal mass and pharyngeal cancer. ENT was consulted and the patient was evaluated by Dr. Chapman. The patient was felt to require outpatient followup and further interventions. However, Dr. Chapman obtained that the patient may have angioedema and recommended that the patient be taken off any ARMIN inhibitors or angiotensin-receptor blockers. Hence, it was discontinued. As the patient was short of breath, an echocardiogram was performed which revealed reduced ejection fraction and global hypokinesis. Cardiology was consulted. The patient also had mild elevated troponin levels and there was suspicion for non-STEMI. The patient received adequate treatment. The patient's blood cultures were positive for Streptococcus pneumoniae. The patient received this consultation and the patient was evaluated by Dr. Lugo. Repeat blood cultures have been negative so far. As the patient has had recurrent streptococcal pneumoniae bacteremia x4 in the last 2 years, there is a suspicion for plasma cell dyscrasia or immune disorder. Hence, IgG levels were obtained. There was significant elevation of IgG levels which were suspicious for plasma cell dyscrasia. Hence, SPEP and UPEP were sent. These are currently pending at the time of discharge. Oncology was consulted and the patient has been evaluated by Dr. Pacheco who has stated that the patient can be discharged and he is to follow up as an outpatient with Oncology to follow up on the results of SPEP and UPEP. The patient was found to have dysphagia and needed PEG tube placement. Gastroenterology was consulted and the patient had PEG tube placement. During PEG tube placement, EGD revealed gastric ulcer. This was cauterized and injected with epinephrine. The patient was continued on intravenous Protonix throughout the hospital stay. Gastroenterology recommended the patient required at least 2 more months of b.i.d. proton pump inhibitors. Cardiology stated that the patient would require eventual ischemia workup. However, ischemia workup is not warranted at this time as the patient has active gastric ulcer and is not a candidate for antiplatelet therapy. Hence, it was recommended the patient will follow up with Cardiology in 1 month. As the patient is back to baseline and blood cultures have been negative so far, the patient has been deemed stable to be discharged home with outpatient followup with Cardiology, Gastroenterology, Oncology, Otolaryngology. On the day of discharge, the patient is sitting in the bed and appears to be in no acute distress. The patient is eager to be discharged home. Auscultation of the lungs revealed clear breath sounds bilaterally. DISCHARGE INSTRUCTIONS: 1. Discharge disposition: Home with home health. 2. Discharge medications: Reconciled. Please review the discharge reconciliation report. 3. Discharge followup: Dr. Tao Pacheco in 2 to 3 weeks, Dr. Howie Reardon in 3 to 4 weeks, Dr. Antoine Beltran in 3 to 4 weeks, Dr. Tommie Chapman in 2 to 3 weeks. 4. Discharge activity: As tolerated. 5. Discharge diet: Tube feeding diet, however, the patient stated that he would like to consume diet by mouth. Hence, he was recommended to be on heart healthy, low sodium diet that is pureed thickened with nectar thick liquids without the use of a straw, but consuming liquids with spoon with extremely high aspiration risk. The patient stated that he understands high aspiration risk, but would continue to eat by mouth and would not use feeding tube. DISCHARGE FOLLOWUP THERAPIES: Physical Therapy and Speech Therapy. TIME SPENT: Total time taken for discharge 45 minutes. Job ID: [id number]
--- NOTE | 2019-03-09 21:08 | EKG ---
Test Reason : Blood Pressure : / mmHG Vent. Rate : 127 BPM Atrial Rate : 127 BPM P-R Int : 156 ms QRS Dur : 088 ms QT Int : 296 ms P-R-T Axes : 114 -30 104 degrees QTc Int : 430 ms Sinus tachycardia Left axis deviation Anteroseptal infarct , age undetermined Abnormal ECG Confirmed by STEFANIA UGALDE ([id number]), editor trade journal PEPPER HARRIS ([id number]) on 03/09/2019 9:07:31 PM Referred By: Confirmed By:STEFANIA UGALDE
== END 2019-03-09 16:12 | disposition home health service (06) | DRG 871 ==
LOC: ERS 02:27 → ERHOLD 04:19 → T4-A 08:23 → CCU 08:30 → T4-A 03-01 12:43
PROVIDERS: ADMIT Family Medicine; ATTEND Family Medicine
PROC: 3E0G8GC Introduction of Other Therapeutic Substance into Upper GI, Via Natural or Artificial Opening Endoscopic (ICD-10-PCS; principal; 2019-03-03)
PROC: 0W3P8ZZ Control Bleeding in Gastrointestinal Tract, Via Natural or Artificial Opening Endoscopic (ICD-10-PCS; 2019-03-03)
PROC: 0DH63UZ Insertion of Feeding Device into Stomach, Percutaneous Approach (ICD-10-PCS; 2019-03-03)
DX: A41.9 Sepsis, unspecified organism (principal); J18.9 Pneumonia, unspecified organism; J96.01 Acute respiratory failure with hypoxia; R65.21 Severe sepsis with septic shock; I50.41 Acute combined systolic (congestive) and diastolic (congestive) heart failure; K25.4 Chronic or unspecified gastric ulcer with hemorrhage; I21.4 Non-ST elevation (NSTEMI) myocardial infarction; N17.9 Acute kidney failure, unspecified; E87.2 Acidosis; I42.9 Cardiomyopathy, unspecified; I13.0 Hypertensive heart and chronic kidney disease with heart failure and stage 1 through stage 4 chronic kidney disease, or unspecified chronic kidney disease; D63.1 Anemia in chronic kidney disease; R13.10 Dysphagia, unspecified; N18.3 Chronic kidney disease, stage 3 (moderate); E78.5 Hyperlipidemia, unspecified; J44.9 Chronic obstructive pulmonary disease, unspecified; R22.0 Localized swelling, mass and lump, head; B95.5 Unspecified streptococcus as the cause of diseases classified elsewhere; F10.20 Alcohol dependence, uncomplicated; F32.9 Major depressive disorder, single episode, unspecified; G40.909 Epilepsy, unspecified, not intractable, without status epilepticus; N40.0 Benign prostatic hyperplasia without lower urinary tract symptoms; F17.210 Nicotine dependence, cigarettes, uncomplicated; Z86.73 Personal history of transient ischemic attack (TIA), and cerebral infarction without residual deficits; Z87.01 Personal history of pneumonia (recurrent); Z93.3 Colostomy status
CPT/HCPCS: 36415; 36416; 70490; 71045; 74230; 76705; 80048; 80053; 81003; 81015; 82553; 82805; 83605; 83735; 83880; 83883; 84100; 84145; 84165; 84484; 85025; 86038; 86160; 86225; 86803; 86850; 86900; 86901; 87040; 87077; 87149; 87186; 87389; 87804; 93005; 93010; 93306; 94640; C9113; J0131; J0171; J0456; J0696; J1100; J1885; J1940; J2001; J2060; J2250; J2270; J2405; J2543; J2704; J2930; J3010; J3370; J3475; J3490; J7050; J7620